=== PATIENT | female | born 1930 | race Caucasian/White ===

== ENCOUNTER → 2016-11-26 | Outpatient (CLI) | payer MEDICARE, BC ==
[~2016-11-26] MED LIST: DENOSUMAB 60 MG/ML 1 ML SYRINGE SQ ONE
[2016-11-26 09:19] VITALS: BP 131/63; PULSE 68; RESP 16; TEMP 98.6
== END ==
LOC: PROCWHC3 08:52
PROVIDERS: ATTEND Family Medicine
DX: M81.0 Age-related osteoporosis without current pathological fracture (principal)
CPT/HCPCS: 96372; J0897

== ENCOUNTER → 2017-01-05 | Outpatient (CLI) | payer MEDICARE, BC ==
[2017-01-05 13:20] LABS: Blood Urea Nitrogen 12 mg/dL (7-17); Non-African American GFR(MDRD) 58 (>60 ml/min/1.73 sqM)
--- NOTE | 2017-01-05 14:38 | CT ---
EXAMINATION TYPE: CT facial bones w con DATE OF EXAM: 01/05/2017 COMPARISON: NONE HISTORY: Left sided nasal bone obstruction CT DLP: 591 mGycm Automated exposure control for dose reduction was used. CONTRAST: CT scan of the facial bones is performed with IV Contrast, patient injected with 80 mL of Visipaque 3 20. TECHNIQUE: CT scan of the sinuses is performed without contrast, axial images are obtained, coronal r eformatted images are also reviewed. FINDINGS: The paranasal sinuses including the frontal, ethmoid, sphenoid, and maxillary sinuses bila terally are well-aerated without abnormal opacification. The ostiomeatal complex is patent bilateral ly on the coronal images. Nasal septum is slightly deviated to left of midline. There is slight thickening of nasal bridge part icularly on the left. Findings may reflect product of old trauma. No suspicious soft tissue mass or w orrisome focal lytic or sclerotic lesion is evident. No obstructing mass is clearly seen. 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 No suspicious opacification on the right is present. The globes are i ntact bilaterally. Lenses are thinned. Visualized portion of brain shows generalized atrophy and chr onic small vessel ischemic change. IMPRESSION: The sinuses are clear and the ostiomeatal complex is patent bilaterally. Other findings a s noted above.
== END | disposition home or self-care (01) ==
LOC: RADCTMAIN 12:40
PROVIDERS: ATTEND Otolaryngology
DX: H04.552 Acquired stenosis of left nasolacrimal duct (principal)
CPT/HCPCS: 82565; 84520; 70487; 36415; Q9967

== ENCOUNTER → 2017-02-19 | Outpatient (CLI) | payer MEDICARE, BC ==
--- NOTE | 2017-02-19 07:52 | CT ---
EXAMINATION TYPE: CT brain wo con DATE OF EXAM: 02/19/2017 COMPARISON: NONE HISTORY: Contusion CT DLP: [address] of the brain was performed. The ventricles, basal cisterns and sulci overlying the cerebral convexities demonstrate mild enlargem ent. There is no evidence for intracranial hemorrhage or sulcal effacement. There is decreased attenuation about the periventricular white matter and deep white matter of both c erebral hemispheres, compatible with chronic small vessel ischemia. Differential diagnosis does inclu de demyelination. No mass effects are seen.No midline shift. Osseous calvarium is intact. If symptoms persist consider MRI. IMPRESSION: 1. Age related atrophic and chronic small vessel ischemic change without acute intracranial process s een at this time.
== END | disposition home or self-care (01) ==
LOC: RADCTMAIN 07:19
PROVIDERS: ATTEND Family Medicine
DX: G31.9 Degenerative disease of nervous system, unspecified (principal); I67.82 Cerebral ischemia
CPT/HCPCS: 70450

== ENCOUNTER 2017-02-28 10:32 | Emergency (ER) | payer MEDICARE, BC ==
[2017-02-28] MEDS ORDERED: SODIUM CHLORIDE 0.9% 1,000 ML IV STA (11:01)
--- NOTE | 2017-02-28 11:04 | ED ---
General Adult HPI - General Chief complaint: Back Pain/Injury Stated complaint: back pain Time Seen by Provider: 02/28/17 10:49 Source: patient, family, RN notes reviewed Mode of arrival: ambulatory Limitations: no limitations - History of Present Illness Initial comments: Patient is a pleasant 86-year-old female presenting to the emergency department complaining of right-sided back pain. Onset was a week or 2 ago. Discomfort has been somewhat steady. Discomfort is not positional. Discomfort is right mid to lower back. Below the ribs. No dysuria or hematuria. No abdominal pain. No fevers. Discomfort is somewhat improved with Tylenol and Motrin. No history of discomfort in this region previously. - Related Data Home Medications Medication Instructions Recorded Confirmed Citalopram Hydrobromide 40 mg PO HS 05/22/14 02/28/17 [Citalopram HBr] Cyanocobalamin [Vitamin B-12] 500 mcg PO DAILY 05/22/14 02/28/17 Simvastatin [Zocor] 40 mg PO HS 05/22/14 02/28/17 Aspirin EC [Ecotrin Low Dose] 81 mg PO DAILY 02/28/17 02/28/17 Denosumab [Prolia] 60 mg SQ Q180D 02/28/17 02/28/17 Levothyroxine Sodium [Synthroid] 88 mcg PO DAILY 02/28/17 02/28/17 Magnesium Oxide [Mag-Ox] 400 mg PO DAILY 02/28/17 02/28/17 Mesalamine [Asacol Hd] 800 mg PO DAILY 02/28/17 02/28/17 Multivitamins, Thera [Multivitamin 1 tab PO DAILY 02/28/17 02/28/17 (formulary)] Omeprazole [PriLOSEC] 20 mg PO DAILY 02/28/17 02/28/17 Oxybutynin Xl [Ditropan Xl] 5 mg PO HS 02/28/17 02/28/17 amLODIPine [Norvasc] 5 mg PO DAILY 02/28/17 02/28/17 Allergies Allergy/AdvReac Type Severity Reaction Status Date / Time Penicillins Allergy Intermediate Rash/Hives Verified 02/28/17 10:42 linaclotide [From Linzess] AdvReac Diarrhea Verified 02/28/17 10:42 Narcotics AdvReac Hallucinati Uncoded 02/28/17 12:15 ons Review of Systems ROS Statement: Those systems with pertinent positive or pertinent negative responses have been documented in the HPI. ROS Other: All systems not noted in ROS Statement are negative. Constitutional: Denies: fever Eyes: Denies: eye pain ENT: Denies: ear pain Respiratory: Denies: cough Cardiovascular: Denies: chest pain Endocrine: Denies: fatigue Gastrointestinal: Denies: abdominal pain, nausea, vomiting Genitourinary: Denies: urgency, dysuria, frequency, hematuria Musculoskeletal: Reports: back pain Skin: Denies: rash Neurological: Denies: weakness Past Medical History Past Medical History: GERD/Reflux, Hyperlipidemia, Osteoarthritis (OA), Pneumonia, Thyroid Disorder Additional Past Medical History / Comment(s): STATES HAS DOUBLE VISION, STATES HAS REDDENED,SORE AREA TO TIP OF EAR, History of Any Multi-Drug Resistant Organisms: None Reported Past Surgical History: Appendectomy, Hysterectomy, Tonsillectomy Additional Past Surgical History / Comment(s): BILATERAL CATARACTS. Past Anesthesia/Blood Transfusion Reactions: No Reported Reaction Past Psychological History: Anxiety, Depression Smoking Status: Never smoker Past Alcohol Use History: None Reported Past Drug Use History: None Reported - Past Family History Father Family Medical History: Cancer, Myocardial Infarction (SD) Mother Family Medical History: Cancer, Myocardial Infarction (SD) General Exam Limitations: no limitations General appearance: alert, in no apparent distress Head exam: Present: atraumatic Eye exam: Present: normal appearance, PERRL ENT exam: Present: normal oropharynx Neck exam: Present: normal inspection Respiratory exam: Present: normal lung sounds bilaterally Cardiovascular Exam: Present: regular rate, normal rhythm Expanded Peripheral pulses: 2+: Dorsalis Pedis (R), Dorsalis Pedis (L) GI/Abdominal exam: Present: soft, normal bowel sounds. Absent: distended, tenderness, guarding, rebound, rigid, pulsatile mass Extremities exam: Present: normal inspection Back exam: Present: CVA tenderness (R). Absent: paraspinal tenderness, vertebral tenderness Neurological exam: Present: alert Psychiatric exam: Present: normal affect, normal mood Skin exam: Present: normal color Course Vital Signs 02/28/17 02/28/17 02/28/17 10:40 12:16 13:19 Temperature 97.0 F L Pulse Rate 75 58 L 78 Respiratory 20 18 18 Rate Blood Pressure 124/57 159/67 123/60 O2 Sat by Pulse 98 99 95 Oximetry Medical Decision Making - Medical Decision Making Patient reexamined and resting comfortably in bed. Patient updated on results and need for follow-up. Patient is informed that she should consider having endoscopy done. - Lab Data Result diagrams: 02/28/17 11:11 02/28/17 11:11 Lab Results 02/28/17 02/28/17 02/28/17 Range/Units 11:11 11:11 11:11 WBC 5.1 (3.8-10.6) k/uL RBC 3.34 L (3.80-5.40) m/uL Hgb 10.6 L (11.4-16.0) gm/dL Hct 31.3 L (34.0-46.0) % MCV 93.7 (80.0-100.0) fL MCH 31.7 (25.0-35.0) pg MCHC 33.8 (31.0-37.0) g/dL RDW 14.1 (11.5-15.5) % Plt Count 195 (150-450) k/uL Neutrophils % (Manual) 44.0 % Band Neutrophils % 1.0 % Lymphocytes % (Manual) 43.0 % Monocytes % (Manual) 7.0 % Eosinophils % (Manual) 5.0 % Nucleated RBCs 0 (0-0) /100 WBC Polychromasia Present PT 10.6 (9.0-12.0) sec INR 1.0 (<1.2) APTT 23.8 (22.0-30.0) sec Sodium 139 (137-145) mmol/L Potassium 4.1 (3.5-5.1) mmol/L Chloride 103 (98-107) mmol/L Carbon Dioxide 25 (22-30) mmol/L Anion Gap 11 mmol/L BUN 10 (7-17) mg/dL Creatinine 0.80 (0.52-1.04) mg/dL Est GFR (MDRD) Af Amer >60 (>60 ml/min/1.73 sqM) Est GFR (MDRD) Non-Af >60 (>60 ml/min/1.73 sqM) Glucose 129 H (74-99) mg/dL Calcium 9.4 (8.4-10.2) mg/dL Total Bilirubin 0.4 (0.2-1.3) mg/dL AST 28 (14-36) U/L ALT 31 (9-52) U/L Alkaline Phosphatase 41 (38-126) U/L Total Protein 6.5 (6.3-8.2) g/dL Albumin 3.7 (3.5-5.0) g/dL Amylase 57 (30-110) U/L Lipase 43 (23-300) U/L Urine Color Urine Appearance (Clear) Urine pH (5.0-8.0) Ur Specific [place] (1.001-1.035) Urine Protein (Negative) Urine Glucose (UA) (Negative) Urine Ketones (Negative) Urine Blood (Negative) Urine Nitrite (Negative) Urine Bilirubin (Negative) Urine Urobilinogen (<2.0) mg/dL Ur Leukocyte Esterase (Negative) 02/28/17 Range/Units 12:05 WBC (3.8-10.6) k/uL RBC (3.80-5.40) m/uL Hgb (11.4-16.0) gm/dL Hct (34.0-46.0) % MCV (80.0-100.0) fL MCH (25.0-35.0) pg MCHC (31.0-37.0) g/dL RDW (11.5-15.5) % Plt Count (150-450) k/uL Neutrophils % (Manual) % Band Neutrophils % % Lymphocytes % (Manual) % Monocytes % (Manual) % Eosinophils % (Manual) % Nucleated RBCs (0-0) /100 WBC Polychromasia PT (9.0-12.0) sec INR (<1.2) APTT (22.0-30.0) sec Sodium (137-145) mmol/L Potassium (3.5-5.1) mmol/L Chloride (98-107) mmol/L Carbon Dioxide (22-30) mmol/L Anion Gap mmol/L BUN (7-17) mg/dL Creatinine (0.52-1.04) mg/dL Est GFR (MDRD) Af Amer (>60 ml/min/1.73 sqM) Est GFR (MDRD) Non-Af (>60 ml/min/1.73 sqM) Glucose (74-99) mg/dL Calcium (8.4-10.2) mg/dL Total Bilirubin (0.2-1.3) mg/dL AST (14-36) U/L ALT (9-52) U/L Alkaline Phosphatase (38-126) U/L Total Protein (6.3-8.2) g/dL Albumin (3.5-5.0) g/dL Amylase (30-110) U/L Lipase (23-300) U/L Urine Color Light Yellow Urine Appearance Clear (Clear) Urine pH 6.5 (5.0-8.0) Ur Specific [place] 1.002 (1.001-1.035) Urine Protein Negative (Negative) Urine Glucose (UA) Negative (Negative) Urine Ketones Negative (Negative) Urine Blood Negative (Negative) Urine Nitrite Negative (Negative) Urine Bilirubin Negative (Negative) Urine Urobilinogen <2.0 (<2.0) mg/dL Ur Leukocyte Esterase Negative (Negative) - Radiology Data Radiology results: report reviewed (Computed tomography scan of the abdomen pelvis shows possible enteritis/colitis.), image reviewed (Abdominal x-ray shows some air-fluid levels) Disposition Clinical Impression: Flank pain Disposition: HOME SELF-CARE Condition: Stable Instructions: Abdominal Pain (ED), Acute Low Back Pain (ED) Additional Instructions: Please follow-up with your doctor in the next couple of days for recheck. Consider having endoscopy done. Return for fevers, increased pain, vomiting, worsening symptoms or other concerns. Referrals: Kayla Gamez MD [Primary Care Provider] - 1-2 days Time of Disposition: 13:30
[2017-02-28 11:34] LABS: Aty Lym Flag Slight; CH 30.7; HCT 31.3 % (34.0-46.0); HDW 2.21; HGB 10.6 gm/dL (11.4-16.0); MCH 31.7 pg (25.0-35.0); MCHC 33.8 g/dL (31.0-37.0); MCV 93.7 fL (80.0-100.0); Mean Platelet Volume 7.5; RBC 3.34 m/uL (3.80-5.40); RDW 14.1 % (11.5-15.5); WBC 5.1 k/uL (3.8-10.6); WBC (Perox) 4.98
[2017-02-28 11:35] LABS: ALT 31 U/L (9-52); AST 28 U/L (14-36); Alkaline Phosphatase 41 U/L (38-126); Amylase 57 U/L (30-110); Anion Gap 11 mmol/L; Blood Urea Nitrogen 10 mg/dL (7-17); Calcium 9.4 mg/dL (8.4-10.2); Carbon Dioxide 25 mmol/L (22-30); Chloride 103 mmol/L (98-107); Glucose 129 mg/dL (74-99); Non-African American GFR(MDRD) >60 (>60 ml/min/1.73 sqM); Potassium 4.1 mmol/L (3.5-5.1); Sodium 139 mmol/L (137-145); Total Bilirubin 0.4 mg/dL (0.2-1.3); Total Protein 6.5 g/dL (6.3-8.2)
[2017-02-28 11:38] LABS: Partial Thromboplastin Time 23.8 sec (22.0-30.0); Prothrombin Time 10.6 sec (9.0-12.0)
[2017-02-28 11:49] LABS: Add Differential Manual Differential
[2017-02-28 11:51] LABS: Nucleated Red Blood Cells 0 /100 WBC (0-0); Polychromasia Present; Total Cells Counted 100
--- NOTE | 2017-02-28 11:51 | XR ---
Abdomen HISTORY: Abdominal Pain Frontal view of the abdomen submitted, no comparisons Lung bases are clear. There are air-fluid levels present. No pneumoperitoneum. Degenerative disc hale ges in the visualized spine. There may be compression deformity superior endplate L2. IMPRESSION: Findings could represent enteritis or ileus, follow-up as indicated should bowel obstruct ion be suspected clinically. Additional findings above.
[2017-02-28 12:13] LABS: Appearance,Urine Clear (Clear); Bilirubin,Urine Negative (Negative); Glucose,Urine (UA) Negative (Negative); Ketones,Urine Negative (Negative); Leukocyte Esterase,Urine Negative (Negative); Nitrite,Urine Negative (Negative); PH, Urine 6.5 (5.0-8.0); Protein,Urine Negative (Negative); Specific Gravity,Urine 1.002 (1.001-1.035); UA Billing (MACRO vs. MICRO) CHEM; Urobilinogen,Urine <2.0 mg/dL (<2.0)
[2017-02-28 12:17] VITALS: RESP 18
[2017-02-28] MEDS ORDERED: RX INFO: IV CONTRAST WAS GIVEN 1 EACH MISC MISCELLANE PRN (12:34)
--- NOTE | 2017-02-28 13:26 | CT ---
EXAMINATION TYPE: CT abdomen pelvis w con DATE OF EXAM: 02/28/2017 COMPARISON: Chest radiograph 05/04/[address] pelvis 01/12/2011. HISTORY: 86-year-old female with back pain for 3 weeks and history of colitis. TECHNIQUE: Contiguous axial scanning of the abdomen and pelvis following administration of 100 ml Omn ipaque 300 IV contrast. Delayed images through the kidneys and coronal/sagittal reconstructions perf ormed. CT DLP: 401.7 mGycm Automated exposure control for dose reduction was used. FINDINGS: The heart is normal size without pericardial effusion. Dependent areas of atelectasis in the lower lashonda ngs. No pleural effusion. No focal liver lesion. There is dilatation of the bile duct at 8 mm but with normal distal tapering. Findings likely within normal limits given patient's age. Small hiatal hernia. Adrenal glands, spleen, and pancreas show no gross abnormality. There is mild bilateral pelvicaliectasis, likely transient given symmetric uptake and excretion of co ntrast from the kidneys. No mesenteric or retroperitoneal lymphadenopathy. No dilated small bowel, free fluid, or free air. However, prominent fluid-filled small bowel loops ar e present in the lower abdomen and pelvis with liquid stool in the colon. Mild circumferential wall t hickening of the mid to distal sigmoid may be due to incomplete distention. No abnormal fluid collection in the pelvis or pelvic lymphadenopathy. Bladder is urine distended. Bones: Old fracture deformities of the right superior and inferior pubic rami and bilateral sacral al ar. Degenerative changes of the hips and within the lower lumbar spine with prominent grade 1, nearly grade 2 anterolisthesis at L4-L5 and chronic vertebral compression deformity of L1. There is mild re tropulsion into the spinal canal at this level. IMPRESSION: 1. PROMINENT FLUID-FILLED SMALL BOWEL LOOPS IN THE LOWER ABDOMEN AND PELVIS AND LIQUID STOOL WITHIN T HE COLON. CORRELATE FOR ENTERITIS. 2. MILD WALL THICKENING OF THE MID TO DISTAL SIGMOID COULD BE DUE TO UNDERDISTENTION OR A CONCURRENT COLITIS. 3. NO EVIDENCE FOR BOWEL OBSTRUCTION.
[2017-02-28 13:54] VITALS: BP 145/66; PULSE 65; TEMP 97.8
== END 2017-02-28 13:54 | disposition home or self-care (01) ==
LOC: EC 10:32
DX: R10.9 Unspecified abdominal pain (principal); M54.6 Pain in thoracic spine; M54.5 Low back pain; K21.9 Gastro-esophageal reflux disease without esophagitis; E78.5 Hyperlipidemia, unspecified; M19.90 Unspecified osteoarthritis, unspecified site; E07.9 Disorder of thyroid, unspecified; F41.9 Anxiety disorder, unspecified; F32.9 Major depressive disorder, single episode, unspecified; Z79.82 Long term (current) use of aspirin; Z79.899 Other long term (current) drug therapy; Z88.0 Allergy status to penicillin; Z88.5 Allergy status to narcotic agent; Z88.8 Allergy status to other drugs, medicaments and biological substances
CPT/HCPCS: 36415; 80053; 82150; 83690; 85025; 85610; 85730; 81003; 74000; 74177; 99284; 96360; 96361 ×2; Q9967

== ENCOUNTER → 2017-12-01 | Outpatient (CLI) | payer MEDICARE, BC ==
[2017-12-01 09:58] VITALS: BP 131/59; PULSE 70; RESP 16; TEMP 97.7
== END | disposition home or self-care (01) ==
LOC: PROCWHC3 09:35
PROVIDERS: ATTEND Family Medicine
DX: M81.0 Age-related osteoporosis without current pathological fracture (principal)
CPT/HCPCS: 96372; J0897

== ENCOUNTER → 2018-06-06 | Outpatient (CLI) | payer MEDICARE, BC ==
[2018-06-06 10:20] VITALS: BP 131/59; PULSE 80; RESP 18; TEMP 97.7
== END | disposition home or self-care (01) ==
LOC: PROCWHC3 10:06
PROVIDERS: ATTEND Family Medicine
DX: M81.0 Age-related osteoporosis without current pathological fracture (principal)
CPT/HCPCS: 96372; J0897

== ENCOUNTER → 2018-12-05 | Outpatient (CLI) | payer MEDICARE, BC ==
[2018-12-05 10:14] VITALS: BP 147/69; PULSE 66; RESP 18; TEMP 97.6
== END ==
LOC: PROCWHC3 09:59
PROVIDERS: ATTEND Family Medicine
DX: M81.0 Age-related osteoporosis without current pathological fracture (principal)
CPT/HCPCS: 96372; J0897

== ENCOUNTER 2018-12-29 10:06 | Day surgery (SDC) | payer MEDICARE, BC ==
[2018-12-28 10:25] VITALS: BMI 22.8
[~2018-12-29 10:06] MED LIST changes: -DENOSUMAB 60 MG/ML 1 ML SYRINGE SQ ONE; +LACTATED RINGERS 1,000 ML IV SCH; +LIDOCAINE 1% 20 ML VIAL (10MG/ML) FOR IV START INTRADERMA PRN
[2018-12-29] MEDS ORDERED: LACTATED RINGERS 1,000 ML IV ONE (10:25)
[2018-12-29] MEDS ORDERED: LIDOCAINE 1% 20 ML VIAL (10MG/ML) FOR IV START INTRADERMA ONE (10:25)
[2018-12-29 10:29] VITALS: TEMP 97.7
[2018-12-29] MEDS ORDERED: PROPOFOL 10 MG/ML 20 ML VIAL IV ONE (10:59)
--- NOTE | 2018-12-29 11:33 | P.PCN ---
Date of Procedure: 12/29/18 Description of Procedure: BRIEF HISTORY: 88-year-old female with a medical history significant for thyroid disease, dyslipidemia, hypertension and reported history of colitis was seen in the office after hospitalization with complaints of change in bowel habits and worsened diarrhea. The patient was reporting 4-5 nonbloody bowel movements daily. She also had associated periumbilical abdominal pain. She reports being diagnosed with colitis in 2010 and being on treatment with Asacol 800 mg twice daily. Computed tomography scan in the hospital showed a fluid-filled distended colon. Multiple stool studies in the past have been negative for any infection. PROCEDURE PERFORMED: Colonoscopy with biopsy. PREOPERATIVE DIAGNOSIS: Change in bowel habits, reported history of colitis. ESTIMATED BLOOD LOSS: Minimal. IV sedation per Anesthesia. PROCEDURE: After informed consent was obtained, the patient, was brought into the endoscopy unit. IV sedation was administered by Anesthesia under continuous monitoring. Digital rectal examination was normal. Initially the Olympus CF-190 flexible video colonoscope was then inserted in the rectum, gradually advanced into the cecum without any difficulty. The terminal ileum was intubated and appeared normal, and was biopsied. Careful examination was performed as the scope was gradually being withdrawn. Ileocecal valve and the appendiceal orifice were visualized and appeared normal. Prep was excellent. Mucosa of the cecum, ascending colon, transverse colon, descending colon, sigmoid colon, and rectum appeared normal, with biopsies of the right colon, transverse colon, left colon and rectum taken. Retroflexion was performed in the rectum and no lesions were seen, large internal hemorrhoids were seen. The patient tolerated the procedure well. IMPRESSION: Normal-appearing colon from rectum to cecum, terminal ileum also appeared normal. Random biopsies of the terminal ileum, right colon, transverse colon, left colon and rectum to rule out microscopic colitis. Large internal hemorrhoids. RECOMMENDATIONS: Findings of this examination were discussed with the patient and daughter. Continue Asacol therapy for now. Follow up with gastroenterology as previously scheduled. Pathology from biopsies. Further recommendations pending findings of pathology.
[2018-12-29 11:37] VITALS: RESP 20
[2018-12-29 11:54] VITALS: BP 124/67; PULSE 55
== END 2018-12-29 12:10 | disposition home or self-care (01) ==
LOC: ORWHC2ENDO 10:06
PROVIDERS: ATTEND Internal Medicine
DX: K52.831 Collagenous colitis (principal); K64.8 Other hemorrhoids; E78.5 Hyperlipidemia, unspecified; I10 Essential (primary) hypertension; K21.9 Gastro-esophageal reflux disease without esophagitis; H53.2 Diplopia; E07.9 Disorder of thyroid, unspecified; Z98.42 Cataract extraction status, left eye; Z98.41 Cataract extraction status, right eye; Z79.899 Other long term (current) drug therapy; Z88.0 Allergy status to penicillin; Z88.8 Allergy status to other drugs, medicaments and biological substances; Z79.82 Long term (current) use of aspirin; Z79.890 Hormone replacement therapy
CPT/HCPCS: 88305; 88313; 45380; J2704

== ENCOUNTER → 2019-02-10 | Outpatient (CLI) | payer MEDICARE, BC ==
--- NOTE | 2019-02-10 14:19 | MR ---
EXAMINATION TYPE: MR brain/orbits wo/w con DATE OF EXAM: 02/10/2019 COMPARISON: MRI brain May 05, 2016 HISTORY: Diplopia / / Contusion TECHNIQUE: Multiplanar, multisequence images of the brain and brainstem as well as orbits are all performed with out and with IV contrast, utilizing 6 mL intravenous Gadavist . FINDINGS: Diffusion weighted images demonstrate no evidence of a recent infarct or other diffusion ab normality. There is no worrisome extra-axial fluid collection. There is diffuse ventricular and sulc al prominence. There are scattered focal and confluent areas of T2 hyperintensity seen throughout the white matter bilaterally most prominent in the periventricular levels redemonstrated. Midline structures redemonstrate normal morphology. The craniocervical junction appears within tammy l limits. Post contrast images demonstrate no new abnormal enhancement. Hypoplastic left A1 segment is once again suspected. The dural venous sinuses appear patent. The visualized sinuses are clear. P atchy left-sided opacification remains present. Some artifact at the level of inferior nasal septum n oted. The globes are intact bilaterally. Rectus muscles are symmetric and felt within normal limits. Supras ellar cistern is maintained. Optic chiasm is not effaced. No suspicious enhancement is evident. IMPRESSION: Redemonstration of mild to moderate diffuse cerebral atrophy and moderate to advanced chr onic small vessel ischemic change. No suspicious enhancement. No suspicious new findings seen to acco unt for patient's symptoms from prior MRI.
== END | disposition home or self-care (01) ==
LOC: RADMRIMAIN 13:03
PROVIDERS: ATTEND Family Medicine
DX: G31.9 Degenerative disease of nervous system, unspecified (principal); I67.82 Cerebral ischemia
CPT/HCPCS: 70543; 70553; A9585

== ENCOUNTER 2019-04-04 16:01 | Emergency (ER) | payer MEDICARE, BC ==
[2019-04-04 16:07] VITALS: RESP 18; TEMP 98
--- NOTE | 2019-04-04 16:25 | ED ---
Upper Extremity HPI - General Chief Complaint: Extremity Injury, Upper Stated Complaint: Fall, Poss broken finger Time Seen by Provider: 04/04/19 16:12 Source: patient Mode of arrival: wheelchair Limitations: no limitations - History of Present Illness Initial Comments: This 88-year-old female presents emergency Department chief complaint of left hand fifth digit injury. Patient states she was out gardening states that she tripped and fell striking her hand. Patient states she only has pain there is no pain pain or wrist pain. Denies any head injury no loss conscious. Patient states she has no associated paresthesias. Patient is right-hand dominant. Patient states is notable bruising and swelling. - Related Data Home Medications Medication Instructions Recorded Confirmed Citalopram Hydrobromide 40 mg PO HS 05/22/14 12/28/18 [Citalopram HBr] Cyanocobalamin [Vitamin B-12] 500 mcg PO 1200 05/22/14 12/28/18 Aspirin EC [Ecotrin Low Dose] 81 mg PO DAILY 02/28/17 12/28/18 Denosumab [Prolia] 60 mg SQ Q180D 02/28/17 12/28/18 Levothyroxine Sodium [Synthroid] 88 mcg PO DAILY 02/28/17 12/28/18 Magnesium Oxide [Mag-Ox] 400 mg PO 1200 02/28/17 12/28/18 Mesalamine [Asacol Hd] 800 mg PO 1700,2200 02/28/17 12/28/18 amLODIPine [Norvasc] 5 mg PO DAILY 02/28/17 12/28/18 Cholecalciferol (Vitamin D3) 2,000 unit PO 1200 12/05/18 12/28/18 [Vitamin D3] Lansoprazole 30 mg PO HS 12/05/18 12/28/18 Melatonin 10 mg PO HS 12/05/18 12/28/18 Pravastatin Sodium [Pravachol] 40 mg PO HS 12/05/18 12/28/18 Allergies Allergy/AdvReac Type Severity Reaction Status Date / Time Penicillins Allergy Intermediate Rash/Hives Verified 04/04/19 16:07 linaclotide [From Linzess] AdvReac Diarrhea Verified 04/04/19 16:07 Narcotics AdvReac Hallucinati Uncoded 04/04/19 16:07 ons Review of Systems ROS Statement: Those systems with pertinent positive or pertinent negative responses have been documented in the HPI. ROS Other: All systems not noted in ROS Statement are negative. Past Medical History Past Medical History: GERD/Reflux, Hyperlipidemia, Hypertension, Osteoarthritis (OA), Pneumonia, Thyroid Disorder Additional Past Medical History / Comment(s): STATES HAS DOUBLE VISION, colitis, recent bladder infection History of Any Multi-Drug Resistant Organisms: None Reported Past Surgical History: Appendectomy, Hysterectomy, Tonsillectomy Additional Past Surgical History / Comment(s): BILATERAL CATARACTS. sinus/blocked tear duct surgery, D&C x 2, surgery for fx nose, cyst removed from left ear, Past Anesthesia/Blood Transfusion Reactions: Postoperative Nausea & Vomiting (PONV) Additional Past Anesthesia/Blood Transfusion Reaction / Comment(s): "took two days to come out" (after hysterectomy) Past Psychological History: Anxiety Smoking Status: Never smoker Past Alcohol Use History: None Reported Past Drug Use History: None Reported - Past Family History Sister(s) Family Medical History: Cancer Additional Family Medical History / Comment(s): breast, colon Brother(s) Family Medical History: Cancer General Exam Limitations: no limitations General appearance: alert, in no apparent distress Head exam: Present: atraumatic, normocephalic, normal inspection Eye exam: Present: normal appearance, PERRL, EOMI. Absent: scleral icterus, conjunctival injection, periorbital swelling Neck exam: Present: normal inspection, full ROM. Absent: tenderness, meningismus, lymphadenopathy Respiratory exam: Present: normal lung sounds bilaterally. Absent: respiratory distress, wheezes, rales, rhonchi, stridor Cardiovascular Exam: Present: regular rate, normal rhythm, normal heart sounds. Absent: systolic murmur, diastolic murmur, rubs, gallop, clicks Extremities exam: Present: other (Left hand fifth digit there is notable swelling and deformity, cap refill less than 2 seconds.) Skin exam: Present: warm, dry, intact Course Vital Signs 04/04/19 16:05 Temperature 98.0 F Pulse Rate 76 Respiratory 18 Rate Blood Pressure 131/70 O2 Sat by Pulse 96 Oximetry Procedures - Orthopedic Fracture Reduction Fracture #1 Consent Obtained: verbal consent Side: left Fracture Reduction Location: finger (Fifth) Analgesia: digital block Technique: direct manipulation Post Reduction X-rays Demonstrate: acceptable reduction Post-Reduction Neuro Exam: intact Post-Reduction Vascular Exam: intact Splint Applied: Yes Patient Tolerated Procedure: well, no complications Medical Decision Making - Medical Decision Making 88-year-old female presented from it for left finger injury. Patient noted to have fracture with angulation. This was numbed, reduced and splinted. Patient will follow-up with orthopedics. Disposition Clinical Impression: Displaced fracture of phalanx of finger Disposition: HOME SELF-CARE Condition: Stable Instructions (If sedation given, give patient instructions): Finger Fracture (ED) Additional Instructions: Please return to the Emergency Department if symptoms worsen or any other concerns. Is patient prescribed a controlled substance at d/c from ED?: No Referrals: Kayla Gamez MD [Primary Care Provider] - 1-2 days Wilfrido Velazquez DO [Medical Doctor] - 1-2 days
[2019-04-04] MEDS ORDERED: LIDOCAINE 1% INJ 10MG/ML (20 ML MDV) SQ ONE (16:38)
--- NOTE | 2019-04-04 17:13 | XR ---
EXAMINATION TYPE: XR finger LT, 3 views coned down fifth finger. DATE OF EXAM: 04/04/2019 Comparison: None Clinical History: 88-year-old female with Pain after fall Findings: There is a transverse fracture with brent dorsal angulation just beyond the base of the fifth proxima l phalanx. Mild comminution with small fracture fragments in the vicinity. No subluxation or dislocat ion is seen. Impression: Transverse, frankly angulated fracture of the fifth proximal phalanx with small comminuted fracture f ragments just adjacent.
[2019-04-04 17:21] VITALS: BP 129/78; PULSE 70
--- NOTE | 2019-04-04 17:56 | XR ---
PROCEDURE: XR finger LT - 3V post reduction DATE AND TIME: 04/04/2019 4:58 PM CLINICAL INDICATION: PHH; Pain TECHNIQUE: Department protocol COMPARISON: 04/04/2019 at 4:34 PM FINDINGS: There is evidence of improvement in the alignment pattern of the proximal phalanx fracture of the fifth finger. IMPRESSION: Postreduction 3 views
== END 2019-04-04 17:21 | disposition home or self-care (01) ==
LOC: EC 16:01
DX: S62.617A Displaced fracture of proximal phalanx of left little finger, initial encounter for closed fracture (principal); K21.9 Gastro-esophageal reflux disease without esophagitis; E78.5 Hyperlipidemia, unspecified; I10 Essential (primary) hypertension; E07.9 Disorder of thyroid, unspecified; F41.9 Anxiety disorder, unspecified; Z79.890 Hormone replacement therapy; Z79.82 Long term (current) use of aspirin; Z79.899 Other long term (current) drug therapy; Z88.0 Allergy status to penicillin; Z88.5 Allergy status to narcotic agent; Z88.8 Allergy status to other drugs, medicaments and biological substances; W01.198A Fall on same level from slipping, tripping and stumbling with subsequent striking against other object, initial encounter; Y93.H2 Activity, gardening and landscaping; Y92.007 Garden or yard of unspecified non-institutional (private) residence as the place of occurrence of the external cause
CPT/HCPCS: 73140; 99283; 26725; J2001

== ENCOUNTER → 2019-04-10 | Outpatient (CLI) | payer MEDICARE, BC ==
[2019-04-10 15:49] LABS: Basophils # (A) 0.1 k/uL (0-0.2); Basophils % (A) 1 %; Eosinophils # (A) 0.1 k/uL (0-0.7); Eosinophils % (A) 2 %; HCT 37.1 % (34.0-46.0); HGB 11.8 gm/dL (11.4-16.0); Lymphocytes # (A) 2.2 k/uL (1.0-4.8); Lymphocytes % (A) 33 %; MCH 30.2 pg (25.0-35.0); MCHC 31.9 g/dL (31.0-37.0); MCV 94.4 fL (80.0-100.0); Mean Platelet Volume 6.9; Monocytes # (A) 0.4 k/uL (0-1.0); Monocytes % (A) 7 %; Neutrophils # (A) 3.6 k/uL (1.3-7.7); Neutrophils % (A) 54 %; Platelet Count 222 k/uL (150-450); RBC 3.92 m/uL (3.80-5.40); RDW 13.6 % (11.5-15.5); WBC 6.5 k/uL (3.8-10.6)
[2019-04-10 15:59] LABS: Calcium 9.7 mg/dL (8.4-10.2); Potassium 4.5 mmol/L (3.5-5.1); Total Bilirubin 0.2 mg/dL (0.2-1.3); Total Protein 7.3 g/dL (6.3-8.2)
--- NOTE | 2019-04-10 16:04 | XR ---
EXAMINATION TYPE: XR chest 2V DATE OF EXAM: 04/10/2019 COMPARISON: NONE HISTORY: Shortness of breath TECHNIQUE: Frontal and lateral views of the chest are obtained. FINDINGS: Scattered senescent parenchymal changes noted. Hyperinflation compatible with COPD. No evidence for infiltrate. No evidence for atelectasis. Heart size is stable. Mediastinal structures are stable and grossly unremarkable. No evidence for hilar prominence. Degenerative changes dorsal spine. IMPRESSION: 1. No evidence for acute pulmonary disease.
[2019-04-10 16:06] LABS: INR 0.9 (<1.2); Prothrombin Time 9.7 sec (9.0-12.0)
[2019-04-10 16:13] LABS: T4, Free (Free Thyroxine) 1.6 ng/dL (0.78-2.19)
[2019-04-10 16:51] LABS: Erythrocyte Sedimentation Rate 44 mm/hr (0-20)
[2019-04-11 00:08] LABS: Hemoglobin A1C 5.5 % (4.0-6.0)
== END | disposition home or self-care (01) ==
LOC: LABPAT 14:24
PROVIDERS: ATTEND Family Medicine
DX: Z01.818 Encounter for other preprocedural examination (principal); Z01.812 Encounter for preprocedural laboratory examination; M48.061 Spinal stenosis, lumbar region without neurogenic claudication; R73.03 Prediabetes; E03.9 Hypothyroidism, unspecified; G43.909 Migraine, unspecified, not intractable, without status migrainosus
CPT/HCPCS: 36415; 71046; 80053; 82550; 83036; 84439; 84443; 85025; 85610; 85652

== ENCOUNTER 2019-04-11 07:27 | Day surgery (SDC) | payer MEDICARE, BC ==
[2019-04-07 15:46] VITALS: BMI 24.4
[~2019-04-11 07:27] MED LIST changes: +ONDANSETRON 4 MG/2 ML VIAL IVP ONE
[2019-04-11 08:00] VITALS: RESP 16; TEMP 98.1
[2019-04-11] MEDS ORDERED: fentaNYL (PF) 50 MCG/ML 2 ML AMP ONE (08:49)
[2019-04-11] MEDS ORDERED: MIDAZOLAM 2 MG/2 ML VIAL ONE (08:49)
[2019-04-11] MEDS ORDERED: LIDOCAINE 1% INJ 10MG/ML (20 ML MDV) ONE (08:49)
[2019-04-11] MEDS ORDERED: PROPOFOL 10 MG/ML 20 ML VIAL IV ONE (08:49)
[2019-04-11] MEDS ORDERED: ROPIVACAINE 5MG/ML 20ML VIAL MISCELLANE ONE ×2 (09:07)
[2019-04-11] MEDS ORDERED: LIDOCAINE 1% INJ 10MG/ML (20 ML MDV) SQ ONE ×2 (09:07)
[2019-04-11 10:38] VITALS: BP 117/65; PULSE 76
--- NOTE | 2019-04-11 10:50 | XR ---
Left finger HISTORY: Fracture 5 intraoperative C-arm images document the procedure.
--- NOTE | 2019-04-11 10:50 | FL ---
Fluoroscopy HISTORY: Fracture 1 minute 16 seconds fluoroscopy time supplied to the referring clinician. 5 intraoperative C-arm lorraine ges document the procedure. See dictated report from orthopedic surgery.
--- NOTE | 2019-04-11 12:08 | P.OP ---
Date of Procedure: 04/11/19 Preoperative Diagnosis: Displaced fracture of the left small finger proximal phalanx Postoperative Diagnosis: Displaced fracture of the left small finger proximal phalanx Procedure(s) Performed: Closed reduction and percutaneous pinning of displaced left small finger proximal phalanx fracture Implants: 0.045 K wires (2) Anesthesia: MAC, local Surgeon: Wilfrido Velazquez Fiscal Analyst #1: Jazmin Henderson Estimated Blood Loss (ml): 1 Condition: stable Disposition: same day Indications for Procedure: The patient is a very pleasant 88-year-old female who sustained a displaced fracture of her left small finger proximal phalanx after a fall in her garden. Treatment options (and associated risks and benefits) were discussed in the office. Based on the fracture pattern and amount of displacement, surgical treatment was recommended with initial plan of closed reduction and K wire fixation versus formal open reduction and internal fixation. In preop, the patient denied any additional questions or concerns and wished to proceed with surgery. Consent forms were signed. The operative site was confirmed and marked. Description of Procedure: The patient was brought to the operating suite by the anesthesia team and positioned supine with the operative limb on an arm board. All bony prominences were well-padded. Monitored anesthesia was administered uneventfully. Prophylactic IV antibiotics were administered. A tourniquet was placed on the operative arm but was not inflated. Utilizing aseptic technique, I administered an ulnar nerve block at the wrist using 1% lidocaine and 0.5% ropivacaine, both without epinephrine. The hand was then prepped and draped in standard, sterile fashion. A timeout was performed, confirming patient identifiers, the operative side, the site and the procedure to be performed: all team members expressed agreement. The fracture was evaluated on multiple views using intraoperative fluoroscopy. The fracture was transverse across the proximal metaphysis with a very small proximal fragment. There was minimal deformity on the PA view but significant residual extension/angulation on the lateral. A manual reduction was performed. Repeat imaging demonstrated excellent initial alignment. The decision was made to proceed with percutaneous fixation. A 0.045 K wire was percutaneously inserted proximally. The starting point at the ulnar base of the proximal phalanx was localized on imaging. With the fracture held reduced, the K wire was advanced antegrade down the medullary canal. Position was confirmed on orthogonal views. Fracture was still grossly unstable. A second K wire was selected and inserted in the same fashion from the radial side of the digit. Both wires were advanced until abutting the endosteal surface distally but was not advanced through the cortex. Both wires achieved solid purchase. Final x-rays were obtained which revealed excellent reduction of the fracture. The finger was then stressed under live fluoroscopy - no motion was appreciated at the fracture site. Good hemostasis was maintained throughout the case without the need for the tourniquet. The pins were cut and covered with Jurgan balls. A soft, sterile dressing was applied, with the hand in the intrinsic plus position. All sponge, needle and instrument counts were correct at the end of the case. The patient tolerated the procedure well and was taken to the recovery room in stable condition.
== END 2019-04-11 10:54 | disposition home or self-care (01) ==
LOC: OR 07:27
PROVIDERS: ATTEND Orthopaedic Surgery
DX: S62.617A Displaced fracture of proximal phalanx of left little finger, initial encounter for closed fracture (principal); I12.9 Hypertensive chronic kidney disease with stage 1 through stage 4 chronic kidney disease, or unspecified chronic kidney disease; N18.3 Chronic kidney disease, stage 3 (moderate); E78.5 Hyperlipidemia, unspecified; F32.9 Major depressive disorder, single episode, unspecified; E03.9 Hypothyroidism, unspecified; K52.831 Collagenous colitis; J84.10 Pulmonary fibrosis, unspecified; M81.0 Age-related osteoporosis without current pathological fracture; M48.061 Spinal stenosis, lumbar region without neurogenic claudication; H53.2 Diplopia; Z88.0 Allergy status to penicillin; Z90.89 Acquired absence of other organs; Z90.49 Acquired absence of other specified parts of digestive tract; Z90.710 Acquired absence of both cervix and uterus; Z98.42 Cataract extraction status, left eye; Z98.41 Cataract extraction status, right eye; Z98.890 Other specified postprocedural states; Z97.3 Presence of spectacles and contact lenses; Z79.890 Hormone replacement therapy; Z79.899 Other long term (current) drug therapy; Z87.19 Personal history of other diseases of the digestive system; Z91.048 Other nonmedicinal substance allergy status; Z78.0 Asymptomatic menopausal state; Z83.3 Family history of diabetes mellitus; Z82.49 Family history of ischemic heart disease and other diseases of the circulatory system; W18.30XA Fall on same level, unspecified, initial encounter; Y93.H2 Activity, gardening and landscaping
CPT/HCPCS: 26727; 73140; C1713; J2250; J0690; J2405; J2001; J3010; J2704; J2795

== ENCOUNTER → 2019-04-20 | Outpatient (CLI) | payer MEDICARE, BC | END | disposition home or self-care (01) | LOC: LABWHC1 12:47 | PROVIDERS: ATTEND Orthopaedic Surgery | DX: E55.9 Vitamin D deficiency, unspecified (principal); M79.645 Pain in left finger(s); S62.617D Displaced fracture of proximal phalanx of left little finger, subsequent encounter for fracture with routine healing | CPT/HCPCS: 36415; 82306 ==

== ENCOUNTER → 2019-06-08 | Outpatient (CLI) | payer MEDICARE, BC ==
[~2019-06-08] MED LIST changes: +DENOSUMAB 60 MG/ML 1 ML SYRINGE SQ ONE; -LACTATED RINGERS 1,000 ML IV SCH; -LIDOCAINE 1% 20 ML VIAL (10MG/ML) FOR IV START INTRADERMA PRN; -ONDANSETRON 4 MG/2 ML VIAL IVP ONE
[2019-06-08 11:19] VITALS: BP 120/63; PULSE 63; RESP 18; TEMP 98
== END | disposition home or self-care (01) ==
LOC: PROCWHC3 10:54
PROVIDERS: ATTEND Family Medicine
DX: M81.0 Age-related osteoporosis without current pathological fracture (principal)
CPT/HCPCS: 96372; J0897

== ENCOUNTER → 2019-12-11 | Outpatient (CLI) | payer MEDICARE, BC ==
[2019-12-11 11:21] VITALS: BP 105/61; PULSE 65; RESP 18; TEMP 98.4
== END | disposition home or self-care (01) ==
LOC: PROCWHC3 10:56
PROVIDERS: ATTEND Family Medicine
DX: M81.0 Age-related osteoporosis without current pathological fracture (principal)
CPT/HCPCS: 96372; J0897

== ENCOUNTER → 2020-05-10 | Outpatient (CLI) | payer MEDICARE, BC ==
--- NOTE | 2020-05-10 17:41 | CT ---
EXAMINATION TYPE: CT neck chest w con DATE OF EXAM: 05/10/2020 2:00 PM COMPARISON: 02/28/2017 CT abdomen pelvis. HISTORY: Cough, sore throat. Nodules of vocal cords. CT DLP: 488.3 mGycm Automated exposure control for dose reduction was used. CONTRAST: CT scan of the neck is performed following with IV Contrast, patient injected with 80 mL of Isovue 30 0. Axial images are obtained, coronal and sagittal reformatted images are reviewed. FINDINGS: NECK: Airway: There is asymmetric soft tissue of the supraglottic hypopharynx with obliteration of the left inferior aspect of the piriform sinus (4:42), without discrete mass. Parotid/submandibular glands: Atrophic. Carotid/Vascular Structures: Patent. Osseous Structures: Degenerative changes of the spine. Grade 1 anterolisthesis of C4 on C5 and of C6 on C7. Other: No cervical lymphadenopathy. CHEST: There is interstitial fibrotic coarsening, predominantly of the lung bases, with scattered areas of g roundglass opacity. Mild bronchiectasis. No suspicious pulmonary nodule or mass. Tracheobronchial hung e is patent. Cardiac size normal. No pericardial effusion. Calcified coronary artery disease. No thoracic aortic a neurysm. No axillary, hilar, or mediastinal lymphadenopathy. Small hiatal hernia. Normal adrenal glands. Redemonstrated moderate superior endplate compression def ormity of L1, not significant changed from 02/28/2017 CT comparison. IMPRESSION: 1. Asymmetric supraglottic soft tissue with obliteration of the left piriform sinus, without discrete mass. Recommend correlation with direct visualization. 2. Interstitial coarsening of the bilateral lungs, with scattered groundglass opacities and mild bron chiectasis.
== END | disposition home or self-care (01) ==
LOC: RADCTMAIN 12:52
PROVIDERS: ATTEND Otolaryngology
DX: J47.9 Bronchiectasis, uncomplicated (principal); R91.8 Other nonspecific abnormal finding of lung field; R05 Cough; Z88.0 Allergy status to penicillin; J38.2 Nodules of vocal cords
CPT/HCPCS: 82565; 84520; 70491; 71260; 36415; Q9967

== ENCOUNTER → 2020-06-18 | Outpatient (CLI) | payer MEDICARE, BC ==
[~2020-06-18] MED LIST changes: +DENOSUMAB 60 MG/ML 1 ML SYRINGE SQ NR; -DENOSUMAB 60 MG/ML 1 ML SYRINGE SQ ONE
[2020-06-18 11:16] VITALS: BP 133/62; PULSE 66; RESP 16; TEMP 97.7
== END | disposition home or self-care (01) ==
LOC: PROCWHC3 10:56
PROVIDERS: ATTEND Family Medicine
DX: M81.0 Age-related osteoporosis without current pathological fracture (principal)
CPT/HCPCS: 96372; J0897

== ENCOUNTER → 2020-06-26 | Outpatient (CLI) | payer MEDICARE, BC ==
--- NOTE | 2020-06-26 14:41 | XR ---
EXAMINATION TYPE: XR chest 2V DATE OF EXAM: 06/26/2020 COMPARISON: Chest x-ray April 10, 2019. CT chest May 10, 2020. HISTORY: Elevated d-dimer. Shortness of breath. TECHNIQUE: Frontal and lateral views of the chest are obtained. FINDINGS: There is chronic parenchymal change bilaterally without suspicious focal air space opacity , pleural effusion, or pneumothorax seen. Some eventration of right hemidiaphragm redemonstrated. The cardiac silhouette size remains within normal limits with atherosclerotic change aortic knob. The osseous structures remain demineralized. IMPRESSION: Chronic changes without acute pulmonary process. No significant change from prior studie s.
--- NOTE | 2020-06-26 16:21 | NM ---
EXAMINATION TYPE: NM pul vent and perfuse DATE OF EXAM: 06/26/2020 COMPARISON: Chest radiograph 06/26/2020. CT chest 05/10/2020. HISTORY: Abnormal coagulation profile TECHNIQUE: Utilizing inhalation of 32.1 mCi Tc 99m DTPA aerosol and intravenous injection of 5.1 mCi of Tc 99m MAA, ventilation and perfusion images are acquired post injection in multiple projections. FINDINGS: Basilar predominance of the aerosol radiotracer seen on ventilatory images, consistent with emphysema tous changes of the bilateral lungs. Normal perfusion radiotracer distribution is noted in the lungs. There is no evidence of mismatched defects. IMPRESSION: 1. Normal VQ scan with no perfusion defects. 2. Emphysematous change.
== END | disposition home or self-care (01) ==
LOC: RADNMMAIN 14:11
PROVIDERS: ATTEND Family Medicine
DX: J43.9 Emphysema, unspecified (principal)
CPT/HCPCS: 71046; 78582; A9540; A9567

== ENCOUNTER → 2020-06-28 | Outpatient (CLI) | payer MEDICARE, BC ==
--- NOTE | 2020-06-28 20:13 | PE ---
EXAMINATION TYPE: PET CT fusion skull to thigh DATE OF EXAM: 06/28/2020 COMPARISON: CT neck and chest May 10, 2020 HISTORY: Abnormal CT, solitary pulmonary nodule. TECHNIQUE: Following the intravenous administration of 12.3 mCi of F-18 FDG, whole body images are p erformed from the skull base to the midthigh. Images are reviewed on the computer in the coronal, ax ial, and sagittal planes. Reconstructed rotating images are created on independent workstation and r eviewed on the computer. A noncontrast CT is performed in conjunction with the PET scan. Blood gluc ose level equals 97. SCAN: Initial Scan FINDINGS: SKULL BASE AND NECK: No areas of suspicious hypermetabolic uptake. Symmetric uptake at level of voca l cords. CHEST, MEDIASTINUM, AND HILAR REGION: Basilar mild to moderate fibrotic change is redemonstrated with small subpleural nodules along the right middle lobe for reference image 101 and 103 measuring up to 6 mm long axis. No abnormal hypermetabolic uptake. ABDOMEN AND PELVIS: No abnormal hypermetabolic uptake. OSSEOUS STRUCTURES: No abnormal hypermetabolic uptake. OTHER CT: [id number] calcified plaque in the ectatic abdominal aorta. Mild to moderate multilevel vacuum disc phenomena and disc space narrowing in the lumbar spine. Grade 1 anterolisthesis L4 and L5. Facet arthropathy lower lumbar levels. Mild height loss with prominent Schmorl node at the L1 level redemonstrated. IMPRESSION: No suspicious hypermetabolic uptake to suggest malignancy. Consider CT follow-up for surv eillance in 1 year time for small basilar nodules.
== END | disposition home or self-care (01) ==
LOC: RADPETMAIN 15:52
PROVIDERS: ATTEND Internal Medicine Pulmonary Disease
DX: R91.1 Solitary pulmonary nodule (principal)
CPT/HCPCS: 78815; A9552

== ENCOUNTER 2020-07-18 06:20 | Day surgery (SDC) | payer MEDICARE, BC ==
[2020-07-16 13:28] VITALS: BMI 23.4
[~2020-07-18 06:20] MED LIST changes: +CLINDAMYCIN 600 MG in DEXTROSE 5% IN WATER 50 ML IVPB PRN; -DENOSUMAB 60 MG/ML 1 ML SYRINGE SQ NR; +DEXAMETHASONE SOD PHOSPHATE 4 MG/ML 1 ML VIAL IV ONE; +FAMOTIDINE 20 MG/2 ML VIAL IV PRN; +LACTATED RINGERS 1,000 ML IV SCH; +LIDOCAINE 1% (10MG/ML) FOR IV START INTRADERMA PRN; +MORPHINE SULFATE 4 MG/ML SYRINGE IV PRN; +ONDANSETRON 4 MG/2 ML VIAL IVP ONE
[2020-07-18] MEDS ORDERED: SUCCINYLCHOLINE CHLORIDE 100 MG/5 ML SYR IV ONE (07:17)
[2020-07-18] MEDS ORDERED: PROPOFOL 10 MG/ML 20 ML VIAL IV ONE (07:17)
[2020-07-18] MEDS ORDERED: LIDOCAINE 1% INJ 10MG/ML (20 ML MDV) ONE (07:17)
[2020-07-18] MEDS ORDERED: fentaNYL (PF) 50 MCG/ML 2 ML AMP ONE (07:17)
--- NOTE | 2020-07-18 08:14 | P.OP ---
Date of Procedure: 07/18/20 Preoperative Diagnosis: Left piriform sinus fullness and epiglottic mass Postoperative Diagnosis: Same Procedure(s) Performed: Direct microscopic laryngoscopy with biopsy of the left piriform sinus and right epiglottis lingual surface Anesthesia: GETA Surgeon: Fransisco Olvera Estimated Blood Loss (ml): 5 Pathology: other (As above) Condition: stable Disposition: PACU Indications for Procedure: This patient had a CAT scan of the neck demonstrating fullness to the left pir iform sinus. Biopsy is recommended. All risks, benefits, and alternative therapies were discussed. Consent was obtained and all questions were answered. Operative Findings: Patient was found to have a cystic mass to the lingual surface of the right epiglottis and a little fullness noted to the left piriform sinus. No discrete piriform sinus mass was noted Description of Procedure: Patient was taken to the operative room and placed in the supine position. A general inhalation anesthetic was administered to the patient by mask and subsequently intubated with a cuffed endotracheal tube by the department of anesthesia with a functioning IV line in place. Patient was monitored throughout the entire case by the department of anesthesia. A gum guard was placed and a Jako laryngoscope was placed into the patient's mouth with care to avoid any trauma to the gums and mucosa. Her base of tongue vallecula epiglottis true and false vocal cords postcricoid space piriform sinus lateral pharynx etc. etc. was examined. We examine specifically the left piriform sinus were no discrete mass was noted but a biopsy was taken to the fullness in that region. There is also a cystic mass of the epiglottis which is noted on the right side on the lingual surface which was removed. We did place the laryngoscope on suspension and the vocal cords were magnified with a 250 and 400 mm Leica microscope. No tumors or masses were noted on the vocal cords. The patient tolerated this well. All instrumentation was removed and the patient was taken to postanesthesia recovery in excellent condition.
[2020-07-18 08:21] VITALS: TEMP 97.4
[2020-07-18] MEDS ORDERED: RACEPINEPHRINE 2.25% NEB 0.5 ML NEBU INHALATION ONE (08:23)
[2020-07-18] MEDS ORDERED: DEXAMETHASONE SOD PHOSPHATE 10 MG/ML 1 ML VIAL PO ONE (08:25)
[2020-07-18] MEDS ORDERED: methylPREDNISolone SOD SUCCI 125 MG/2 ML VIAL IVP ONE (08:28)
[2020-07-18 08:46] VITALS: RESP 16
[2020-07-18] MEDS ORDERED: FAMOTIDINE 20 MG/2 ML VIAL IV SCH (09:00)
[2020-07-18 10:14] VITALS: BP 103/54; PULSE 75
--- NOTE | 2020-07-22 16:23 | CDI ---
Date: 07.22.2020 CDS/Terrazzo Roller Name: Sanjana Jean Phone: If any questions, call aNty [place]osa Primary Teacher at [phone] Patient Name: Darline Arguelles Admit Date 07.18.20 Discharge Date: 07.18.20 ATTENTION: The [facility] Coding Staff appreciate your assistance in clarifying documentation. Please respond to the clarification below the line at the bottom and electronically sign. The [facility] Coding staff will review the response and follow-up if needed. Please note: Queries are made part of the Legal Health Record. If you have any questions, please contact the Primary Teacher. Dear Dr. Olvera In order to code to the greatest specificity and for the greatest reimbursement I need the following information: In your procedure note under procedures performed you have documented laryngoscopy with biopsy of the left piriform sinus and right epiglottis lingual surface, then in the description of the procedure you have documented There is also a cystic mass of the epiglottis which is noted on the right side on the lingual surface which was removed. Please clarify whether the cystic mass was biopsied or removed. it was removed for biopsy purpose. So yes, it was removed, then sent for pathology (biopsy). Excisional biopsy. Thank you for your kind consideration. it was removed for biopsy purpose. So yes, it was removed, then sent for pathology (biopsy). Excisional biopsy. [facility] BROTHERS MEDICAL CENTERDejah
== END 2020-07-18 10:37 | disposition home or self-care (01) ==
LOC: OR 06:20
PROVIDERS: ATTEND Otolaryngology
DX: J38.7 Other diseases of larynx (principal); J37.0 Chronic laryngitis; K21.9 Gastro-esophageal reflux disease without esophagitis; D64.9 Anemia, unspecified; M19.90 Unspecified osteoarthritis, unspecified site; H26.9 Unspecified cataract; F32.9 Major depressive disorder, single episode, unspecified; E78.00 Pure hypercholesterolemia, unspecified; M81.0 Age-related osteoporosis without current pathological fracture; E07.9 Disorder of thyroid, unspecified; H53.9 Unspecified visual disturbance; H91.13 Presbycusis, bilateral; I10 Essential (primary) hypertension; E78.5 Hyperlipidemia, unspecified; J45.909 Unspecified asthma, uncomplicated; Z91.040 Latex allergy status; Z88.0 Allergy status to penicillin; Z88.8 Allergy status to other drugs, medicaments and biological substances; Z88.5 Allergy status to narcotic agent; Z87.09 Personal history of other diseases of the respiratory system; Z98.890 Other specified postprocedural states; Z98.49 Cataract extraction status, unspecified eye; Z90.710 Acquired absence of both cervix and uterus; Z90.89 Acquired absence of other organs; Z79.899 Other long term (current) drug therapy; Z79.82 Long term (current) use of aspirin; Z79.52 Long term (current) use of systemic steroids; Z79.891 Long term (current) use of opiate analgesic; Z79.890 Hormone replacement therapy; Z97.2 Presence of dental prosthetic device (complete) (partial); Z82.61 Family history of arthritis; Z82.62 Family history of osteoporosis; Z81.8 Family history of other mental and behavioral disorders; Z83.49 Family history of other endocrine, nutritional and metabolic diseases; Z83.79 Family history of other diseases of the digestive system; Z83.3 Family history of diabetes mellitus; Z83.42 Family history of familial hypercholesterolemia; Z82.1 Family history of blindness and visual loss
CPT/HCPCS: 31536; 31541; 88305; J1100 ×2; J2930; J2405; J2001; J3010; J0330; J2704

== ENCOUNTER → 2020-09-23 | Outpatient (CLI) | payer MEDICARE, BC ==
--- NOTE | 2020-09-23 18:45 | CT ---
EXAMINATION TYPE: CT soft tissue neck w con DATE OF EXAM: 09/23/2020 COMPARISON: PET CT 06/28/[address] neck 05/10/2020. HISTORY: 89-year-old female, follow-up R09.81 Piriform sinus fullness. R22.1, neck mass. TECHNIQUE: Contiguous axial scanning of the soft tissues of the neck performed with IV Contrast, fitz ent injected with 80ml mL of Isovue 300. Coronal/sagittal reconstructions performed. CT DLP: 315.5 mGycm Automated exposure control for dose reduction was used. FINDINGS: Mild/moderate metastatic calcifications within the carotid siphons. Leftward nasal septal deviation. Visualized orbits and globes, paranasal sinuses are clear. Partial opacification inferior left mastoi d air cells. Nasopharynx and oropharynx appear clear. There is unchanged asymmetric soft tissue effacement of the left piriform sinus, axial image 58 but n o discrete enhancing mass identified. Epiglottis and prevertebral soft tissues are satisfactory. Glottic and subglottic structures as well as the tracheal column are clear. Visualized lungs show biapical pleural-parenchymal scarring. There are new groundglass changes throug hout the visualized right lung. The thyroid gland is small. The bilateral parotid and submandibular glands are also small. No suspicious cervical lymphadenopathy or mass is otherwise identified. Advanced hypertrophic facet arthropathy throughout, particularly on the right when grade 1, nearly gr alexis 2 anterolisthesis at C4-C5 and grade 2 anterolisthesis at C6-C7. IMPRESSION: 1. UNCHANGED ASYMMETRIC SOFT TISSUE EFFACEMENT OF THE LEFT PIRIFORM SINUS BUT WITHOUT ANY DISCRETE EN HANCING MASS. IN THE ABSENCE OF ANY LESION ON DIRECT INSPECTION, FINDINGS SUGGEST NORMAL SOFT TISSUE REDUNDANCY IN THIS PATIENT. 2. ATROPHIC SALIVARY GLANDS. 3. NEW GROUNDGLASS OPACITIES THROUGHOUT THE RIGHT LUNG. CORRELATE FOR POSSIBLE ETIOLOGIES INCLUDING H YPERSENSITIVITY PNEUMONITIS, INTERSTITIAL PNEUMONITIS, AND ATYPICAL PNEUMONIA INCLUDING COVID PNEUMON IA.
== END | disposition home or self-care (01) ==
LOC: RADCTMAIN 13:19
PROVIDERS: ATTEND Otolaryngology
DX: R93.89 Abnormal findings on diagnostic imaging of other specified body structures (principal); K11.0 Atrophy of salivary gland; R93.0 Abnormal findings on diagnostic imaging of skull and head, not elsewhere classified; R09.81 Nasal congestion; Z88.0 Allergy status to penicillin
CPT/HCPCS: 82565; 84520; 70491; 36415; Q9967

== ENCOUNTER → 2020-11-08 | Outpatient (CLI) | payer MEDICARE, BC ==
--- NOTE | 2020-11-09 13:36 | CT ---
EXAMINATION TYPE: CT chest wo con DATE OF EXAM: 11/08/2020 COMPARISON: 05/10/2020 HISTORY: Dyspnea CT DLP: 135.70 mGycm, Automated exposure control for dose reduction was used. CONTRAST: Performed injected with 0 mL of Isovue 300. TECHNIQUE: Axial images were obtained at 5 mm thick sections. Reconstructed images are reviewed on [employer] computer in the coronal plane. FINDINGS: Portion of the thyroid visualized is normal. There are groundglass opacities present scattered through the bilateral lung lerma. A 0.2 cm nodules within the right middle lobe. Series 4 image 24. Small peripheral densities at the same level measur es 0.2 cm. 0.4 cm densities in the periphery of the right lung. Series 4 image 29. There may be a nod ule in the posterior lateral right lung base measuring 0.5 cm. Series 4 image 37. 0.3 cm nodule may b e in the periphery of the left posterior lateral lung. Series 4 image 43. No enlarged mediastinal or hilar adenopathy is evident. The ascending aorta diameter at the level o f the main pulmonary artery is 3.1 cm. The main pulmonary artery diameter at the bifurcation is 2.4 cm. Coronary artery calcification is present. Limited CT sections are obtained through the upper abdomen. Abdomen is essentially unremarkable. IMPRESSIONS: 1. Scattered groundglass opacities worsening from comparison. Couple small nodules may be present. Fi ndings are nonspecific. Infectious etiologies and neoplastic processes can have this appearance.
== END | disposition home or self-care (01) ==
LOC: RADCTMAIN 10:54
PROVIDERS: ATTEND Internal Medicine Pulmonary Disease
DX: R91.8 Other nonspecific abnormal finding of lung field (principal)
CPT/HCPCS: 71250

== ENCOUNTER → 2020-12-04 | Outpatient (CLI) | payer MEDICARE, BC ==
--- NOTE | 2020-12-04 13:07 | CT ---
EXAMINATION TYPE: CT abdomen pelvis w con DATE OF EXAM: 12/04/2020 HISTORY: Oliguria, back pain, abdominal mass. CT DLP: 833mGycm Automated Exposure Control for Dose Reduction was Utilized. CONTRAST: CT scan of the abdomen and pelvis is performed with IV Contrast, patient injected with 80 mL of Isovu e M300. COMPARISON: CT abdomen and pelvis February 28, 2017. PET CT June 28, 2020 FINDINGS: LUNG BASES: Mild to moderate reticulation and fibrotic changes in the bases redemonstrated. No suspic ious new or enlarging greater than 6 mm nodules. LIVER/GB: No significant abnormality is appreciated. PANCREAS: No significant abnormality is seen. SPLEEN: No significant abnormality is seen. ADRENALS: No significant abnormality is seen. KIDNEYS: Symmetric cortical measuring uptake and excretion without hydronephrosis seen bilaterally. S uggestion of abnormal mass along the anterior-inferior bladder wall axial image 75 measuring 2.0 x 1. 6 cm. This appears to blend with the dominant lower uterine segment or cervix. Similar appearance to recent PET CT fusion axial image 213. Consider further investigation with cystoscopy based on clinica l correlation. I suspect this is likely external to the bladder. BOWEL: Mild to moderate wall thickening at level of left and sigmoid colon up to rectum. No suspiciou s small or large bowel dilatation. Oral contrast reaches the rectum. UTERUS/ADNEXA: Uterus is surgically absent. LYMPH NODES: No greater than 1cm abdominal or pelvic lymph nodes are appreciated. OSSEOUS STRUCTURES: Kdiq-wo-zgxgmihi height loss with sclerosis involving the L1 vertebra superior en dplate and anterior margin unchanged from prior PET/CT and CT. Grade 1 anterolisthesis L4 on L5. Grad e 1 retrolisthesis T12 on L1. Multilevel disc space narrowing and vacuum disc phenomenon. Multilevel facet arthropathy in the lower lumbar spine. Old fracture deformities of the right inferior superior pelvic rami redemonstrated. Old healed fractures through the sacrum again seen. OTHER: Moderate calcified plaque of the ectatic aorta extends into branch vessels. IMPRESSION: Suspect mild uncomplicated acute distal colitis. No bowel obstruction. Correlate clinical ly. No suspicious new mass or adenopathy clearly seen.
== END | disposition home or self-care (01) ==
LOC: RADCTMAIN 11:18
PROVIDERS: ATTEND Family Medicine
DX: M54.5 Low back pain (principal); R34 Anuria and oliguria
CPT/HCPCS: 82565; 84520; 74177; 36415; Q9967

== ENCOUNTER 2020-12-16 11:24 | Emergency (ER) | payer MEDICARE, BC ==
[2020-12-16 11:31] VITALS: RESP 18; TEMP 97
[2020-12-16 12:38] LABS: Basophils % (A) 0 %; Eosinophils # (A) 0.1 k/uL (0-0.7); Eosinophils % (A) 1 %; HCT 31.8 % (34.0-46.0); HGB 10.8 gm/dL (11.4-16.0); Lymphocytes # (A) 1.3 k/uL (1.0-4.8); Lymphocytes % (A) 12 %; MCH 30.8 pg (25.0-35.0); MCHC 33.9 g/dL (31.0-37.0); MCV 90.9 fL (80.0-100.0); Mean Platelet Volume 7.1; Monocytes # (A) 0.5 k/uL (0-1.0); Monocytes % (A) 5 %; Neutrophils # (A) 8.2 k/uL (1.3-7.7); Neutrophils % (A) 80 %; Platelet Count 204 k/uL (150-450); RBC 3.49 m/uL (3.80-5.40); RDW 15.8 % (11.5-15.5); WBC 10.3 k/uL (3.8-10.6)
--- NOTE | 2020-12-16 12:42 | XR ---
EXAMINATION TYPE: XR chest 2V DATE OF EXAM: 12/16/2020 COMPARISON: Chest CT November 08, 2020. Chest x-ray June 26, 2020. HISTORY: Weakness and leg pain. TECHNIQUE: Frontal and lateral views of the chest are obtained. FINDINGS: There is chronic parenchymal change with right basilar opacity. The cardiac silhouette si ze is stable and within normal limits. The osseous structures are intact. IMPRESSION: Chronic changes with possible right basilar acute infiltrate and/or atelectasis versus s carring, correlate clinically.
--- NOTE | 2020-12-16 12:46 | ED ---
General Adult HPI - General Chief complaint: Weakness Stated complaint: leg pain/weakness/sent by PCP Time Seen by Provider: 12/16/20 11:35 Source: patient Mode of arrival: wheelchair Limitations: no limitations - History of Present Illness Initial comments: 89-year-old female with a past medical history of GERD, hyperlipidemia, hypertension, cystitis presents to the emergency room for a several complaints. Patient reports that over the past several months she has felt increasingly weak. States that she has had pain in her bilateral legs and she is unsure why. Patient reports she has a spot on her bladder and she needs to see a urologist for this. States that she denies has trouble urinating and has recurrent urinary tract infections. Patient also feels somewhat short of breath with ambulation which has been ongoing for quite a while. She denies chest pain associated with this.Patient has no other complaints at this time including [address] pain, abdominal pain, nausea or vomiting, headache, or visual changes. - Related Data Home Medications Medication Instructions Recorded Confirmed Cyanocobalamin [Vitamin B-12] 500 mcg PO DAILY@1200 05/22/14 12/16/20 Denosumab [Prolia] 60 mg SQ Q180D 02/28/17 12/16/20 Levothyroxine Sodium [Synthroid] 88 mcg PO QAM 02/28/17 12/16/20 Magnesium Oxide [Mag-Ox] 400 mg PO DAILY@1200 02/28/17 12/16/20 amLODIPine [Norvasc] 5 mg PO QAM 02/28/17 12/16/20 Pravastatin Sodium [Pravachol] 40 mg PO HS 12/05/18 12/16/20 RX: Melatonin 10 mg PO HS 12/05/18 12/16/20 Montelukast Sodium [Singulair] 10 mg PO HS 06/18/20 12/16/20 RX: Aspirin 81 mg PO BID 07/16/20 12/16/20 Albuterol Nebulized [Ventolin 2.5 mg INHALATION RT-TID PRN 12/16/20 12/16/20 Nebulized] Cholecalciferol [Vitamin D3 (25 50 mcg PO DAILY 12/16/20 12/16/20 Mcg = 1000 Iu)] Lidocaine 5% Patch [Lidoderm] 1 patch TOPICAL DAILY 12/16/20 12/16/20 Mirabegron [Myrbetriq] 12.5 mg PO DAILY 12/16/20 12/16/20 metroNIDAZOLE [Flagyl] 500 mg PO TID 12/16/20 12/16/20 Previous Rx's Medication Instructions Recorded RX: Azithromycin [Zithromax Z-pack 250 mg PO DIRECTED #6 tab 12/16/20 (6 tabs)] Allergies Allergy/AdvReac Type Severity Reaction Status Date / Time Penicillins Allergy Intermediate Rash/Hives Verified 12/16/20 12:42 linaclotide [From Linzess] AdvReac Diarrhea Verified 12/16/20 12:42 Narcotics AdvReac Hallucinati Uncoded 12/16/20 12:42 ons Review of Systems ROS Statement: Those systems with pertinent positive or pertinent negative responses have been documented in the HPI. ROS Other: All systems not noted in ROS Statement are negative. Past Medical History Past Medical History: GERD/Reflux, Hyperlipidemia, Hypertension, Osteoarthritis (OA), Pneumonia, Thyroid Disorder Additional Past Medical History / Comment(s): SOB with activity, fx 5th digit left hand-splint on,prednisone March 2019 Hx DOUBLE VISION, colitis,bladder infections History of Any Multi-Drug Resistant Organisms: None Reported Past Surgical History: Appendectomy, Hysterectomy, Tonsillectomy Additional Past Surgical History / Comment(s): BILATERAL CATARACTS. sinus/blocked tear duct surgery, D&C x 2, surgery for fx nose, cyst removed from rt ear Past Anesthesia/Blood Transfusion Reactions: Postoperative Nausea & Vomiting (PONV) Additional Past Anesthesia/Blood Transfusion Reaction / Comment(s): "took two days to come out" (after hysterectomy),no hx blood transfusion Past Psychological History: Anxiety Smoking Status: Never smoker Past Alcohol Use History: None Reported Past Drug Use History: None Reported - Past Family History Father Family Medical History: Cancer, Myocardial Infarction ([place]) Mother Family Medical History: Cancer, Myocardial Infarction ([place]) Sister(s) Family Medical History: Cancer Additional Family Medical History / Comment(s): breast, colon Brother(s) Family Medical History: Cancer General Exam Limitations: no limitations General appearance: alert, in no apparent distress Head exam: Present: atraumatic, normocephalic, normal inspection Eye exam: Present: normal appearance, PERRL, EOMI. Absent: scleral icterus, conjunctival injection, periorbital swelling ENT exam: Present: normal exam, mucous membranes moist Neck exam: Present: normal inspection, full ROM. Absent: tenderness, meningismus, lymphadenopathy Respiratory exam: Present: normal lung sounds bilaterally. Absent: respiratory distress, wheezes, rales, rhonchi, stridor Cardiovascular Exam: Present: regular rate, normal rhythm, normal heart sounds. Absent: systolic murmur, diastolic murmur, rubs, gallop, clicks GI/Abdominal exam: Present: soft, normal bowel sounds. Absent: distended, tenderness, guarding, rebound, rigid Neurological exam: Present: alert, oriented X3 Course Vital Signs 12/16/20 12/16/20 12/16/20 11:27 11:48 12:41 Temperature 97 F L Pulse Rate 89 83 Respiratory 18 18 18 Rate Blood Pressure 109/68 116/72 O2 Sat by Pulse 96 96 Oximetry 12/16/20 13:11 Temperature Pulse Rate 84 Respiratory 18 Rate Blood Pressure 116/59 O2 Sat by Pulse 94 L Oximetry Medical Decision Making - Medical Decision Making Vitals are stable. Patient is well-appearing. CBC and CMP are unremarkable. Urinalysis is negative.: Negative. Chest x-ray did show a slight pneumonia potentially. Patient does have increased weakness with slight redness of breath she will be treated with antibiotics. I did discuss this is a patient who prefers outpatient treatment. States she is supposed to have more outpatient testing including a PET scan, urology follow-up, and echocardiogram. I did speak with the patient's granddaughter who feels comfortable with this. Patient will be referred to urology as this is supposed to be underway with primary care. She will return here for any worsening symptoms. - Lab Data Result diagrams: 12/16/20 12:10 12/16/20 12:10 Lab Results 12/16/20 12/16/20 12/16/20 Range/Units 12:10 12:10 12:10 WBC 10.3 (3.8-10.6) k/uL RBC 3.49 L (3.80-5.40) m/uL Hgb 10.8 L (11.4-16.0) gm/dL Hct 31.8 L (34.0-46.0) % MCV 90.9 (80.0-100.0) fL MCH 30.8 (25.0-35.0) pg MCHC 33.9 (31.0-37.0) g/dL RDW 15.8 H (11.5-15.5) % Plt Count 204 (150-450) k/uL MPV 7.1 Neutrophils % 80 % Lymphocytes % 12 % Monocytes % 5 % Eosinophils % 1 % Basophils % 0 % Neutrophils # 8.2 H (1.3-7.7) k/uL Lymphocytes # 1.3 (1.0-4.8) k/uL Monocytes # 0.5 (0-1.0) k/uL Eosinophils # 0.1 (0-0.7) k/uL Basophils # 0.0 (0-0.2) k/uL PT 10.2 (9.0-12.0) sec INR 0.9 (<1.2) APTT 24.0 (22.0-30.0) sec Sodium (137-145) mmol/L Potassium (3.5-5.1) mmol/L Chloride (98-107) mmol/L Carbon Dioxide (22-30) mmol/L Anion Gap mmol/L BUN (7-17) mg/dL Creatinine (0.52-1.04) mg/dL Est GFR (CKD-EPI)AfAm (>60 ml/min/1.73 sqM) Est GFR (CKD-EPI)NonAf (>60 ml/min/1.73 sqM) Glucose (74-99) mg/dL Plasma Lactic Acid Rodolfo (0.7-2.0) mmol/L Calcium (8.4-10.2) mg/dL Magnesium (1.6-2.3) mg/dL Total Bilirubin (0.2-1.3) mg/dL AST (14-36) U/L ALT (4-34) U/L Alkaline Phosphatase (38-126) U/L Troponin I (0.000-0.034) ng/mL NT-Pro-B Natriuret Pep pg/mL Total Protein (6.3-8.2) g/dL Albumin (3.5-5.0) g/dL Urine Color Light Yellow Urine Appearance Clear (Clear) Urine pH 6.5 (5.0-8.0) Ur Specific [place] 1.010 (1.001-1.035) Urine Protein Negative (Negative) Urine Glucose (UA) Negative (Negative) Urine Ketones Negative (Negative) Urine Blood Negative (Negative) Urine Nitrite Negative (Negative) Urine Bilirubin Negative (Negative) Urine Urobilinogen 0.2 (<2.0) mg/dL Ur Leukocyte Esterase Small (Negative) Urine RBC <1 (0-5) /hpf Urine WBC 1 (0-5) /hpf Coronavirus (PCR) (Not Detectd) 12/16/20 12/16/20 12/16/20 Range/Units 12:10 12:10 12:10 WBC (3.8-10.6) k/uL RBC (3.80-5.40) m/uL Hgb (11.4-16.0) gm/dL Hct (34.0-46.0) % MCV (80.0-100.0) fL MCH (25.0-35.0) pg MCHC (31.0-37.0) g/dL RDW (11.5-15.5) % Plt Count (150-450) k/uL MPV Neutrophils % % Lymphocytes % % Monocytes % % Eosinophils % % Basophils % % Neutrophils # (1.3-7.7) k/uL Lymphocytes # (1.0-4.8) k/uL Monocytes # (0-1.0) k/uL Eosinophils # (0-0.7) k/uL Basophils # (0-0.2) k/uL PT (9.0-12.0) sec INR (<1.2) APTT (22.0-30.0) sec Sodium 134 L (137-145) mmol/L Potassium 4.5 (3.5-5.1) mmol/L Chloride 102 (98-107) mmol/L Carbon Dioxide 28 (22-30) mmol/L Anion Gap 4 mmol/L BUN 14 (7-17) mg/dL Creatinine 1.02 (0.52-1.04) mg/dL Est GFR (CKD-EPI)AfAm 57 (>60 ml/min/1.73 sqM) Est GFR (CKD-EPI)NonAf 49 (>60 ml/min/1.73 sqM) Glucose 107 H (74-99) mg/dL Plasma Lactic Acid Rodolfo 0.6 L (0.7-2.0) mmol/L Calcium 9.2 (8.4-10.2) mg/dL Magnesium 1.7 (1.6-2.3) mg/dL Total Bilirubin 0.5 (0.2-1.3) mg/dL AST 22 (14-36) U/L ALT 12 (4-34) U/L Alkaline Phosphatase 38 (38-126) U/L Troponin I <0.012 (0.000-0.034) ng/mL NT-Pro-B Natriuret Pep pg/mL Total Protein 5.8 L (6.3-8.2) g/dL Albumin 3.2 L (3.5-5.0) g/dL Urine Color Urine Appearance (Clear) Urine pH (5.0-8.0) Ur Specific [place] (1.001-1.035) Urine Protein (Negative) Urine Glucose (UA) (Negative) Urine Ketones (Negative) Urine Blood (Negative) Urine Nitrite (Negative) Urine Bilirubin (Negative) Urine Urobilinogen (<2.0) mg/dL Ur Leukocyte Esterase (Negative) Urine RBC (0-5) /hpf Urine WBC (0-5) /hpf Coronavirus (PCR) (Not Detectd) 12/16/20 12/16/20 Range/Units 12:10 12:10 WBC (3.8-10.6) k/uL RBC (3.80-5.40) m/uL Hgb (11.4-16.0) gm/dL Hct (34.0-46.0) % MCV (80.0-100.0) fL MCH (25.0-35.0) pg MCHC (31.0-37.0) g/dL RDW (11.5-15.5) % Plt Count (150-450) k/uL MPV Neutrophils % % Lymphocytes % % Monocytes % % Eosinophils % % Basophils % % Neutrophils # (1.3-7.7) k/uL Lymphocytes # (1.0-4.8) k/uL Monocytes # (0-1.0) k/uL Eosinophils # (0-0.7) k/uL Basophils # (0-0.2) k/uL PT (9.0-12.0) sec INR (<1.2) APTT (22.0-30.0) sec Sodium (137-145) mmol/L Potassium (3.5-5.1) mmol/L Chloride (98-107) mmol/L Carbon Dioxide (22-30) mmol/L Anion Gap mmol/L BUN (7-17) mg/dL Creatinine (0.52-1.04) mg/dL Est GFR (CKD-EPI)AfAm (>60 ml/min/1.73 sqM) Est GFR (CKD-EPI)NonAf (>60 ml/min/1.73 sqM) Glucose (74-99) mg/dL Plasma Lactic Acid Rodolfo (0.7-2.0) mmol/L Calcium (8.4-10.2) mg/dL Magnesium (1.6-2.3) mg/dL Total Bilirubin (0.2-1.3) mg/dL AST (14-36) U/L ALT (4-34) U/L Alkaline Phosphatase (38-126) U/L Troponin I (0.000-0.034) ng/mL NT-Pro-B Natriuret Pep 506 pg/mL Total Protein (6.3-8.2) g/dL Albumin (3.5-5.0) g/dL Urine Color Urine Appearance (Clear) Urine pH (5.0-8.0) Ur Specific [place] (1.001-1.035) Urine Protein (Negative) Urine Glucose (UA) (Negative) Urine Ketones (Negative) Urine Blood (Negative) Urine Nitrite (Negative) Urine Bilirubin (Negative) Urine Urobilinogen (<2.0) mg/dL Ur Leukocyte Esterase (Negative) Urine RBC (0-5) /hpf Urine WBC (0-5) /hpf Coronavirus (PCR) Not Detected (Not Detectd) Disposition Clinical Impression: Pneumonia Disposition: HOME SELF-CARE Condition: Good Instructions (If sedation given, give patient instructions): Pneumonia (ED) Additional Instructions: Please take antibiotics as directed. Follow-up with your doctor. Make sure your doctor repeats a chest x-ray to make sure that pneumonia is improving in the next several weeks. Return to the emergency room for any worsening symptoms. Prescriptions: RX: Azithromycin [Zithromax Z-pack (6 tabs)] 250 mg PO DIRECTED #6 tab Is patient prescribed a controlled substance at d/c from ED?: No Referrals: Kayla Gamez MD [Primary Care Provider] - 1-2 days Joaquin Lake MD [STAFF PHYSICIAN] - 1-2 days Time of Disposition: 13:42
[2020-12-16 12:50] LABS: Albumin 3.2 g/dL (3.5-5.0); Calcium 9.2 mg/dL (8.4-10.2); Magnesium 1.7 mg/dL (1.6-2.3); Potassium 4.5 mmol/L (3.5-5.1); Total Bilirubin 0.5 mg/dL (0.2-1.3); Total Protein 5.8 g/dL (6.3-8.2)
[2020-12-16 13:20] LABS: RBC,Urine <1 /hpf (0-5); WBC,Urine 1 /hpf (0-5)
[2020-12-16 13:21] LABS: Appearance,Urine Clear (Clear); Color,Urine Light Yellow
[2020-12-16 13:22] LABS: Bilirubin,Urine Negative (Negative); Blood,Urine Negative (Negative); Glucose,Urine (UA) Negative (Negative); Ketones,Urine Negative (Negative); PH, Urine 6.5 (5.0-8.0); Protein,Urine Negative (Negative); Urobilinogen,Urine 0.2 mg/dL (<2.0)
[2020-12-16 13:23] LABS: Leukocyte Esterase,Urine Small (Negative); Nitrite,Urine Negative (Negative)
[2020-12-16 13:26] LABS: INR 0.9 (<1.2); Prothrombin Time 10.2 sec (9.0-12.0)
[2020-12-16] MEDS ORDERED: AZITHROMYCIN 500 MG TAB PO STA (13:40)
[2020-12-16 13:56] VITALS: BP 115/58; PULSE 92
== END 2020-12-16 13:56 | disposition home or self-care (01) ==
LOC: EC 11:24
DX: J18.9 Pneumonia, unspecified organism (principal); K21.9 Gastro-esophageal reflux disease without esophagitis; I10 Essential (primary) hypertension; E78.5 Hyperlipidemia, unspecified; M19.90 Unspecified osteoarthritis, unspecified site; Z90.89 Acquired absence of other organs; Z90.710 Acquired absence of both cervix and uterus; Z90.09 Acquired absence of other part of head and neck; Z79.82 Long term (current) use of aspirin
CPT/HCPCS: 36415; 71046; 80053; 81001; 83605; 83735; 83880; 84484; 85025; 85610; 85730; 87635; 93005; 99285

== ENCOUNTER → 2020-12-17 | Outpatient (CLI) | payer MEDICARE, BC ==
[~2020-12-17] MED LIST changes: -CLINDAMYCIN 600 MG in DEXTROSE 5% IN WATER 50 ML IVPB PRN; +DENOSUMAB 60 MG/ML 1 ML SYRINGE SQ ONE; -DEXAMETHASONE SOD PHOSPHATE 4 MG/ML 1 ML VIAL IV ONE; -FAMOTIDINE 20 MG/2 ML VIAL IV PRN; -LACTATED RINGERS 1,000 ML IV SCH; -LIDOCAINE 1% (10MG/ML) FOR IV START INTRADERMA PRN; -MORPHINE SULFATE 4 MG/ML SYRINGE IV PRN; -ONDANSETRON 4 MG/2 ML VIAL IVP ONE
[2020-12-17 13:24] VITALS: BP 118/69; PULSE 83; RESP 16; TEMP 98.9
== END ==
LOC: PROCWHC3 13:01
PROVIDERS: ATTEND Family Medicine
DX: M81.0 Age-related osteoporosis without current pathological fracture (principal); Z88.0 Allergy status to penicillin; Z88.5 Allergy status to narcotic agent; Z88.8 Allergy status to other drugs, medicaments and biological substances
CPT/HCPCS: 96372; J0897

== ENCOUNTER 2020-12-19 16:47 | Observation (INO) | payer MEDICARE, BC ==
--- NOTE | 2020-12-19 18:18 | XR ---
EXAMINATION TYPE: XR chest 2V DATE OF EXAM: 12/19/2020 COMPARISON: 12/16/2020 HISTORY: Shortness of breath TECHNIQUE: Frontal and lateral views of the chest are obtained. FINDINGS: Scattered senescent parenchymal changes noted. Hyperinflation compatible with COPD. Persistent patchy density right infrahilar region may reflect underlying pneumonia. Correlate clinica lly and progress studies are recommended. Heart size is stable. Mediastinal structures are stable and grossly unremarkable. No evidence for hilar prominence. Degenerative changes dorsal spine. IMPRESSION: 1. Persistent patchy density right infrahilar region may reflect underlying pneumonia. Correlate clin ically and progress studies are recommended.
[2020-12-19 18:35] LABS: Basophils % (A) 0 %; Eosinophils # (A) 0.1 k/uL (0-0.7); Eosinophils % (A) 1 %; HCT 33.4 % (34.0-46.0); HGB 11.1 gm/dL (11.4-16.0); Lymphocytes # (A) 2.4 k/uL (1.0-4.8); Lymphocytes % (A) 24 %; MCH 30.5 pg (25.0-35.0); MCHC 33.3 g/dL (31.0-37.0); MCV 91.7 fL (80.0-100.0); Mean Platelet Volume 7.2; Monocytes # (A) 0.7 k/uL (0-1.0); Monocytes % (A) 7 %; Neutrophils # (A) 6.5 k/uL (1.3-7.7); Neutrophils % (A) 65 %; Platelet Count 296 k/uL (150-450); RBC 3.64 m/uL (3.80-5.40); RDW 15.7 % (11.5-15.5)
[2020-12-19 18:48] LABS: Albumin 3.7 g/dL (3.5-5.0); Calcium 9.1 mg/dL (8.4-10.2); Potassium 4.2 mmol/L (3.5-5.1); Total Bilirubin 0.2 mg/dL (0.2-1.3); Total Protein 6.4 g/dL (6.3-8.2)
[2020-12-19 18:51] LABS: INR 0.9 (<1.2); Partial Thromboplastin Time 22.8 sec (22.0-30.0); Prothrombin Time 10.2 sec (9.0-12.0)
--- NOTE | 2020-12-19 18:53 | XR ---
EXAMINATION TYPE: XR humerus RT DATE OF EXAM: 12/19/2020 CLINICAL HISTORY: pain COMPARISON: NONE TECHNIQUE: Frontal and lateral images of the right humerus are obtained. FINDINGS: There is no acute fracture/dislocation evident. The joint spaces appear within normal limi ts. The overlying soft tissue appears unremarkable. IMPRESSION: There is no acute fracture or dislocation.ICD 10 NO FRACTURE, INITIAL EVALUATION
[2020-12-19 18:58] LABS: D-Dimer 1.21 mg/L FEU (<0.60)
--- NOTE | 2020-12-19 19:34 | ED ---
General Adult HPI - General Chief complaint: Recheck/Abnormal Lab/Rx Stated complaint: possible blood clots, sent by DR Time Seen by Provider: 12/19/20 17:24 Source: patient, RN notes reviewed Mode of arrival: wheelchair Limitations: no limitations - History of Present Illness Initial comments: This is an 89-year-old female who was sent in for evaluation by her physician due to persistent shortness of breath exertional dyspnea feeling tired falling frequently. She did have elevated d-dimer outpatient laboratory work. Patient herself denies any fevers chills nausea vomiting sweats or cough she does state her fingers chiara cold however. Concern is for a PE patient is having history of renal insufficiency. No other current complaints or modifying factors - Related Data Home Medications Medication Instructions Recorded Confirmed Cyanocobalamin [Vitamin B-12] 500 mcg PO DAILY@1200 05/22/12/17/20 Denosumab [Prolia] 60 mg SQ Q180D 02/28/17 12/17/20 Levothyroxine Sodium [Synthroid] 88 mcg PO QAM 02/28/17 12/17/20 Magnesium Oxide [Mag-Ox] 400 mg PO DAILY@1200 02/28/17 12/17/20 amLODIPine [Norvasc] 5 mg PO QAM 02/28/17 12/17/20 Melatonin 10 mg PO HS 12/05/18 12/17/20 Pravastatin Sodium [Pravachol] 40 mg PO HS 12/05/18 12/17/20 Montelukast Sodium [Singulair] 10 mg PO HS 06/18/20 12/17/20 Aspirin 81 mg PO BID 07/16/20 12/17/20 Albuterol Nebulized [Ventolin 2.5 mg INHALATION RT-TID PRN 12/16/20 12/17/20 Nebulized] Cholecalciferol [Vitamin D3 (25 50 mcg PO DAILY 12/16/20 12/17/20 Mcg = 1000 Iu)] Lidocaine 5% Patch [Lidoderm] 1 patch TOPICAL DAILY 12/16/20 12/17/20 Mirabegron [Myrbetriq] 12.5 mg PO DAILY 12/16/20 12/17/20 metroNIDAZOLE [Flagyl] 500 mg PO TID 12/16/20 12/17/20 Previous Rx's Medication Instructions Recorded Azithromycin [Zithromax Z-pack (6 250 mg PO DIRECTED #6 tab 12/16/20 tabs)] Allergies Allergy/AdvReac Type Severity Reaction Status Date / Time Penicillins Allergy Intermediate Rash/Hives Verified 12/17/20 13:27 linaclotide [From Linzess] AdvReac Diarrhea Verified 12/17/20 13:27 Narcotics AdvReac Hallucinati Uncoded 12/17/20 13:27 ons Review of Systems ROS Statement: Those systems with pertinent positive or pertinent negative responses have been documented in the HPI. ROS Other: All systems not noted in ROS Statement are negative. Past Medical History Past Medical History: GERD/Reflux, Hyperlipidemia, Hypertension, Osteoarthritis (OA), Pneumonia, Thyroid Disorder Additional Past Medical History / Comment(s): SOB with activity, fx 5th digit left hand-splint on,prednisone March 2019 Hx DOUBLE VISION, colitis,bladder infections History of Any Multi-Drug Resistant Organisms: None Reported Past Surgical History: Appendectomy, Hysterectomy, Tonsillectomy Additional Past Surgical History / Comment(s): BILATERAL CATARACTS. sinus/blocke d tear duct surgery, D&C x 2, surgery for fx nose, cyst removed from rt ear Past Anesthesia/Blood Transfusion Reactions: Postoperative Nausea & Vomiting (PONV) Additional Past Anesthesia/Blood Transfusion Reaction / Comment(s): "took two days to come out" (after hysterectomy),no hx blood transfusion Past Psychological History: Anxiety Smoking Status: Never smoker Past Alcohol Use History: None Reported Past Drug Use History: None Reported - Past Family History Father Family Medical History: Cancer, Myocardial Infarction ([place]) Mother Family Medical History: Cancer, Myocardial Infarction ([place]) Sister(s) Family Medical History: Cancer Additional Family Medical History / Comment(s): breast, colon Brother(s) Family Medical History: Cancer General Exam - General Exam Comments Initial Comments: This is a well-developed asthenic appearing female who is awake alert oriented 3 Limitations: no limitations General appearance: alert, in no apparent distress Head exam: Present: atraumatic, normocephalic, normal inspection Eye exam: Present: normal appearance, PERRL, EOMI. Absent: scleral icterus, conjunctival injection, periorbital swelling ENT exam: Present: normal exam, mucous membranes moist Neck exam: Present: normal inspection, full ROM, other. Absent: tenderness, meningismus, lymphadenopathy Respiratory exam: Present: rhonchi (Right lower lobe with decreased breath sounds). Absent: respiratory distress, wheezes, rales, stridor Cardiovascular Exam: Present: regular rate, normal rhythm, normal heart sounds. Absent: systolic murmur, diastolic murmur, rubs, gallop, clicks GI/Abdominal exam: Present: soft, normal bowel sounds. Absent: distended, tenderness, guarding, rebound, rigid Extremities exam: Present: normal inspection, full ROM, normal capillary refill. Absent: tenderness, pedal edema, joint swelling, calf tenderness Back exam: Present: normal inspection Neurological exam: Present: alert, oriented X3, CN II-XII intact Psychiatric exam: Present: normal affect, normal mood Skin exam: Present: warm, dry, intact, normal color. Absent: rash Course Vital Signs 12/19/20 12/19/20 17:02 18:39 Temperature 97.8 F Pulse Rate 91 Respiratory 18 18 Rate Blood Pressure 124/65 O2 Sat by Pulse 95 Oximetry - Reevaluation(s) Reevaluation #1: 12/19/20 19:35 The patient states she fell this morning and complains some pain to her right shoulder x-rays performed no evidence of any fracture or subluxation. EKG Findings - EKG Results: EKG: interpreted by KUNAL, sinus rhythm (Sinus rhythm a 78. Interval 164 QRS 82 QT since QTC 390/453 occasional PACs) Medical Decision Making - Medical Decision Making I did discuss findings with the patient and her daughter as well as with Dr. Gamez earlier. Patient will be admitted VQ scan a venous Doppler will be ordered. Patient be placed on Lovenox - Lab Data Result diagrams: 12/19/20 18:18 12/19/20 18:18 Lab Results 12/19/20 12/19/20 12/19/20 Range/Units 18:18 18:18 18:18 WBC 10.0 (3.8-10.6) k/uL RBC 3.64 L (3.80-5.40) m/uL Hgb 11.1 L (11.4-16.0) gm/dL Hct 33.4 L (34.0-46.0) % MCV 91.7 (80.0-100.0) fL MCH 30.5 (25.0-35.0) pg MCHC 33.3 (31.0-37.0) g/dL RDW 15.7 H (11.5-15.5) % Plt Count 296 (150-450) k/uL MPV 7.2 Neutrophils % 65 % Lymphocytes % 24 % Monocytes % 7 % Eosinophils % 1 % Basophils % 0 % Neutrophils # 6.5 (1.3-7.7) k/uL Lymphocytes # 2.4 (1.0-4.8) k/uL Monocytes # 0.7 (0-1.0) k/uL Eosinophils # 0.1 (0-0.7) k/uL Basophils # 0.0 (0-0.2) k/uL PT 10.2 (9.0-12.0) sec INR 0.9 (<1.2) APTT 22.8 (22.0-30.0) sec D-Dimer 1.21 H (<0.60) mg/L FEU Sodium 134 L (137-145) mmol/L Potassium 4.2 (3.5-5.1) mmol/L Chloride 100 (98-107) mmol/L Carbon Dioxide 26 (22-30) mmol/L Anion Gap 8 mmol/L BUN 12 (7-17) mg/dL Creatinine 1.09 H (0.52-1.04) mg/dL Est GFR (CKD-EPI)AfAm 52 (>60 ml/min/1.73 sqM) Est GFR (CKD-EPI)NonAf 45 (>60 ml/min/1.73 sqM) Glucose 100 H (74-99) mg/dL Plasma Lactic Acid Rodolfo (0.7-2.0) mmol/L Calcium 9.1 (8.4-10.2) mg/dL Magnesium 2.0 (1.6-2.3) mg/dL Total Bilirubin 0.2 (0.2-1.3) mg/dL AST 24 (14-36) U/L ALT 10 (4-34) U/L Alkaline Phosphatase 44 (38-126) U/L Creatine Kinase 44 (30-135) U/L Troponin I (0.000-0.034) ng/mL NT-Pro-B Natriuret Pep pg/mL Total Protein 6.4 (6.3-8.2) g/dL Albumin 3.7 (3.5-5.0) g/dL 05/20/21 05/20/21 05/20/21 Range/Units 18:18 18:18 18:18 WBC (3.8-10.6) k/uL RBC (3.80-5.40) m/uL Hgb (11.4-16.0) gm/dL Hct (34.0-46.0) % MCV (80.0-100.0) fL MCH (25.0-35.0) pg MCHC (31.0-37.0) g/dL RDW (11.5-15.5) % Plt Count (150-450) k/uL MPV Neutrophils % % Lymphocytes % % Monocytes % % Eosinophils % % Basophils % % Neutrophils # (1.3-7.7) k/uL Lymphocytes # (1.0-4.8) k/uL Monocytes # (0-1.0) k/uL Eosinophils # (0-0.7) k/uL Basophils # (0-0.2) k/uL PT (9.0-12.0) sec INR (<1.2) APTT (22.0-30.0) sec D-Dimer (<0.60) mg/L FEU Sodium (137-145) mmol/L Potassium (3.5-5.1) mmol/L Chloride (98-107) mmol/L Carbon Dioxide (22-30) mmol/L Anion Gap mmol/L BUN (7-17) mg/dL Creatinine (0.52-1.04) mg/dL Est GFR (CKD-EPI)AfAm (>60 ml/min/1.73 sqM) Est GFR (CKD-EPI)NonAf (>60 ml/min/1.73 sqM) Glucose (74-99) mg/dL Plasma Lactic Acid Rodolfo 1.0 (0.7-2.0) mmol/L Calcium (8.4-10.2) mg/dL Magnesium (1.6-2.3) mg/dL Total Bilirubin (0.2-1.3) mg/dL AST (14-36) U/L ALT (4-34) U/L Alkaline Phosphatase (38-126) U/L Creatine Kinase (30-135) U/L Troponin I <0.012 (0.000-0.034) ng/mL NT-Pro-B Natriuret Pep 505 pg/mL Total Protein (6.3-8.2) g/dL Albumin (3.5-5.0) g/dL - Radiology Data Radiology results: report reviewed (Image reviewed evidence of persistent right perihilar infiltrate), image reviewed Disposition Clinical Impression: Dyspnea, Elevated d-dimer Disposition: ADMITTED IP TO THIS [facility] Condition: Fair Referrals: Kayla Gamez MD [Primary Care Provider] - 1-2 days
[2020-12-19] MEDS ORDERED: NALOXONE 0.4 MG/ML 1 ML VIAL IV PRN (19:38)
[2020-12-19] MEDS ORDERED: ALBUTEROL NEBULIZED 2.5 MG/3 ML INHALATION PRN (19:39)
[2020-12-19] MEDS ORDERED: ENOXAPARIN 40 MG/0.4 ML SYRINGE SQ STA (19:41)
[2020-12-19] MEDS ORDERED: DENOSUMAB 60 MG/ML 1 ML SYRINGE SQ SCH (19:45)
[2020-12-19] MEDS: SODIUM CHLORIDE 0.9% 1,000 ML IV SCH (20:06)
[2020-12-19] MEDS: PRAVASTATIN SODIUM 40 MG TAB PO SCH (21:24)
[2020-12-19] MEDS: MELATONIN 5 MG TABLET PO SCH (21:24)
[2020-12-19] MEDS: ASPIRIN 81 MG PO SCH (21:24)
[2020-12-19] MEDS: MONTELUKAST 10 MG TAB PO SCH (21:24)
[2020-12-20] MEDS: ACETAMINOPHEN TAB 325 MG TAB PO PRN ×3 (00:09→21:30)
[2020-12-20] MEDS: LEVOTHYROXINE 88 MCG TAB PO SCH (06:05)
[2020-12-20] MEDS ORDERED: ENOXAPARIN 60 MG/0.6 ML SYRINGE SQ SCH (09:00)
--- NOTE | 2020-12-20 09:03 | NM ---
EXAMINATION TYPE: NM pul vent and perfuse DATE OF EXAM: 12/20/2020 COMPARISON: Chest x-ray 12/19/2020, prior nuclear medicine ventilation/perfusion scan 06/26/2020, ches t CT 11/08/2020, CT abdomen pelvis 12/04/2020 HISTORY: Elevated d-dimer, difficult breathing and cough TECHNIQUE: Utilizing inhalation of 35.6 mCi Tc 99m DTPA aerosol and intravenous injection of 5 mCi o f Tc 99m MAA, ventilation and perfusion images are acquired post injection in multiple projections. FINDINGS: Overall the perfusion images show better radio pharmaceutical uptake than the ventilation images. The re is no evidence of mismatched defects. There is some clumping of the radio pharmaceutical ventilati on images at the lung bases. CT scan shows interstitial lung disease change. IMPRESSION: Low probability for pulmonary embolism. Interstitial lung disease, correlate for pneumonia.
[2020-12-20] MEDS: CYANOCOBALAMIN 500 MCG TAB PO SCH (10:12)
[2020-12-20] MEDS: CHOLECALCIFEROL 25 MCG (1000 IU) TABLET PO SCH (10:12)
[2020-12-20] MEDS: MAGNESIUM OXIDE 400 MG TAB PO SCH (10:12)
[2020-12-20] MEDS: ASPIRIN 81 MG PO SCH ×2 (10:12→21:30)
[2020-12-20] MEDS: SODIUM CHLORIDE 0.9% 1,000 ML IV SCH (10:12)
[2020-12-20] MEDS: Mirabegron [Myrbetriq] 25 MG Tab.Er.24h PO SCH (10:13)
[2020-12-20] MEDS: PANTOPRAZOLE 40 MG TABLET PO SCH (10:13)
[2020-12-20] MEDS: amLODIPine 5 MG TAB PO SCH (10:13)
--- NOTE | 2020-12-20 11:31 | US ---
EXAMINATION TYPE: US venous doppler duplex LE DATE OF EXAM: 12/20/2020 11:04 AM COMPARISON: NONE CLINICAL HISTORY: In a.m.. pain SIDE PERFORMED: Bilateral TECHNIQUE: The lower extremity deep venous system is examined utilizing real time linear array sonog victoria with graded compression, doppler sonography and color-flow sonography. VESSELS IMAGED: Common Femoral Vein Deep Femoral Vein Greater Saphenous Vein * Femoral Vein Popliteal Vein Small Saphenous Vein * Proximal Calf Veins (* superficial vessels) Right Leg: Negative for DVT Left Leg: Negative for DVT There is normal flow, compressibility, vascular waveforms IMPRESSION: No evident deep venous thrombosis at or central to the knees bilaterally
--- NOTE | 2020-12-20 11:39 | ECHOF ---
Referral Reason:LVF MEASUREMENTS -------- HEIGHT: 152.4 cm WEIGHT: 59.0 kg BP: 114/57 RVIDd: 3.3 cm (< 3.3) IVSd: 1.1 cm (0.6 - 1.1) LVIDd: 4.4 cm (3.9 - 5.3) LVPWd: 1.2 cm (0.6 - 1.1) IVSs: 1.5 cm LVIDs: 2.6 cm LVPWs: 1.5 cm LA Diam: 3.3 cm (2.7 - 3.8) LAESV Index (A-L): 28.55 ml/m Ao Diam: 3.0 cm (2.0 - 3.7) AV Cusp: 1.3 cm (1.5 - 2.6) MV EXCURSION: 13.015 mm (> 18.000) MV EF SLOPE: 43 mm/s (70 - 150) EPSS: 0.6 cm MV E David: 0.84 m/s MV DecT: 271 ms MV A David: 1.19 m/s MV E/A Ratio: 0.71 AV maxP.93 mmHg AV meanP.53 mmHg RAP: 5.00 mmHg RVSP: 25.72 mmHg FINDINGS -------- Sinus rhythm. This was a technically good study. The left ventricular size is normal. There is borderline concentric left ventricular hypertrophy. Overall left ventricular systolic function is normal with, an EF between 60 - 65 %. The right ventricle is mildly enlarged. LA is midly dilated 29-33ml/m2. The right atrium is normal in size. Interatrial and interventricular septum intact. There is mild aortic valve sclerosis. There is mild aortic stenosis present. Peak/mean gradient a cross the Aortic Valve is 18.93mmHg / 12.53mmHg. Mild mitral annular calcification present. There is trace mitral regurgitation. Mild tricuspid regurgitation present. Right ventricular systolic pressure is normal at < 35 mmHg. Trace/mild (physiologic) pulmonic regurgitation. The aortic root size is normal. Normal inferior vena cava with normal inspiratory collapse consistent with estimated right atrial pre ssure of 5 mmHg. There is no pericardial effusion. CONCLUSIONS -------- 1. The left ventricular size is normal. 2. There is borderline concentric left ventricular hypertrophy. 3. Overall left ventricular systolic function is normal with, an EF between 60 - 65 %. 4. The right ventricle is mildly enlarged. 5. LA is midly dilated 29-33ml/m2. 6. There is mild aortic valve sclerosis. 7. There is mild aortic stenosis present. 8. Peak/mean gradient across the Aortic Valve is 18.93mmHg / 12.53mmHg. 9. Mild mitral annular calcification present. 10. There is trace mitral regurgitation. 11. Mild tricuspid regurgitation present. 12. Trace/mild (physiologic) pulmonic regurgitation. 13. There is no pericardial effusion. MARKETING PROJECT SPECIALIST: Lola Pennington RDCS
[2020-12-20] MEDS: methylPREDNISolone SOD SUCCI 125 MG/2 ML VIAL IV SCH ×2 (12:33→17:22)
[2020-12-20] MEDS: FLUCONAZOLE 100 MG TAB PO SCH (12:34)
[2020-12-20] MEDS: LIDOCAINE 5% PATCH TOPICAL SCH (12:35)
[2020-12-20] MEDS: AZITHROMYCIN 250 MG TAB PO SCH (12:35)
[2020-12-20 12:59] LABS: Glucose,Whole Blood 113 mg/dL (75-99)
--- NOTE | 2020-12-20 13:04 | P.HPIM ---
History of Present Illness H&P Date: 12/20/20 Chief Complaint: LIZZIE HISTORY OF PRESENT ILLNESS This is an 89-year-old female patient of Dr. Gamez with past medical history of COPD, hyperlipidemia, hypertension, osteoporosis, chronic kidney disease stage III, hypothyroidism, gastroesophageal reflux disease, vitamin D deficiency, generalized osteoarthritis, carotid artery disease, generalized anxiety disorder. Patient has had several office visits as well as ER visit for COPD. She follows with Dr. North. She was recently started on azithromycin. Also noted that patient had a CA 199 elevated and CEA 125 were elevated. Patient is status post POOL/BSO. CAT scan of the abdomen and pelvis with contrast done on December 04 revealed suspect mild uncomplicated acute distal colitis. No bowel obstruction. There was an abnormal mass along the anterior inferior bladder wall measuring 2 x 1.6 cm. Recommendations were for cystoscopy and office was scheduling an appointment with Dr. Lake. Patient complains of right shoulder pain and treated with Tylenol and ice. No fever or chills. No nausea vomiting. Patient presented to [facility] emergency center for evalua tion. She was found to be afebrile, heart rate 91, blood pressure 124/65, pulse ox 95% on room air. WBC 10, hemoglobin 11.1, platelet count 296. Sodium 134, potassium 3.4, chloride 100, CO2 26, BUN 12 and creatinine 1.09. Blood sugar 100. D-dimer 1.21. Liver function tests were normal. Lactic acid 1. Troponin negative. ProBNP 505. EKG was in sinus rhythm with occasional PACs. Chest x-ray reveals persistent patchy density right infrahilar region may reflect underlying pneumonia. This was compared to x-ray from December 16 ER visit. Last catheter was placed in the ER for bladder scan greater than 300. VQ scan was low probability for pulmonary embolism. Interstitial lung disease, correlate for pneumonia. Bilateral lower extremity ultrasound negative for DVT. Right humerus x-ray shows no acute fracture or dislocation. Echocardiogram reveals EF of 60-65% with borderline concentric left ventricular hypertrophy, mild aortic stenosis, trace mitral regurgitation, mild tricuspid regurgitation. REVIEW OF SYSTEMS Constitutional: No fever, no chills, no night sweats. No weight change. No weakness, fatigue or lethargy. No daytime sleepiness. EENT: No headache. No blurred vision or double vision, no loss of vision. No loss of Hearing, no ringing in the ears, no dizziness. No nasal drainage or congestion. No epistaxis. No sore throat. Lungs: Mild shortness of breath, cough, no sputum production. No wheezing. Cardiovascular: No chest pain, no lower extremity edema. No palpitations. No paroxysmal nocturnal dyspnea. No orthopnea. No lightheadedness or dizziness. No syncopal episodes. Abdominal: No abdominal pain. No nausea, vomiting. No diarrhea. No constipation. No bloody or tarry stools.. No loss of appetite. Genitourinary: No dysuria, increased frequency, urgency. Reported urinary retention. Musculoskeletal: No myalgias. No muscle weakness, no gait dysfunction, no frequent falls. No back pain. No neck pain. Integumentary: No wounds, no lesions. No rash or pruritus. No unusual bruising. No change in hair or nails. Neurologic: No aphasia. No facial droop. No change in mentation. No head injury. No headache. No paralysis. No paresthesia. Psychiatric: No depression. No anxiety. No mood swings. Endocrine: No abnormal blood sugars. No weight change. No excessive sweating or thirst. No cold intolerance. SOCIAL HISTORY Patient is a lifelong nonsmoker. Patient is exposed to secondhand smoke. No alcohol use. Patient drinks 2 cups of coffee per day. She is and lives with her daughter. FAMILY HISTORY Mother at age 73 from diabetes, occasions. Father at age 69 from bowel cancer. Patient has a total of 6 brothers and 5 sisters. 3 brothers have from coronary artery disease, cancer. 3 brothers are still living with history of coronary artery disease. Patient has a total of 5 sisters and one has from diabetes. 2 sisters are . One is residing at [facility] with dementia and a second sister is age 95. Patient had 3 children and one son at age 52 from Parkinson's disease. Other 2 children have no major medical problems. PHYSICAL EXAMINATION Gen: This is an 89-year-old female. She is resting in bed and appears to be comfortable and in no acute distress. HEENT: Head is atraumatic, normocephalic. Pupils equal, round. Sclerae is anicteric. NECK: Supple. No JVD. No lymphadenopathy. No thyromegaly. LUNGS: Clear to auscultation. No wheezes or rhonchi. No intercostal ret ractions. HEART: Regular rate and rhythm. No murmur. ABDOMEN: Soft. Bowel sounds are present. No masses. No tenderness. Last catheter in place with armani urine. EXTREMITIES: No pedal edema. No calf tenderness. Dorsalis pedis +2 bilaterally. NEUROLOGICAL: Patient is awake, alert and oriented x3. Cranial nerves 2 through 12 are grossly intact. ASSESSMENT AND PLAN 1. Dyspnea secondary to possible pneumonia, possible COPD. Pulmonary consult, continue azithromycin, albuterol nebulizer treatments 3 times daily as needed, Symbicort twice daily, Solu-Medrol 60 mg IV every 6 hours, Singulair 10 mg at bedtime. 2. Oral thrush. Patient started on Diflucan 100 mg daily for 7 day course. 3. Right shoulder pain secondary to osteoarthritis, stable. Continue ice and Tylenol. 4. Abnormal mass along anterior inferior bladder wall with elevated CA-125 and CEA. Consult with Dr. Lake. 5. Hyperlipidemia. Continue pravastatin 40 mg at bedtime. 6. Osteoporosis. Continue vitamin D supplement. 7. Hypertension. Continue amlodipine 5 mg daily. 8. Chronic kidney disease stage III 9. Hypothyroidism. Continue levothyroxine 88 g daily. 10. Gastroesophageal reflux disease and GI prophylaxis. Continue Protonix 40 mg daily 11. Vitamin D deficiency, continue supplement. 12. Generalized anxiety disorder. Continue BuSpar 7.5 mg at bedtime. 13. COVID-19 testing negative. Patient has been hospitalized during a pandemic. Patient will be admitted to the hospital for a minimum of 2 night stay. DISCHARGE PLAN Home. Impression and plan of care have been directed as dictated by the signing physician. Ceci Borrero nurse practitioner acting as scribe for signing physician. Past Medical History Past Medical History: Asthma, GERD/Reflux, Hyperlipidemia, Hypertension, Osteoarthritis (OA), Pneumonia, Thyroid Disorder Additional Past Medical History / Comment(s): SOB with activity, fx 5th digit left hand-splint on,prednisone March 2019 Hx DOUBLE VISION, colitis,bladder infections History of Any Multi-Drug Resistant Organisms: None Reported Past Surgical History: Appendectomy, Hysterectomy, Tonsillectomy Additional Past Surgical History / Comment(s): BILATERAL CATARACTS. s inus/blocked tear duct surgery, D&C x 2, surgery for fx nose, cyst removed from rt ear Past Anesthesia/Blood Transfusion Reactions: Postoperative Nausea & Vomiting (PONV) Additional Past Anesthesia/Blood Transfusion Reaction / Comment(s): "took two d ays to come out" (after hysterectomy),no hx blood transfusion Past Psychological History: Anxiety Smoking Status: Never smoker Past Alcohol Use History: None Reported Past Drug Use History: None Reported - Past Family History Father Family Medical History: Cancer, Myocardial Infarction ([place]) Mother Family Medical History: Cancer, Myocardial Infarction ([place]) Sister(s) Family Medical History: Cancer Additional Family Medical History / Comment(s): breast, colon Brother(s) Family Medical History: Cancer Medications and Allergies Home Medications Medication Instructions Recorded Confirmed Type Cyanocobalamin [Vitamin B-12] 500 mcg PO DAILY@1200 05/22/14 12/19/20 History Denosumab [Prolia] 60 mg SQ Q180D 02/28/17 12/19/20 History Levothyroxine Sodium [Synthroid] 88 mcg PO DAILY 02/28/17 12/19/20 History Magnesium Oxide [Mag-Ox] 400 mg PO HS 02/28/17 12/19/20 History amLODIPine [Norvasc] 5 mg PO DAILY 02/28/17 12/19/20 History Melatonin 10 mg PO HS 12/05/18 12/19/20 History Pravastatin Sodium [Pravachol] 40 mg PO HS 12/05/18 12/19/20 History Montelukast Sodium [Singulair] 10 mg PO HS 06/18/20 12/19/20 History Aspirin 81 mg PO DAILY 07/16/20 12/19/20 History Albuterol Nebulized [Ventolin 2.5 mg INHALATION RT-TID PRN 12/16/20 12/19/20 History Nebulized] Cholecalciferol [Vitamin D3 (25 50 mcg PO DAILY@1200 12/16/20 12/19/20 History Mcg = 1000 Iu)] Budesonide [Pulmicort] 0.5 mg INHALATION RT-BID 12/19/20 12/19/20 History Calcium Carbonate/Vitamin D3 1 cap PO HS 12/19/20 12/19/20 History [Calcium 600 mg-D3 10 Mcg (400 Iu)] Pantoprazole Sodium [Protonix] 40 mg PO DAILY@1200 12/19/20 12/19/20 History busPIRone HCL [Buspar] 7.5 mg PO HS 12/19/20 12/19/20 History Allergies Allergy/AdvReac Type Severity Reaction Status Date / Time Penicillins Allergy Intermediate Rash/Hives Verified 12/19/20 20:29 linaclotide [From Linzess] AdvReac Diarrhea Verified 12/19/20 20:29 Narcotics AdvReac Hallucinati Uncoded 12/17/20 13:27 ons Physical Exam Vitals: Vital Signs Temp Pulse Pulse Resp BP BP Pulse Ox 12/20/20 08:00 97.5 F L 77 18 114/57 96 12/20/20 04:00 83 18 112/64 95 12/20/20 01:52 18 12/20/20 00:00 64 18 121/60 93 L 12/19/20 20:41 98.7 F 81 18 122/57 94 L 12/19/20 20:07 82 16 101/38 95 12/19/20 18:39 18 12/19/20 17:02 97.8 F 91 18 124/65 95 Intake and Output 12/19/20 12/20/20 12/20/20 22:59 06:59 14:59 Output Total 1200 Balance -1200 Output: Urine 1200 Other: Voiding Method Indwelling Catheter Indwelling Catheter # Voids 1 1 Weight 58.967 kg 58.5 kg Results CBC & Chem 7: 12/19/20 18:18 12/19/20 18:18 Labs: Abnormal Lab Results - Last 24 Hours (Table) 12/19/20 12/19/20 12/19/20 Range/Units 18:18 18:18 18:18 RBC 3.64 L (3.80-5.40) m/uL Hgb 11.1 L (11.4-16.0) gm/dL Hct 33.4 L (34.0-46.0) % RDW 15.7 H (11.5-15.5) % D-Dimer 1.21 H (<0.60) mg/L FEU Sodium 134 L (137-145) mmol/L Creatinine 1.09 H (0.52-1.04) mg/dL Glucose 100 H (74-99) mg/dL Thrombosis Risk Factor Assmnt - Choose All That Apply Each Factor Represents 1 point: Serious lung disease incl. pneumonia (< 1month) Other Risk Factors: No Other congenital or acquired thrombophilia - If yes, enter type in comment: No Thrombosis Risk Factor Assessment Total Risk Factor Score: 1 Thrombosis Risk Factor Assessment Level: Low Risk
--- NOTE | 2020-12-20 13:08 | P.CNPUL ---
History of Present Illness Consult date: 12/20/20 Requesting physician: Kayla Gamez Reason for consult: dyspnea, asthma, hypoxemia, abnormal CXR/CT Chief complaint: Shortness of breath. History of present illness: Pulmonary consult dated 12/20/2020. 89-year-old female that we are asked to see, to rule out pulmonary embolism. The patient apparently has been having some shortness of breath, shortness of breath on exertion, and is been falling frequently. The patient does have a history of chronic bronchial asthma, and she feels that maybe her asthma was a bit more active. She denies any fever or chills. There is no chest pain or chest discomfort. She denies any nausea, vomiting, or diarrhea. The patient apparently sees the other physician office nurse in town, and not are group. When I asked her what his diagnosis of her was, she stated "he really doesn't tell me". Anyway, the patient a mildly elevated D-dimer test, the Dopplers of the lower extremities or negative, and her ventilation perfusion lung scan was low probability. I suspect her shortness of breath relates an asthma flareup more than anything else. In addition, by examination, the patient has aortic stenosis, and it certainly could be contributing to her shortness of breath as well. Currently, she is not in any distress. She's not receiving any supplemental oxygen. Her medical history includes acid reflux disease, hyperlipidemia, hypertension, DJD, pneumonia, and hypothyroidism. She also tells me that she has a nebulizer machine at home, as well as a rescue inhaler, and does take a asthma pill, presumably, Singulair. White count 10, hemoglobin 11.1, hematocrit 33.4, platelet count 296,000. D-dimer was 1.21. Sodium 134, potassium 4.2, chlorides 100, CO2 26, anion gap 8, BUN 12, creatinine 1.09. Chest x-rays being read as showing persistent patchy density right infrahilar region which may reflect underlying pneumonia. Interestingly, the patient denies any cough, phlegm production, fever, chills, or any other symptoms that might suggest pneumonia. Review of Systems REVIEW OF SYSTEMS: CONSTITUTIONAL: [Negative.] NEUROLOGIC: [ Negative.] HEENT: [ Negative.] CARDIAC: [Negative.] PULMONARY: Shortness of breath on exertion. GI: [Negative.] : [Negative.] RHEUMATOLOGIC: [ Negative.] IMMUNOLOGIC: [ Negative.] ENDOCRINE: [Negative. ] DERMATOLOGIC: [Negative.] Past Medical History Past Medical History: Asthma, GERD/Reflux, Hyperlipidemia, Hypertension, Osteoarthritis (OA), Pneumonia, Thyroid Disorder Additional Past Medical History / Comment(s): SOB with activity, fx 5th digit left hand-splint on,prednisone March 2019 Hx DOUBLE VISION, colitis,bladder infections History of Any Multi-Drug Resistant Organisms: None Reported Past Surgical History: Appendectomy, Hysterectomy, Tonsillectomy Additional Past Surgical History / Comment(s): BILATERAL CATARACTS. sinus/blocked tear duct surgery, D&C x 2, surgery for fx nose, cyst removed from rt ear Past Anesthesia/Blood Transfusion Reactions: Postoperative Nausea & Vomiting (PONV) Additional Past Anesthesia/Blood Transfusion Reaction / Comment(s): "took two days to come out" (after hysterectomy),no hx blood transfusion Past Psychological History: Anxiety Smoking Status: Never smoker Past Alcohol Use History: None Reported Past Drug Use History: None Reported - Past Family History Father Family Medical History: Cancer, Myocardial Infarction ([place]) Mother Family Medical History: Cancer, Myocardial Infarction ([place]) Sister(s) Family Medical History: Cancer Additional Family Medical History / Comment(s): breast, colon Brother(s) Family Medical History: Cancer Medications and Allergies Home Medications Medication Instructions Recorded Confirmed Type Cyanocobalamin [Vitamin B-12] 500 mcg PO DAILY@1200 05/22/14 12/19/20 History Denosumab [Prolia] 60 mg SQ Q180D 02/28/17 12/19/20 History Levothyroxine Sodium [Synthroid] 88 mcg PO DAILY 02/28/17 12/19/20 History Magnesium Oxide [Mag-Ox] 400 mg PO HS 02/28/17 12/19/20 History amLODIPine [Norvasc] 5 mg PO DAILY 02/28/17 12/19/20 History Melatonin 10 mg PO HS 12/05/18 12/19/20 History Pravastatin Sodium [Pravachol] 40 mg PO HS 12/05/18 12/19/20 History Montelukast Sodium [Singulair] 10 mg PO HS 06/18/20 12/19/20 History Aspirin 81 mg PO DAILY 07/16/20 12/19/20 History Albuterol Nebulized [Ventolin 2.5 mg INHALATION RT-TID PRN 12/16/20 12/19/20 History Nebulized] Cholecalciferol [Vitamin D3 (25 50 mcg PO DAILY@1200 12/16/20 12/19/20 History Mcg = 1000 Iu)] Budesonide [Pulmicort] 0.5 mg INHALATION RT-BID 12/19/20 12/19/20 History Calcium Carbonate/Vitamin D3 1 cap PO HS 12/19/20 12/19/20 History [Calcium 600 mg-D3 10 Mcg (400 Iu)] Pantoprazole Sodium [Protonix] 40 mg PO DAILY@1200 12/19/20 12/19/20 History busPIRone HCL [Buspar] 7.5 mg PO HS 12/19/20 12/19/20 History Allergies Allergy/AdvReac Type Severity Reaction Status Date / Time Penicillins Allergy Intermediate Rash/Hives Verified 12/19/20 20:29 linaclotide [From Linzess] AdvReac Diarrhea Verified 12/19/20 20:29 Narcotics AdvReac Hallucinati Uncoded 12/17/20 13:27 ons Physical Exam Osteopathic Statement: *. No significant issues noted on an osteopathic structural exam other than those noted in the History and Physical/Consult. Vitals: Vital Signs Temp Pulse Pulse Resp BP BP Pulse Ox 12/20/20 08:00 97.5 F L 77 18 114/57 96 12/20/20 04:00 83 18 112/64 95 12/20/20 01:52 18 12/20/20 00:00 64 18 121/60 93 L 12/19/20 20:41 98.7 F 81 18 122/57 94 L 12/19/20 20:07 82 16 101/38 95 12/19/20 18:39 18 12/19/20 17:02 97.8 F 91 18 124/65 95 Intake and Output 12/19/20 12/20/20 12/20/20 22:59 06:59 14:59 Intake Total 240 Output Total 1200 Balance -1200 240 Intake: Oral 240 Output: Urine 1200 Other: Voiding Method Indwelling Catheter Indwelling Catheter # Voids 1 1 Weight 58.967 kg 58.5 kg No acute distress, oriented 3. Not on any supplemental oxygen. Room air saturations 96%. No audible wheezing, use of accessory muscles, or conversational dyspnea. HEENT examination is grossly unremarkable. Neck supple. Full range of motion. No adenopathy thyromegaly or neck vein distention. Cardiovascular examination reveals regular rhythm rate. S1-S2 normal. No S3 or S4. Heart rate 77 bpm. There is a systolic murmur, grade 2/6, consistent with aortic stenosis. Lungs reveal bilateral expiratory wheezes and rhonchi. No crackles. There is prolongation on forced maneuver. Breath sounds equal bilaterally. Abdomen soft bowel sounds are heard. No masses or tenderness. Extremities are intact. No cyanosis clubbing or edema. Skin is without rash or lesion. Neurologic examination is brief but nonfocal. Results - Laboratory Findings CBC and BMP: 12/19/20 18:18 12/19/20 18:18 PT/INR, D-dimer PT 10.2 sec (9.0-12.0) 12/19/20 18:18 INR 0.9 (<1.2) 12/19/20 18:18 D-Dimer 1.21 mg/L FEU (<0.60) H 12/19/20 18:18 Abnormal lab findings: Abnormal Labs 12/19/20 12/19/20 12/19/20 18:18 18:18 18:18 RBC 3.64 L Hgb 11.1 L Hct 33.4 L RDW 15.7 H D-Dimer 1.21 H Sodium 134 L Creatinine 1.09 H Glucose 100 H - Diagnostic Findings Chest x-ray: image reviewed U/S of Legs: image reviewed Assessment and Plan Assessment: Shortness of breath, worse on exertion, likely related to underlying mild asthma exacerbation, aortic stenosis, and/or possible pneumonia. Doubt pulmonary embolism. History of hyperlipidemia. History of hypertension. History of gastroesophageal reflux disease. History of hypothyroidism. Plan: Plan dated 12/20/2020. I seriously doubt that the patient has pulmonary embolism. The ventilation perfusion lung scan was low probability. D-dimer was elevated not so much so, and the Dopplers of lower extremity is are negative. In addition, the patient's exam was consistent with asthma exacerbation. I also doubt significant pneumonia. I will order a pro-calcitonin level. Additional recommendations and suggestions are forthcoming. Time with Patient: Greater than 30
[2020-12-20] MEDS: INSULIN ASPART (NovoLOG) 100 UNIT/ML VIAL SQ SCH ×3 (14:35→21:31)
--- NOTE | 2020-12-20 17:00 | P.GSCN ---
History of Present Illness Consult date: 12/20/20 Reason for Consult: Possible bladder mass Requesting physician: Ceci Borrero History of present illness: The patient is an 89-year-old white female with a history of COPD, hyperlipidemia, hypertension, osteoporosis, chronic kidney disease stage III, hypothyroidism, gastroesophageal reflux disease, vitamin D deficiency, generalized osteoarthritis, carotid artery disease, generalized anxiety disorder. She has had several office visits as well as ER visit for COPD and was recently started on azithromycin. CT scan of the abdomen and pelvis with contrast done on December 04 revealed suspect mild uncomplicated acute distal colitis along with an abnormal mass along the anterior inferior bladder wall measuring 2 x 1.6 cm. She denies gross hematuria. She denies any prior history of urolithiasis. She has been treated for UTIs in the past. She states that she has recently experienced difficulty voiding. Review of Systems - Respiratory Reports dyspnea - Genitourinary Genitourinary: Denies hematuria Past Medical History Past Medical History: Asthma, GERD/Reflux, Hyperlipidemia, Hypertension, Osteoarthritis (OA), Pneumonia, Thyroid Disorder Additional Past Medical History / Comment(s): SOB with activity, fx 5th digit left hand-splint on,prednisone March 2019 Hx DOUBLE VISION, colitis,bladder infections History of Any Multi-Drug Resistant Organisms: None Reported Past Surgical History: Appendectomy, Hysterectomy, Tonsillectomy Additional Past Surgical History / Comment(s): BILATERAL CATARACTS. sinus/blocked tear duct surgery, D&C x 2, surgery for fx nose, cyst removed from rt ear Past Anesthesia/Blood Transfusion Reactions: Postoperative Nausea & Vomiting (PONV) Additional Past Anesthesia/Blood Transfusion Reaction / Comm: "took two days to come out" (after hysterectomy),no hx blood transfusion Past Psychological History: Anxiety Smoking Status: Never smoker Past Alcohol Use History: None Reported Past Drug Use History: None Reported - Past Family History Father Family Medical History: Cancer, Myocardial Infarction ([place]) Mother Family Medical History: Cancer, Myocardial Infarction ([place]) Sister(s) Family Medical History: Cancer Additional Family Medical History / Comment(s): breast, colon Brother(s) Family Medical History: Cancer Medications and Allergies Home Medications Medication Instructions Recorded Confirmed Type Cyanocobalamin [Vitamin B-12] 500 mcg PO DAILY@1200 05/22/14 12/19/20 History Denosumab [Prolia] 60 mg SQ Q180D 02/28/17 12/19/20 History Levothyroxine Sodium [Synthroid] 88 mcg PO DAILY 02/28/17 12/19/20 History Magnesium Oxide [Mag-Ox] 400 mg PO HS 02/28/17 12/19/20 History amLODIPine [Norvasc] 5 mg PO DAILY 02/28/17 12/19/20 History Melatonin 10 mg PO HS 12/05/18 12/19/20 History Pravastatin Sodium [Pravachol] 40 mg PO HS 12/05/18 12/19/20 History Montelukast Sodium [Singulair] 10 mg PO HS 06/18/20 12/19/20 History Aspirin 81 mg PO DAILY 07/16/20 12/19/20 History Albuterol Nebulized [Ventolin 2.5 mg INHALATION RT-TID PRN 12/16/20 12/19/20 History Nebulized] Cholecalciferol [Vitamin D3 (25 50 mcg PO DAILY@1200 12/16/20 12/19/20 History Mcg = 1000 Iu)] Budesonide [Pulmicort] 0.5 mg INHALATION RT-BID 12/19/20 12/19/20 History Calcium Carbonate/Vitamin D3 1 cap PO HS 12/19/20 12/19/20 History [Calcium 600 mg-D3 10 Mcg (400 Iu)] Pantoprazole Sodium [Protonix] 40 mg PO DAILY@1200 12/19/20 12/19/20 History busPIRone HCL [Buspar] 7.5 mg PO HS 12/19/20 12/19/20 History Allergies Allergy/AdvReac Type Severity Reaction Status Date / Time Penicillins Allergy Intermediate Rash/Hives Verified 12/19/20 20:29 linaclotide [From Linzess] AdvReac Diarrhea Verified 12/19/20 20:29 Narcotics AdvReac Hallucinati Uncoded 12/17/20 13:27 ons Surgical - Exam Vital Signs Temp Pulse Resp BP Pulse Ox 97.8 F 91 18 124/65 95 12/19/20 17:02 12/19/20 17:02 12/19/20 17:02 12/19/20 17:02 12/19/20 17:02 - General well developed, well nourished, no distress - Neck no masses, trachea midline - Respiratory normal respiratory effort - Abdomen Soft, non-distended, no mass. Mild right lower quadrant tenderness, no guarding or rebound. - Psychiatric oriented to time, oriented to person, oriented to place, speech is normal, memory intact Results - Labs 12/19/20 18:18 12/19/20 18:18 Abnormal Lab Results - Last 24 Hours (Table) 12/19/20 12/19/20 12/19/20 Range/Units 18:18 18:18 18:18 RBC 3.64 L (3.80-5.40) m/uL Hgb 11.1 L (11.4-16.0) gm/dL Hct 33.4 L (34.0-46.0) % RDW 15.7 H (11.5-15.5) % D-Dimer 1.21 H (<0.60) mg/L FEU Sodium 134 L (137-145) mmol/L Creatinine 1.09 H (0.52-1.04) mg/dL Glucose 100 H (74-99) mg/dL POC Glucose (mg/dL) (75-99) mg/dL 12/20/20 Range/Units 12:57 RBC (3.80-5.40) m/uL Hgb (11.4-16.0) gm/dL Hct (34.0-46.0) % RDW (11.5-15.5) % D-Dimer (<0.60) mg/L FEU Sodium (137-145) mmol/L Creatinine (0.52-1.04) mg/dL Glucose (74-99) mg/dL POC Glucose (mg/dL) 113 H (75-99) mg/dL Diabetes panel 12/19/20 Range/Units 18:18 Sodium 134 L (137-145) mmol/L Potassium 4.2 (3.5-5.1) mmol/L Chloride 100 (98-107) mmol/L Carbon Dioxide 26 (22-30) mmol/L BUN 12 (7-17) mg/dL Creatinine 1.09 H (0.52-1.04) mg/dL Glucose 100 H (74-99) mg/dL Calcium 9.1 (8.4-10.2) mg/dL AST 24 (14-36) U/L ALT 10 (4-34) U/L Alkaline Phosphatase 44 (38-126) U/L Total Protein 6.4 (6.3-8.2) g/dL Albumin 3.7 (3.5-5.0) g/dL Calcium panel 12/19/20 Range/Units 18:18 Calcium 9.1 (8.4-10.2) mg/dL Albumin 3.7 (3.5-5.0) g/dL Pituitary panel 12/19/20 Range/Units 18:18 Sodium 134 L (137-145) mmol/L Potassium 4.2 (3.5-5.1) mmol/L Chloride 100 (98-107) mmol/L Carbon Dioxide 26 (22-30) mmol/L BUN 12 (7-17) mg/dL Creatinine 1.09 H (0.52-1.04) mg/dL Glucose 100 H (74-99) mg/dL Calcium 9.1 (8.4-10.2) mg/dL Adrenal panel 12/19/20 Range/Units 18:18 Sodium 134 L (137-145) mmol/L Potassium 4.2 (3.5-5.1) mmol/L Chloride 100 (98-107) mmol/L Carbon Dioxide 26 (22-30) mmol/L BUN 12 (7-17) mg/dL Creatinine 1.09 H (0.52-1.04) mg/dL Glucose 100 H (74-99) mg/dL Calcium 9.1 (8.4-10.2) mg/dL Total Bilirubin 0.2 (0.2-1.3) mg/dL AST 24 (14-36) U/L ALT 10 (4-34) U/L Alkaline Phosphatase 44 (38-126) U/L Total Protein 6.4 (6.3-8.2) g/dL Albumin 3.7 (3.5-5.0) g/dL - Imaging CT scan - abdomen: report reviewed, image reviewed Assessment and Plan (1) Abnormal results on imaging study of genitourinary system Current Visit: Yes Status: Acute Code(s): R93.89 - ABNORMAL FINDINGS ON DX IMAGING OF OTH BODY STRUCTURES SNOMED Code(s): 095938223 Plan: The patient currently has an indwelling Last catheter, which is draining clear yellow urine. Discharge home tomorrow is anticipated, per the patient. The Last catheter may be removed prior to discharge. She will follow up with me as an outpatient to undergo office cystoscopy, to determine whether the lesion seen on CT scan represents a bladder tumor. Please notify me if I can be of further assistance. Time with Patient: Greater than 30
[2020-12-20 17:19] LABS: Glucose,Whole Blood 145 mg/dL (75-99)
[2020-12-20] MEDS: SYMBICORT 160-4.5 MCG INHALER INHALATION SCH (19:22)
[2020-12-20 20:00] LABS: Glucose,Whole Blood 290 mg/dL (75-99)
[2020-12-20] MEDS ORDERED: BUDESONIDE 0.5 MG/2 ML NEBU INHALATION SCH (20:00)
[2020-12-20] MEDS ORDERED: ENOXAPARIN 30 MG/0.3 ML SYRINGE SQ SCH (21:00)
[2020-12-20] MEDS: PRAVASTATIN SODIUM 40 MG TAB PO SCH (21:30)
[2020-12-20] MEDS: CALCIUM CARB-VIT D 500 MG-5 MCG TAB PO SCH (21:30)
[2020-12-20] MEDS: MELATONIN 5 MG TABLET PO SCH (21:30)
[2020-12-20] MEDS: MONTELUKAST 10 MG TAB PO SCH (21:30)
[2020-12-20] MEDS: busPIRone HCl 5 MG TAB PO SCH (21:30)
[2020-12-21] MEDS: methylPREDNISolone SOD SUCCI 125 MG/2 ML VIAL IV SCH ×2 (00:37→06:24)
[2020-12-21 06:07] LABS: Glucose,Whole Blood 146 mg/dL (75-99)
[2020-12-21] MEDS: INSULIN ASPART (NovoLOG) 100 UNIT/ML VIAL SQ SCH ×4 (06:24→20:56)
[2020-12-21] MEDS: LEVOTHYROXINE 88 MCG TAB PO SCH (06:25)
[2020-12-21] MEDS: SYMBICORT 160-4.5 MCG INHALER INHALATION SCH ×2 (07:30→20:44)
--- NOTE | 2020-12-21 10:31 | P.PN ---
Subjective Progress Note Date: 12/21/20 HISTORY OF PRESENT ILLNESS This is an 89-year-old female patient of Dr. Gamez with past medical history of COPD, hyperlipidemia, hypertension, osteoporosis, chronic kidney disease stage III, hypothyroidism, gastroesophageal reflux disease, vitamin D deficiency, generalized osteoarthritis, carotid artery disease, generalized anxiety disorder. Patient has had several office visits as well as ER visit for COPD. She follows with Dr. North. She was recently started on azithromycin. Also noted that patient had a CA 199 elevated and CEA 125 were elevated. Patient is status post POOL/BSO. CAT scan of the abdomen and pelvis with contrast done on December 04 revealed suspect mild uncomplicated acute distal colitis. No bowel obstruction. There was an abnormal mass along the anterior inferior bladder wall measuring 2 x 1.6 cm. Recommendations were for cystoscopy and o davidsonice was scheduling an appointment with Dr. Lake. Patient complains of right shoulder pain and treated with Tylenol and ice. No fever or chills. No nausea vomiting. Patient presented to [facility] emergency center for evaluation. She was found to be afebrile, heart rate 91, blood pressure 124/65, pulse ox 95% on room air. WBC 10, hemoglobin 11.1, platelet count 296. Sodium 134, potassium 3.4, chloride 100, CO2 26, BUN 12 and creatinine 1.09. Blood sugar 100. D-dimer 1.21. Liver function tests were normal. Lactic acid 1. Troponin negative. ProBNP 505. EKG was in sinus rhythm with occasional PACs. Chest x-ray reveals persistent patchy density right infrahilar region may reflect underlying pneumonia. This was compared to x-ray from December 16 ER visit. Last catheter was placed in the ER for bladder scan greater than 300. VQ scan was low probability for pulmonary embolism. Interstitial lung disease, correlate for pneumonia. Bilateral lower extremity ultrasound negative for DVT. Right humerus x-ray shows no acute fracture or dislocation. Echocardiogram reveals EF of 60-65% with borderline concentric left ventricular hypertrophy, mild aortic stenosis, trace mitral regurgitation, mild tricuspid regurgitation. 12/21: Patient has been seen by Dr. Lake with recommendations to discontinue Last catheter and follow up in the office for cystoscopy. Patient has also been seen by Dr. Briones and PE has been ruled out and gout pneumonia. Pro- calcitonin level 0.1. Solu-Medrol will be decreased to 40 mg IV every 8 hours. Patient is been afebrile, heart rate 87, blood pressure 156/69, pulse ox 97% on room air. Capillary blood glucose running between 146 and 290. Patient is requesting to get out of bed and for a walker. PT will be added. Last cat heter out today. Plan to monitor overnight and discharged home tomorrow.. REVIEW OF SYSTEMS Constitutional: No fever, no chills, no night sweats. No weight change. No we akness, fatigue or lethargy. No daytime sleepiness. EENT: No headache. No blurred vision or double vision, no loss of vision. No loss of Hearing, no ringing in the ears, no dizziness. No nasal drainage or congestion. No epistaxis. No sore throat. Lungs: Mild shortness of breath, cough, no sputum production. No wheezing. Cardiovascular: No chest pain, no lower extremity edema. No palpitations. No paroxysmal nocturnal dyspnea. No orthopnea. No lightheadedness or dizziness. No syncopal episodes. Abdominal: No abdominal pain. No nausea, vomiting. No diarrhea. No constipation. No bloody or tarry stools.. No loss of appetite. Genitourinary: No dysuria, increased frequency, urgency. Reported urinary retention. Musculoskeletal: No myalgias. No muscle weakness, no gait dysfunction, no frequent falls. No back pain. No neck pain. Integumentary: No wounds, no lesions. No rash or pruritus. No unusual bruising. No change in hair or nails. Neurologic: No aphasia. No facial droop. No change in mentation. No head injury. No headache. No paralysis. No paresthesia. Psychiatric: No depression. No anxiety. No mood swings. Endocrine: No abnormal blood sugars. No weight change. No excessive sweating or thirst. No cold intolerance. PHYSICAL EXAMINATION Gen: This is an 89-year-old female. She is resting in bed and appears to be comfortable and in no acute distress. HEENT: Head is atraumatic, normocephalic. Pupils equal, round. Sclerae is anicteric. NECK: Supple. No JVD. No lymphadenopathy. No thyromegaly. LUNGS: Clear to auscultation. No wheezes or rhonchi. No intercostal retractions. HEART: Regular rate and rhythm. No murmur. ABDOMEN: Soft. Bowel sounds are present. No masses. No tenderness. Last catheter in place with armani urine. EXTREMITIES: No pedal edema. No calf tenderness. Dorsalis pedis +2 bilaterally. NEUROLOGICAL: Patient is awake, alert and oriented x3. Cranial nerves 2 through 12 are grossly intact. ASSESSMENT AND PLAN 1. Dyspnea secondary to mild asthma exacerbation, mild intermittent asthma, possible pneumonia. Pulmonary consult appreciated, continue azithromycin, alb uterol nebulizer treatments 3 times daily as needed, Symbicort twice daily, Solu-Medrol 60 mg IV every 6 hours, Singulair 10 mg at bedtime. 2. Oral thrush. Patient started on Diflucan 100 mg daily for 7 day course. 3. Right shoulder pain secondary to osteoarthritis, stable. Continue ice and Tylenol. 4. Abnormal mass along anterior inferior bladder wall with elevated CA-125 and CEA. Consult with Dr. Lake appreciated. Patient to follow-up as an outpatient. 5. Hyperlipidemia. Continue pravastatin 40 mg at bedtime. 6. Osteoporosis. Continue vitamin D supplement. 7. Hypertension. Continue amlodipine 5 mg daily. 8. Chronic kidney disease stage III 9. Hypothyroidism. Continue levothyroxine 88 g daily. 10. Gastroesophageal reflux disease and GI prophylaxis. Continue Protonix 40 mg daily 11. Vitamin D deficiency, continue supplement. 12. Generalized anxiety disorder. Continue BuSpar 7.5 mg at bedtime. 13. COVID-19 testing negative. Patient has been hospitalized during a pandemic. DISCHARGE PLAN Home. Impression and plan of care have been directed as dictated by the signing physician. Ceci Borerro nurse practitioner acting as scribe for signing physician. Objective - Vital Signs Vital signs: Vital Signs Temp 98.0 F 12/20/20 20:00 Pulse 87 12/21/20 04:00 Resp 18 12/21/20 04:00 BP 156/69 12/21/20 04:00 Pulse Ox 97 12/21/20 04:00 Intake & Output 12/20/20 12/21/20 12/21/20 18:59 06:59 18:59 Intake Total 702 180 Output Total 1900 Balance 702 -1720 Weight 59.5 kg Intake: Oral 702 180 Output: Urine 1900 Other: Voiding Method Indwelling Catheter Indwelling Catheter # Voids 500 - Labs CBC & Chem 7: 12/19/20 18:18 12/19/20 18:18 Labs: Abnormal Lab Results - Last 24 Hours (Table) 12/20/20 12/20/20 12/20/20 Range/Units 12:57 13:41 17:17 POC Glucose (mg/dL) 113 H 145 H (75-99) mg/dL Procalcitonin 0.10 H (0.02-0.09) ng/mL 12/20/20 12/21/20 Range/Units 19:59 06:05 POC Glucose (mg/dL) 290 H 146 H (75-99) mg/dL Procalcitonin (0.02-0.09) ng/mL
[2020-12-21] MEDS: ASPIRIN 81 MG PO SCH ×2 (10:43→20:55)
[2020-12-21] MEDS: CYANOCOBALAMIN 500 MCG TAB PO SCH (10:43)
[2020-12-21] MEDS: amLODIPine 5 MG TAB PO SCH (10:43)
[2020-12-21] MEDS: LIDOCAINE 5% PATCH TOPICAL SCH (10:44)
[2020-12-21] MEDS: CHOLECALCIFEROL 25 MCG (1000 IU) TABLET PO SCH (10:44)
[2020-12-21] MEDS: FLUCONAZOLE 100 MG TAB PO SCH (10:44)
[2020-12-21] MEDS: ENOXAPARIN 40 MG/0.4 ML SYRINGE SQ SCH (10:44)
[2020-12-21] MEDS: Mirabegron [Myrbetriq] 25 MG Tab.Er.24h PO SCH (10:45)
[2020-12-21] MEDS: AZITHROMYCIN 250 MG TAB PO SCH (10:45)
[2020-12-21 11:32] LABS: Glucose,Whole Blood 152 mg/dL (75-99)
--- NOTE | 2020-12-21 11:40 | P.PN ---
Subjective Progress Note Date: 12/21/20 Principal diagnosis: Mild exacerbation of chronic bronchial asthma, aortic stenosis, possible pneumonia 89-year-old female that we are asked to see, to rule out pulmonary embolism. The patient apparently has been having some shortness of breath, shortness of breath on exertion, and is been falling frequently. The patient does have a history of chronic bronchial asthma, and she feels that maybe her asthma was a bit more active. She denies any fever or chills. There is no chest pain or chest discomfort. She denies any nausea, vomiting, or diarrhea. The patient apparently sees the other behavioral health clinician in [facility], and not are group. When I asked her what his diagnosis of her was, she stated "he really doesn't tell me". Anyway, the patient a mildly elevated D-dimer test, the Dopplers of the lower extremities or negative, and her ventilation perfusion lung scan was low probability. I suspect her shortness of breath relates an asthma flareup more than anything else. In addition, by examination, the patient has aortic stenosis, and it certainly could be contributing to her shortness of breath as well. Currently, she is not in any distress. She's not receiving any supplemental oxygen. Her medical history includes acid reflux disease, hyperlipidemia, hypertension, DJD, pneumonia, and hypothyroidism. She also tells me that she has a nebulizer machine at home, as well as a rescue inhaler, and does take a asthma pill, presumably, Singulair. White count 10, hemoglobin 11.1, hematocrit 33.4, platelet count 296,000. D-dimer was 1.21. Sodium 134, potassium 4.2, chlorides 100, CO2 26, anion gap 8, BUN 12, creatinine 1.09. Chest x-rays being read as showing persistent patchy density right infrahilar region which may reflect underlying pneumonia. Interestingly, the patient denies any cough, phlegm production, fever, chills, or any other symptoms that might suggest pneumonia. The patient is seen today 12/21/2020 in follow-up on the selective care unit. She is currently sitting up in a chair at the bedside. Awake and alert in no acute distress. Currently maintaining O2 saturations at 97% on room air. No chest pain. No palpitations. No dizziness or lightheadedness. She has been seen by urology. Plan is for outpatient cystoscopy. IDC discontinued. Glucose 146. She remains on Symbicort, albuterol, Singulair, IV Solu-Medrol. Antibioti cs in the form of azithromycin. Lovenox for DVT prophylaxis. Objective - Vital Signs Vital signs: Vital Signs Temp 97.7 F 12/21/20 08:00 Pulse 91 12/21/20 08:00 Resp 18 12/21/20 04:00 BP 130/60 12/21/20 08:00 Pulse Ox 97 12/21/20 04:00 Intake & Output 12/20/20 12/21/20 12/21/20 18:59 06:59 18:59 Intake Total 702 180 240 Output Total 1900 225 Balance 702 -1720 15 Weight 59.5 kg Intake: Oral 702 180 240 Output: Urine 1900 225 Other: Voiding Method Indwelling Catheter Indwelling Catheter Indwelling Catheter # Voids 500 - Exam GENERAL EXAM: Alert, active, very pleasant 89-year-old female, on room air, comfortable in no apparent distress. HEAD: Normocephalic. EYES: Normal reaction of pupils, equal size. NOSE: Clear with pink turbinates. THROAT: No erythema or exudates. NECK: No masses, no JVD. CHEST: No chest wall deformity. LUNGS: Equal air entry with no crackles, wheeze, rhonchi or dullness. CVS: S1 and S2 normal with no audible murmur, regular rhythm. ABDOMEN: No hepatosplenomegaly, normal bowel sounds, no guarding or rigidity. SPINE: No scoliosis or deformity SKIN: No rashes CENTRAL NERVOUS SYSTEM: No focal deficits, tone is normal in all 4 extremities. EXTREMITIES: There is no peripheral edema. No clubbing, no cyanosis. Peripheral pulses are intact. - Labs CBC & Chem 7: 12/19/20 18:18 12/19/20 18:18 Labs: Abnormal Lab Results - Last 24 Hours (Table) 12/20/20 12/20/20 12/20/20 Range/Units 12:57 13:41 17:17 POC Glucose (mg/dL) 113 H 145 H (75-99) mg/dL Procalcitonin 0.10 H (0.02-0.09) ng/mL 12/20/20 12/21/20 Range/Units 19:59 06:05 POC Glucose (mg/dL) 290 H 146 H (75-99) mg/dL Procalcitonin (0.02-0.09) ng/mL Assessment and Plan Assessment: 1 Acute hypoxic respiratory failure secondary to underlying mass mild intermittent chronic bronchial asthma exacerbation, ureters stenosis, possible pneumonia. 2 Hypertension 7 Hyperlipidemia 4 Gastroesophageal reflux disease 5 Hypothyroidism 6 Possible bladder tumor Plan: The patient was seen and evaluated by Dr. Briones She is stable from the pulmonary standpoint. On room air. Plan is for outpatient cystoscopy for possible bladder tumor We will see as needed I, the cosigning physician, performed a history & physical examination of the patient. Lungs sounds are clear. Maintaining good O2 saturations in the 90s on room air. I discussed the assessment and plan of care with my nurse practitioner, Alycia Lala. I attest to the above note as dictated by her.
[2020-12-21] MEDS: MAGNESIUM OXIDE 400 MG TAB PO SCH (13:12)
[2020-12-21] MEDS: PANTOPRAZOLE 40 MG TABLET PO SCH (13:12)
[2020-12-21 16:43] LABS: Glucose,Whole Blood 148 mg/dL (75-99)
[2020-12-21] MEDS: methylPREDNISolone SOD SUCCI 40 MG/ML 1 ML VIAL IV SCH ×2 (18:06→23:04)
[2020-12-21 20:38] LABS: Glucose,Whole Blood 153 mg/dL (75-99)
[2020-12-21] MEDS: MELATONIN 5 MG TABLET PO SCH (20:55)
[2020-12-21] MEDS: busPIRone HCl 5 MG TAB PO SCH (20:55)
[2020-12-21] MEDS: CALCIUM CARB-VIT D 500 MG-5 MCG TAB PO SCH (20:55)
[2020-12-21] MEDS: PRAVASTATIN SODIUM 40 MG TAB PO SCH (20:55)
[2020-12-21] MEDS: MONTELUKAST 10 MG TAB PO SCH (20:55)
[2020-12-21] MEDS: ACETAMINOPHEN TAB 325 MG TAB PO PRN (23:04)
[2020-12-22 00:55] VITALS: RESP 16
[2020-12-22 05:54] LABS: Glucose,Whole Blood 134 mg/dL (75-99)
[2020-12-22] MEDS: LEVOTHYROXINE 88 MCG TAB PO SCH (06:22)
[2020-12-22] MEDS: INSULIN ASPART (NovoLOG) 100 UNIT/ML VIAL SQ SCH ×2 (06:23→12:57)
[2020-12-22] MEDS: SYMBICORT 160-4.5 MCG INHALER INHALATION SCH (07:32)
[2020-12-22] MEDS: amLODIPine 5 MG TAB PO SCH (08:44)
[2020-12-22] MEDS: methylPREDNISolone SOD SUCCI 40 MG/ML 1 ML VIAL IV SCH (08:44)
[2020-12-22] MEDS: ENOXAPARIN 40 MG/0.4 ML SYRINGE SQ SCH (08:44)
[2020-12-22] MEDS: CHOLECALCIFEROL 25 MCG (1000 IU) TABLET PO SCH (08:44)
[2020-12-22] MEDS: FLUCONAZOLE 100 MG TAB PO SCH (08:44)
[2020-12-22] MEDS: ASPIRIN 81 MG PO SCH (08:44)
[2020-12-22] MEDS: Mirabegron [Myrbetriq] 25 MG Tab.Er.24h PO SCH (08:45)
[2020-12-22] MEDS: LIDOCAINE 5% PATCH TOPICAL SCH (09:15)
[2020-12-22 10:48] VITALS: BP 129/61; TEMP 97.5
--- NOTE | 2020-12-22 11:00 | P.DS ---
Providers Date of admission: 12/19/20 19:38 Expected date of discharge: 12/22/20 Attending physician: Kayla Gamez Consults: 12/19/20 23:11 Consult Physician Routine Consulting Provider: Antoine Carrasquillo Consult Reason/Comments: SOB Do you want consulting provider notified?: Yes, Notify in am 12/20/20 10:02 Consult Physician Routine Consulting Provider: Joaquin Lake Consult Reason/Comments: tumor at bladder Do you want consulting provider notified?: Yes Primary care physician: Kayla Gamez [facility] Course: HISTORY OF PRESENT ILLNESS This is an 89-year-old female patient of Dr. Gamez with past medical history of COPD, hyperlipidemia, hypertension, osteoporosis, chronic kidney disease stage III, hypothyroidism, gastroesophageal reflux disease, vitamin D deficiency, generalized osteoarthritis, carotid artery disease, generalized anxiety disorder. Patient has had several office visits as well as ER visit for COPD. She follows with Dr. North. She was recently started on azithromycin. Also noted that patient had a CA 199 elevated and CEA 125 were elevated. Patient is status post POOL/BSO. CAT scan of the abdomen and pelvis with contrast done on December 04 revealed suspect mild uncomplicated acute distal colitis. No bowel obstruction. There was an abnormal mass along the anterior inferior bladder wall measuring 2 x 1.6 cm. Recommendations were for cystoscopy and office was scheduling an appointment with Dr. Lake. Patient complains of right shoulder pain and treated with Tylenol and ice. No fever or chills. No n ausea vomiting. Patient presented to [facility] emergency center for evaluation. She was found to be afebrile, heart rate 91, blood pressure 124/65, pulse ox 95% on room air. WBC 10, hemoglobin 11.1, platelet count 296. Sodium 134, potassium 3.4, chloride 100, CO2 26, BUN 12 and creatinine 1.09. Blood sugar 100. D-dimer 1.21. Liver function tests were normal. Lactic acid 1. Troponin negative. ProBNP 505. EKG was in sinus rhythm with occasional PACs. Chest x-ray reveals persistent patchy density right infrahilar region may reflect underlying pneumonia. This was compared to x-ray from December 16 ER visit. Last catheter was placed in the ER for bladder scan greater than 300. VQ scan was low probability for pulmonary embolism. Interstitial lung disease, correlate for pneumonia. Bilateral lower extremity ultrasound negative for DVT. Right humerus x-ray shows no acute fracture or dislocation. Echocardiogram reveals EF of 60-65% with borderline concentric left ventricular hypertrophy, mild aortic stenosis, trace mitral regurgitation, mild tricuspid regurgitation. 12/21: Patient has been seen by Dr. Lake with recommendations to discontinue Last catheter and follow up in the office for cystoscopy. Patient has also been seen by Dr. Briones and PE has been ruled out and gout pneumonia. Pro- calcitonin level 0.1. Solu-Medrol will be decreased to 40 mg IV every 8 hours. Patient is been afebrile, heart rate 87, blood pressure 156/69, pulse ox 97% on room air. Capillary blood glucose running between 146 and 290. Patient is requesting to get out of bed and for a walker. PT will be added. Last catheter out today. Plan to monitor overnight and discharged home tomorrow.. 12/22: Patient had Last catheter removed yesterday but required straight cath 3 times and refused Last catheter last evening. She complains of continuing to have trouble dribbling and not emptying her bladder. Dr. Lake is requesting Last catheter be maintained after discharge. Patient is plan discussed follow- up with him in the office for cystoscopy. Patient denies having any lightheadedness or dizziness. Shortness of breath is improved. No significant cough. No chest pain. Patient has been afebrile, heart rate 87, blood pressure 129/61, pulse ox 98% on room air. Capillary blood glucose running between 134 and 152. Patient will be discharged home today in stable condition. ASSESSMENT AND PLAN 1. Dyspnea secondary to mild asthma exacerbation, mild intermittent asthma, possible pneumonia. 2. Oral thrush. 3. Right shoulder pain secondary to osteoarthritis, stable. 4. Abnormal mass along anterior inferior bladder wall with elevated CA-125 and CEA. Consult with Dr. Lake appreciated. Patient to follow-up as an outpatient. 5. Hyperlipidemia. 6. Osteoporosis. 7. Hypertension. 8. Chronic kidney disease stage III 9. Hypothyroidism. 10. Gastroesophageal reflux disease. 11. Vitamin D deficiency, continue supplement. 12. Generalized anxiety disorder. 13. Urinary retention requiring Last catheter placement. 14. COVID-19 testing negative. Patient has been hospitalized during a pandemic. DISCHARGE PLAN Home. Impression and plan of care have been directed as dictated by the signing physician. Ceci Borrero nurse practitioner acting as scribe for signing physician. Patient Condition at Discharge: Good Plan - Discharge Summary Discharge Rx Participant: No New Discharge Prescriptions: New Azithromycin [Zithromax] 250 mg PO DAILY@1200 #5 tab Fluconazole [Diflucan] 100 mg PO DAILY #5 tab Continue Cyanocobalamin [Vitamin B-12] 500 mcg PO DAILY@1200 Denosumab [Prolia] 60 mg SQ Q180D Magnesium Oxide [Mag-Ox] 400 mg PO HS amLODIPine [Norvasc] 5 mg PO DAILY Levothyroxine Sodium [Synthroid] 88 mcg PO DAILY Pravastatin Sodium [Pravachol] 40 mg PO HS Melatonin 10 mg PO HS Montelukast Sodium [Singulair] 10 mg PO HS Aspirin 81 mg PO DAILY Albuterol Nebulized [Ventolin Nebulized] 2.5 mg INHALATION RT-TID PRN PRN Reason: Shortness Of Breath Calcium Carbonate/Vitamin D3 [Calcium 600 mg-D3 10 Mcg (400 Iu)] 1 cap PO HS Cholecalciferol [Vitamin D3 (25 Mcg = 1000 Iu)] 50 mcg PO DAILY@1200 busPIRone HCL [Buspar] 7.5 mg PO HS Budesonide [Pulmicort] 0.5 mg INHALATION RT-BID Pantoprazole Sodium [Protonix] 40 mg PO DAILY@1200 Discharge Medication List Cyanocobalamin [Vitamin B-12] 500 mcg PO DAILY@1200 05/22/14 [History] Denosumab [Prolia] 60 mg SQ Q180D 02/28/17 [History] Levothyroxine Sodium [Synthroid] 88 mcg PO DAILY 02/28/17 [History] Magnesium Oxide [Mag-Ox] 400 mg PO HS 02/28/17 [History] amLODIPine [Norvasc] 5 mg PO DAILY 02/28/17 [History] Melatonin 10 mg PO HS 12/05/18 [History] Pravastatin Sodium [Pravachol] 40 mg PO HS 12/05/18 [History] Montelukast Sodium [Singulair] 10 mg PO HS 06/18/20 [History] Aspirin 81 mg PO DAILY 07/16/20 [History] Albuterol Nebulized [Ventolin Nebulized] 2.5 mg INHALATION RT-TID PRN 12/16/20 [History] Cholecalciferol [Vitamin D3 (25 Mcg = 1000 Iu)] 50 mcg PO DAILY@1200 12/16/20 [History] Budesonide [Pulmicort] 0.5 mg INHALATION RT-BID 12/19/20 [History] Calcium Carbonate/Vitamin D3 [Calcium 600 mg-D3 10 Mcg (400 Iu)] 1 cap PO HS 12/19/20 [History] Pantoprazole Sodium [Protonix] 40 mg PO DAILY@1200 12/19/20 [History] busPIRone HCL [Buspar] 7.5 mg PO HS 12/19/20 [History] Azithromycin [Zithromax] 250 mg PO DAILY@1200 #5 tab 12/22/20 [Rx] Fluconazole [Diflucan] 100 mg PO DAILY #5 tab 12/22/20 [Rx] Follow up Appointment(s)/Referral(s): Kayla Gamez MD [Primary Care Provider] - 1 Week Activity/Diet/Wound Care/Special Instructions: F/U with Dr. Lake in 2 weeks for office cystoscopy ([phone]). Discharge Disposition: HOME SELF-CARE
[2020-12-22 11:33] LABS: Glucose,Whole Blood 133 mg/dL (75-99)
[2020-12-22] MEDS: PANTOPRAZOLE 40 MG TABLET PO SCH (12:57)
[2020-12-22] MEDS: CYANOCOBALAMIN 500 MCG TAB PO SCH (12:57)
[2020-12-22] MEDS: AZITHROMYCIN 250 MG TAB PO SCH (12:57)
[2020-12-22] MEDS: MAGNESIUM OXIDE 400 MG TAB PO SCH (12:57)
--- NOTE | 2020-12-22 13:10 | P.PN ---
Subjective Progress Note Date: 12/22/20 Principal diagnosis: Mild exacerbation of chronic bronchial asthma, aortic stenosis, possible pneumonia 89-year-old female that we are asked to see, to rule out pulmonary embolism. The patient apparently has been having some shortness of breath, shortness of breath on exertion, and is been falling frequently. The patient does have a history of chronic bronchial asthma, and she feels that maybe her asthma was a bit more active. She denies any fever or chills. There is no chest pain or chest discomfort. She denies any nausea, vomiting, or diarrhea. The patient apparently sees the other colorman in [facility], and not are group. When I asked her what his diagnosis of her was, she stated "he really doesn't tell me". Anyway, the patient a mildly elevated D-dimer test, the Dopplers of the lower extremities or negative, and her ventilation perfusion lung scan was low probability. I suspect her shortness of breath relates an asthma flareup more than anything else. In addition, by examination, the patient has aortic stenosis, and it certainly could be contributing to her shortness of breath as well. Currently, she is not in any distress. She's not receiving any supplemental oxygen. Her medical history includes acid reflux disease, hyperlipidemia, hypertension, DJD, pneumonia, and hypothyroidism. She also tells me that she has a nebulizer machine at home, as well as a rescue inhaler, and does take a asthma pill, presumably, Singulair. White count 10, hemoglobin 11.1, hematocrit 33.4, platelet count 296,000. D-dimer was 1.21. Sodium 134, potassium 4.2, chlorides 100, CO2 26, anion gap 8, BUN 12, creatinine 1.09. Chest x-rays being read as showing persistent patchy density right infrahilar region which may reflect underlying pneumonia. Interestingly, the patient denies any cough, phlegm production, fever, chills, or any other symptoms that might suggest pneumonia. The patient is seen today 12/21/2020 in follow-up on the selective care unit. She is currently sitting up in a chair at the bedside. Awake and alert in no acute distress. Currently maintaining O2 saturations at 97% on room air. No chest pain. No palpitations. No dizziness or lightheadedness. She has been seen by urology. Plan is for outpatient cystoscopy. IDC discontinued. Glucose 146. She remains on Symbicort, albuterol, Singulair, IV Solu-Medrol. Antibioti cs in the form of azithromycin. Lovenox for DVT prophylaxis. The patient is seen today 12/21/2020 in follow-up on the selective care unit. She is awake and alert in no acute distress. Currently sitting up in a chair at the bedside. No shortness of breath, cough or congestion. Maintaining O2 sa turations in the 90s on room air. Her only concern is she is unable to void. Last catheter is to be reinserted. She is planning to go home today. Blood glucose 133. She remains on IV Solu-Medrol, Symbicort, Singulair and albuterol. Objective - Vital Signs Vital signs: Vital Signs Temp 97.5 F L 12/22/20 08:00 Pulse 87 12/22/20 08:00 Resp 16 12/22/20 03:22 BP 129/61 12/22/20 08:00 Pulse Ox 98 12/22/20 08:00 Intake & Output 12/21/20 12/22/20 12/22/20 18:59 06:59 18:59 Intake Total 720 480 Output Total 225 1855 250 Balance 495 -1855 230 Weight 59.8 kg Intake: Oral 720 480 Output: Urine 225 1850 250 Straight 1000 Post Void Residual 5 Other: Voiding Method Indwelling Catheter # Voids 1 1 # Bowel Movements 1 - Exam GENERAL EXAM: Alert, active, very pleasant 89-year-old female, on room air, co mfortable in no apparent distress. HEAD: Normocephalic. EYES: Normal reaction of pupils, equal size. NOSE: Clear with pink turbinates. THROAT: No erythema or exudates. NECK: No masses, no JVD. CHEST: No chest wall deformity. LUNGS: Equal air entry with no crackles, wheeze, rhonchi or dullness. CVS: S1 and S2 normal with no audible murmur, regular rhythm. ABDOMEN: No hepatosplenomegaly, normal bowel sounds, no guarding or rigidity. SPINE: No scoliosis or deformity SKIN: No rashes CENTRAL NERVOUS SYSTEM: No focal deficits, tone is normal in all 4 extremities. EXTREMITIES: There is no peripheral edema. No clubbing, no cyanosis. Peripheral pulses are intact. - Labs CBC & Chem 7: 12/19/20 18:18 12/19/20 18:18 Labs: Abnormal Lab Results - Last 24 Hours (Table) 12/21/20 12/21/20 12/22/20 Range/Units 16:42 20:36 05:52 POC Glucose (mg/dL) 148 H 153 H 134 H (75-99) mg/dL 12/22/20 Range/Units 11:32 POC Glucose (mg/dL) 133 H (75-99) mg/dL Assessment and Plan Assessment: 1 Acute hypoxic respiratory failure secondary to underlying mass mild intermitt ent chronic bronchial asthma exacerbation, ureters stenosis, possible pneumonia. Recovered and room air 2 Hypertension 7 Hyperlipidemia 4 Gastroesophageal reflux disease 5 Hypothyroidism 6 Possible bladder tumor with urinary retention, Last in place Plan: The patient was seen and evaluated by Dr. Briones She is stable from the pulmonary standpoint. On room air. We will see as needed I, the cosigning physician, performed a history & physical examination of the patient. Lungs sounds are clear. Maintaining good O2 saturations in the 90s on room air. I discussed the assessment and plan of care with my nurse practitioner, Alycia Lala. I attest to the above note as dictated by her.
[2020-12-22 15:21] VITALS: PULSE 84
== END 2020-12-22 13:57 | disposition home or self-care (01) ==
LOC: EC 16:47 → 3SCARD 19:38
PROVIDERS: ADMIT Family Medicine; ATTEND Family Medicine
DX: J45.21 Mild intermittent asthma with (acute) exacerbation (principal); B37.0 Candidal stomatitis; M19.011 Primary osteoarthritis, right shoulder; J96.01 Acute respiratory failure with hypoxia; N32.89 Other specified disorders of bladder; E78.5 Hyperlipidemia, unspecified; M81.0 Age-related osteoporosis without current pathological fracture; I12.9 Hypertensive chronic kidney disease with stage 1 through stage 4 chronic kidney disease, or unspecified chronic kidney disease; N18.30 Chronic kidney disease, stage 3 unspecified; E03.9 Hypothyroidism, unspecified; K21.9 Gastro-esophageal reflux disease without esophagitis; E55.9 Vitamin D deficiency, unspecified; F41.1 Generalized anxiety disorder; R33.9 Retention of urine, unspecified; J44.9 Chronic obstructive pulmonary disease, unspecified; M19.90 Unspecified osteoarthritis, unspecified site; R97.1 Elevated cancer antigen 125 [CA 125]; J84.9 Interstitial pulmonary disease, unspecified; R79.89 Other specified abnormal findings of blood chemistry; I35.0 Nonrheumatic aortic (valve) stenosis; Z20.822 Contact with and (suspected) exposure to COVID-19; Z90.710 Acquired absence of both cervix and uterus; Z90.722 Acquired absence of ovaries, bilateral; Z77.22 Contact with and (suspected) exposure to environmental tobacco smoke (acute) (chronic); Z79.899 Other long term (current) drug therapy; Z87.01 Personal history of pneumonia (recurrent); Z87.440 Personal history of urinary (tract) infections; Z98.890 Other specified postprocedural states; Z79.890 Hormone replacement therapy; Z79.82 Long term (current) use of aspirin; Z88.0 Allergy status to penicillin; Z88.5 Allergy status to narcotic agent; Z88.8 Allergy status to other drugs, medicaments and biological substances; R29.6 Repeated falls; Z83.3 Family history of diabetes mellitus; Z82.49 Family history of ischemic heart disease and other diseases of the circulatory system; Z81.8 Family history of other mental and behavioral disorders; Z80.0 Family history of malignant neoplasm of digestive organs; Z82.0 Family history of epilepsy and other diseases of the nervous system; Z80.3 Family history of malignant neoplasm of breast
CPT/HCPCS: 51702; 96376 ×3; 96361 ×3; 96372 ×3; 96374; 99284; 36415; 94640 ×4; 93005; 93306; 85379; 83880; 80053; 82550; 83605; 83735; 84484; 85025; 85610; 85730; 84145; 87635; 73060; 71046; 93970; 78582; G0378 ×4; A9540; A9567; J2920 ×2; J2930 ×2; J1650 ×3

== ENCOUNTER 2020-12-26 21:47 | Emergency (ER) | payer MEDICARE, BC ==
[2020-12-26 21:52] VITALS: BP 150/77; PULSE 87; RESP 18; TEMP 97.5
--- NOTE | 2020-12-26 22:07 | ED ---
General Adult HPI - General Chief complaint: Urogenital Stated complaint: catheter problems Time Seen by Provider: 12/26/20 21:53 Source: patient, family Mode of arrival: wheelchair Limitations: no limitations - History of Present Illness Initial comments: This patient is an 89-year-old woman who presents here to have evaluation of the function of her Last catheter. The patient had gone to a physician appointment in the afternoon and then after returning home felt that the drainage had slowed considerably. The urine remains clear and yellow. She is not having any back or abdominal pain. Patient has no other complaints. -: hour(s) Severity scale (1-10): 0 Improves with: none Worsens with: none Associated Symptoms: denies other symptoms Treatments Prior to Arrival: none - Related Data Home Medications Medication Instructions Recorded Confirmed Cyanocobalamin [Vitamin B-12] 500 mcg PO DAILY@1200 05/22/14 12/19/20 Denosumab [Prolia] 60 mg SQ Q180D 02/28/17 12/19/20 Levothyroxine Sodium [Synthroid] 88 mcg PO DAILY 02/28/17 12/19/20 Magnesium Oxide [Mag-Ox] 400 mg PO HS 02/28/17 12/19/20 amLODIPine [Norvasc] 5 mg PO DAILY 02/28/17 12/19/20 Melatonin 10 mg PO HS 12/05/18 12/19/20 Pravastatin Sodium [Pravachol] 40 mg PO HS 12/05/18 12/19/20 Montelukast Sodium [Singulair] 10 mg PO HS 06/18/20 12/19/20 Aspirin 81 mg PO DAILY 07/16/20 12/19/20 Albuterol Nebulized [Ventolin 2.5 mg INHALATION RT-TID PRN 12/16/20 12/19/20 Nebulized] Cholecalciferol [Vitamin D3 (25 50 mcg PO DAILY@1200 12/16/20 12/19/20 Mcg = 1000 Iu)] Budesonide [Pulmicort] 0.5 mg INHALATION RT-BID 12/19/20 12/19/20 Calcium Carbonate/Vitamin D3 1 cap PO HS 12/19/20 12/19/20 [Calcium 600 mg-D3 10 Mcg (400 Iu)] Pantoprazole Sodium [Protonix] 40 mg PO DAILY@1200 12/19/20 12/19/20 busPIRone HCL [Buspar] 7.5 mg PO HS 12/19/20 12/19/20 Previous Rx's Medication Instructions Recorded Azithromycin [Zithromax] 250 mg PO DAILY@1200 #5 tab 12/22/20 Fluconazole [Diflucan] 100 mg PO DAILY #5 tab 12/22/20 Allergies Allergy/AdvReac Type Severity Reaction Status Date / Time Penicillins Allergy Intermediate Rash/Hives Verified 12/19/20 20:29 linaclotide [From Linzess] AdvReac Diarrhea Verified 12/19/20 20:29 Narcotics AdvReac Hallucinati Uncoded 12/17/20 13:27 ons Review of Systems ROS Statement: Those systems with pertinent positive or pertinent negative responses have been documented in the HPI. ROS Other: All systems not noted in ROS Statement are negative. Constitutional: Denies: fever, chills Respiratory: Denies: cough, dyspnea Cardiovascular: Denies: chest pain Gastrointestinal: Denies: abdominal pain, nausea, vomiting Genitourinary: Reports: as per HPI, other (Last catheter) Musculoskeletal: Denies: back pain Skin: Denies: rash Past Medical History Past Medical History: Asthma, GERD/Reflux, Hyperlipidemia, Hypertension, Osteoarthritis (OA), Pneumonia, Thyroid Disorder Additional Past Medical History / Comment(s): SOB with activity, fx 5th digit left hand-splint on,prednisone March 2019 Hx DOUBLE VISION, colitis,bladder infections History of Any Multi-Drug Resistant Organisms: None Reported Past Surgical History: Appendectomy, Hysterectomy, Tonsillectomy Additional Past Surgical History / Comment(s): BILATERAL CATARACTS. sinus/blocked tear duct surgery, D&C x 2, surgery for fx nose, cyst removed from rt ear Past Anesthesia/Blood Transfusion Reactions: Postoperative Nausea & Vomiting (PONV) Additional Past Anesthesia/Blood Transfusion Reaction / Comment(s): "took two days to come out" (after hysterectomy),no hx blood transfusion Past Psychological History: Anxiety Smoking Status: Never smoker Past Alcohol Use History: None Reported Past Drug Use History: None Reported - Past Family History Father Family Medical History: Cancer, Myocardial Infarction ([place]) Mother Family Medical History: Cancer, Myocardial Infarction ([place]) Sister(s) Family Medical History: Cancer Additional Family Medical History / Comment(s): breast, colon Brother(s) Family Medical History: Cancer General Exam Limitations: no limitations General appearance: alert, in no apparent distress Head exam: Present: atraumatic, normocephalic Eye exam: Present: normal appearance. Absent: scleral icterus, conjunctival injection Respiratory exam: Present: normal lung sounds bilaterally. Absent: respiratory distress, wheezes, rales, rhonchi, stridor Cardiovascular Exam: Present: regular rate, normal rhythm, systolic murmur (Grade 3/6 systolic ejection murmur.). Absent: diastolic murmur, rubs, gallop GI/Abdominal exam: Present: soft. Absent: distended, tenderness, guarding, rebound, rigid, mass, pulsatile mass, hernia Extremities exam: Present: normal inspection, normal capillary refill. Absent: pedal edema, calf tenderness Back exam: Present: normal inspection. Absent: CVA tenderness (R), CVA tenderness (L) Neurological exam: Present: alert Skin exam: Present: warm, dry, intact, normal color. Absent: rash Course Vital Signs 12/26/20 21:48 Temperature 97.5 F L Pulse Rate 87 Respiratory 18 Rate Blood Pressure 150/77 O2 Sat by Pulse 98 Oximetry Disposition Clinical Impression: Last catheter problem Disposition: HOME SELF-CARE Condition: Good Instructions (If sedation given, give patient instructions): *Surgery [facility] - Last Catheter Instructions Is patient prescribed a controlled substance at d/c from ED?: No Referrals: Kayla Gamez MD [Primary Care Provider] - 1-2 days
== END 2020-12-26 22:56 | disposition home or self-care (01) ==
LOC: EC 21:47
DX: T83.091A Other mechanical complication of indwelling urethral catheter, initial encounter (principal); I10 Essential (primary) hypertension; J45.909 Unspecified asthma, uncomplicated; K21.9 Gastro-esophageal reflux disease without esophagitis; M19.90 Unspecified osteoarthritis, unspecified site; E78.5 Hyperlipidemia, unspecified; Z79.51 Long term (current) use of inhaled steroids; Z79.82 Long term (current) use of aspirin; Z88.0 Allergy status to penicillin; Z88.5 Allergy status to narcotic agent; Z88.8 Allergy status to other drugs, medicaments and biological substances; Z79.899 Other long term (current) drug therapy
CPT/HCPCS: 51798; 99283

== ENCOUNTER 2021-04-24 08:43 | Emergency (ER) | payer MEDICARE, BC ==
[2021-04-24 08:51] VITALS: BP 127/77; PULSE 77; RESP 18; TEMP 98.7
--- NOTE | 2021-04-24 09:03 | ED ---
General Adult HPI - General Chief complaint: Headache Stated complaint: headache/NVD/blurry vision Time Seen by Provider: 04/24/21 08:52 Source: patient, RN notes reviewed, old records reviewed Mode of arrival: ambulatory Limitations: no limitations - History of Present Illness Initial comments: 89-year-old female presenting with headache status post fall. Fall occurred several days ago she had head trauma without loss consciousness. No anticoagulation. She states she's had a persistent headache which she believes may have come from the fall but she has also started isosorbide mononitrate and did note that this was listed as a potential side effect from the medication. She had some vomiting and diarrhea which occurred last night. No fevers. No focal numbness or weakness. - Related Data Home Medications Medication Instructions Recorded Confirmed Cyanocobalamin [Vitamin B-12] 500 mcg PO DAILY@1200 05/22/14 12/19/20 Denosumab [Prolia] 60 mg SQ Q180D 02/28/17 12/19/20 Levothyroxine Sodium [Synthroid] 88 mcg PO DAILY 02/28/17 12/19/20 Magnesium Oxide [Mag-Ox] 400 mg PO HS 02/28/17 12/19/20 amLODIPine [Norvasc] 5 mg PO DAILY 02/28/17 12/19/20 Melatonin 10 mg PO HS 12/05/18 12/19/20 Pravastatin Sodium [Pravachol] 40 mg PO HS 12/05/18 12/19/20 Montelukast Sodium [Singulair] 10 mg PO HS 06/18/20 12/19/20 Aspirin 81 mg PO DAILY 07/16/20 12/19/20 Albuterol Nebulized [Ventolin 2.5 mg INHALATION RT-TID PRN 12/16/20 12/19/20 Nebulized] Cholecalciferol [Vitamin D3 (25 50 mcg PO DAILY@1200 12/16/20 12/19/20 Mcg = 1000 Iu)] Budesonide [Pulmicort] 0.5 mg INHALATION RT-BID 12/19/20 12/19/20 Calcium Carbonate/Vitamin D3 1 cap PO HS 12/19/20 12/19/20 [Calcium 600 mg-D3 10 Mcg (400 Iu)] Pantoprazole Sodium [Protonix] 40 mg PO DAILY@1200 12/19/20 12/19/20 busPIRone HCL [Buspar] 7.5 mg PO HS 12/19/20 12/19/20 Previous Rx's Medication Instructions Recorded Azithromycin [Zithromax] 250 mg PO DAILY@1200 #5 tab 12/22/20 Fluconazole [Diflucan] 100 mg PO DAILY #5 tab 12/22/20 Allergies Allergy/AdvReac Type Severity Reaction Status Date / Time Penicillins Allergy Intermediate Rash/Hives Verified 12/19/20 20:29 linaclotide [From Linzess] AdvReac Diarrhea Verified 12/19/20 20:29 Narcotics AdvReac Hallucinati Uncoded 12/17/20 13:27 ons Review of Systems ROS Statement: Those systems with pertinent positive or pertinent negative responses have been documented in the HPI. ROS Other: All systems not noted in ROS Statement are negative. Past Medical History Past Medical History: Asthma, GERD/Reflux, Hyperlipidemia, Hypertension, Osteoarthritis (OA), Pneumonia, Thyroid Disorder Additional Past Medical History / Comment(s): SOB with activity, fx 5th digit left hand-splint on,prednisone March 2019 Hx DOUBLE VISION, colitis,bladder infections History of Any Multi-Drug Resistant Organisms: None Reported Past Surgical History: Appendectomy, Hysterectomy, Tonsillectomy Additional Past Surgical History / Comment(s): BILATERAL CATARACTS. sinus/blocked tear duct surgery, D&C x 2, surgery for fx nose, cyst removed from rt ear Past Anesthesia/Blood Transfusion Reactions: Postoperative Nausea & Vomiting (PONV) Additional Past Anesthesia/Blood Transfusion Reaction / Comment(s): "took two days to come out" (after hysterectomy),no hx blood transfusion Past Psychological History: Anxiety Smoking Status: Never smoker Past Alcohol Use History: None Reported Past Drug Use History: None Reported - Past Family History Father Family Medical History: Cancer, Myocardial Infarction ([place]) Mother Family Medical History: Cancer, Myocardial Infarction ([place]) Sister(s) Family Medical History: Cancer Additional Family Medical History / Comment(s): breast, colon Brother(s) Family Medical History: Cancer General Exam Limitations: no limitations General appearance: alert, in no apparent distress Head exam: Present: atraumatic, normocephalic Eye exam: Present: normal appearance, PERRL ENT exam: Present: normal exam Neck exam: Present: normal inspection. Absent: tenderness, meningismus Respiratory exam: Present: normal lung sounds bilaterally. Absent: respiratory distress, wheezes Cardiovascular Exam: Present: regular rate, normal rhythm GI/Abdominal exam: Present: soft. Absent: distended, tenderness Extremities exam: Present: normal inspection, normal capillary refill. Absent: pedal edema Back exam: Present: normal inspection Neurological exam: Present: alert, oriented X3, CN II-XII intact. Absent: motor sensory deficit Psychiatric exam: Present: normal affect, normal mood Skin exam: Present: warm, dry, intact. Absent: cyanosis, diaphoretic Course Vital Signs 04/24/21 08:45 Temperature 98.7 F Pulse Rate 77 Respiratory 18 Rate Blood Pressure 127/77 O2 Sat by Pulse 97 Oximetry Medical Decision Making - Medical Decision Making 89-year-old female with headache status post fall. Patient has no external signs of trauma. Given the age CT brain is performed which is negative for intracranial hemorrhage or mass effect, there is chronic changes without acute process. CT cervical spine negative for fracture subluxation. Patient will discuss with her primary care physician regarding the continued use of isosorbide as this may be the cause of her headaches. She will take Tylenol for pain. Return parameters discussed. Disposition Clinical Impression: Headache Disposition: HOME SELF-CARE Condition: Good Instructions (If sedation given, give patient instructions): Acute Headache (ED) Is patient prescribed a controlled substance at d/c from ED?: No Referrals: Kayla Gamez MD [Primary Care Provider] - 1-2 days Time of Disposition: 09:28
--- NOTE | 2021-04-24 09:20 | CT ---
EXAMINATION TYPE: CT brain rosalee storm DATE OF EXAM: 04/24/2021 COMPARISON: 02/19/2017 HISTORY: Fall 4-5 days ago with headache. CT DLP: 1246.[address] of the brain was performed. The ventricles, basal cisterns and sulci overlying the cerebral convexities demonstrate mild enlargem ent. There is no evidence for intracranial hemorrhage or sulcal effacement. There is decreased attenuatio n about the periventricular white matter and deep white matter of both cerebral hemispheres, compatib le with chronic small vessel ischemia. No mass effects are seen. If symptoms persist consider MRI. Osseous calvarium is intact. IMPRESSION: 1. Age related atrophic and chronic small vessel ischemic change without acute intracranial process seen at this time. CT Cervical Spine: Unenhanced CT of the cervical spine was performed with bone and soft tissue window settings submitted . Coronal and sagittal reconstruction is obtained. There is normal alignment and prevertebral soft tissues. No evidence for acute cervical fracture . Scattered degenerative disc disease and spondylosis. Biapical scarring. IMPRESSION: 1. No evidence for acute fracture or subluxation of the cervical spine.
== END 2021-04-24 09:56 | disposition home or self-care (01) ==
LOC: EC 08:43
DX: R51.9 Headache, unspecified (principal); J45.909 Unspecified asthma, uncomplicated; K21.9 Gastro-esophageal reflux disease without esophagitis; E78.5 Hyperlipidemia, unspecified; I10 Essential (primary) hypertension; M19.90 Unspecified osteoarthritis, unspecified site; E07.9 Disorder of thyroid, unspecified; F41.9 Anxiety disorder, unspecified; Z88.0 Allergy status to penicillin; Z88.5 Allergy status to narcotic agent; Z90.49 Acquired absence of other specified parts of digestive tract; Z90.710 Acquired absence of both cervix and uterus; Z90.89 Acquired absence of other organs; Z79.82 Long term (current) use of aspirin
CPT/HCPCS: 70450; 72125; 99284

== ENCOUNTER 2021-04-28 13:52 | Inpatient (IN) | payer MEDICARE, BC ==
[2021-04-28] MEDS ORDERED: MORPHINE SULFATE 2 MG/ML SYRINGE IVP STA ×2 (14:52→17:30)
[2021-04-28 15:28] LABS: Basophils % (A) 0 %; Eosinophils % (A) 0 %; HGB 12.9 gm/dL (11.4-16.0); Lymphocytes # (A) 1.5 k/uL (1.0-4.8); Lymphocytes % (A) 16 %; MCH 29.5 pg (25.0-35.0); MCHC 34.8 g/dL (31.0-37.0); MCV 84.9 fL (80.0-100.0); Mean Platelet Volume 6.9; Monocytes # (A) 0.5 k/uL (0-1.0); Monocytes % (A) 6 %; Neutrophils # (A) 7.1 k/uL (1.3-7.7); Neutrophils % (A) 77 %; Platelet Count 266 k/uL (150-450); RBC 4.36 m/uL (3.80-5.40); RDW 14.8 % (11.5-15.5); WBC 9.2 k/uL (3.8-10.6)
--- NOTE | 2021-04-28 15:33 | XR ---
EXAMINATION TYPE: XR chest 2V DATE OF EXAM: 04/28/2021 COMPARISON: Chest x-ray 12/19/2020, CT chest 11/08/2020 HISTORY: Chest pain TECHNIQUE: Frontal and lateral views of the chest are obtained. FINDINGS: There is no focal air space opacity, pleural effusion, or pneumothorax seen. The cardiac silhouette size is within normal limits. Prominent lung volume may be indicative of underlying COPD. There is an anterior wedge compression deformity near the thoracolumbar junction which is stable, re sulting kyphosis is noted. The osseous structures are intact, arthropathy noted in the shoulders. Int erstitial changes within the lungs are again noted. The aorta is dense. IMPRESSION: No acute cardiopulmonary process.
[2021-04-28 15:36] LABS: INR 0.9 (<1.2); Partial Thromboplastin Time 22.1 sec (22.0-30.0); Prothrombin Time 10.2 sec (9.0-12.0)
[2021-04-28 15:37] LABS: Albumin 4.3 g/dL (3.5-5.0); Calcium 9.4 mg/dL (8.4-10.2); Magnesium 1.5 mg/dL (1.6-2.3); Potassium 4.8 mmol/L (3.5-5.1); Total Bilirubin 0.7 mg/dL (0.2-1.3); Total Protein 7.5 g/dL (6.3-8.2)
--- NOTE | 2021-04-28 15:44 | ED ---
General Adult HPI - General Chief complaint: Chest Pain Stated complaint: LIZZIE Time Seen by Provider: 04/28/21 14:43 Source: patient, RN notes reviewed, old records reviewed Mode of arrival: wheelchair Limitations: no limitations - History of Present Illness Initial comments: 89-year-old female presenting for evaluation of chest discomfort, dyspnea. Carolyn taveras had been seen by her primary care physician as well as had an ER visit within the past one week. ER visit was for her headache after starting Imdur. This dose was reduced by the primary care physician. She had been on this medication secondary to exertional chest pain. She did develop some chest pain and discomfort after leaving the office visit as well as some dyspnea. She does have history of asthma as well. No fever. No significant cough. She reports generalized weakness without focal numbness or weakness. No dysuria. - Related Data Home Medications Medication Instructions Recorded Confirmed Cyanocobalamin [Vitamin B-12] 500 mcg PO DAILY@1200 05/22/14 12/19/20 Denosumab [Prolia] 60 mg SQ Q180D 02/28/17 12/19/20 Levothyroxine Sodium [Synthroid] 88 mcg PO DAILY 02/28/17 12/19/20 Magnesium Oxide [Mag-Ox] 400 mg PO HS 02/28/17 12/19/20 amLODIPine [Norvasc] 5 mg PO DAILY 02/28/17 12/19/20 Melatonin 10 mg PO HS 12/05/18 12/19/20 Pravastatin Sodium [Pravachol] 40 mg PO HS 12/05/18 12/19/20 Montelukast Sodium [Singulair] 10 mg PO HS 06/18/20 12/19/20 Aspirin 81 mg PO DAILY 07/16/20 12/19/20 Albuterol Nebulized [Ventolin 2.5 mg INHALATION RT-TID PRN 12/16/20 12/19/20 Nebulized] Cholecalciferol [Vitamin D3 (25 50 mcg PO DAILY@1200 12/16/20 12/19/20 Mcg = 1000 Iu)] Budesonide [Pulmicort] 0.5 mg INHALATION RT-BID 12/19/20 12/19/20 Calcium Carbonate/Vitamin D3 1 cap PO HS 12/19/20 12/19/20 [Calcium 600 mg-D3 10 Mcg (400 Iu)] Pantoprazole Sodium [Protonix] 40 mg PO DAILY@1200 12/19/20 12/19/20 busPIRone HCL [Buspar] 7.5 mg PO HS 12/19/20 12/19/20 Previous Rx's Medication Instructions Recorded Azithromycin [Zithromax] 250 mg PO DAILY@1200 #5 tab 12/22/20 Fluconazole [Diflucan] 100 mg PO DAILY #5 tab 12/22/20 Allergies Allergy/AdvReac Type Severity Reaction Status Date / Time Penicillins Allergy Intermediate Rash/Hives Verified 04/28/21 14:35 linaclotide [From Linzess] AdvReac Diarrhea Verified 04/28/21 14:35 Narcotics AdvReac Hallucinati Uncoded 04/28/21 14:35 ons Review of Systems ROS Statement: Those systems with pertinent positive or pertinent negative responses have been documented in the HPI. ROS Other: All systems not noted in ROS Statement are negative. Past Medical History Past Medical History: Asthma, GERD/Reflux, Hyperlipidemia, Hypertension, Osteoarthritis (OA), Pneumonia, Thyroid Disorder Additional Past Medical History / Comment(s): SOB with activity, fx 5th digit left hand-splint on,prednisone March 2019 Hx DOUBLE VISION, colitis,bladder infections History of Any Multi-Drug Resistant Organisms: None Reported Past Surgical History: Appendectomy, Hysterectomy, Tonsillectomy Additional Past Surgical History / Comment(s): BILATERAL CATARACTS. sinus/blocked tear duct surgery, D&C x 2, surgery for fx nose, cyst removed from rt ear Past Anesthesia/Blood Transfusion Reactions: Postoperative Nausea & Vomiting (PONV) Additional Past Anesthesia/Blood Transfusion Reaction / Comment(s): "took two days to come out" (after hysterectomy),no hx blood transfusion Past Psychological History: Anxiety Smoking Status: Never smoker Past Alcohol Use History: None Reported Past Drug Use History: None Reported - Past Family History Father Family Medical History: Cancer, Myocardial Infarction ([place]) Mother Family Medical History: Cancer, Myocardial Infarction ([place]) Sister(s) Family Medical History: Cancer Additional Family Medical History / Comment(s): breast, colon Brother(s) Family Medical History: Cancer General Exam Limitations: no limitations General appearance: alert, in no apparent distress Head exam: Present: atraumatic, normocephalic Eye exam: Present: normal appearance, PERRL ENT exam: Present: normal exam Neck exam: Present: normal inspection. Absent: tenderness, meningismus Respiratory exam: Present: normal lung sounds bilaterally. Absent: respiratory distress, wheezes Cardiovascular Exam: Present: regular rate, normal rhythm GI/Abdominal exam: Present: soft. Absent: distended, tenderness, guarding Neurological exam: Present: alert, oriented X3, CN II-XII intact. Absent: motor sensory deficit Psychiatric exam: Present: normal affect, normal mood Skin exam: Present: warm, dry, intact. Absent: cyanosis, diaphoretic Course Vital Signs 04/28/21 04/28/21 14:31 15:49 Temperature 97.6 F Pulse Rate 69 71 Respiratory 16 18 Rate Blood Pressure 163/73 183/79 O2 Sat by Pulse 99 99 Oximetry EKG Findings - EKG Comments: EKG Findings:: EKG: Normal sinus rhythm, rate of 69, ID interval 166, QRS duration 84, QTC 426, no ST segment elevation Medical Decision Making - Medical Decision Making 89-year-old female who presented with weakness, chest discomfort, dyspnea. She had presented from the primary care office. Did discuss case initially with Dr. Gamez who is familiar with this patient. Ultimately workup initiated showing a hyponatremia sodium of 116. Given the weakness as well as hypomagnesemia she will be admitted for electrolyte replacement, sodium monitoring. Her chest x- ray is clear without large pneumonia. Her troponin and BNP are negative. She's placed on normal saline repeat laboratory studies ordered for the a.m. - Lab Data Result diagrams: 04/28/21 15:16 04/28/21 15:16 Lab Results 04/28/21 04/28/21 04/28/21 Range/Units 15:16 15:16 15:16 WBC 9.2 (3.8-10.6) k/uL RBC 4.36 (3.80-5.40) m/uL Hgb 12.9 (11.4-16.0) gm/dL Hct 37.0 (34.0-46.0) % MCV 84.9 (80.0-100.0) fL MCH 29.5 (25.0-35.0) pg MCHC 34.8 (31.0-37.0) g/dL RDW 14.8 (11.5-15.5) % Plt Count 266 (150-450) k/uL MPV 6.9 Neutrophils % 77 % Lymphocytes % 16 % Monocytes % 6 % Eosinophils % 0 % Basophils % 0 % Neutrophils # 7.1 (1.3-7.7) k/uL Lymphocytes # 1.5 (1.0-4.8) k/uL Monocytes # 0.5 (0-1.0) k/uL Eosinophils # 0.0 (0-0.7) k/uL Basophils # 0.0 (0-0.2) k/uL PT 10.2 (9.0-12.0) sec INR 0.9 (<1.2) APTT 22.1 (22.0-30.0) sec Sodium 116 L* (137-145) mmol/L Potassium 4.8 (3.5-5.1) mmol/L Chloride 84 L (98-107) mmol/L Carbon Dioxide 21 L (22-30) mmol/L Anion Gap 11 mmol/L BUN 21 H (7-17) mg/dL Creatinine 0.84 (0.52-1.04) mg/dL Est GFR (CKD-EPI)AfAm 71 (>60 ml/min/1.73 sqM) Est GFR (CKD-EPI)NonAf 62 (>60 ml/min/1.73 sqM) Glucose 106 H (74-99) mg/dL Calcium 9.4 (8.4-10.2) mg/dL Magnesium 1.5 L (1.6-2.3) mg/dL Total Bilirubin 0.7 (0.2-1.3) mg/dL AST 26 (14-36) U/L ALT 15 (4-34) U/L Alkaline Phosphatase 49 (38-126) U/L Troponin I (0.000-0.034) ng/mL NT-Pro-B Natriuret Pep pg/mL Total Protein 7.5 (6.3-8.2) g/dL Albumin 4.3 (3.5-5.0) g/dL 04/28/21 04/28/21 Range/Units 15:16 15:16 WBC (3.8-10.6) k/uL RBC (3.80-5.40) m/uL Hgb (11.4-16.0) gm/dL Hct (34.0-46.0) % MCV (80.0-100.0) fL MCH (25.0-35.0) pg MCHC (31.0-37.0) g/dL RDW (11.5-15.5) % Plt Count (150-450) k/uL MPV Neutrophils % % Lymphocytes % % Monocytes % % Eosinophils % % Basophils % % Neutrophils # (1.3-7.7) k/uL Lymphocytes # (1.0-4.8) k/uL Monocytes # (0-1.0) k/uL Eosinophils # (0-0.7) k/uL Basophils # (0-0.2) k/uL PT (9.0-12.0) sec INR (<1.2) APTT (22.0-30.0) sec Sodium (137-145) mmol/L Potassium (3.5-5.1) mmol/L Chloride (98-107) mmol/L Carbon Dioxide (22-30) mmol/L Anion Gap mmol/L BUN (7-17) mg/dL Creatinine (0.52-1.04) mg/dL Est GFR (CKD-EPI)AfAm (>60 ml/min/1.73 sqM) Est GFR (CKD-EPI)NonAf (>60 ml/min/1.73 sqM) Glucose (74-99) mg/dL Calcium (8.4-10.2) mg/dL Magnesium (1.6-2.3) mg/dL Total Bilirubin (0.2-1.3) mg/dL AST (14-36) U/L ALT (4-34) U/L Alkaline Phosphatase (38-126) U/L Troponin I <0.012 (0.000-0.034) ng/mL NT-Pro-B Natriuret Pep 322 pg/mL Total Protein (6.3-8.2) g/dL Albumin (3.5-5.0) g/dL Disposition Clinical Impression: Generalized weakness, Hyponatremia, Hypomagnesemia Disposition: ADMITTED IP TO THIS [facility] Condition: Serious Is patient prescribed a controlled substance at d/c from ED?: No Referrals: Kayla Gamez MD [Primary Care Provider] - 1-2 days Decision to Admit Reason: Admit from EC Decision Date: 04/28/21 Decision Time: 16:08
[2021-04-28] MEDS ORDERED: SODIUM CHLORIDE 0.9% 500 ML 500 ML IV ONE (15:47)
[2021-04-28] MEDS ORDERED: MAGNESIUM SULFATE-D5W PMX 1 GM in DEXTROSE/WATER 1 100ML.BAG IVPB ONE (15:48)
[2021-04-28] MEDS: SODIUM CHLORIDE 0.9% 1,000 ML IV SCH (15:58)
[2021-04-28] MEDS ORDERED: NALOXONE 0.4 MG/ML 1 ML VIAL IV PRN (16:05)
[2021-04-28 16:22] LABS: Appearance,Urine Clear (Clear); Bilirubin,Urine Negative (Negative); Blood,Urine Negative (Negative); Color,Urine Light Yellow; Glucose,Urine (UA) Negative (Negative); Ketones,Urine Negative (Negative); Leukocyte Esterase,Urine Negative (Negative); Nitrite,Urine Negative (Negative); Protein,Urine Negative (Negative); Specific Gravity,Urine 1.004 (1.001-1.035); Urobilinogen,Urine <2.0 mg/dL (<2.0)
[2021-04-28] MEDS ORDERED: ACETAMINOPHEN TAB 500 MG TAB PO STA (16:54)
[2021-04-28] MEDS: ALPRAZolam 0.25 MG TAB PO PRN (21:17)
[2021-04-29 04:27] LABS: Calcium 8.7 mg/dL (8.4-10.2); Magnesium 2.1 mg/dL (1.6-2.3); Potassium 5.1 mmol/L (3.5-5.1)
[2021-04-29] MEDS: LEVOTHYROXINE 88 MCG TAB PO SCH (06:25)
[2021-04-29] MEDS: SODIUM CHLORIDE 0.9% 1,000 ML IV SCH (06:25)
[2021-04-29] MEDS ORDERED: DEXTROSE 5% IN WATER 1,000 ML IV ONE (06:54)
[2021-04-29] MEDS: ALBUTEROL NEBULIZED 2.5 MG/3 ML INHALATION PRN ×3 (07:51→20:04)
[2021-04-29] MEDS: ACETAMINOPHEN TAB 325 MG TAB PO PRN ×2 (08:42→18:57)
[2021-04-29] MEDS: ASPIRIN 81 MG PO SCH (08:42)
[2021-04-29] MEDS: amLODIPine 5 MG TAB PO SCH (08:43)
[2021-04-29] MEDS ORDERED: LOPERAMIDE 2 MG CAP PO PRN (09:42)
[2021-04-29] MEDS ORDERED: ACETAMINOPHEN TAB 500 MG TAB PO PRN (09:42)
[2021-04-29] MEDS ORDERED: HYDROmorphone 0.5 MG/0.5 ML SYRINGE IM STA (09:46)
[2021-04-29] MEDS ORDERED: HYDROmorphone 0.5 MG/0.5 ML SYRINGE IVP PRN (09:46)
--- NOTE | 2021-04-29 09:54 | P.NPCON ---
History of Present Illness - Reason for Consult hyponatremia - History of Present Illness Reason for consultation: Hyponatremia History of present illness: Patient is a 89-year-old female seen in renal consultation for hyponatremia. Patient presented to the hospital due to headache. She denies any vision changes. No chest pain or shortness of breath. Her sodium level was noted to be low at 116 and she received 1 L normal saline bolus and was then started on normal saline at 75 mL an hour. Repeat sodium level from 4 AM was 127. Patient was seen and examined in the emergency room. I have changed the fluids causes this morning to D5W which still hasn't been done. This was discussed with the nurse. Blood pressure is well controlled. No fever or chills. She has history of ulcerative colitis and admits to chronic diarrhea. No vomiting. Patient's oral intake has been quite poor the last few days due to not feeling well. No history of malignancy. Not on any thiazide diuretics. Does admit to drinking 6-8 bottles of water and a cup of coffee daily. No history of kidney disease. GFR at baseline. Vital signs are stable. General: The patient appeared well nourished and normally developed. HEENT: Head exam is unremarkable. LUNGS: Breath sounds decreased. HEART: Rate and Rhythm are regular. ABDOMEN: Breath sounds decreased. EXTREMITITES: No edema. Past Medical History Past Medical History: Asthma, GERD/Reflux, Hyperlipidemia, Hypertension, Osteoarthritis (OA), Pneumonia, Thyroid Disorder Additional Past Medical History / Comment(s): SOB with activity, fx 5th digit left hand-splint on,prednisone March 2019 Hx DOUBLE VISION, colitis,bladder infections History of Any Multi-Drug Resistant Organisms: None Reported Past Surgical History: Appendectomy, Hysterectomy, Tonsillectomy Additional Past Surgical History / Comment(s): BILATERAL CATARACTS. sinus/blocked tear duct surgery, D&C x 2, surgery for fx nose, cyst removed from rt ear Past Anesthesia/Blood Transfusion Reactions: Postoperative Nausea & Vomiting (PONV) Additional Past Anesthesia/Blood Transfusion Reaction / Comment(s): "took two days to come out" (after hysterectomy),no hx blood transfusion Past Psychological History: Anxiety Smoking Status: Never smoker Past Alcohol Use History: None Reported Past Drug Use History: None Reported - Past Family History Father Family Medical History: Cancer, Myocardial Infarction ([place]) Mother Family Medical History: Cancer, Myocardial Infarction ([place]) Sister(s) Family Medical History: Cancer Additional Family Medical History / Comment(s): breast, colon Brother(s) Family Medical History: Cancer Medications and Allergies Home Medications Medication Instructions Recorded Confirmed Type Cyanocobalamin [Vitamin B-12] 500 mcg PO DAILY@1200 05/22/14 04/28/21 History Denosumab [Prolia] 60 mg SQ Q180D 02/28/17 04/28/21 History Levothyroxine Sodium [Synthroid] 88 mcg PO DAILY 02/28/17 04/28/21 History Magnesium Oxide [Mag-Ox] 400 mg PO HS 02/28/17 04/28/21 History amLODIPine [Norvasc] 5 mg PO DAILY 02/28/17 04/28/21 History Melatonin 10 mg PO HS 12/05/18 04/28/21 History Pravastatin Sodium [Pravachol] 40 mg PO HS 12/05/18 04/28/21 History Montelukast Sodium [Singulair] 10 mg PO DAILY 06/18/20 04/28/21 History Aspirin 81 mg PO DAILY 07/16/20 04/28/21 History Albuterol Nebulized [Ventolin 2.5 mg INHALATION RT-TID PRN 12/16/20 04/28/21 History Nebulized] Cholecalciferol [Vitamin D3 (25 50 mcg PO DAILY@1200 12/16/20 04/28/21 History Mcg = 1000 Iu)] Budesonide [Pulmicort] 0.5 mg INHALATION RT-BID 12/19/20 04/28/21 History Pantoprazole Sodium [Protonix] 40 mg PO DAILY@1200 12/19/20 04/28/21 History ALPRAZolam [Xanax] 0.25 mg PO TID PRN 04/28/21 04/28/21 History Acetaminophen Tab [Tylenol Tab] 500 mg PO Q6H PRN 04/28/21 04/28/21 History Bethanechol [Urecholine] 25 mg PO TID 04/28/21 04/28/21 History Doxycycline Hyclate 100 mg PO BID 04/28/21 04/28/21 History Escitalopram [Lexapro] 10 mg PO HS 04/28/21 04/28/21 History Isosorbide Mononitrate ER [Imdur] 30 mg PO DAILY 04/28/21 04/28/21 History Loperamide [Imodium] 2 mg PO TID PRN 04/28/21 04/28/21 History Allergies Allergy/AdvReac Type Severity Reaction Status Date / Time Penicillins Allergy Intermediate Rash/Hives Verified 04/28/21 16:19 linaclotide [From Linzess] AdvReac Diarrhea Verified 04/28/21 16:19 Narcotics AdvReac Hallucinati Uncoded 04/28/21 14:35 ons Physical Exam Vitals: Vital Signs Temp Pulse Resp BP Pulse Ox 04/29/21 08:44 75 18 122/59 97 04/29/21 08:02 62 04/29/21 07:54 62 04/29/21 06:28 62 18 04/29/21 04:30 98.0 F 57 L 18 127/64 98 04/29/21 00:26 59 L 18 130/65 97 04/28/21 21:23 68 20 135/76 96 04/28/21 19:30 20 04/28/21 18:00 80 20 156/84 97 04/28/21 15:49 71 18 183/79 99 04/28/21 14:31 97.6 F 69 16 163/73 99 Results - Lab Results Most recent lab results Calcium 8.7 mg/dL (8.4-10.2) 04/29/21 03:52 Magnesium 2.1 mg/dL (1.6-2.3) 04/29/21 03:52 04/28/21 15:16 04/29/21 03:52 Assessment and Plan Plan: Assessment: 1. Hypovolemic hyponatremia improved with IV hydration. However the sodium level corrected rapidly. I spoke with the nurse to change the IV fluids to D5W which had ordered over an hour ago. Sodium level was 116 on admission and was 127 as of 4 AM this morning. 2. Benign hypertension. Controlled. 3. Hypomagnesemia from poor intake and GI losses. 4. History of ulcerative colitis. Plan: D5W to be started at 100 mL an hour. Normal saline to be stopped. Check TSH and urine studies. Repeat sodium level at noon. Goal rate of correction 6-8 mEq every [address] of the head due to headaches. Magnesium being replaced. Thank you for the consultation. I will continue to follow the patient during her hospital stay.
[2021-04-29] MEDS: ALPRAZolam 0.25 MG TAB PO PRN ×2 (10:17→16:43)
[2021-04-29] MEDS: DOXYCYCLINE 100 MG CAP PO SCH ×2 (10:17→22:26)
--- NOTE | 2021-04-29 10:33 | CT ---
There is EXAMINATION TYPE: CT brain wo con DATE OF EXAM: 04/29/2021 COMPARISON: 04/24/2021 HISTORY: Headache CT DLP: 1056.[address] of the brain was performed. The ventricles, basal cisterns and sulci overlying the cerebral convexities demonstrate mild enlargem ent. There is no evidence for intracranial hemorrhage or sulcal effacement. There is decreased attenuation about the periventricular white matter and deep white matter of both c erebral hemispheres, compatible with chronic small vessel ischemia. Differential diagnosis does inclu de demyelination. No mass effects are seen.No midline shift. Osseous calvarium is intact. If symptoms persist consider MRI. IMPRESSION: 1. Age related atrophic and chronic small vessel ischemic change without acute intracranial process s een at this time.
--- NOTE | 2021-04-29 10:59 | P.HPIM ---
History of Present Illness H&P Date: 04/29/21 Chief Complaint: Chest pain, weakness, lack of appetite, shortness of breath This is an 89-year-old pleasant lady, well-known to my practice, known history of chronic persistent asthma, under the care of Dr. Pate/[facility]. 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 Patient had issues with shortness of breath for months now, intermittent, these is without any hypoxemia, on clinic testing. She has weight loss, with anorexia intermittently, for which we had been successful using mirtazapine for this, and as she gained as much weight, we have discontinued. The Remeron. She also has dysphagia, odynophagia, we have elected to give her trial of isosorbide, 15 mg daily, to treat the exertional chest pain and dysphagia, for which she did not tolerate well secondary to the headache. She has discontinued isosorbide 4 days ago, during her last ER visit 04/28 She presents the emergency room, secondary to headache, chest pain, she has discontinued the isosorbide altogether, however new findings included hyponatremia, with sodium of 116, from a previous of 134 in November. Upon in sup 0.012, [employer] proBNP is normal at 222, no d-dimer eval for review, creatinine is 0 .8, hemoglobin of 9.2. Urinalysis is normal, she is recently finishing the doxycycline for urinary tract infection. No proteinuria noted. No ketonuria. Specific gravity is 1.[address], age-related atrophy, chest x-ray is unremarkable, except for compression deformities with kyphosis, underlying COPD interstitial changes, which is chronic patient was admitted secondary to hyponatremia, chest pain, with consultation to Dr. Rico, nephrology, and Dr. Hayes cardiology. D-dimer to be obtained, esophagram ordered, echocardiogram ordered. IV fluids started at 0.9% saline at 75 mL an hour, with subsequent serum sodium of 127, saline is discontinued now, with the calibration of her IV fluids to D5W, 200 mL an hour, to avoid pontine demyelination. Nephrology is following closely Review of Systems Constitutional: Reports as per HPI, Reports malaise, Reports poor appetite, Denies anorexia, Denies chills, Denies chronic headaches, Denies chronic pain, Denies daytime sleepiness, Denies fatigue, Denies fever, Denies lethargy, Denies night sweats, Denies sweats, Denies weakness, Denies weight gain, Denies weight loss Ears, nose, mouth and throat: Reports as per HPI Cardiovascular: Reports as per HPI, Reports chest pain, Reports decreased exercise tolerance, Reports dyspnea on exertion Respiratory: Reports as per HPI Gastrointestinal: Reports as per HPI, Reports early satiety, Reports loss of appetite Genitourinary: Reports as per HPI, Denies abnormal vaginal bleeding, Denies decreased libido, Denies difficulty conceiving, Denies difficulty voiding, Denies dysmenorrhea, Denies dyspareunia, Denies dysuria, Denies flank pain, Denies genital sores, Denies hematuria, Denies hot flashes, Denies incomplete emptying, Denies kidney stones, Denies menorrhagia, Denies mixed incontinence, Denies nocturia, Denies pelvic pain, Denies post void dribbling, Denies , Denies prolapse symptoms, Denies stress incontinence, Denies urge incontinence, Denies urgency, Denies urinary frequency, Denies vaginal discharge, Denies vaginal dryness, Denies vaginal itching, Denies vaginal odor Musculoskeletal: Reports as per HPI Neurological: Reports as per HPI, Reports gait dysfunction Psychiatric: Reports as per HPI, Reports change in sleep habits, Reports memory loss Endocrine: Reports as per HPI Hematologic/Lymphatic: Reports as per HPI Allergic/Immunologic: Reports as per HPI Past Medical History Past Medical History: Asthma, GERD/Reflux, Hyperlipidemia, Hypertension, Osteoarthritis (OA), Pneumonia, Thyroid Disorder Additional Past Medical History / Comment(s): SOB with activity, fx 5th digit left hand-splint on,prednisone March 2019 Hx DOUBLE VISION, colitis,bladder infections History of Any Multi-Drug Resistant Organisms: None Reported Past Surgical History: Appendectomy, Hysterectomy, Tonsillectomy Additional Past Surgical History / Comment(s): BILATERAL CATARACTS. sinus/blocked tear duct surgery, D&C x 2, surgery for fx nose, cyst removed from rt ear Past Anesthesia/Blood Transfusion Reactions: Postoperative Nausea & Vomiting (PONV) Additional Past Anesthesia/Blood Transfusion Reaction / Comment(s): "took two days to come out" (after hysterectomy),no hx blood transfusion Past Psychological History: Anxiety Smoking Status: Never smoker Past Alcohol Use History: None Reported Past Drug Use History: None Reported - Past Family History Father Family Medical History: Cancer, Myocardial Infarction ([place]) Mother Family Medical History: Cancer, Myocardial Infarction ([place]) Sister(s) Family Medical History: Cancer Additional Family Medical History / Comment(s): breast, colon Brother(s) Family Medical History: Cancer Medications and Allergies Home Medications Medication Instructions Recorded Confirmed Type Cyanocobalamin [Vitamin B-12] 500 mcg PO DAILY@1200 05/22/14 04/28/21 History Denosumab [Prolia] 60 mg SQ Q180D 02/28/17 04/28/21 History Levothyroxine Sodium [Synthroid] 88 mcg PO DAILY 02/28/17 04/28/21 History Magnesium Oxide [Mag-Ox] 400 mg PO HS 02/28/17 04/28/21 History amLODIPine [Norvasc] 5 mg PO DAILY 02/28/17 04/28/21 History Melatonin 10 mg PO HS 12/05/18 04/28/21 History Pravastatin Sodium [Pravachol] 40 mg PO HS 12/05/18 04/28/21 History Montelukast Sodium [Singulair] 10 mg PO DAILY 06/18/20 04/28/21 History Aspirin 81 mg PO DAILY 07/16/20 04/28/21 History Albuterol Nebulized [Ventolin 2.5 mg INHALATION RT-TID PRN 12/16/20 04/28/21 History Nebulized] Cholecalciferol [Vitamin D3 (25 50 mcg PO DAILY@1200 12/16/20 04/28/21 History Mcg = 1000 Iu)] Budesonide [Pulmicort] 0.5 mg INHALATION RT-BID 12/19/20 04/28/21 History Pantoprazole Sodium [Protonix] 40 mg PO DAILY@1200 12/19/20 04/28/21 History ALPRAZolam [Xanax] 0.25 mg PO TID PRN 04/28/21 04/28/21 History Acetaminophen Tab [Tylenol Tab] 500 mg PO Q6H PRN 04/28/21 04/28/21 History Bethanechol [Urecholine] 25 mg PO TID 04/28/21 04/28/21 History Doxycycline Hyclate 100 mg PO BID 04/28/21 04/28/21 History Escitalopram [Lexapro] 10 mg PO HS 04/28/21 04/28/21 History Isosorbide Mononitrate ER [Imdur] 30 mg PO DAILY 04/28/21 04/28/21 History Loperamide [Imodium] 2 mg PO TID PRN 04/28/21 04/28/21 History Allergies Allergy/AdvReac Type Severity Reaction Status Date / Time Penicillins Allergy Intermediate Rash/Hives Verified 04/28/21 16:19 linaclotide [From Linzess] AdvReac Diarrhea Verified 04/28/21 16:19 Narcotics AdvReac Hallucinati Uncoded 04/28/21 14:35 ons Physical Exam Vitals: Vital Signs Temp Pulse Resp BP Pulse Ox 04/29/21 08:44 75 18 122/59 97 04/29/21 08:02 62 04/29/21 07:54 62 04/29/21 06:28 62 18 04/29/21 04:30 98.0 F 57 L 18 127/64 98 04/29/21 00:26 59 L 18 130/65 97 04/28/21 21:23 68 20 135/76 96 04/28/21 19:30 20 04/28/21 18:00 80 20 156/84 97 04/28/21 15:49 71 18 183/79 99 04/28/21 14:31 97.6 F 69 16 163/73 99 - Constitutional General appearance: cooperative, no acute distress - EENT Eyes: EOMI, PERRLA ENT: NA/AT, normal oropharynx - Respiratory Respiratory: bilateral: CTA, negative: diminished, dullness, rales - Cardiovascular Rhythm: regular Heart sounds: normal: S1, S2 Abnormal Heart Sounds: diastolic murmur - Gastrointestinal General gastrointestinal: normal bowel sounds, soft - Integumentary Integumentary: decreased turgor, normal - Neurologic Neurologic: CNII-XII intact - Musculoskeletal Musculoskeletal: generalized weakness, strength equal bilaterally - Psychiatric Psychiatric: A&O x's 3, appropriate affect, intact judgment & insight Results CBC & Chem 7: 04/28/21 15:16 04/29/21 03:52 Labs: Abnormal Lab Results - Last 24 Hours (Table) 04/28/21 04/29/21 Range/Units 15:16 03:52 Sodium 116 L* 127 L (137-145) mmol/L Chloride 84 L 97 L (98-107) mmol/L Carbon Dioxide 21 L (22-30) mmol/L BUN 21 H 19 H (7-17) mg/dL Glucose 106 H (74-99) mg/dL Magnesium 1.5 L (1.6-2.3) mg/dL Laboratory Results WBC 9.2 k/uL (3.8-10.6) 04/28/21 15:16 RBC 4.36 m/uL (3.80-5.40) 04/28/21 15:16 Hgb 12.9 gm/dL (11.4-16.0) 04/28/21 15:16 Hct 37.0 % (34.0-46.0) 04/28/21 15:16 MCV 84.9 fL (80.0-100.0) 04/28/21 15:16 MCH 29.5 pg (25.0-35.0) 04/28/21 15:16 MCHC 34.8 g/dL (31.0-37.0) 04/28/21 15:16 RDW 14.8 % (11.5-15.5) 04/28/21 15:16 Plt Count 266 k/uL (150-450) 04/28/21 15:16 MPV 6.9 04/28/21 15:16 Neutrophils % 77 % 04/28/21 15:16 Lymphocytes % 16 % 04/28/21 15:16 Monocytes % 6 % 04/28/21 15:16 Eosinophils % 0 % 04/28/21 15:16 Basophils % 0 % 04/28/21 15:16 Neutrophils # 7.1 k/uL (1.3-7.7) 04/28/21 15:16 Lymphocytes # 1.5 k/uL (1.0-4.8) 04/28/21 15:16 Monocytes # 0.5 k/uL (0-1.0) 04/28/21 15:16 Eosinophils # 0.0 k/uL (0-0.7) 04/28/21 15:16 Basophils # 0.0 k/uL (0-0.2) 04/28/21 15:16 PT 10.2 sec (9.0-12.0) 04/28/21 15:16 INR 0.9 (<1.2) 04/28/21 15:16 APTT 22.1 sec (22.0-30.0) 04/28/21 15:16 Sodium 127 mmol/L (137-145) L 04/29/21 03:52 Potassium 5.1 mmol/L (3.5-5.1) 04/29/21 03:52 Chloride 97 mmol/L (98-107) L 04/29/21 03:52 Carbon Dioxide 23 mmol/L (22-30) 04/29/21 03:52 Anion Gap 7 mmol/L 04/29/21 03:52 BUN 19 mg/dL (7-17) H 04/29/21 03:52 Creatinine 0.81 mg/dL (0.52-1.04) 04/29/21 03:52 Est GFR (CKD-EPI)AfAm 75 (>60 ml/min/1.73 sqM) 04/29/21 03:52 Est GFR (CKD-EPI)NonAf 65 (>60 ml/min/1.73 sqM) 04/29/21 03:52 Glucose 97 mg/dL (74-99) 04/29/21 03:52 Calcium 8.7 mg/dL (8.4-10.2) 04/29/21 03:52 Magnesium 2.1 mg/dL (1.6-2.3) 04/29/21 03:52 Total Bilirubin 0.7 mg/dL (0.2-1.3) 04/28/21 15:16 AST 26 U/L (14-36) 04/28/21 15:16 ALT 15 U/L (4-34) 04/28/21 15:16 Alkaline Phosphatase 49 U/L (38-126) 04/28/21 15:16 Troponin I <0.012 ng/mL (0.000-0.034) 04/28/21 15:16 NT-Pro-B Natriuret Pep 322 pg/mL 04/28/21 15:16 Total Protein 7.5 g/dL (6.3-8.2) 04/28/21 15:16 Albumin 4.3 g/dL (3.5-5.0) 04/28/21 15:16 Urine Color Light Yellow 04/28/21 16:08 Urine Appearance Clear (Clear) 04/28/21 16:08 Urine pH 6.0 (5.0-8.0) 04/28/21 16:08 Ur Specific [place] 1.004 (1.001-1.035) 04/28/21 16:08 Urine Protein Negative (Negative) 04/28/21 16:08 Urine Glucose (UA) Negative (Negative) 04/28/21 16:08 Urine Ketones Negative (Negative) 04/28/21 16:08 Urine Blood Negative (Negative) 04/28/21 16:08 Urine Nitrite Negative (Negative) 04/28/21 16:08 Urine Bilirubin Negative (Negative) 04/28/21 16:08 Urine Urobilinogen <2.0 mg/dL (<2.0) 04/28/21 16:08 Ur Leukocyte Esterase Negative (Negative) 04/28/21 16:08 Coronavirus (PCR) Not Detected (Not Detectd) 04/28/21 16:08 Thrombosis Risk Factor Assmnt - DVT/VTE Prophylaxis DVT/VTE Prophylaxis: Pharmacologic Prophylaxis ordered - Choose All That Apply Each Risk Factor Represents 3 Points: Age 75 years or older Thrombosis Risk Factor Assessment Total Risk Factor Score: 3 Thrombosis Risk Factor Assessment Level: Moderate Risk Assessment and Plan Plan: 1. Acute hyponatremia, most likely dilutional, we'll with W fluid intake, has anorexia, and weight loss. We'll need to rule out SIADH, recently placed on doxycycline, for urinary tract infection. Urine sodium urine osmolality, serum osmolality and serum sodium all obtained, nephrology to see, CAT scan of the brain failed to reveal any abnormality however is without contrast study serial sodium levels, fluid restrictions 2. Dilute urine, with very low specific gravity of 0.004, need to rule out diabetes insipidus, we would monitor this closely next 3. Chest pain, with dyspnea and exertion, moderate persistent asthma, without hypoxemia. Echocardiogram, might need CT chest high resolution, we will need to look into [facility], for any imaging that was done there. Troponins initially are negative 1, cardiology to see 4. Moderate persistent asthma, with history of toxoplasma infection in the past, recently receiving Solu-Medrol injections in the office, one time dose given 7 days ago. Which has improved symptoms, on budesonide 0.5 mg twice a da y, start on Solu-Medrol 40 mg every 6 hours. NT proBNP is normal for age 89 continue Singulair 4. Recent UTI, to complete doxycycline for approximately 3-5 more days 5. Headache, originally it was thought that this might be related to isosorbide, however this was recommended to be discontinued as she did not tolerate the medication well, this was performed, however the headache is still persistent, initial CAT scan is unremarkable, for any bleed loaded 0.5 mg every 3 when necessary for the headache, 6. Recent fall, with head concussion, repeat CT is unremarkable, PT OT is requested 7. History of recurrent urinary retention, on bethanechol 25 mg 3 times a day, was taken off folic catheter less than 2 months ago in January 8. Hypertension, on amlodipine 5 mg daily, next 9. Depression, on Lexapro 10 mg, we will discontinue this, and start on mirtazapine, 7.5 mg Yumiko, to help out with the abnormal erection or an anxiety 10. Hypothyroidism, on levothyroxine, no adjustments made GI prophylaxis on Protonix DVT prophylaxis, on Lovenox
--- NOTE | 2021-04-29 12:44 | FL ---
EXAMINATION TYPE: FL esophagus cervic/pharynx DATE OF EXAM: 04/29/2021 HISTORY: 89-year-old female dysphagia, trouble swallowing. COMPARISON: NONE TECHNIQUE: A double contrast esophagram is performed utilizing air and barium. A total of 1 minute 51 seconds of fluoroscopic time was utilized during procedure and 54 images obtained. FINDINGS: The patient had difficulty standing. The table was tilted 30 degrees to 45 degrees in order to remove wake from the patient's legs. Swallowing mechanism appears normal. There is a tiny Zenker's diverticulum noted which spontaneously empties. Hypopharyngeal anatomy is otherwise grossly maintained. Esophagus shows normal course and caliber. Moderate to extensive tertiary peristaltic waves are noted and there is residual contrast within the esophagus when the patient is prone/supine. No fixed narrowing. No mucosal lesion, filling defect, or erosive changes identified. There is a small hiatal hernia and mild spontaneous gastroesophageal reflux. We were unable to elicit gastroesophageal reflux with Valsalva and positional maneuvers, likely, larg mary due to patient's limited ability to exert appropriate effort. IMPRESSION: 1. Presbyesophagus. 2. Small hiatal hernia and mild spontaneous gastroesophageal reflux. 3. Tiny Zenker's diverticulum. 4. No stricture, filling defect, or erosions identified.
[2021-04-29] MEDS: CYANOCOBALAMIN 500 MCG TAB PO SCH (12:55)
[2021-04-29] MEDS: CHOLECALCIFEROL 25 MCG (1000 IU) TABLET PO SCH (12:55)
[2021-04-29] MEDS: PANTOPRAZOLE 40 MG TABLET PO SCH (12:55)
[2021-04-29] MEDS ORDERED: DESMOPRESSIN ACETATE 4 MCG/ML VIAL (MDV) IV ONE ×2 (13:08→14:00)
--- NOTE | 2021-04-29 14:44 | P.CRDCN ---
History of Present Illness History of present illness: HISTORY OF PRESENTING ILLNESS This is a pleasant 89-year-old female past medical history significant for hypertension and dyslipidemia. She used to follow in the office with Dr. Sa brito but has not been in since 2012. We have been asked to see in consultation for chest pain. Pt away at testing at the time of our evaluation. Discussed with the daughter who is at the bedside. She states her mother has been having a headache for the last week. DIAGNOSTICS EKG reveals sinus mechanism with no acute ST or T-wave abnormalities. Chest xray negative for an acute process. CT of the brain is negative for acute intracranial process. Swallow evaluation revealed a small hiatal hernia with mild spontaneous GERD, tiny Zenker's diverticulum and presbyesophagus no stricture, filling defect or erosions noted. Laboratory reviewed, unremarkable, d-dimer 0.47, sodium on admission 116 repeat this afternoon 129, potassium 5.1, creatinine 0.81, magnesium 2.1, troponin negative 1 and an T proBNP 322. Current cardiac medications include aspirin 81 mg daily, amlodipine 5 mg daily, pravastatin 40 mg daily and Imdur 30 mg daily. Most recent echocardiogram obtained November 2020 revealed preserved LV systolic function with ejection fraction 60-65%, mild aortic stenosis with a mean gradient of 12 mmHg mild tricuspid regurgitation. REVIEW OF SYSTEMS At the time of my exam: CONSTITUTIONAL: Denies fever or chills. CARDIOVASCULAR: Denies chest pain, shortness of breath, orthopnea, PND or palp itations. RESPIRATORY: Denies cough. GASTROINTESTINAL: Denies abdominal pain, diarrhea, constipation, nausea or vomiting. MUSCULOSKELETAL: Denies myalgias. NEUROLOGIC: Denies numbness, tingling, headache or weakness. ENDOCRINE: Denies fatigue, weight change, polydipsia or polyurina. GENITOURINARY: Denies burning, hematuria or urgency with micturation. HEMATOLOGIC: Denies history of anemia or bleeding. PHYSICAL EXAMINATION Blood pressure 122/59 heart rate 75 afebrile and maintaining oxygen saturation on room air. ASSESSMENT Chest pain, atypical Hyponatremia Headache Aortic stenosis Hypertension Dyslipidemia PLAN No EKG evidence of ischemia and negative troponin. Ongoing treatment and management per the primary care team. Thank you kindly for this consultation. Nurse Practitioner note has been reviewed, I agree with a documented findings and plan of care. Patient was seen and examined. Past Medical History Past Medical History: Asthma, GERD/Reflux, Hyperlipidemia, Hypertension, Osteoarthritis (OA), Pneumonia, Thyroid Disorder Additional Past Medical History / Comment(s): SOB with activity, fx 5th digit left hand-splint on,prednisone March 2019 Hx DOUBLE VISION, colitis,bladder infections History of Any Multi-Drug Resistant Organisms: None Reported Past Surgical History: Appendectomy, Hysterectomy, Tonsillectomy Additional Past Surgical History / Comment(s): BILATERAL CATARACTS. sinus/blocked tear duct surgery, D&C x 2, surgery for fx nose, cyst removed from rt ear Past Anesthesia/Blood Transfusion Reactions: Postoperative Nausea & Vomiting (PONV) Additional Past Anesthesia/Blood Transfusion Reaction / Comment(s): "took two days to come out" (after hysterectomy),no hx blood transfusion Past Psychological History: Anxiety Smoking Status: Never smoker Past Alcohol Use History: None Reported Past Drug Use History: None Reported - Past Family History Father Family Medical History: Cancer, Myocardial Infarction ([place]) Mother Family Medical History: Cancer, Myocardial Infarction ([place]) Sister(s) Family Medical History: Cancer Additional Family Medical History / Comment(s): breast, colon Brother(s) Family Medical History: Cancer Medications and Allergies Home Medications Medication Instructions Recorded Confirmed Type Cyanocobalamin [Vitamin B-12] 500 mcg PO DAILY@1200 05/22/14 04/28/21 History Denosumab [Prolia] 60 mg SQ Q180D 02/28/17 04/28/21 History Levothyroxine Sodium [Synthroid] 88 mcg PO DAILY 02/28/17 04/28/21 History Magnesium Oxide [Mag-Ox] 400 mg PO HS 02/28/17 04/28/21 History amLODIPine [Norvasc] 5 mg PO DAILY 02/28/17 04/28/21 History Melatonin 10 mg PO HS 12/05/18 04/28/21 History Pravastatin Sodium [Pravachol] 40 mg PO HS 12/05/18 04/28/21 History Montelukast Sodium [Singulair] 10 mg PO DAILY 06/18/20 04/28/21 History Aspirin 81 mg PO DAILY 07/16/20 04/28/21 History Albuterol Nebulized [Ventolin 2.5 mg INHALATION RT-TID PRN 12/16/20 04/28/21 History Nebulized] Cholecalciferol [Vitamin D3 (25 50 mcg PO DAILY@1200 12/16/20 04/28/21 History Mcg = 1000 Iu)] Budesonide [Pulmicort] 0.5 mg INHALATION RT-BID 12/19/20 04/28/21 History Pantoprazole Sodium [Protonix] 40 mg PO DAILY@1200 12/19/20 04/28/21 History ALPRAZolam [Xanax] 0.25 mg PO TID PRN 04/28/21 04/28/21 History Acetaminophen Tab [Tylenol Tab] 500 mg PO Q6H PRN 04/28/21 04/28/21 History Bethanechol [Urecholine] 25 mg PO TID 04/28/21 04/28/21 History Doxycycline Hyclate 100 mg PO BID 04/28/21 04/28/21 History Escitalopram [Lexapro] 10 mg PO HS 04/28/21 04/28/21 History Isosorbide Mononitrate ER [Imdur] 30 mg PO DAILY 04/28/21 04/28/21 History Loperamide [Imodium] 2 mg PO TID PRN 04/28/21 04/28/21 History Allergies Allergy/AdvReac Type Severity Reaction Status Date / Time Penicillins Allergy Intermediate Rash/Hives Verified 04/28/21 16:19 linaclotide [From Linzess] AdvReac Diarrhea Verified 04/28/21 16:19 Narcotics AdvReac Hallucinati Uncoded 04/28/21 14:35 ons Physical Exam Vitals: Vital Signs Temp Pulse Resp BP Pulse Ox 04/29/21 08:44 75 18 122/59 97 04/29/21 08:02 62 04/29/21 07:54 62 04/29/21 06:28 62 18 04/29/21 04:30 98.0 F 57 L 18 127/64 98 04/29/21 00:26 59 L 18 130/65 97 04/28/21 21:23 68 20 135/76 96 04/28/21 19:30 20 04/28/21 18:00 80 20 156/84 97 04/28/21 15:49 71 18 183/79 99 04/28/21 14:31 97.6 F 69 16 163/73 99 Results 04/28/21 15:16 04/29/21 12:03 Cardiac Enzymes 04/28/21 04/28/21 Range/Units 15:16 15:16 AST 26 (14-36) U/L Troponin I <0.012 (0.000-0.034) ng/mL Coagulation 04/28/21 Range/Units 15:16 PT 10.2 (9.0-12.0) sec APTT 22.1 (22.0-30.0) sec CBC 04/28/21 Range/Units 15:16 WBC 9.2 (3.8-10.6) k/uL RBC 4.36 (3.80-5.40) m/uL Hgb 12.9 (11.4-16.0) gm/dL Hct 37.0 (34.0-46.0) % Plt Count 266 (150-450) k/uL Comprehensive Metabolic Panel 04/28/21 04/29/21 Range/Units 15:16 03:52 Sodium 116 L* 127 L (137-145) mmol/L Potassium 4.8 5.1 (3.5-5.1) mmol/L Chloride 84 L 97 L (98-107) mmol/L Carbon Dioxide 21 L 23 (22-30) mmol/L BUN 21 H 19 H (7-17) mg/dL Creatinine 0.84 0.81 (0.52-1.04) mg/dL Glucose 106 H 97 (74-99) mg/dL Calcium 9.4 8.7 (8.4-10.2) mg/dL AST 26 (14-36) U/L ALT 15 (4-34) U/L Alkaline Phosphatase 49 (38-126) U/L Total Protein 7.5 (6.3-8.2) g/dL Albumin 4.3 (3.5-5.0) g/dL Current Medications Generic Name Dose Route Start Last Admin Trade Name Freq PRN Reason Stop Dose Admin Acetaminophen 650 mg 04/28/21 16:05 04/29/21 08:42 Acetaminophen Tab 325 Mg Tab PO 650 mg Q6HR PRN Administration Mild Pain or Fever > 100.5 Acetaminophen 500 mg 04/29/21 09:42 Acetaminophen Tab 500 Mg Tab PO Q6H PRN Pain Albuterol Sulfate 2.5 mg 04/28/21 19:20 04/29/21 07:51 Albuterol Nebulized 2.5 Mg/3 Ml INHALATION 2.5 mg RT-TID PRN Administration Shortness Of Breath Alprazolam 0.25 mg 04/28/21 19:20 04/29/21 10:17 Alprazolam 0.25 Mg Tab PO 0.25 mg TID PRN Administration Anxiety Amlodipine Besylate 5 mg 04/29/21 09:00 04/29/21 08:43 Amlodipine 5 Mg Tab PO 5 mg DAILY JOAN Administration Aspirin 81 mg 04/29/21 09:00 04/29/21 08:42 Aspirin 81 Mg PO 81 mg DAILY JOAN Administration Bethanechol Chloride 25 mg 04/29/21 16:00 Bethanechol 25 Mg Tab PO TID JOAN Budesonide 0.5 mg 04/29/21 20:00 Budesonide 0.5 Mg/2 Ml Nebu INHALATION RT-BID [facility] Cholecalciferol 50 mcg 04/29/21 12:00 Cholecalciferol 25 Mcg (1000 Iu) Tablet PO DAILY@1200 [facility] Cyanocobalamin 500 mcg 04/29/21 12:00 Cyanocobalamin 500 Mcg Tab PO DAILY@1200 [facility] Doxycycline Monohydrate 100 mg 04/29/21 10:00 04/29/21 10:17 Doxycycline 100 Mg Cap PO 100 mg BID JOAN Administration Escitalopram Oxalate 10 mg 04/29/21 21:00 Escitalopram 10 Mg Tab PO [facility] Hydromorphone HCl 0.5 mg 04/29/21 09:46 04/29/21 10:18 Hydromorphone 0.5 Mg/0.5 Ml Syringe IVP 0.5 mg Q3HR PRN Administration Moderate Pain Dextrose/Water 1,000 mls @ 100 mls/hr 04/29/21 06:54 04/29/21 08:43 Dextrose 5%-Water Iv Soln IV 04/29/21 16:53 100 mls/hr .Q10H ONE Administration Levothyroxine Sodium 88 mcg 04/29/21 06:30 04/29/21 06:25 Levothyroxine 88 Mcg Tab PO 88 mcg DAILY@0630 [facility] Administration Loperamide HCl 2 mg 04/29/21 09:42 Loperamide 2 Mg Cap PO TID PRN Diarrhea Magnesium Oxide 400 mg 04/29/21 21:00 Magnesium Oxide 400 Mg Tab PO [facility] Melatonin 10 mg 04/29/21 21:00 Melatonin 5 Mg Tablet PO [facility] Montelukast Sodium 10 mg 04/30/21 09:00 Montelukast 10 Mg Tab PO DAILY [facility] Naloxone HCl 0.2 mg 04/28/21 16:05 Naloxone 0.4 Mg/Ml 1 Ml Vial IV Q2M PRN Opioid Reversal Pantoprazole Sodium 40 mg 04/29/21 12:00 Pantoprazole 40 Mg Tablet PO DAILY@1200 [facility] Pravastatin Sodium 40 mg 04/29/21 21:00 Pravastatin Sodium 40 Mg Tab PO HS [facility] 04/28/21 15:16 04/29/21 03:52
[2021-04-29] MEDS: BETHANECHOL 25 MG TAB PO SCH ×2 (16:32→22:26)
[2021-04-29] MEDS ORDERED: DEXTROSE 5% IN WATER 1,000 ML IV SCH (16:45)
[2021-04-29] MEDS: BUDESONIDE 0.5 MG/2 ML NEBU INHALATION SCH (20:03)
[2021-04-29] MEDS: PRAVASTATIN SODIUM 40 MG TAB PO SCH (22:25)
[2021-04-29] MEDS: ESCITALOPRAM 10 MG TAB PO SCH (22:26)
[2021-04-29] MEDS: MELATONIN 5 MG TABLET PO SCH (22:26)
[2021-04-29] MEDS: MAGNESIUM OXIDE 400 MG TAB PO SCH (22:28)
[2021-04-30] MEDS: LEVOTHYROXINE 88 MCG TAB PO SCH (06:19)
[2021-04-30] MEDS: BUDESONIDE 0.5 MG/2 ML NEBU INHALATION SCH ×2 (07:22→19:34)
[2021-04-30] MEDS: ALBUTEROL NEBULIZED 2.5 MG/3 ML INHALATION PRN ×3 (07:22→19:34)
[2021-04-30] MEDS: ASPIRIN 81 MG PO SCH (08:13)
[2021-04-30] MEDS: MONTELUKAST 10 MG TAB PO SCH (08:13)
[2021-04-30] MEDS: amLODIPine 5 MG TAB PO SCH (08:13)
[2021-04-30] MEDS: ALPRAZolam 0.25 MG TAB PO PRN ×2 (08:13→18:02)
[2021-04-30] MEDS: BETHANECHOL 25 MG TAB PO SCH ×3 (08:14→22:00)
[2021-04-30] MEDS: DOXYCYCLINE 100 MG CAP PO SCH ×2 (08:14→21:58)
[2021-04-30 08:19] LABS: Sodium 122 mmol/L (137-145)
[2021-04-30 08:44] LABS: Calcium 8.9 mg/dL (8.4-10.2); Potassium 4.6 mmol/L (3.5-5.1)
[2021-04-30] MEDS: ONDANSETRON 4 MG/2 ML VIAL IVP PRN ×2 (09:40→18:02)
--- NOTE | 2021-04-30 09:58 | P.PN ---
Subjective Progress Note Date: 04/30/21 HISTORY OF PRESENT ILLNESS: This is a pleasant 89-year-old female past medical history significant for hypertension and dyslipidemia. She used to follow in the office with Dr. Kuhn but has not been in since 2012. We have been asked to see in consultation for chest pain. Pt away at testing at the time of our evaluation. Discussed with the daughter who is at the bedside. She states her mother has been having a headache for the last week. DIAGNOSTICS EKG reveals sinus mechanism with no acute ST or T-wave abnormalities. Chest xray negative for an acute process. CT of the brain is negative for acute intracranial process. Swallow evaluation revealed a small hiatal hernia with mild spontaneous GERD, tiny Zenker's diverticulum and presbyesophagus no stricture, filling defect or erosions noted. Laboratory reviewed, unremarkable, d-dimer 0.47, sodium on admission 116 repeat this afternoon 129, potassium 5.1, creatinine 0.81, magnesium 2.1, troponin negative 1 and an T proBNP 322. Current cardiac medications include aspirin 81 mg daily, amlodipine 5 mg daily, pravastatin 40 mg daily and Imdur 30 mg daily. Most recent echocardiogram obtained November 2020 revealed preserved LV systolic function with ejection fraction 60-65%, mild aortic stenosis with a mean grad ient of 12 mmHg mild tricuspid regurgitation. 04/30/2021 Patient examined this morning at the bedside. Patient denies shortness of breath. She currently denies chest pain. She is complaining of some abdominal discomfort this morning. Vital signs are stable. PHYSICAL EXAM: VITAL SIGNS: Reviewed. GENERAL: Well-developed in no acute distress. NECK: Supple. No JVD or thyromegaly LUNGS: Respirations even and unlabored. Lungs essentially clear to auscultation bilaterally. HEART: Regular rate and rhythm. S1 and S2 heard. Systolic murmur noted. EXTREMITIES: Normal range of motion. No clubbing or cyanosis. Peripheral pulses intact. No lower extremity edema ASSESSMENT: Chest pain, atypical Hyponatremia Headache Aortic stenosis Hypertension Dyslipidemia PLAN: 2D echo ordered. Await results Repeat EKG Continue current cardiac medications Further recommendations pending patient course Nurse practitioner note has been reviewed by physician. Signing provider agrees with the documented findings, assessment, and plan of care. Objective - Vital Signs Vital signs: Vital Signs Temp 97.6 F 04/30/21 08:08 Pulse 79 04/30/21 08:08 Resp 16 04/30/21 08:08 BP 118/60 04/30/21 08:08 Pulse Ox 97 04/30/21 08:08 Intake & Output 04/29/21 04/30/21 04/30/21 18:59 06:59 18:59 Intake Total 1238 Output Total 360 Balance 878 Weight 51.5 kg Intake: IV 20 Invasive Line 1 10 Invasive Line 2 10 Oral 1218 Output: Urine 360 Other: # Voids 1 - Labs CBC & Chem 7: 04/28/21 15:16 04/30/21 06:56 Labs: Abnormal Lab Results - Last 24 Hours (Table) 04/29/21 04/29/21 04/29/21 Range/Units 12:03 12:03 15:40 Sodium 129 L 128 L (137-145) mmol/L Chloride (98-107) mmol/L BUN (7-17) mg/dL Glucose (74-99) mg/dL Osmolality 274 L (280-301) mosm/kg 04/29/21 04/30/21 04/30/21 Range/Units 20:02 06:56 06:56 Sodium 124 L 122 L 122 L (137-145) mmol/L Chloride 93 L (98-107) mmol/L BUN 20 H (7-17) mg/dL Glucose 100 H (74-99) mg/dL Osmolality (280-301) mosm/kg
--- NOTE | 2021-04-30 11:07 | P.PN ---
Subjective Patient is seen in follow-up for hyponatremia. Currently resting in bed. Patient did receive a dose of IV DDAVP as well as D5W to reverse the rapid correction of hyponatremia. Sodium level this morning was 122. Oral intake is poor. No vomiting or diarrhea. Vital signs are stable. General: The patient appeared well nourished and normally developed. HEENT: Head exam is unremarkable. LUNGS: Breath sounds decreased. HEART: Rate and Rhythm are regular. ABDOMEN: Soft, no distention. EXTREMITITES: No edema. Objective - Vital Signs Vital signs: Vital Signs Temp 97.6 F 04/30/21 08:08 Pulse 79 04/30/21 08:10 Resp 16 04/30/21 08:10 BP 118/60 04/30/21 08:08 Pulse Ox 97 04/30/21 08:08 Intake & Output 04/29/21 04/30/21 04/30/21 18:59 06:59 18:59 Intake Total 1238 Output Total 360 Balance 878 Weight 51.5 kg Intake: IV 20 Invasive Line 1 10 Invasive Line 2 10 Oral 1218 Output: Urine 360 Other: # Voids 1 - Labs CBC & Chem 7: 04/28/21 15:16 04/30/21 06:56 Labs: Abnormal Lab Results - Last 24 Hours (Table) 04/29/21 04/29/21 04/29/21 Range/Units 12:03 12:03 15:40 Sodium 129 L 128 L (137-145) mmol/L Chloride (98-107) mmol/L BUN (7-17) mg/dL Glucose (74-99) mg/dL Osmolality 274 L (280-301) mosm/kg 04/29/21 04/30/21 04/30/21 Range/Units 20:02 06:56 06:56 Sodium 124 L 122 L 122 L (137-145) mmol/L Chloride 93 L (98-107) mmol/L BUN 20 H (7-17) mg/dL Glucose 100 H (74-99) mg/dL Osmolality (280-301) mosm/kg Assessment and Plan Plan: Assessment: 1. Hypovolemic hyponatremia improved with IV hydration. Patient did receive DDAVP and D5W to reverse the fast correction. Sodium level 122 this morning. TSH normal. 2. Benign hypertension. Controlled. 3. Hypomagnesemia from poor intake and GI losses. Replaced. Better. 4. History of ulcerative colitis. Plan: Currently off IV fluids. 1200 mL fluid restriction. Encouraged oral intake. Add sodium chloride tab 1 gm bid. Follow-up echocardiogram. Follow-up urine studies. Repeat sodium level this evening.
--- NOTE | 2021-04-30 11:17 | ECHOF ---
Referral Reason: MEASUREMENTS -------- HEIGHT: 152.4 cm WEIGHT: 51.3 kg BP: IVSd: 0.9 cm (0.6 - 1.1) LVIDd: 3.2 cm (3.9 - 5.3) LVPWd: 0.8 cm (0.6 - 1.1) IVSs: 1.2 cm LVIDs: 1.8 cm LVPWs: 1.2 cm Ao Diam: 2.2 cm (2.0 - 3.7) AV Cusp: 0.9 cm (1.5 - 2.6) LA Diam: 2.9 cm (2.7 - 3.8) MV EXCURSION: 12.148 mm (> 18.000) MV EF SLOPE: 72 mm/s (70 - 150) EPSS: 2.0 cm MV E David: 0.64 m/s MV DecT: 314 ms MV A David: 1.22 m/s MV E/A Ratio: 0.52 AV maxP.15 mmHg AV meanP.75 mmHg RAP: 5.00 mmHg RVSP: 27.00 mmHg FINDINGS -------- This was a technically good study. The left ventricular size is normal. Left ventricular wall thickness is normal. Overall left vent ricular systolic function is normal with, an EF between 55 - 60 %. Normal LAP. Grade 1 Diastolic Dy sfunction. The right ventricle is normal in size. The left atrial size is normal. Normal LA size by volume 22+/-6 ml/m2. The right atrial size is normal. Aortic valve is trileaflet and is severely thickened. There is mild aortic stenosis present. Peak /mean gradient across the Aortic Valve is 19.15mmHg / 9.75mmHg. The mitral valve is normal. The mitral valve leaflets are mildly thickened. Mild mitral annular c alcification present. Mild mitral regurgitation is present. The tricuspid valve appears structurally normal. Mild tricuspid regurgitation present. Right vent ricular systolic pressure is normal at < 35 mmHg. The pulmonic valve was not well visualized. The aortic root size is normal. Normal inferior vena cava with normal inspiratory collapse consistent with estimated right atrial pre ssure of 5 mmHg. There is no pericardial effusion. CONCLUSIONS -------- 1. The left ventricular size is normal. 2. Left ventricular wall thickness is normal. 3. Overall left ventricular systolic function is normal with, an EF between 55 - 60 %. 4. Normal LAP. Grade 1 Diastolic Dysfunction. 5. Aortic valve is trileaflet and is severely thickened. 6. There is mild aortic stenosis present. 7. Peak/mean gradient across the Aortic Valve is 19.15mmHg / 9.75mmHg. 8. The mitral valve leaflets are mildly thickened. 9. Mild mitral annular calcification present. 10. Mild mitral regurgitation is present. 11. Mild tricuspid regurgitation present. 12. There is no pericardial effusion. [place] ATTORNEY: Lisa Segal RDCS
[2021-04-30] MEDS: CYANOCOBALAMIN 500 MCG TAB PO SCH (12:04)
[2021-04-30] MEDS: methylPREDNISolone SOD SUCCI 40 MG/ML 1 ML VIAL IV SCH ×3 (12:04→23:52)
[2021-04-30] MEDS: PANTOPRAZOLE 40 MG TABLET PO SCH (12:04)
[2021-04-30] MEDS: CHOLECALCIFEROL 25 MCG (1000 IU) TABLET PO SCH (12:04)
[2021-04-30] MEDS: SODIUM CHLORIDE TAB 1 GM TAB PO SCH ×2 (12:05→21:59)
--- NOTE | 2021-04-30 15:01 | P.PN ---
Subjective Progress Note Date: 04/30/21 HISTORY OF PRESENT ILLNESS This is an 89-year-old pleasant lady, well-known to my practice, known history of chronic persistent asthma, under the care of Dr. Jatin North. 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 Patient had issues with shortness of breath for months now, intermittent, these is without any hypoxemia, on clinic testing. She has weight loss, with anorexia intermittently, for which we had been successful using mirtazapine for this, and as she gained as much weight, we have discontinued. The Remeron. She also has dysphagia, odynophagia, we have elected to give her trial of isosorbide, 15 mg daily, to treat the exertional chest pain and dysphagia, for which she did not tolerate well secondary to the headache. She has discontinued isosorbide 4 days ago, during her last ER visit 04/28 She presents the emergency room, secondary to headache, chest pain, she has discontinued the isosorbide altogether, however new findings included hyponatremia, with sodium of 116, from a previous of 134 in November. Upon in sup 0.012, [employer] proBNP is normal at 222, no d-dimer eval for review, creatinine is 0.8, hemoglobin of 9.2. Urinalysis is normal, she is recently finishing the doxycycline for urinary tract infection. No proteinuria noted. No ketonuria. Specific gravity is 1.[address], age-related atrophy, chest x-ray is unremarkable, except for compression deformities with kyphosis, underlying COPD interstitial changes, which is chronic patient was admitted secondary to hyponatremia, chest pain, with consultation to Dr. Rico, nephrology, and Dr. Hayes cardiology. D-dimer to be obtained, esophagram ordered, echocardiogram ordered. IV fluids started at 0.9% saline at 75 mL an hour, with subsequent serum sodium of 127, saline is discontinued now, with the calibration of her IV fluids to D5W, 200 mL an hour, to avoid pontine demyelination. Nephrology is following closely 04/30: Patient complains of her stomach hurting and she just does not want to eat. She states she is too weak to get up to the bathroom. She states that she slept okay last night. She does complain of suprapubic pain, no diarrhea. She states her headache is still there but better. She states she's feeling very anxious although she did take Xanax this morning. Patient started on Solu- Medrol for asthma exacerbation. Patient has been seen by cardiology for atypical chest pain. Echocardiogram reveals EF of 55-60% with mild aortic stenosis, mild mitral regurgitation, mild tricuspid regurgitation. Esophagram revealed presbyesophagus, small hiatal hernia and mild spontaneous ga stroesophageal reflux, tiny Zenker's diverticulum, no stricture, filling defect or erosions identified. Patient is followed by nephrology for hyponatremia, off IV fluids, 1200 mL fluid restriction, encourage oral intake and add sodium chloride 1 g twice daily. Sodium this morning was 122. Serum osmolality 506. Review of Systems Constitutional: Reports as per HPI, Reports malaise, Reports poor appetite, Denies anorexia, Denies chills, Denies chronic headaches, Denies chronic pain, Denies daytime sleepiness, Denies fatigue, Denies fever, Denies lethargy, Denies night sweats, Denies sweats, Denies weakness, Denies weight gain, Denies weight loss Ears, nose, mouth and throat: Reports as per HPI Cardiovascular: Reports as per HPI, Reports chest pain, Reports decreased exercise tolerance, Reports dyspnea on exertion Respiratory: Reports as per HPI Gastrointestinal: Reports as per HPI, Reports early satiety, Reports loss of appetite Genitourinary: Reports as per HPI, Denies abnormal vaginal bleeding, Denies decreased libido, Denies difficulty conceiving, Denies difficulty voiding, Denie s dysmenorrhea, Denies dyspareunia, Denies dysuria, Denies flank pain, Denies genital sores, Denies hematuria, Denies hot flashes, Denies incomplete emptying, Denies kidney stones, Denies menorrhagia, Denies mixed incontinence, Denies nocturia, Denies pelvic pain, Denies post void dribbling, Denies , Denies prolapse symptoms, Denies stress incontinence, Denies urge incontinence, Denies urgency, Denies urinary frequency, Denies vaginal discharge, Denies vaginal dryness, Denies vaginal itching, Denies vaginal odor Musculoskeletal: Reports as per HPI Neurological: Reports as per HPI, Reports gait dysfunction Psychiatric: Reports anxiety, Reports change in sleep habits, Reports memory lo ss Endocrine: Reports as per HPI PHYSICAL EXAMINATION Gen: This is an 89-year-old female. Patient is resting in bed and appears to be comfortable but anxious HEENT: Head is atraumatic, normocephalic. Pupils equal, round. Sclerae is anicteric. NECK: Supple. No JVD. No lymphadenopathy. No thyromegaly. LUNGS: Clear to auscultation. No wheezes or rhonchi. No intercostal retractions. HEART: Regular rate and rhythm. 2/6 systolic murmur right sternal border. ABDOMEN: Soft. Bowel sounds are present. No masses. No tenderness. EXTREMITIES: No pedal edema. No calf tenderness. NEUROLOGICAL: Patient is awake, alert and oriented x3. Cranial nerves 2 through 12 are grossly intact. ASSESSMENT AND PLAN 1. Acute hyponatremia, most likely dilutional, we'll with W fluid intake, has anorexia, and weight loss. We'll need to rule out SIADH, recently placed on doxycycline, for urinary tract infection. Nephrology consult appreciated. Patient is off IV fluids, fluid restriction of 1200 mL 2. Dilute urine, with very low specific gravity of 0.004, need to rule out diabetes insipidus, we would monitor this closely next 3. Chest pain, with dyspnea and exertion, moderate persistent asthma, without hypoxemia. Cardiology consult appreciated, acute coronary syndrome ruled out. Echocardiogram as above, might need CT chest high resolution, we will need to look into [facility], for any imaging that was done there. 4. Moderate persistent asthma, with history of toxoplasma infection in the past, recently receiving Solu-Medrol injections in the office, one time dose gi yosvany 7 days ago. Which has improved symptoms, on budesonide 0.5 mg twice a day, start on Solu-Medrol 40 mg every 6 hours. NT proBNP is normal for age 322 continue Singulair 4. Recent UTI, to complete doxycycline for approximately 3-5 more days 5. Headache, originally it was thought that this might be related to isosorbide, however this was recommended to be discontinued as she did not tolerate the medication well, this was performed, however the headache is still persistent, initial CAT scan is unremarkable, for any bleed loaded 0.5 mg every 3 when necessary for the headache, 6. Recent fall, with head concussion, repeat CT is unremarkable, PT OT is requested 7. History of recurrent urinary retention, on bethanechol 25 mg 3 times a day, was taken off folic catheter less than 2 months ago in February 06. Hypertension, on amlodipine 5 mg daily, next 9. Depression, on Lexapro 10 mg, we will discontinue this, and start on mirtazapine, 7.5 mg Yumiko, to help out with the abnormal erection or an anxiety 10. Hypothyroidism, on levothyroxine, no adjustments made GI prophylaxis on Protonix DVT prophylaxis, on Lovenox DISCHARGE PLAN To be determined. PT and OT consults. Impression and plan of care have been directed as dictated by the signing physician. Ceci Borrero nurse practitioner acting as scribe for signing physician. Objective - Vital Signs Vital signs: Vital Signs Temp 97.6 F 04/30/21 08:08 Pulse 79 04/30/21 08:10 Resp 16 04/30/21 08:10 BP 118/60 04/30/21 08:08 Pulse Ox 97 04/30/21 08:08 Intake & Output 04/29/21 04/30/21 04/30/21 18:59 06:59 18:59 Intake Total 1238 Output Total 360 Balance 878 Weight 51.5 kg Intake: IV 20 Invasive Line 1 10 Invasive Line 2 10 Oral 1218 Output: Urine 360 Other: # Voids 1 - Labs CBC & Chem 7: 04/28/21 15:16 04/30/21 06:56 Labs: Abnormal Lab Results - Last 24 Hours (Table) 04/29/21 04/29/21 04/29/21 Range/Units 12:03 12:03 15:40 Sodium 129 L 128 L (137-145) mmol/L Chloride (98-107) mmol/L BUN (7-17) mg/dL Glucose (74-99) mg/dL Osmolality 274 L (280-301) mosm/kg 04/29/21 04/30/21 04/30/21 Range/Units 20:02 06:56 06:56 Sodium 124 L 122 L 122 L (137-145) mmol/L Chloride 93 L (98-107) mmol/L BUN 20 H (7-17) mg/dL Glucose 100 H (74-99) mg/dL Osmolality (280-301) mosm/kg
[2021-04-30] MEDS: ACETAMINOPHEN TAB 325 MG TAB PO PRN ×2 (15:35→22:00)
[2021-04-30] MEDS: SODIUM CHLORIDE 0.9% 1,000 ML IV SCH (17:31)
[2021-04-30] MEDS: MELATONIN 5 MG TABLET PO SCH (21:59)
[2021-04-30] MEDS: PRAVASTATIN SODIUM 40 MG TAB PO SCH (21:59)
[2021-04-30] MEDS: MAGNESIUM OXIDE 400 MG TAB PO SCH (21:59)
[2021-04-30] MEDS: ESCITALOPRAM 10 MG TAB PO SCH (21:59)
[2021-04-30] MEDS ORDERED: SODIUM CHLORIDE 3%(HYPERTONIC) 500 ML IV SCH (22:30)
[2021-04-30 23:25] LABS: Glucose,Whole Blood 176 mg/dL (75-99)
[2021-05-01 04:29] LABS: African American GFR (CKD) >90 (>60 ml/min/1.73 sqM); Anion Gap 7 mmol/L; Blood Urea Nitrogen 23 mg/dL (7-17); Calcium 9.3 mg/dL (8.4-10.2); Carbon Dioxide 24 mmol/L (22-30); Chloride 93 mmol/L (98-107); Glucose 140 mg/dL (74-99); Magnesium 1.6 mg/dL (1.6-2.3); Non-African American GFR(CKD) 79 (>60 ml/min/1.73 sqM); Potassium 5.2 mmol/L (3.5-5.1); Sodium 124 mmol/L (137-145)
[2021-05-01] MEDS: SODIUM CHLORIDE 0.9% 1,000 ML IV SCH (06:31)
[2021-05-01] MEDS: LEVOTHYROXINE 88 MCG TAB PO SCH (06:42)
[2021-05-01] MEDS: methylPREDNISolone SOD SUCCI 40 MG/ML 1 ML VIAL IV SCH ×3 (06:42→17:06)
[2021-05-01] MEDS: ALBUTEROL NEBULIZED 2.5 MG/3 ML INHALATION PRN ×2 (07:21→20:44)
[2021-05-01] MEDS: BUDESONIDE 0.5 MG/2 ML NEBU INHALATION SCH ×2 (07:21→20:44)
[2021-05-01] MEDS: SODIUM CHLORIDE TAB 1 GM TAB PO SCH (09:08)
[2021-05-01] MEDS: ASPIRIN 81 MG PO SCH (09:08)
[2021-05-01] MEDS: DOXYCYCLINE 100 MG CAP PO SCH ×2 (09:08→21:19)
[2021-05-01] MEDS: MONTELUKAST 10 MG TAB PO SCH (09:08)
[2021-05-01] MEDS: BETHANECHOL 25 MG TAB PO SCH ×3 (09:08→21:19)
--- NOTE | 2021-05-01 09:33 | P.CNPUL ---
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 Is on into the emergency room on 04/28/2021 with complaints of headache and chest discomfort. She was found to be hyponatremic with a sodium of 116. Sodium in November was 134. Chest pain was worked up per cardiology. Nephrology is seen in regards to the hyponatremia. She was felt to have 2 rapid of a correction of the hyponatremia and did receive IV DDAVP as well as D5W to reverse this. She was moved to the intensive care unit last evening due to a sodium level dropping to 119. She was placed on 3% hypertonic saline at 25 ML's per hour which has been turned off since proximal November 4:00 this morning. Most recent sodium 124. Potassium 5.2. Chloride 93. Creatinine 0.64. Glucose 140. She is seen today in consultation in the ICU. She is currently sitting up in bed. Awake and alert in no acute distress. She is still having some mild headache. No shortness of breath, cough or congestion. No chest pain or palpitations. She is maintained dictating good O2 saturations in the 90s on room air. She's been afebrile. Hemodynamically stable. Echocardiogram revealed normal left ventricular systolic function with ejection fraction 55- 60%. Computed tomography scan of the brain revealed age-related atrophic and chronic small vessel ischemic changes without acute intracranial process chest x-ray revealed no acute cardiopulmonary process. Review of Systems REVIEW OF SYSTEMS: CONSTITUTIONAL: Denies any recent significant weight loss or weight gain. EYES: History of double vision has diplopia EARS, NOSE, MOUTH, THROAT: Positive for headaches, denies sore throat. CARDIOVASCULAR: Denies chest pain, palpitations or syncopal episodes. RESPIRATORY: Denies shortness of breath, cough, congestion or hemoptysis. GASTROINTESTINAL: Denies change in appetite, denies abdominal pain GENITOURINARY: Denies hematuria, denies infections. MUSKULOSKELETAL: Denies pain, denies swelling. INTEGUMENTARY: Denies rash, denies eczema. NEUROLOGICAL: Denies recent memory loss, no recent seizure activity. PSYCHIATRIC: Denies anxiety, denies depression. HEMATOLOGIC/LYMPHATIC: Denies anemia, denies enlarged lymph nodes. Past Medical History Past Medical History: Asthma, GERD/Reflux, Hyperlipidemia, Hypertension, Osteoarthritis (OA), Pneumonia, Thyroid Disorder Additional Past Medical History / Comment(s): SOB with activity, fx 5th digit left hand-splint on,prednisone March 2019 Hx DOUBLE VISION, colitis,bladder infections History of Any Multi-Drug Resistant Organisms: None Reported Past Surgical History: Appendectomy, Hysterectomy, Tonsillectomy Additional Past Surgical History / Comment(s): BILATERAL CATARACTS. sinus/bl ocked tear duct surgery, D&C x 2, surgery for fx nose, cyst removed from rt ear Past Anesthesia/Blood Transfusion Reactions: Postoperative Nausea & Vomiting (PONV) Additional Past Anesthesia/Blood Transfusion Reaction / Comment(s): "took two days to come out" (after hysterectomy),no hx blood transfusion Past Psychological History: Anxiety Smoking Status: Never smoker Past Alcohol Use History: None Reported Past Drug Use History: None Reported - Past Family History Father Family Medical History: Cancer, Myocardial Infarction ([place]) Mother Family Medical History: Cancer, Myocardial Infarction ([place]) Sister(s) Family Medical History: Cancer Additional Family Medical History / Comment(s): breast, colon Brother(s) Family Medical History: Cancer Medications and Allergies Home Medications Medication Instructions Recorded Confirmed Type Cyanocobalamin [Vitamin B-12] 500 mcg PO DAILY@1200 05/22/14 04/28/21 History Denosumab [Prolia] 60 mg SQ Q180D 02/28/17 04/28/21 History Levothyroxine Sodium [Synthroid] 88 mcg PO DAILY 02/28/17 04/28/21 History Magnesium Oxide [Mag-Ox] 400 mg PO HS 02/28/17 04/28/21 History amLODIPine [Norvasc] 5 mg PO DAILY 02/28/17 04/28/21 History Melatonin 10 mg PO HS 12/05/18 04/28/21 History Pravastatin Sodium [Pravachol] 40 mg PO HS 12/05/18 04/28/21 History Montelukast Sodium [Singulair] 10 mg PO DAILY 06/18/20 04/28/21 History Aspirin 81 mg PO DAILY 07/16/20 04/28/21 History Albuterol Nebulized [Ventolin 2.5 mg INHALATION RT-TID PRN 12/16/20 04/28/21 History Nebulized] Cholecalciferol [Vitamin D3 (25 50 mcg PO DAILY@1200 12/16/20 04/28/21 History Mcg = 1000 Iu)] Budesonide [Pulmicort] 0.5 mg INHALATION RT-BID 12/19/20 04/28/21 History Pantoprazole Sodium [Protonix] 40 mg PO DAILY@1200 12/19/20 04/28/21 History ALPRAZolam [Xanax] 0.25 mg PO TID PRN 04/28/21 04/28/21 History Acetaminophen Tab [Tylenol Tab] 500 mg PO Q6H PRN 04/28/21 04/28/21 History Bethanechol [Urecholine] 25 mg PO TID 04/28/21 04/28/21 History Doxycycline Hyclate 100 mg PO BID 04/28/21 04/28/21 History Escitalopram [Lexapro] 10 mg PO HS 04/28/21 04/28/21 History Isosorbide Mononitrate ER [Imdur] 30 mg PO DAILY 04/28/21 04/28/21 History Loperamide [Imodium] 2 mg PO TID PRN 04/28/21 04/28/21 History Allergies Allergy/AdvReac Type Severity Reaction Status Date / Time Penicillins Allergy Intermediate Rash/Hives Verified 04/28/21 16:19 linaclotide [From Linzess] AdvReac Diarrhea Verified 04/28/21 16:19 Narcotics AdvReac Hallucinati Uncoded 04/28/21 14:35 ons Physical Exam Vitals: Vital Signs Temp Pulse Pulse Resp BP BP Pulse Ox 05/01/21 07:31 72 05/01/21 07:23 70 05/01/21 07:00 70 14 132/66 98 05/01/21 06:00 65 14 132/60 97 05/01/21 05:00 62 12 132/62 96 05/01/21 04:00 97.7 F 63 12 132/67 95 05/01/21 03:00 65 12 127/69 96 05/01/21 02:00 64 10 L 134/73 94 L 05/01/21 01:00 71 22 130/69 96 05/01/21 00:00 97.7 F 65 11 L 136/63 95 04/30/21 20:00 98.1 F 96 14 133/63 04/30/21 19:57 98.1 F 78 14 133/63 96 04/30/21 19:44 76 04/30/21 19:34 71 98 04/30/21 17:20 98.1 F 96 16 139/71 04/30/21 15:34 98 F 72 16 135/68 97 04/30/21 14:27 74 16 04/30/21 12:56 76 04/30/21 12:48 79 04/30/21 11:30 74 16 121/63 98 Intake and Output 04/30/21 05/01/21 05/01/21 22:59 06:59 14:59 Intake Total 330 125 Output Total 250 850 300 Balance 80 -725 -300 Intake: IV 125 Sodium Chloride 3%( 125 Hypertonic) 500 ml @ 25 mls/hr IV .Q20H [facility] Rx#: [id number] Oral 330 Output: Urine 250 850 300 Other: Voiding Method Bedside Commode Diaper # Voids 1 1 1 # Bowel Movements 1 Weight 53.3 kg GENERAL EXAM: Alert, very pleasant 89-year-old female patient, on room air, comfortable in no apparent distress. HEAD: Normocephalic. EYES: Normal reaction of pupils, equal size. NOSE: Clear with pink turbinates. THROAT: No erythema or exudates. NECK: No masses, no JVD. CHEST: No chest wall deformity. LUNGS: Equal air entry with no crackles, wheeze, rhonchi or dullness. CVS: S1 and S2 normal with no audible murmur, regular rhythm. ABDOMEN: No hepatosplenomegaly, normal bowel sounds, no guarding or rigidity. SPINE: No scoliosis or deformity SKIN: No rashes CENTRAL NERVOUS SYSTEM: No focal deficits, tone is normal in all 4 extremities. EXTREMITIES: There is no peripheral edema. No clubbing, no cyanosis. Peripheral pulses are intact. Results - Laboratory Findings CBC and BMP: 04/28/21 15:16 05/01/21 03:46 PT/INR, D-dimer PT 10.2 sec (9.0-12.0) 04/28/21 15:16 INR 0.9 (<1.2) 04/28/21 15:16 D-Dimer 0.47 mg/L FEU (<0.60) 04/29/21 12:03 Abnormal lab findings: Abnormal Labs 04/28/21 04/29/21 04/29/21 15:16 03:52 12:03 Sodium 116 L* 127 L Potassium Chloride 84 L 97 L Carbon Dioxide 21 L BUN 21 H 19 H Glucose 106 H POC Glucose (mg/dL) Osmolality 274 L Magnesium 1.5 L 04/29/21 04/29/21 04/29/21 12:03 15:40 20:02 Sodium 129 L 128 L 124 L Potassium Chloride Carbon Dioxide BUN Glucose POC Glucose (mg/dL) Osmolality Magnesium 04/30/21 04/30/21 04/30/21 06:56 06:56 16:01 Sodium 122 L 122 L 121 L Potassium Chloride 93 L Carbon Dioxide BUN 20 H Glucose 100 H POC Glucose (mg/dL) Osmolality Magnesium 04/30/21 04/30/21 05/01/21 21:02 23:24 01:15 Sodium 119 L* 122 L Potassium Chloride Carbon Dioxide BUN Glucose POC Glucose (mg/dL) 176 H Osmolality Magnesium 05/01/21 03:46 Sodium 124 L Potassium 5.2 H Chloride 93 L Carbon Dioxide BUN 23 H Glucose 140 H POC Glucose (mg/dL) Osmolality Magnesium Assessment and Plan Assessment: 1 Headaches secondary to hypovolemic hyponatremia 2 Hypovolemic hyponatremia, initially with rapid correction requiring IV DDAVP and D5W, subsequent drop to 119 again and received 3% normal saline and transferred to ICU last evening. 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 Carrasquillo Currently stable from the critical care standpoint and off 3% saline Continued correction per nephrology Sodium chloride tablets 1 g twice a day Transfer out of the ICU later today if sodium remains stable We will continue to follow and make further recommendations based on her clinical status I, the cosigning physician, performed a [facility] & [facility] Lungs sounds are clear. Maintaining good O2 saturations in the 90s on room air. I discussed the assessment and plan of care with my nurse practitioner, Alycia Lala. I attest to the above consultation as dictated by her. Time with Patient: Greater than 30
[2021-05-01] MEDS: amLODIPine 5 MG TAB PO SCH (10:08)
[2021-05-01] MEDS: ALPRAZolam 0.25 MG TAB PO SCH ×3 (10:08→21:19)
[2021-05-01] MEDS ORDERED: MAGNESIUM SULFATE-D5W PMX 1 GM in DEXTROSE/WATER 1 100ML.BAG IVPB ONE (10:33)
--- NOTE | 2021-05-01 10:34 | P.PN ---
Subjective Patient is seen in follow-up for hyponatremia. Currently resting in bed. Patient did receive a dose of IV DDAVP as well as D5W to reverse the rapid correction of hyponatremia. Yesterday the sodium level came down to 119 despite getting normal saline. She received short duration of 3% saline overnight and sodium level from 4 AM was 124. Oral intake is fair. No vomiting or diarrhea. Vital signs are stable. General: The patient appeared well nourished and normally developed. HEENT: Head exam is unremarkable. LUNGS: Breath sounds decreased. HEART: Rate and Rhythm are regular. ABDOMEN: Soft, no distention. EXTREMITITES: No edema. Objective - Vital Signs Vital signs: Vital Signs Temp 97.7 F 05/01/21 04:00 Pulse 72 05/01/21 07:31 Resp 14 05/01/21 07:00 BP 132/66 05/01/21 07:00 Pulse Ox 98 05/01/21 07:00 Intake & Output 04/30/21 05/01/21 05/01/21 18:59 06:59 18:59 Intake Total 780 275 100 Output Total 1100 500 Balance 780 -825 -400 Weight 53.3 kg Intake: IV 125 Sodium Chloride 3%( 125 Hypertonic) 500 ml @ 25 mls/hr IV .Q20H [facility] Rx#: [id number] Oral 780 150 100 Output: Urine 1100 500 Other: Voiding Method Bedside Commode Diaper # Voids 1 1 0 # Bowel Movements 1 - Labs CBC & Chem 7: 04/28/21 15:16 05/01/21 03:46 Labs: Abnormal Lab Results - Last 24 Hours (Table) 04/30/21 04/30/21 04/30/21 Range/Units 16:01 21:02 23:24 Sodium 121 L 119 L* (137-145) mmol/L Potassium (3.5-5.1) mmol/L Chloride (98-107) mmol/L BUN (7-17) mg/dL Glucose (74-99) mg/dL POC Glucose (mg/dL) 176 H (75-99) mg/dL 05/01/21 05/01/21 Range/Units 01:15 03:46 Sodium 122 L 124 L (137-145) mmol/L Potassium 5.2 H (3.5-5.1) mmol/L Chloride 93 L (98-107) mmol/L BUN 23 H (7-17) mg/dL Glucose 140 H (74-99) mg/dL POC Glucose (mg/dL) (75-99) mg/dL Assessment and Plan Plan: Assessment: 1. Hypovolemic hyponatremia improved with IV hydration. Patient did receive DDAVP and D5W to reverse the fast correction. Received short duration of 3% last night. Sodium level 124 this morning. TSH normal. Urine osmolality 506. 2. Benign hypertension. Controlled. 3. Hypomagnesemia from poor intake and GI losses. On oral magnesium oxide. 4. History of ulcerative colitis. Plan: Currently off IV fluids. 1200 mL fluid restriction. Encouraged oral intake. Maintain sodium chloride tabs. Repeat sodium level at noon. 1 g IV magnesium sulfate today.
--- NOTE | 2021-05-01 11:30 | PN ---
PROGRESS NOTE This is an elderly 89-year-old lady who came into the hospital with abdominal discomfort and also had hyponatremia. She was transferred to the ICU because of significant hyponatremia requiring 3% saline. With this, her sodium has come up better. She is doing well, has no chest pain or shortness of breath. She is in a sinus rhythm with unremarkable EKG and no evidence of any troponin elevation. She is hemodynamically stable resting. I am not sure how well oriented she is, but she is in no distress whatsoever. Her sodium has come up to 124. Potassium is at 5.2 today. She is resting comfortably without symptoms. On examination, blood pressure is 118/60. Pulse rate is 74 per minute. No JVD or carotid bruit. S1-S2 heard normally with an ejection systolic murmur at the base of the heart with a preserved second heart sound. Lungs are clear. Abdomen is soft, nontender. There is no organomegaly. Bowel sounds are normal. Lower extremities reveal palpable pulses. No edema. Central nervous system is normal. IMPRESSION: 1. Atypical chest pain with normal troponins and unremarkable EKG. 2. Hyponatremia of unclear etiology, being managed by Nephrology. 3. Mild aortic stenosis. RECOMMENDATION: From a cardiac standpoint I have no new recommendations. We will see the patient as needed. Hyponatremia is being addressed by Dr. Rico. Thank you very much for the consult. MMODL / IJN: [id number] /
[2021-05-01] MEDS: CYANOCOBALAMIN 500 MCG TAB PO SCH (13:19)
[2021-05-01] MEDS: PANTOPRAZOLE 40 MG TABLET PO SCH (13:19)
[2021-05-01] MEDS: CHOLECALCIFEROL 25 MCG (1000 IU) TABLET PO SCH (13:19)
--- NOTE | 2021-05-01 13:32 | P.PN ---
Subjective Progress Note Date: 05/01/21 HISTORY OF PRESENT ILLNESS This is an 89-year-old pleasant lady, well-known to my practice, known history of chronic persistent asthma, under the care of Dr. Jatin North. 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 Patient had issues with shortness of breath for months now, intermittent, these is without any hypoxemia, on clinic testing. She has weight loss, with anorexia intermittently, for which we had been successful using mirtazapine for this, and as she gained as much weight, we have discontinued. The Remeron. She also has dysphagia, odynophagia, we have elected to give her trial of isosorbide, 15 mg daily, to treat the exertional chest pain and dysphagia, for which she did not tolerate well secondary to the headache. She has discontinued isosorbide 4 days ago, during her last ER visit 04/28 She presents the emergency room, secondary to headache, chest pain, she has discontinued the isosorbide altogether, however new findings included hyponatremia, with sodium of 116, from a previous of 134 in November. Upon in sup 0.012, [employer] SAL[employer] EXEC[employer]IVE proBNP is normal at 222, no d-dimer eval for review, creatinine is 0.8, hemoglobin of 9.2. Urinalysis is normal, she is recently finishing the doxycycline for urinary tract infection. No proteinuria noted. No ketonuria. Specific gravity is 1.[address], age-related atrophy, chest x-ray is unremarkable, except for compression deformities with kyphosis, underlying COPD interstitial changes, which is chronic patient was admitted secondary to hyponatremia, chest pain, with consultation to Dr. Rico, nephrology, and Dr. Hayes cardiology. D-dimer to be obtained, esophagram ordered, echocardiogram ordered. IV fluids started at 0.9% saline at 75 mL an hour, with subsequent serum sodium of 127, saline is discontinued now, with the calibration of her IV fluids to D5W, 200 mL an hour, to avoid pontine demyelination. Nephrology is following closely 04/30: Patient complains of her stomach hurting and she just does not want to eat. She states she is too weak to get up to the bathroom. She states that she slept okay last night. She does complain of suprapubic pain, no diarrhea. She states her headache is still there but better. She states she's feeling very anxious although she did take Xanax this morning. Patient started on Solu- Medrol for asthma exacerbation. Patient has been seen by cardiology for atypical chest pain. Echocardiogram reveals EF of 55-60% with mild aortic stenosis, mild mitral regurgitation, mild tricuspid regurgitation. Esophagram revealed presbyesophagus, small hiatal hernia and mild spontaneous ga stroesophageal reflux, tiny Zenker's diverticulum, no stricture, filling defect or erosions identified. Patient is followed by nephrology for hyponatremia, off IV fluids, 1200 mL fluid restriction, encourage oral intake and add sodium chloride 1 g twice daily. Sodium this morning was 122. Serum osmolality 506. 05/01: Patient was moved into the intensive care unit yesterday because her sodium dropped down to 119. She was on 3% saline overnight for short period and repeat sodium 124. Patient states that she is still feeling tired she was able to eat breakfast but not very much appetite. She states her breathing is better, no chest pain. She continues to complain of anxiety. Xanax changed to scheduled at 0.25 mg 3 times daily, Lexapro discontinued and patient started on Remeron 7.5 mg at supper. Vitamin B12 level ordered. Review of Systems Constitutional: Reports as per HPI, Reports malaise, Reports poor appetite, Denies anorexia, Denies chills, Denies chronic headaches, Denies chronic pain, Denies daytime sleepiness, Denies fatigue, Denies fever, Denies lethargy, Denies night sweats, Denies sweats, Denies weakness, Denies weight gain, Denies weight loss Ears, nose, mouth and throat: Reports as per HPI Cardiovascular: Reports as per HPI, denies chest pain, Reports decreased exercise tolerance, Reports dyspnea on exertion-improving Respiratory: Reports as per HPI Gastrointestinal: Reports as per HPI, Reports early satiety, Reports loss of appetite Genitourinary: Reports as per HPI, Denies abnormal vaginal bleeding, Denies decreased libido, Denies difficulty conceiving, Denies difficulty voiding, Denies dysmenorrhea, Denies dyspareunia, Denies dysuria, Denies flank pain, Denies genital sores, Denies hematuria, Denies hot flashes, Denies incomplete emptying, Denies kidney stones, Denies menorrhagia, Denies mixed incontinence, Denies nocturia, Denies pelvic pain, Denies post void dribbling, Denies , Denies prolapse symptoms, Denies stress incontinence, Denies urge incontinence, Denies urgency, Denies urinary frequency, Denies vaginal discharge, Denies vaginal dryness, Denies vaginal itching, Denies vaginal odor Musculoskeletal: Reports as per HPI Neurological: Reports as per HPI, Reports gait dysfunction Psychiatric: Reports anxiety, Reports change in sleep habits, Reports memory loss Endocrine: Reports as per HPI PHYSICAL EXAMINATION Gen: This is an 89-year-old female. Patient is resting in chair and appears to be comfortable but anxious HEENT: Head is atraumatic, normocephalic. Pupils equal, round. Sclerae is anicteric. NECK: Supple. No JVD. No lymphadenopathy. No thyromegaly. LUNGS: Clear to auscultation. No wheezes or rhonchi. No intercostal retractions. HEART: Regular rate and rhythm. 2/6 systolic murmur right sternal border. ABDOMEN: Soft. Bowel sounds are present. No masses. No tenderness. EXTREMITIES: No pedal edema. No calf tenderness. NEUROLOGICAL: Patient is awake, alert and oriented x3. Cranial nerves 2 through 12 are grossly intact. ASSESSMENT AND PLAN 1. Acute hypovolemic hyponatremia. Patient is off IV fluids, 1200 mL fluid restriction, encourage oral fluids, sodium chloride tablets, nephrology consult appreciated. Patient is been moved into intensive care unit and consult with resource technician. 2. Dilute urine, with very low specific gravity of 0.004, need to rule out diabetes insipidus, we would monitor this closely next 3. Chest pain, with dyspnea and exertion, moderate persistent asthma, without hypoxemia. Cardiology consult appreciated, acute coronary syndrome ruled out. Echocardiogram as above. 4. Moderate persistent asthma, with history of toxoplasma infection in the past , recently receiving Solu-Medrol injections in the office, one time dose given 7 days ago. Which has improved symptoms, on budesonide 0.5 mg twice a day, start on Solu-Medrol 40 mg every 6 hours. Continue Singulair 4. Recent UTI, to complete doxycycline for approximately 3-5 more days 5. Headache, originally it was thought that this might be related to isosorbide, however this was recommended to be discontinued as she did not tolerate the medication well, this was performed, however the headache is still persistent, initial CAT scan is unremarkable, for any bleed loaded 0.5 mg every 3 when necessary for the headache, 6. Recent fall, with head concussion, repeat CT is unremarkable, PT OT is requested 7. History of recurrent urinary retention, on bethanechol 25 mg 3 times a day, was taken off folic catheter less than 2 months ago in January 8. Hypertension, on amlodipine 5 mg daily, next 9. Depression, on Lexapro 10 mg, we will discontinue this, and start on mirtazapine, 7.5 mg Yumiko, to help out with the abnormal erection or an anxiety 10. Hypothyroidism, on levothyroxine, no adjustments made GI prophylaxis on Protonix DVT prophylaxis, on Lovenox DISCHARGE PLAN To be determined. PT and OT consults. Impression and plan of care have been directed as dictated by the signing physician. Ceci Borrero nurse practitioner acting as scribe for signing physician. Objective - Vital Signs Vital signs: Vital Signs Temp 97.7 F 05/01/21 04:00 Pulse 72 05/01/21 07:31 Resp 14 05/01/21 07:00 BP 132/66 05/01/21 07:00 Pulse Ox 98 05/01/21 07:00 Intake & Output 04/30/21 05/01/21 05/01/21 18:59 06:59 18:59 Intake Total 780 275 Output Total 1100 300 Balance 780 -825 -300 Weight 53.3 kg Intake: IV 125 Sodium Chloride 3%( 125 Hypertonic) 500 ml @ 25 mls/hr IV .Q20H [facility] Rx#: [id number] Oral 780 150 Output: Urine 1100 300 Other: Voiding Method Bedside Commode Diaper # Voids 1 1 1 # Bowel Movements 1 - Labs CBC & Chem 7: 04/28/21 15:16 05/01/21 12:21 Labs: Abnormal Lab Results - Last 24 Hours (Table) 04/30/21 04/30/21 04/30/21 Range/Units 16:01 21:02 23:24 Sodium 121 L 119 L* (137-145) mmol/L Potassium (3.5-5.1) mmol/L Chloride (98-107) mmol/L BUN (7-17) mg/dL Glucose (74-99) mg/dL POC Glucose (mg/dL) 176 H (75-99) mg/dL 05/01/21 05/01/21 Range/Units 01:15 03:46 Sodium 122 L 124 L (137-145) mmol/L Potassium 5.2 H (3.5-5.1) mmol/L Chloride 93 L (98-107) mmol/L BUN 23 H (7-17) mg/dL Glucose 140 H (74-99) mg/dL POC Glucose (mg/dL) (75-99) mg/dL
[2021-05-01] MEDS: MIRTAZAPINE 15 MG TAB PO SCH (19:35)
[2021-05-01] MEDS: MELATONIN 5 MG TABLET PO SCH (21:18)
[2021-05-01] MEDS: PRAVASTATIN SODIUM 40 MG TAB PO SCH (21:19)
[2021-05-01] MEDS: MAGNESIUM OXIDE 400 MG TAB PO SCH (21:19)
[2021-05-01] MEDS: ACETAMINOPHEN TAB 325 MG TAB PO PRN (21:24)
[2021-05-02] MEDS: methylPREDNISolone SOD SUCCI 40 MG/ML 1 ML VIAL IV SCH ×2 (00:18→05:56)
[2021-05-02] MEDS: BUDESONIDE 0.5 MG/2 ML NEBU INHALATION SCH ×2 (07:16→21:03)
[2021-05-02 09:04] LABS: African American GFR (CKD) 57 (>60 ml/min/1.73 sqM); Anion Gap 12 mmol/L; Blood Urea Nitrogen 38 mg/dL (7-17); Calcium 10.2 mg/dL (8.4-10.2); Carbon Dioxide 24 mmol/L (22-30); Chloride 96 mmol/L (98-107); Glucose 167 mg/dL (74-99); Magnesium 2.1 mg/dL (1.6-2.3); Non-African American GFR(CKD) 49 (>60 ml/min/1.73 sqM); Potassium 4.5 mmol/L (3.5-5.1); Sodium 132 mmol/L (137-145)
[2021-05-02] MEDS: amLODIPine 5 MG TAB PO SCH (09:58)
[2021-05-02] MEDS: ALPRAZolam 0.25 MG TAB PO SCH ×3 (09:58→21:09)
[2021-05-02] MEDS: MONTELUKAST 10 MG TAB PO SCH (09:58)
[2021-05-02] MEDS: ASPIRIN 81 MG PO SCH (09:58)
[2021-05-02] MEDS: DOXYCYCLINE 100 MG CAP PO SCH (09:59)
[2021-05-02] MEDS: BETHANECHOL 25 MG TAB PO SCH (09:59)
[2021-05-02] MEDS: NYSTATIN 100,000 UNIT/ML SUSP 500,000 UNIT/5 ML CUP PO SCH ×4 (10:02→21:09)
[2021-05-02] MEDS: LEVOTHYROXINE 88 MCG TAB PO SCH (10:43)
--- NOTE | 2021-05-02 12:13 | P.PN ---
Subjective Patient is seen in follow-up for hyponatremia. Sodium level stable. Oral intake is also better. No vomiting or diarrhea. Vital signs are stable. General: The patient appeared well nourished and normally developed. HEENT: Head exam is unremarkable. LUNGS: Breath sounds decreased. HEART: Rate and Rhythm are regular. ABDOMEN: Soft, no distention. EXTREMITITES: No edema. Objective - Vital Signs Vital signs: Vital Signs Temp 97.7 F 05/02/21 08:00 Pulse 69 05/02/21 08:00 Resp 16 05/02/21 08:00 BP 132/82 05/02/21 08:00 Pulse Ox 98 05/02/21 08:00 Intake & Output 05/01/21 05/02/21 05/02/21 18:59 06:59 18:59 Intake Total 300 236 Output Total 700 Balance -400 236 Intake: IV 100 Magnesium Sulfate-D5w Pmx 100 1 gm In Dextrose/Water 1 100ml.bag @ 100 mls/hr IVPB ONCE ONE Rx#: [id number] Oral 200 236 Output: Urine 700 Other: Voiding Method Toilet Toilet Toilet # Voids 0 2 - Labs CBC & Chem 7: 04/28/21 15:16 05/02/21 08:27 Labs: Abnormal Lab Results - Last 24 Hours (Table) 05/01/21 05/01/21 05/02/21 Range/Units 12:21 12:21 08:27 Sodium 131 L 132 L (137-145) mmol/L Chloride 96 L (98-107) mmol/L BUN 38 H (7-17) mg/dL Glucose 167 H (74-99) mg/dL Vitamin B12 1417.0 H (200.0-944.0) pg/mL Assessment and Plan Plan: Assessment: 1. Hypovolemic hyponatremia improved with IV hydration. Sodium level 132 this morning. TSH normal. Urine osmolality 506. 2. Benign hypertension. Controlled. 3. Hypomagnesemia from poor intake and GI losses. On oral magnesium oxide. Better. 4. History of ulcerative colitis. Plan: Remains off IV fluids. 5570-2529 mL fluid restriction. Encouraged oral intake. Resume sodium chloride tab 1 g daily. Repeat BMP and magnesium level 2-3 days postdischarge. Follow up outpatient in 1 week.
[2021-05-02] MEDS: PANTOPRAZOLE 40 MG TABLET PO SCH (12:56)
[2021-05-02] MEDS: CYANOCOBALAMIN 500 MCG TAB PO SCH (12:56)
[2021-05-02] MEDS: SODIUM CHLORIDE TAB 1 GM TAB PO SCH (12:56)
[2021-05-02] MEDS: CHOLECALCIFEROL 25 MCG (1000 IU) TABLET PO SCH (12:56)
[2021-05-02] MEDS: ACETAMINOPHEN TAB 325 MG TAB PO PRN (13:10)
--- NOTE | 2021-05-02 13:22 | P.PN ---
Subjective Progress Note Date: 05/02/21 HISTORY OF PRESENT ILLNESS This is an 89-year-old pleasant lady, well-known to my practice, known history of chronic persistent asthma, under the care of Dr. Jatin North. 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 Patient had issues with shortness of breath for months now, intermittent, these is without any hypoxemia, on clinic testing. She has weight loss, with anorexia intermittently, for which we had been successful using mirtazapine for this, and as she gained as much weight, we have discontinued. The Remeron. She also has dysphagia, odynophagia, we have elected to give her trial of isosorbide, 15 mg daily, to treat the exertional chest pain and dysphagia, for which she did not tolerate well secondary to the headache. She has discontinued isosorbide 4 days ago, during her last ER visit 04/28 She presents the emergency room, secondary to headache, chest pain, she has discontinued the isosorbide altogether, however new findings included hyponatremia, with sodium of 116, from a previous of 134 in November. Upon in sup 0.012, TITLE SPECIALIST proBNP is normal at 222, no d-dimer eval for review, creatinine is 0.8, hemoglobin of 9.2. Urinalysis is normal, she is recently finishing the doxycycline for urinary tract infection. No proteinuria noted. No ketonuria. Specific gravity is 1.[address], age-related atrophy, chest x-ray is unremarkable, except for compression deformities with kyphosis, underlying COPD interstitial changes, which is chronic patient was admitted secondary to hyponatremia, chest pain, with consultation to Dr. Rico, nephrology, and Dr. Hayes cardiology. D-dimer to be obtained, esophagram ordered, echocardiogram ordered. IV fluids started at 0.9% saline at 75 mL an hour, with subsequent serum sodium of 127, saline is discontinued now, with the calibration of her IV fluids to D5W, 200 mL an hour, to avoid pontine demyelination. Nephrology is following closely 04/30: Patient complains of her stomach hurting and she just does not want to eat. She states she is too weak to get up to the bathroom. She states that she slept okay last night. She does complain of suprapubic pain, no diarrhea. She states her headache is still there but better. She states she's feeling very anxious although she did take Xanax this morning. Patient started on Solu- Medrol for asthma exacerbation. Patient has been seen by cardiology for atypical chest pain. Echocardiogram reveals EF of 55-60% with mild aortic stenosis, mild mitral regurgitation, mild tricuspid regurgitation. Esophagram revealed presbyesophagus, small hiatal hernia and mild spontaneous ga stroesophageal reflux, tiny Zenker's diverticulum, no stricture, filling defect or erosions identified. Patient is followed by nephrology for hyponatremia, off IV fluids, 1200 mL fluid restriction, encourage oral intake and add sodium chloride 1 g twice daily. Sodium this morning was 122. Serum osmolality 506. 05/01: Patient was moved into the intensive care unit yesterday because her sodium dropped down to 119. She was on 3% saline overnight for short period and repeat sodium 124. Patient states that she is still feeling tired she was able to eat breakfast but not very much appetite. She states her breathing is better, no chest pain. She continues to complain of anxiety. Xanax changed to scheduled at 0.25 mg 3 times daily, Lexapro discontinued and patient started on Remeron 7.5 mg at supper. Vitamin B12 level ordered. 05/02: She is seen today on the [facility] floor. She continues to complain of having trouble with walking, decreased appetite and generalized weakness. She has chronic problems with her eyes with double vision. Nystatin is been started for thrush, sign Medrol decreased to 40 mg every 8 hours. He has been afebrile, heart rate 69, blood pressure 132/82, pulse ox 90% on room air. Sodium 132, potassium 4.5, chloride 96, CO2 24, BUN 38 creatinine 1.02. Blood sugar 167. Hemoglobin A1c has been ordered. Vitamin B12 1417. Patient is followed by multiple consultants, cardiology has signed off.. Nephrology is plan for outpatient follow-up in 1 week and repeat BMP and magnesium in 2-3 days after discharge. Patient has been seen by therapies with recommendations for home with home care. machine pan greaser made arrangements for home care. We'll plan to transition patient to prednisone tomorrow and plan for discharge home tomorrow. Review of Systems Constitutional: Reports as per HPI, Reports malaise, Reports poor appetite, Denies anorexia, Denies chills, Denies chronic headaches, Denies chronic pain, Denies daytime sleepiness, Denies fatigue, Denies fever, Denies lethargy, Denies night sweats, Denies sweats, Denies weakness, Denies weight gain, Denies weight loss Ears, nose, mouth and throat: Reports as per HPI Cardiovascular: Reports as per HPI, denies chest pain, Reports decreased exercise tolerance, Reports dyspnea on exertion-improving Respiratory: Reports as per HPI Gastrointestinal: Reports as per HPI, Reports early satiety, Reports loss of appetite Genitourinary: Reports as per HPI, Denies abnormal vaginal bleeding, Denies decreased libido, Denies difficulty conceiving, Denies difficulty voiding, Denies dysmenorrhea, Denies dyspareunia, Denies dysuria, Denies flank pain, Denies genital sores, Denies hematuria, Denies hot flashes, Denies incomplete emptying, Denies kidney stones, Denies menorrhagia, Denies mixed incontinence, Denies nocturia, Denies pelvic pain, Denies post void dribbling, Denies , Denies prolapse symptoms, Denies stress incontinence, Denies urge incontinence, Denies urgency, Denies urinary frequency, Denies vaginal discharge, Denies vaginal dryness, Denies vaginal itching, Denies vaginal odor Musculoskeletal: Reports as per HPI Neurological: Reports as per HPI, Reports gait dysfunction and did well with physical therapy Psychiatric: Reports anxiety, Reports change in sleep habits, Reports memory loss Endocrine: Reports as per HPI PHYSICAL EXAMINATION Gen: This is an 89-year-old female. Patient is resting in a recliner and appears to be comfortable. HEENT: Head is atraumatic, normocephalic. Pupils equal, round. Sclerae is anicteric. NECK: Supple. No JVD. No lymphadenopathy. No thyromegaly. LUNGS: Clear to auscultation. No wheezes or rhonchi. No intercostal retractions . HEART: Regular rate and rhythm. 2/6 systolic murmur right sternal border. ABDOMEN: Soft. Bowel sounds are present. No masses. No tenderness. EXTREMITIES: No pedal edema. No calf tenderness. NEUROLOGICAL: Patient is awake, alert and oriented x3. Cranial nerves 2 through 12 are grossly intact. ASSESSMENT AND PLAN 1. Acute hypovolemic hyponatremia. Patient is off IV fluids, 3799-3338 mL flu id restriction, sodium chloride 1 g daily, encourage oral fluids, nephrology consult appreciated. 2. Dilute urine, with very low specific gravity of 0.004, need to rule out diabetes insipidus, we would monitor this closely next 3. Chest pain, with dyspnea and exertion, moderate persistent asthma, without hypoxemia. Cardiology consult appreciated, acute coronary syndrome ruled out. Echocardiogram as above. 4. Moderate persistent asthma, with history of toxoplasma infection in the past, recently receiving Solu-Medrol injections in the office, one time dose given 7 days ago. Which has improved symptoms, on budesonide 0.5 mg twice a day, start on Solu-Medrol 40 mg decreased frequency to every 8 hours. Continue Singulair. 4. Recent UTI, to complete doxycycline for approximately 3-5 more days. Doxycycline discontinued. 5. Headache, originally it was thought that this might be related to isosorbide, however this was recommended to be discontinued as she did not tolerate the medication well, this was performed, however the headache is still persistent, initial CAT scan is unremarkable, for any bleed loaded 0.5 mg every 3 when necessary for the headache, 6. Recent fall, with head concussion, repeat CT is unremarkable, PT OT is requested 7. History of recurrent urinary retention, on bethanechol 25 mg 3 times a day, was taken off folic catheter less than 2 months ago in January 8. Hypertension, on amlodipine 5 mg daily, next 9. Depression, on Lexapro 10 mg, we will discontinue this, and start on mirtazapine, 7.5 mg Yumiko, to help out with the abnormal erection or an anxiety 10. Hypothyroidism, on levothyroxine, no adjustments made 11. Mild aortic stenosis. GI prophylaxis on Protonix DVT prophylaxis, on Lovenox DISCHARGE PLAN Home with [facility] [place] [facility] [place]. Impression and plan of care have been directed as dictated by the signing physician. Ceci Borrero nurse practitioner acting as scribe for signing physician. Objective - Vital Signs Vital signs: Vital Signs Temp 97.7 F 05/02/21 08:00 Pulse 69 05/02/21 08:00 Resp 16 05/02/21 08:00 BP 132/82 05/02/21 08:00 Pulse Ox 98 05/02/21 08:00 Intake & Output 05/01/21 05/02/21 05/02/21 18:59 06:59 18:59 Intake Total 300 Output Total 700 Balance -400 Intake: IV 100 Magnesium Sulfate-D5w Pmx 100 1 gm In Dextrose/Water 1 100ml.bag @ 100 mls/hr IVPB ONCE ONE Rx#: [id number] Oral 200 Output: Urine 700 Other: Voiding Method Toilet Toilet # Voids 0 2 - Labs CBC & Chem 7: 04/28/21 15:16 05/02/21 08:27 Labs: Abnormal Lab Results - Last 24 Hours (Table) 05/01/21 05/01/21 05/02/21 Range/Units 12:21 12:21 08:27 Sodium 131 L 132 L (137-145) mmol/L Chloride 96 L (98-107) mmol/L BUN 38 H (7-17) mg/dL Glucose 167 H (74-99) mg/dL Vitamin B12 1417.0 H (200.0-944.0) pg/mL
[2021-05-02] MEDS ORDERED: methylPREDNISolone SOD SUCCI 40 MG/ML 1 ML VIAL IV SCH (16:00)
[2021-05-02] MEDS ORDERED: BETHANECHOL 25 MG TAB PO SCH (18:00)
[2021-05-02] MEDS: MIRTAZAPINE 15 MG TAB PO SCH (19:55)
[2021-05-02] MEDS: BETHANECHOL 10 MG TAB PO SCH ×2 (19:56→21:06)
[2021-05-02] MEDS: PRAVASTATIN SODIUM 40 MG TAB PO SCH (21:09)
[2021-05-02] MEDS: MAGNESIUM OXIDE 400 MG TAB PO SCH (21:09)
[2021-05-02] MEDS: MELATONIN 5 MG TABLET PO SCH (21:09)
[2021-05-03] MEDS: LEVOTHYROXINE 88 MCG TAB PO SCH (06:08)
[2021-05-03 06:47] LABS: African American GFR (CKD) 67 (>60 ml/min/1.73 sqM); Anion Gap 7 mmol/L; Blood Urea Nitrogen 44 mg/dL (7-17); Calcium 9.8 mg/dL (8.4-10.2); Carbon Dioxide 26 mmol/L (22-30); Chloride 98 mmol/L (98-107); Glucose 114 mg/dL (74-99); Magnesium 2.1 mg/dL (1.6-2.3); Non-African American GFR(CKD) 58 (>60 ml/min/1.73 sqM); Potassium 4.7 mmol/L (3.5-5.1); Sodium 131 mmol/L (137-145)
[2021-05-03] MEDS: BUDESONIDE 0.5 MG/2 ML NEBU INHALATION SCH ×2 (07:56→19:49)
[2021-05-03] MEDS: ALBUTEROL NEBULIZED 2.5 MG/3 ML INHALATION PRN (07:56)
[2021-05-03] MEDS: ASPIRIN 81 MG PO SCH (08:53)
[2021-05-03] MEDS: amLODIPine 5 MG TAB PO SCH (08:53)
[2021-05-03] MEDS: predniSONE 20 MG TAB PO SCH (08:53)
[2021-05-03] MEDS: NYSTATIN 100,000 UNIT/ML SUSP 500,000 UNIT/5 ML CUP PO SCH ×4 (08:53→21:07)
[2021-05-03] MEDS: ALPRAZolam 0.25 MG TAB PO SCH ×3 (08:53→21:06)
[2021-05-03] MEDS: MONTELUKAST 10 MG TAB PO SCH (08:53)
[2021-05-03] MEDS: BETHANECHOL 10 MG TAB PO SCH ×3 (08:54→21:04)
[2021-05-03] MEDS: SODIUM CHLORIDE TAB 1 GM TAB PO SCH (08:54)
--- NOTE | 2021-05-03 09:37 | P.PN ---
Subjective Patient is seen in follow-up for hyponatremia. Sodium level stable. Oral intake is also better. No vomiting or diarrhea. Blood pressure stable. No changes overnight. Vital signs are stable. General: The patient appeared well nourished and normally developed. HEENT: Head exam is unremarkable. LUNGS: Breath sounds decreased. HEART: Rate and Rhythm are regular. ABDOMEN: Soft, no distention. EXTREMITITES: No edema. Objective - Vital Signs Vital signs: Vital Signs Temp 98.0 F 05/03/21 08:00 Pulse 71 05/03/21 08:21 Resp 18 05/03/21 08:21 BP 146/75 05/03/21 08:00 Pulse Ox 97 05/03/21 08:00 Intake & Output 05/02/21 05/03/21 05/03/21 18:59 06:59 18:59 Intake Total 236 Balance 236 Weight 52.5 kg Intake: Oral 236 Other: Voiding Method Toilet # Voids 2 1 - Labs CBC & Chem 7: 04/28/21 15:16 05/03/21 06:18 Labs: Abnormal Lab Results - Last 24 Hours (Table) 05/03/21 Range/Units 06:18 Sodium 131 L (137-145) mmol/L BUN 44 H (7-17) mg/dL Glucose 114 H (74-99) mg/dL Assessment and Plan Plan: Assessment: 1. Hypovolemic hyponatremia improved with IV hydration. Sodium level 131 this morning. TSH normal. Urine osmolality 506. 2. Benign hypertension. Controlled. 3. Hypomagnesemia from poor intake and GI losses. On oral magnesium oxide. Better. 4. History of ulcerative colitis. Plan: Remains off IV fluids. 2642-7850 mL fluid restriction. Encouraged oral intake. Maintain sodium chloride tab 1 g daily. Repeat BMP and magnesium level 2-3 days postdischarge. Follow up outpatient in 1 week.
--- NOTE | 2021-05-03 10:53 | P.PN ---
Subjective Progress Note Date: 05/03/21 HISTORY OF PRESENT ILLNESS This is an 89-year-old pleasant lady, well-known to my practice, known history of chronic persistent asthma, under the care of Dr. Jatin North. 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 Patient had issues with shortness of breath for months now, intermittent, these is without any hypoxemia, on clinic testing. She has weight loss, with anorexia intermittently, for which we had been successful using mirtazapine for this, and as she gained as much weight, we have discontinued. The Remeron. She also has dysphagia, odynophagia, we have elected to give her trial of isosorbide, 15 mg daily, to treat the exertional chest pain and dysphagia, for which she did not tolerate well secondary to the headache. She has discontinued isosorbide 4 days ago, during her last ER visit 04/28 She presents the emergency room, secondary to headache, chest pain, she has discontinued the isosorbide altogether, however new findings included hyponatremia, with sodium of 116, from a previous of 134 in November. Upon in sup 0.012, BOTTLE WASHER proBNP is normal at 222, no d-dimer eval for review, creatinine is 0.8, hemoglobin of 9.2. Urinalysis is normal, she is recently finishing the doxycycline for urinary tract infection. No proteinuria noted. No ketonuria. Specific gravity is 1.[address], age-related atrophy, chest x-ray is unremarkable, except for compression deformities with kyphosis, underlying COPD interstitial changes, which is chronic patient was admitted secondary to hyponatremia, chest pain, with consultation to Dr. Rico, nephrology, and Dr. Hayes cardiology. D-dimer to be obtained, esophagram ordered, echocardiogram ordered. IV fluids started at 0.9% saline at 75 mL an hour, with subsequent serum sodium of 127, saline is discontinued now, with the calibration of her IV fluids to D5W, 200 mL an hour, to avoid pontine demyelination. Nephrology is following closely 04/30: Patient complains of her stomach hurting and she just does not want to eat. She states she is too weak to get up to the bathroom. She states that she slept okay last night. She does complain of suprapubic pain, no diarrhea. She states her headache is still there but better. She states she's feeling very anxious although she did take Xanax this morning. Patient started on Solu- Medrol for asthma exacerbation. Patient has been seen by cardiology for atypical chest pain. Echocardiogram reveals EF of 55-60% with mild aortic stenosis, mild mitral regurgitation, mild tricuspid regurgitation. Esophagram revealed presbyesophagus, small hiatal hernia and mild spontaneous ga stroesophageal reflux, tiny Zenker's diverticulum, no stricture, filling defect or erosions identified. Patient is followed by nephrology for hyponatremia, off IV fluids, 1200 mL fluid restriction, encourage oral intake and add sodium chloride 1 g twice daily. Sodium this morning was 122. Serum osmolality 506. 05/01: Patient was moved into the intensive care unit yesterday because her sodium dropped down to 119. She was on 3% saline overnight for short period and repeat sodium 124. Patient states that she is still feeling tired she was able to eat breakfast but not very much appetite. She states her breathing is better, no chest pain. She continues to complain of anxiety. Xanax changed to scheduled at 0.25 mg 3 times daily, Lexapro discontinued and patient started on Remeron 7.5 mg at supper. Vitamin B12 level ordered. 05/02: She is seen today on the [facility] floor. She continues to complain of having trouble with walking, decreased appetite and generalized weakness. She has chronic problems with her eyes with double vision. Nystatin is been started for thrush, sign Medrol decreased to 40 mg every 8 hours. He has been afebrile, heart rate 69, blood pressure 132/82, pulse ox 90% on room air. Sodium 132, potassium 4.5, chloride 96, CO2 24, BUN 38 creatinine 1.02. Blood sugar 167. Hemoglobin A1c has been ordered. Vitamin B12 1417. Patient is followed by multiple consultants, cardiology has signed off.. Nephrology is plan for outpatient follow-up in 1 week and repeat BMP and magnesium in 2-3 days after discharge. Patient has been seen by therapies with recommendations for home with home care. health equipment servicer made arrangements for home care. We'll plan to transition patient to prednisone tomorrow and plan for discharge home tomorrow. 05/03: Patient is found sleeping and wakes to oral stimulus. She feels tired and is quite sleepy today she is on Remeron only at 7.5 mg to be given at 7 PM. Repeat sodium is at 131 otherwise electrolytes are normal, BUN 44 and creatinine 0.89. Blood sugar 114. Dr. Rico recommends fluid restriction of 2497-4380 ML's, encourage oral intake, sodium chloride tablet 1 daily and repeat BMP and magnesium in 2-3 days after discharge with follow-up in one week. We were planning to discharge the patient today but because of her fatigue, we will monitor overnight and probable discharge tomorrow. Her discharge plan is to return home with homecare Review of Systems Constitutional: Reports as per HPI, Reports malaise, Reports poor appetite, Denies anorexia, Denies chills, Denies chronic headaches, Denies chronic pain, Denies daytime sleepiness, Denies fatigue, Denies fever, Denies lethargy, Denies night sweats, Denies sweats, Denies weakness, Denies weight gain, Denies weight loss Ears, nose, mouth and throat: Reports as per HPI Cardiovascular: denies chest pain, Reports decreased exercise tolerance, Reports dyspnea on exertion-improving Respiratory: No cough, no sputum production Gastrointestinal: Reports early satiety, Reports loss of appetite Genitourinary: Reports as per HPI, Denies abnormal vaginal bleeding, Denies decreased libido, Denies difficulty conceiving, Denies difficulty voiding, Denies dysmenorrhea, Denies dyspareunia, Denies dysuria, Denies flank pain, Denies genital sores, Denies hematuria, Denies hot flashes, Denies incomplete emptying, Denies kidney stones, Denies menorrhagia, Denies mixed incontinence, Denies nocturia, Denies pelvic pain, Denies post void dribbling, Denies pre gnant, Denies prolapse symptoms, Denies stress incontinence, Denies urge incontinence, Denies urgency, Denies urinary frequency, Denies vaginal discharge, Denies vaginal dryness, Denies vaginal itching, Denies vaginal odor Musculoskeletal: Reports as per HPI Neurological: Reports as per HPI, Reports gait dysfunction and did well with physical therapy Psychiatric: Reports anxiety, Reports change in sleep habits, Reports memory loss Endocrine: Reports as per HPI PHYSICAL EXAMINATION Gen: This is an 89-year-old female. Patient is resting in bed and appears to be comfortable. Awakens easily to verbal stimuli. HEENT: Head is atraumatic, normocephalic. Pupils equal, round. Sclerae is anicteric. NECK: Supple. No JVD. No lymphadenopathy. No thyromegaly. LUNGS: Clear to auscultation. No wheezes or rhonchi. No intercostal retractions. HEART: Regular rate and rhythm. 2/6 systolic murmur right sternal border. ABDOMEN: Soft. Bowel sounds are present. No masses. No tenderness. EXTREMITIES: No pedal edema. No calf tenderness. NEUROLOGICAL: Patient is awake, alert and oriented x3. Cranial nerves 2 through 12 are grossly intact. ASSESSMENT AND PLAN 1. Acute hypovolemic hyponatremia. Patient is off IV fluids, 5561-1990 mL fluid restriction, sodium chloride 1 g daily, encourage oral fluids, nephrology consult appreciated. Continue protein supplement. 2. Dilute urine, with very low specific gravity of 0.004, need to rule out diabetes insipidus, we would monitor this closely next 3. Chest pain, with dyspnea and exertion, moderate persistent asthma, without hypoxemia. Cardiology consult appreciated, acute coronary syndrome ruled out. Echocardiogram as above. 4. Moderate persistent asthma, with history of toxoplasma infection in the past, recently receiving Solu-Medrol injections in the office, one time dose given 7 days ago. Which has improved symptoms, on budesonide 0.5 mg twice a day, start on Solu-Medrol 40 mg decreased frequency to every 8 hours. Continue Singulair. 4. Recent UTI, to complete doxycycline for approximately 3-5 more days. Doxycy wick discontinued. 5. Headache, originally it was thought that this might be related to isosorbid e, however this was recommended to be discontinued as she did not tolerate the medication well, this was performed, however the headache is still persistent, initial CAT scan is unremarkable, for any bleed loaded 0.5 mg every 3 when necessary for the headache, 6. Recent fall, with head concussion, repeat CT is unremarkable, PT OT is requested 7. History of recurrent urinary retention, on bethanechol 25 mg 3 times a day, was taken off folic catheter less than 2 months ago in January 8. Hypertension, on amlodipine 5 mg daily, next 9. Depression, on Lexapro 10 mg, we will discontinue this, and start on mirtazapine, 7.5 mg 10. Hypothyroidism, on levothyroxine, no adjustments made 11. Mild aortic stenosis. GI prophylaxis on Protonix DVT prophylaxis, on Lovenox DISCHARGE PLAN Home with [facility] [place] Wednesday. Impression and plan of care have been directed as dictated by the signing physician. Ceci Borrero nurse practitioner acting as scribe for signing physician. Objective - Vital Signs Vital signs: Vital Signs Temp 98.0 F 05/03/21 08:00 Pulse 71 05/03/21 08:21 Resp 18 05/03/21 08:21 BP 146/75 05/03/21 08:00 Pulse Ox 97 05/03/21 08:00 Intake & Output 05/02/21 05/03/21 05/03/21 18:59 06:59 18:59 Intake Total 236 Balance 236 Weight 52.5 kg Intake: Oral 236 Other: Voiding Method Toilet Toilet # Voids 2 1 - Labs CBC & Chem 7: 04/28/21 15:16 05/03/21 06:18 Labs: Abnormal Lab Results - Last 24 Hours (Table) 05/03/21 Range/Units 06:18 Sodium 131 L (137-145) mmol/L BUN 44 H (7-17) mg/dL Glucose 114 H (74-99) mg/dL
[2021-05-03] MEDS: CYANOCOBALAMIN 500 MCG TAB PO SCH (12:20)
[2021-05-03] MEDS: PANTOPRAZOLE 40 MG TABLET PO SCH (12:20)
[2021-05-03] MEDS: CHOLECALCIFEROL 25 MCG (1000 IU) TABLET PO SCH (12:20)
[2021-05-03] MEDS: MIRTAZAPINE 15 MG TAB PO SCH (19:48)
[2021-05-03 19:53] VITALS: RESP 16
[2021-05-03] MEDS: ACETAMINOPHEN TAB 325 MG TAB PO PRN (21:03)
[2021-05-03] MEDS: PRAVASTATIN SODIUM 40 MG TAB PO SCH (21:04)
[2021-05-03] MEDS: MELATONIN 5 MG TABLET PO SCH (21:04)
[2021-05-03] MEDS: MAGNESIUM OXIDE 400 MG TAB PO SCH (21:04)
[2021-05-04] MEDS: LEVOTHYROXINE 88 MCG TAB PO SCH (05:55)
[2021-05-04] MEDS: ALPRAZolam 0.25 MG TAB PO SCH ×3 (06:40→17:21)
[2021-05-04 06:58] LABS: African American GFR (CKD) 67 (>60 ml/min/1.73 sqM); Anion Gap 6 mmol/L; Blood Urea Nitrogen 48 mg/dL (7-17); Calcium 9.7 mg/dL (8.4-10.2); Carbon Dioxide 28 mmol/L (22-30); Chloride 98 mmol/L (98-107); Glucose 114 mg/dL (74-99); Non-African American GFR(CKD) 58 (>60 ml/min/1.73 sqM); Sodium 132 mmol/L (137-145)
[2021-05-04] MEDS: BUDESONIDE 0.5 MG/2 ML NEBU INHALATION SCH ×2 (08:05→18:49)
[2021-05-04] MEDS: BETHANECHOL 10 MG TAB PO SCH ×3 (08:25→21:28)
[2021-05-04] MEDS: amLODIPine 5 MG TAB PO SCH (08:25)
[2021-05-04] MEDS: NYSTATIN 100,000 UNIT/ML SUSP 500,000 UNIT/5 ML CUP PO SCH ×4 (08:25→21:28)
[2021-05-04] MEDS: predniSONE 20 MG TAB PO SCH (08:25)
[2021-05-04] MEDS: ASPIRIN 81 MG PO SCH (08:25)
[2021-05-04] MEDS: MONTELUKAST 10 MG TAB PO SCH (08:25)
[2021-05-04] MEDS: SODIUM CHLORIDE TAB 1 GM TAB PO SCH (08:26)
--- NOTE | 2021-05-04 10:10 | P.PN ---
Subjective Patient is seen in follow-up for hyponatremia. Sodium level stable. Oral intake gradually improving. No vomiting or diarrhea. Blood pressure stable. No changes overnight. Vital signs are stable. General: The patient appeared well nourished and normally developed. HEENT: Head exam is unremarkable. LUNGS: Breath sounds decreased. HEART: Rate and Rhythm are regular. ABDOMEN: Soft, no distention. EXTREMITITES: No edema. Objective - Vital Signs Vital signs: Vital Signs Temp 97.9 F 05/04/21 08:00 Pulse 71 05/04/21 08:00 Resp 16 05/04/21 08:00 BP 150/88 05/04/21 08:00 Pulse Ox 97 05/04/21 08:00 Intake & Output 05/03/21 05/04/21 05/04/21 18:59 06:59 18:59 Intake Total 1192 240 Balance 1192 240 Weight 52.3 kg Intake: Oral 1192 240 Other: Voiding Method Toilet # Voids 2 1 - Labs CBC & Chem 7: 04/28/21 15:16 05/04/21 05:25 Labs: Abnormal Lab Results - Last 24 Hours (Table) 05/04/21 Range/Units 05:25 Sodium 132 L (137-145) mmol/L BUN 48 H (7-17) mg/dL Glucose 114 H (74-99) mg/dL Assessment and Plan Plan: Assessment: 1. Hypovolemic hyponatremia improved with IV hydration. Sodium level 132 this morning. TSH normal. Urine osmolality 506. 2. Benign hypertension. Controlled. 3. Hypomagnesemia from poor intake and GI losses. On oral magnesium oxide. Better. 4. History of ulcerative colitis. Plan: Remains off IV fluids. 7073-1639 mL fluid restriction. Encouraged oral intake. Maintain sodium chloride tab 1 g daily. Repeat BMP and magnesium level 2-3 days postdischarge. Follow up outpatient in 1 week.
--- NOTE | 2021-05-04 10:20 | P.PN ---
Subjective Progress Note Date: 05/04/21 HISTORY OF PRESENT ILLNESS This is an 89-year-old pleasant lady, well-known to my practice, known history of chronic persistent asthma, under the care of Dr. Jatin North. 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 Patient had issues with shortness of breath for months now, intermittent, these is without any hypoxemia, on clinic testing. She has weight loss, with anorexia intermittently, for which we had been successful using mirtazapine for this, and as she gained as much weight, we have discontinued. The Remeron. She also has dysphagia, odynophagia, we have elected to give her trial of isosorbide, 15 mg daily, to treat the exertional chest pain and dysphagia, for which she did not tolerate well secondary to the headache. She has discontinued isosorbide 4 days ago, during her last ER visit 04/28 She presents the emergency room, secondary to headache, chest pain, she has discontinued the isosorbide altogether, however new findings included hyponatremia, with sodium of 116, from a previous of 134 in November. Upon in sup 0.012, RN MEDICARE proBNP is normal at 222, no d-dimer eval for review, creatinine is 0.8, hemoglobin of 9.2. Urinalysis is normal, she is recently finishing the doxycycline for urinary tract infection. No proteinuria noted. No ketonuria. Specific gravity is 1.[address], age-related atrophy, chest x-ray is unremarkable, except for compression deformities with kyphosis, underlying COPD interstitial changes, which is chronic patient was admitted secondary to hyponatremia, chest pain, with consultation to Dr. Rico, nephrology, and Dr. Hayes cardiology. D-dimer to be obtained, esophagram ordered, echocardiogram ordered. IV fluids started at 0.9% saline at 75 mL an hour, with subsequent serum sodium of 127, saline is discontinued now, with the calibration of her IV fluids to D5W, 200 mL an hour, to avoid pontine demyelination. Nephrology is following closely 04/30: Patient complains of her stomach hurting and she just does not want to eat. She states she is too weak to get up to the bathroom. She states that she slept okay last night. She does complain of suprapubic pain, no diarrhea. She states her headache is still there but better. She states she's feeling very anxious although she did take Xanax this morning. Patient started on Solu- Medrol for asthma exacerbation. Patient has been seen by cardiology for atypical chest pain. Echocardiogram reveals EF of 55-60% with mild aortic stenosis, mild mitral regurgitation, mild tricuspid regurgitation. Esophagram revealed presbyesophagus, small hiatal hernia and mild spontaneous ga stroesophageal reflux, tiny Zenker's diverticulum, no stricture, filling defect or erosions identified. Patient is followed by nephrology for hyponatremia, off IV fluids, 1200 mL fluid restriction, encourage oral intake and add sodium chloride 1 g twice daily. Sodium this morning was 122. Serum osmolality 506. 05/01: Patient was moved into the intensive care unit yesterday because her sodium dropped down to 119. She was on 3% saline overnight for short period and repeat sodium 124. Patient states that she is still feeling tired she was able to eat breakfast but not very much appetite. She states her breathing is better, no chest pain. She continues to complain of anxiety. Xanax changed to scheduled at 0.25 mg 3 times daily, Lexapro discontinued and patient started on Remeron 7.5 mg at supper. Vitamin B12 level ordered. 05/02: She is seen today on the [facility] floor. She continues to complain of having trouble with walking, decreased appetite and generalized weakness. She has chronic problems with her eyes with double vision. Nystatin is been started for thrush, sign Medrol decreased to 40 mg every 8 hours. He has been afebrile, heart rate 69, blood pressure 132/82, pulse ox 90% on room air. Sodium 132, potassium 4.5, chloride 96, CO2 24, BUN 38 creatinine 1.02. Blood sugar 167. Hemoglobin A1c has been ordered. Vitamin B12 1417. Patient is followed by multiple consultants, cardiology has signed off.. Nephrology is plan for outpatient follow-up in 1 week and repeat BMP and magnesium in 2-3 days after discharge. Patient has been seen by therapies with recommendations for home with home care. personnel security specialist made arrangements for home care. We'll plan to transition patient to prednisone tomorrow and plan for discharge home tomorrow. 05/03: Patient is found sleeping and wakes to oral stimulus. She feels tired and is quite sleepy today she is on Remeron only at 7.5 mg to be given at 7 PM. Repeat sodium is at 131 otherwise electrolytes are normal, BUN 44 and creatinine 0.89. Blood sugar 114. Dr. Rico recommends fluid restriction of 0841-1559 ML's, encourage oral intake, sodium chloride tablet 1 daily and repeat BMP and magnesium in 2-3 days after discharge with follow-up in one week. We were planning to discharge the patient today but because of her fatigue, we will monitor overnight and probable discharge tomorrow. Her discharge plan is to return home with homecare 05/04: Repeat sodium today is 132 otherwise electrolytes are normal. BUN 48 creatinine 0.89. Blood sugar 114. Patient has been afebrile, heart rate 71, blood pressure 150/88, pulse ox 97% on room air. Patient continues to complain of weakness and feeling tired and not sleeping and feeling like she needs asleep during the day. According to patient's nurse, patient has been up and sitting in a chair and she has ambulated without any significant concerns. Due to p carlita's complaints, we will have physical therapy reassess her for safety at home prior to discharge. Review of Systems Constitutional: Reports as per HPI, Reports malaise, Reports poor appetite, Denies anorexia, Denies chills, Denies chronic headaches, Denies chronic pain, Denies daytime sleepiness, Denies fatigue, Denies fever, Denies lethargy, Denies night sweats, Denies sweats, Denies weakness, Denies weight gain, Denies weight loss Ears, nose, mouth and throat: Reports as per HPI Cardiovascular: denies chest pain, Reports decreased exercise tolerance, Reports dyspnea on exertion-improving Respiratory: No cough, no sputum production Gastrointestinal: Reports early satiety, Reports loss of appetite Genitourinary: Reports as per HPI, Denies abnormal vaginal bleeding, Denies decreased libido, Denies difficulty conceiving, Denies difficulty voiding, Denies dysmenorrhea, Denies dyspareunia, Denies dysuria, Denies flank pain, Denies genital sores, Denies hematuria, Denies hot flashes, Denies incomplete emptying, Denies kidney stones, Denies menorrhagia, Denies mixed incontinence, Denies nocturia, Denies pelvic pain, Denies post void dribbling, Denies , Denies prolapse symptoms, Denies stress incontinence, Denies urge incontinence, Denies urgency, Denies urinary frequency, Denies vaginal discharge, Denies vaginal dryness, Denies vaginal itching, Denies vaginal odor Musculoskeletal: Reports as per HPI Neurological: Reports as per HPI, Reports gait dysfunction and did well with physical therapy Psychiatric: Reports anxiety, Reports change in sleep habits, Reports memory loss Endocrine: Reports as per HPI PHYSICAL EXAMINATION Gen: This is an 89-year-old female. Patient is resting in bed and appears to be comfortable. Awakens easily to verbal stimuli. HEENT: Head is atraumatic, normocephalic. Pupils equal, round. Sclerae is anicteric. NECK: Supple. No JVD. No lymphadenopathy. No thyromegaly. LUNGS: Clear to auscultation. No wheezes or rhonchi. No intercostal retractions. HEART: Regular rate and rhythm. 2/6 systolic murmur right sternal border. ABDOMEN: Soft. Bowel sounds are present. No masses. No tenderness. EXTREMITIES: No pedal edema. No calf tenderness. NEUROLOGICAL: Patient is awake, alert and oriented x3. Cranial nerves 2 through 12 are grossly intact. ASSESSMENT AND PLAN 1. Acute hypovolemic hyponatremia. Continue 1481-1959 mL fluid restriction, sodium chloride 1 g daily, encourage oral fluids, nephrology consult bria reciated. Continue protein supplement. 2. Dilute urine, with very low specific gravity of 0.004. 3. Chest pain, with dyspnea and exertion, moderate persistent asthma, without hypoxemia. Cardiology consult appreciated, acute coronary syndrome ruled out. 4. Moderate persistent asthma, with history of toxoplasma infection in the past. 4. Recent UTI, completed antibiotics. 5. Headache, originally it was thought that this might be related to isosorbide. 6. Recent fall, with head concussion. 7. History of recurrent urinary retention. 8. Hypertension. 9. Recurrent depression. 10. Hypothyroidism. 11. Mild aortic stenosis. DISCHARGE PLAN [place] [facility] [place] [facility] [place] after patient is assessed by physical therapy. Impression and plan of care have been directed as dictated by the signing physician. Ceci Borrero nurse practitioner acting as scribe for signing physician. Objective - Vital Signs Vital signs: Vital Signs Temp 97.9 F 05/04/21 08:00 Pulse 71 05/04/21 08:00 Resp 16 05/04/21 08:00 BP 150/88 05/04/21 08:00 Pulse Ox 97 05/04/21 08:00 Intake & Output 05/03/21 05/04/21 05/04/21 18:59 06:59 18:59 Intake Total 1192 240 Balance 1192 240 Weight 52.3 kg Intake: Oral 1192 240 Other: Voiding Method Toilet # Voids 2 1 - Labs CBC & Chem 7: 04/28/21 15:16 05/04/21 05:25 Labs: Abnormal Lab Results - Last 24 Hours (Table) 05/04/21 Range/Units 05:25 Sodium 132 L (137-145) mmol/L BUN 48 H (7-17) mg/dL Glucose 114 H (74-99) mg/dL
[2021-05-04] MEDS: CYANOCOBALAMIN 500 MCG TAB PO SCH (11:56)
[2021-05-04] MEDS: PANTOPRAZOLE 40 MG TABLET PO SCH (11:56)
[2021-05-04] MEDS: CHOLECALCIFEROL 25 MCG (1000 IU) TABLET PO SCH (11:56)
[2021-05-04] MEDS: ACETAMINOPHEN TAB 325 MG TAB PO PRN (16:14)
[2021-05-04] MEDS: MIRTAZAPINE 15 MG TAB PO SCH (17:20)
[2021-05-04] MEDS: MAGNESIUM OXIDE 400 MG TAB PO SCH (21:28)
[2021-05-04] MEDS: MELATONIN 5 MG TABLET PO SCH (21:29)
[2021-05-04] MEDS: PRAVASTATIN SODIUM 40 MG TAB PO SCH (21:29)
[2021-05-05] MEDS: LEVOTHYROXINE 88 MCG TAB PO SCH (05:59)
[2021-05-05] MEDS: ALBUTEROL NEBULIZED 2.5 MG/3 ML INHALATION PRN (07:11)
[2021-05-05] MEDS: BUDESONIDE 0.5 MG/2 ML NEBU INHALATION SCH (07:11)
[2021-05-05 07:48] VITALS: BP 165/83; PULSE 62; TEMP 97.9
[2021-05-05] MEDS: ALPRAZolam 0.25 MG TAB PO SCH (07:50)
[2021-05-05] MEDS: CHOLECALCIFEROL 25 MCG (1000 IU) TABLET PO SCH (07:56)
[2021-05-05] MEDS: CYANOCOBALAMIN 500 MCG TAB PO SCH (07:57)
[2021-05-05] MEDS: ASPIRIN 81 MG PO SCH (07:57)
[2021-05-05] MEDS: MONTELUKAST 10 MG TAB PO SCH (07:57)
[2021-05-05] MEDS: amLODIPine 5 MG TAB PO SCH (07:57)
[2021-05-05] MEDS: BETHANECHOL 10 MG TAB PO SCH (07:57)
[2021-05-05] MEDS: PANTOPRAZOLE 40 MG TABLET PO SCH (07:57)
[2021-05-05] MEDS: NYSTATIN 100,000 UNIT/ML SUSP 500,000 UNIT/5 ML CUP PO SCH (07:58)
[2021-05-05] MEDS: SODIUM CHLORIDE TAB 1 GM TAB PO SCH (07:58)
[2021-05-05 09:25] LABS: African American GFR (CKD) 63.7 (60.0-200.0); Anion Gap 13.5 mmol/L (4.00-12.00); BUN/Creat Ratio 46.8 Ratio (12.00-20.00); Blood Urea Nitrogen 43.2 mg/dL (9.0-27.0); Carbon Dioxide 27.4 mmol/L (21.6-31.8); Potassium 4.6 mmol/L (3.5-5.5)
--- NOTE | 2021-05-05 13:35 | P.DS ---
Providers Date of admission: 04/28/21 16:05 Expected date of discharge: 05/05/21 Attending physician: Kayla Gamez Consults: 04/28/21 16:05 Consult Physician Routine Consulting Provider: Sofia Wang Consult Reason/Comments: Hyponatremia Do you want consulting provider notified?: Yes 04/29/21 09:39 Consult Physician Routine Consulting Provider: Gregg Hayes Consult Reason/Comments: chest pain, weakness Do you want consulting provider notified?: Yes 04/30/21 22:32 Consult Physician Routine Consulting Provider: Antoine Carrasquillo Consult Reason/Comments: critical NA Do you want consulting provider notified?: Yes Primary care physician: [facility] Course: HISTORY OF PRESENT ILLNESS This is an 89-year-old pleasant lady, well-known to my practice, known history of chronic persistent asthma, under the care of Dr. Jatin North. 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 Patient had issues with shortness of breath for months now, intermittent, these is without any hypoxemia, on clinic testing. She has weight loss, with anorexia intermittently, for which we had been successful using mirtazapine for this, and as she gained as much weight, we have discontinued. The Remeron. She also has dysphagia, odynophagia, we have elected to give her trial of isosorbide, 15 mg daily, to treat the exertional chest pain and dysphagia, for which she did not tolerate well secondary to the headache. She has discontinued isosorbide 4 days ago, during her last ER visit 04/28 She presents the emergency room, secondary to headache, chest pain, she has d iscontinued the isosorbide altogether, however new findings included hyponatremia, with sodium of 116, from a previous of 134 in November. Upon in sup 0.012, STATION AGENT proBNP is normal at 222, no d-dimer eval for review, creatinine is 0.8, hemoglobin of 9.2. Urinalysis is normal, she is recently finishing the doxycycline for urinary tract infection. No proteinuria noted. No ketonuria. Specific gravity is 1.[address], age-related atrophy, chest x-ray is unremarkable, except for compression deformities with kyphosis, underlying COPD interstitial changes, which is chronic patient was admitted secondary to hyponatremia, chest pain, with consultation to Dr. Rico, nephrology, and Dr. Hayes cardiology. D-dimer to be obtained, esophagram ordered, echocardiogram ordered. IV fluids started at 0.9% saline at 75 mL an hour, with subsequent serum sodium of 127, saline is discontinued now, with the calibration of her IV fluids to D5W, 200 mL an hour, to avoid pontine demyelination. Nephrology is shahid blunt closely 04/30: Patient complains of her stomach hurting and she just does not want to eat. She states she is too weak to get up to the bathroom. She states that she slept okay last night. She does complain of suprapubic pain, no diarrhea. She states her headache is still there but better. She states she's feeling very anxious although she did take Xanax this morning. Patient started on Solu- Medrol for asthma exacerbation. Patient has been seen by cardiology for atypical chest pain. Echocardiogram reveals EF of 55-60% with mild aortic stenosis, mild mitral regurgitation, mild tricuspid regurgitation. Esophagram revealed presbyesophagus, small hiatal hernia and mild spontaneous gastroesophageal reflux, tiny Zenker's diverticulum, no stricture, filling defect or erosions identified. Patient is followed by nephrology for hyponatremia, off IV fluids, 1200 mL fluid restriction, encourage oral intake and add sodium chloride 1 g twice daily. Sodium this morning was 122. Serum osmolality 506. 05/01: Patient was moved into the intensive care unit yesterday because her sodium dropped down to 119. She was on 3% saline overnight for short period and repeat sodium 124. Patient states that she is still feeling tired she was able to eat breakfast but not very much appetite. She states her breathing is better, no chest pain. She continues to complain of anxiety. Xanax changed to scheduled at 0.25 mg 3 times daily, Lexapro discontinued and patient started on Remeron 7.5 mg at supper. Vitamin B12 level ordered. 05/02: She is seen today on the [facility] floor. She continues to complain of having trouble with walking, decreased appetite and generalized weakness. She has chronic problems with her eyes with double vision. Nystatin is been started for thrush, sign Medrol decreased to 40 mg every 8 hours. He has been afebrile, heart rate 69, blood pressure 132/82, pulse ox 90% on room air. Sodium 132, potassium 4.5, chloride 96, CO2 24, BUN 38 creatinine 1.02. Blood sugar 167. Hemoglobin A1c has been ordered. Vitamin B12 1417. Patient is followed by multiple consultants, cardiology has signed off.. Nephrology is plan for outpatient follow-up in 1 week and repeat BMP and magnesium in 2-3 days after discharge. Patient has been seen by therapies with recommendations for home with home care. tie buyer made arrangements for home care. We'll plan to transition patient to prednisone tomorrow and plan for discharge home tomorrow. 05/03: Patient is found sleeping and wakes to oral stimulus. She feels tired and is quite sleepy today she is on Remeron only at 7.5 mg to be given at 7 PM. Repeat sodium is at 131 otherwise electrolytes are normal, BUN 44 and creatinine 0.89. Blood sugar 114. Dr. Rico recommends fluid restriction of 5001-7076 ML's, encourage oral intake, sodium chloride tablet 1 daily and repeat BMP and magnesium in 2-3 days after discharge with follow-up in one week. We were planning to discharge the patient today but because of her fatigue, we will monitor overnight and probable discharge tomorrow. Her discharge plan is to return home with homecare 05/04: Repeat sodium today is 132 otherwise electrolytes are normal. BUN 48 creatinine 0.89. Blood sugar 114. Patient has been afebrile, heart rate 71, blood pressure 150/88, pulse ox 97% on room air. Patient continues to complain of weakness and feeling tired and not sleeping and feeling like she needs asleep during the day. According to patient's nurse, patient has been up and sitting in a chair and she has ambulated without any significant concerns. Due to patient's complaints, we will have physical therapy reassess her for safety at home prior to discharge. 05/05: Patient was seen this morning by physical therapy and did well. Patient states that her plan is to return home with physical therapy. No new complaints today. Repeat sodium is 138. She has been afebrile, heart rate in the 60s, blood pressure 165/83 prior to medications, pulse ox 96% on room air. Patient will be discharged home today in stable condition. ASSESSMENT AND PLAN 1. Acute hypovolemic hyponatremia. 2. Dilute urine, with very low specific gravity of 0.004. 3. Chest pain, with dyspnea and exertion, moderate persistent asthma, without hypoxemia. Cardiology consult appreciated, acute coronary syndrome ruled out. 4. Moderate persistent asthma, with history of toxoplasma infection in the past. 4. Recent UTI, completed antibiotics. 5. Headache, originally it was thought that this might be related to isosorbide. 6. Recent fall, with head concussion. 7. History of recurrent urinary retention. 8. Hypertension. 9. Recurrent depression. 10. Hypothyroidism. 11. Mild aortic stenosis. DISCHARGE PLAN Home with [facility] Impression and plan of care have been directed as dictated by the signing physician. Ceci Borrero nurse practitioner acting as scribe for signing physician. Patient Condition at Discharge: Good Plan - Discharge Summary Discharge Rx Participant: No New Discharge Prescriptions: New Mirtazapine [Remeron] 7.5 mg PO 1900 #30 tab Nystatin 100,000 Unit/ml Susp [Mycostatin Oral Susp] 500,000 unit PO QID #100 ml Sodium Chloride Tab 1 gm PO DAILY tab Continue Cyanocobalamin [Vitamin B-12] 500 mcg PO DAILY@1200 Denosumab [Prolia] 60 mg SQ Q180D Magnesium Oxide [Mag-Ox] 400 mg PO HS amLODIPine [Norvasc] 5 mg PO DAILY Levothyroxine Sodium [Synthroid] 88 mcg PO DAILY Pravastatin Sodium [Pravachol] 40 mg PO HS Melatonin 10 mg PO HS Montelukast Sodium [Singulair] 10 mg PO DAILY Aspirin 81 mg PO DAILY Albuterol Nebulized [Ventolin Nebulized] 2.5 mg INHALATION RT-TID PRN PRN Reason: Shortness Of Breath Acetaminophen Tab [Tylenol] 500 mg PO Q6H PRN PRN Reason: Pain Loperamide [Imodium] 2 mg PO TID PRN PRN Reason: Diarrhea Bethanechol [Urecholine] 25 mg PO TID ALPRAZolam [Xanax] 0.25 mg PO TID PRN PRN Reason: Anxiety Cholecalciferol [Vitamin D3 (25 Mcg = 1000 Iu)] 50 mcg PO DAILY@1200 Budesonide [Pulmicort] 0.5 mg INHALATION RT-BID Pantoprazole Sodium [Protonix] 40 mg PO DAILY@1200 Discontinued Escitalopram [Lexapro] 10 mg PO HS Doxycycline Hyclate 100 mg PO BID Isosorbide Mononitrate ER [Imdur] 30 mg PO DAILY Discharge Medication List Cyanocobalamin [Vitamin B-12] 500 mcg PO DAILY@1200 05/22/14 [History] Denosumab [Prolia] 60 mg SQ Q180D 02/28/17 [History] Levothyroxine Sodium [Synthroid] 88 mcg PO DAILY 02/28/17 [History] Magnesium Oxide [Mag-Ox] 400 mg PO HS 02/28/17 [History] amLODIPine [Norvasc] 5 mg PO DAILY 02/28/17 [History] Melatonin 10 mg PO HS 12/05/18 [History] Pravastatin Sodium [Pravachol] 40 mg PO HS 12/05/18 [History] Montelukast Sodium [Singulair] 10 mg PO DAILY 06/18/20 [History] Aspirin 81 mg PO DAILY 07/16/20 [History] Albuterol Nebulized [Ventolin Nebulized] 2.5 mg INHALATION RT-TID PRN 12/16/20 [History] Cholecalciferol [Vitamin D3 (25 Mcg = 1000 Iu)] 50 mcg PO DAILY@1200 12/16/20 [History] Budesonide [Pulmicort] 0.5 mg INHALATION RT-BID 12/19/20 [History] Pantoprazole Sodium [Protonix] 40 mg PO DAILY@1200 12/19/20 [History] ALPRAZolam [Xanax] 0.25 mg PO TID PRN 04/28/21 [History] Acetaminophen Tab [Tylenol] 500 mg PO Q6H PRN 04/28/21 [History] Bethanechol [Urecholine] 25 mg PO TID 04/28/21 [History] Loperamide [Imodium] 2 mg PO TID PRN 04/28/21 [History] Mirtazapine [Remeron] 7.5 mg PO 1900 #30 tab 05/04/21 [Rx] Nystatin 100,000 Unit/ml Susp [Mycostatin Oral Susp] 500,000 unit PO QID #100 ml 05/04/21 [Rx] Sodium Chloride Tab 1 gm PO DAILY tab 05/04/21 [Rx] Follow up Appointment(s)/Referral(s): [facility], [NON-STAFF] - 1-2 Days Kayla Gamez MD [Primary Care Provider] - 05/06/21 2:30 pm Ambulatory/Diagnostic Orders: Basic Metabolic Panel [LAB.AMB] Location: None Selected Magnesium [LAB.AMB] Location: None Selected Patient Instructions/Handouts: Hyponatremia (DC) Activity/Diet/Wound Care/Special Instructions: [id number] fluid restriction Discharge Disposition: HOME WITH HOME HEALTH SERVICES
--- NOTE | 2021-05-06 11:33 | PN ---
PROGRESS NOTE The patient is seen for followup for hyponatremia. Her sodium has improved. It is at 138 now. Currently patient is maintained on sodium chloride tabs. PHYSICAL EXAMINATION: On examination today, blood pressure 165/83, heart rate 62 per minute. She is afebrile. Examination of the heart S1, S2. Examination of the lungs, bilateral breath sounds are heard. Abdomen is soft, nontender. Examination of lower extremities shows no significant edema. TIMEKEEPING SUPERVISOR exam grossly intact. LAB: Show sodium 138, potassium 4.6. Serum creatinine 0.9 mg/dL. ASSESSMENT: 1. Hyponatremia, mostly hypovolemic and associated with decreased oral intake, improved with saline administration. 2. Hypomagnesemia. 3. History of ulcerative colitis, currently stable. PLAN: Maintain free water restriction and increase oral protein intake. Repeat labs as outpatient. Periodically to monitor the hyponatremia. MMODL / IJN: [id number] /
== END 2021-05-05 13:35 | disposition home health service (06) | DRG 641 ==
LOC: EC 13:52 → 3SCARD 16:05 → 3NCARDOBS 04-29 20:33 → 3SCARD 04-29 20:35 → 2SICU 04-30 23:13 → 4SSUR 05-01 16:25
PROVIDERS: ADMIT Family Medicine; ATTEND Family Medicine
DX: E87.1 Hypo-osmolality and hyponatremia (principal); J45.41 Moderate persistent asthma with (acute) exacerbation; F33.9 Major depressive disorder, recurrent, unspecified; K51.90 Ulcerative colitis, unspecified, without complications; N39.0 Urinary tract infection, site not specified; R07.9 Chest pain, unspecified; B37.9 Candidiasis, unspecified; E03.9 Hypothyroidism, unspecified; E78.5 Hyperlipidemia, unspecified; E83.42 Hypomagnesemia; E86.1 Hypovolemia; F41.9 Anxiety disorder, unspecified; H53.2 Diplopia; I10 Essential (primary) hypertension; I35.0 Nonrheumatic aortic (valve) stenosis; J44.9 Chronic obstructive pulmonary disease, unspecified; Z20.822 Contact with and (suspected) exposure to COVID-19; K21.9 Gastro-esophageal reflux disease without esophagitis; K22.8 Other specified diseases of esophagus; K44.9 Diaphragmatic hernia without obstruction or gangrene; R13.10 Dysphagia, unspecified; G83.9 Paralytic syndrome, unspecified; M40.209 Unspecified kyphosis, site unspecified; Z79.82 Long term (current) use of aspirin; Z79.890 Hormone replacement therapy; Z79.899 Other long term (current) drug therapy; Z82.49 Family history of ischemic heart disease and other diseases of the circulatory system; Z87.440 Personal history of urinary (tract) infections; Z90.710 Acquired absence of both cervix and uterus; H26.9 Unspecified cataract; Z88.0 Allergy status to penicillin; R33.9 Retention of urine, unspecified
CPT/HCPCS: 36415; 70450; 71046; 74210; 80048; 80053; 81003; 82607; 83735; 83880; 83930; 83935; 84295; 84300; 84443; 84484; 85025; 85379; 85610; 85730; 87635; 93005; 93306; 94640; 94760; 96374; 96375; 99285

== ENCOUNTER → 2021-05-24 | Outpatient (CLI) | payer MEDICARE, BC ==
--- NOTE | 2021-05-24 10:54 | CT ---
EXAMINATION TYPE: CT brain wo con DATE OF EXAM: 05/24/2021 COMPARISON: 04/29/2021 HISTORY: Recent fall, Severe SIBLEY, back of head and frontal CT DLP: 892.[address] of the brain was performed. The ventricles, basal cisterns and sulci overlying the cerebral convexities demonstrate mild enlargem ent. There is no evidence for intracranial hemorrhage or sulcal effacement. There is decreased attenuation about the periventricular white matter and deep white matter of both c erebral hemispheres, compatible with chronic small vessel ischemia. Differential diagnosis does inclu de demyelination. No mass effects are seen.No midline shift. Osseous calvarium is intact. If symptoms persist consider MRI. IMPRESSION: 1. Age related atrophic and chronic small vessel ischemic change without acute intracranial process s een at this time.
== END | disposition home or self-care (01) ==
LOC: RADCTMAIN 10:01
PROVIDERS: ATTEND Family Medicine
DX: I67.82 Cerebral ischemia (principal); G31.9 Degenerative disease of nervous system, unspecified
CPT/HCPCS: 70450

== ENCOUNTER 2021-06-16 09:07 | Inpatient (IN) | payer MEDICARE, BC ==
[2021-06-16] MEDS ORDERED: SODIUM CHLORIDE 0.9% 500 ML 500 ML IV STA (09:37)
--- NOTE | 2021-06-16 10:04 | XR ---
EXAMINATION TYPE: XR chest 1V portable DATE OF EXAM: 06/16/2021 COMPARISON: 04/28/2021 HISTORY: Cough TECHNIQUE: Single frontal view of the chest is obtained. FINDINGS: Diffuse right-sided infiltrate. Left lung clear. No sizable pneumothorax. Arthropathy of t he shoulder. Atherosclerotic change aorta. IMPRESSION: 1. Diffuse right-sided infiltrate.
--- NOTE | 2021-06-16 11:03 | ED ---
General Adult HPI - General Chief complaint: Syncope Stated complaint: fall Time Seen by Provider: 06/16/21 09:21 Source: patient, EMS Mode of arrival: EMS Limitations: no limitations - History of Present Illness Initial comments: 89-year-old female with past medical history of asthma, hypertension, hyperlipidemia who presents emergency Department with reported syncope. The patient does provide some history and the daughter supplements the history. The patient does live with her daughter. She awoke this morning and attempted to get out of bed. She states that she slipped off the side of the bed and fell hitting her head. She denies losing consciousness. She arrives in a c-collar. Denies any neck pain. No chest pain but does admit to feeling short of breath. Patient does not wear any home oxygen. EMS provided her with 2 breathing sanjay tments and 50 g of fentanyl. Daughter states that the patient was just fine yesterday, visiting with her sister. Today the patient seemed extremely short of breath. Unknown if the patient had a fever. No sick contacts. Patient denies any nausea, vomiting or abdominal pain. No history of heart failure. Patient denies any headaches or visual changes. No numbness, tingling or weakness in her extremities. No other alleviating, Perceptin or modifying factors - Related Data Home Medications Medication Instructions Recorded Confirmed Cyanocobalamin [Vitamin B-12] 500 mcg PO DAILY@1200 05/22/14 06/16/21 Denosumab [Prolia] 60 mg SQ Q180D 02/28/17 06/16/21 Levothyroxine Sodium [Synthroid] 88 mcg PO DAILY 02/28/17 06/16/21 Magnesium Oxide [Mag-Ox] 400 mg PO HS 02/28/17 06/16/21 amLODIPine [Norvasc] 5 mg PO DAILY 02/28/17 06/16/21 Melatonin 10 mg PO HS 12/05/18 06/16/21 Pravastatin Sodium [Pravachol] 40 mg PO HS 12/05/18 06/16/21 Montelukast Sodium [Singulair] 10 mg PO DAILY 06/18/20 06/16/21 Aspirin 81 mg PO DAILY 07/16/20 06/16/21 Albuterol Nebulized [Ventolin 2.5 mg INHALATION RT-TID PRN 12/16/20 06/16/21 Nebulized] Cholecalciferol [Vitamin D3 (25 50 mcg PO DAILY@1200 12/16/20 06/16/21 Mcg = 1000 Iu)] Budesonide [Pulmicort] 0.5 mg INHALATION RT-BID 12/19/20 06/16/21 Pantoprazole Sodium [Protonix] 40 mg PO DAILY@1200 12/19/20 06/16/21 ALPRAZolam [Xanax] 0.25 mg PO TID PRN 04/28/21 06/16/21 Acetaminophen Tab [Tylenol] 500 mg PO Q6H PRN 04/28/21 06/16/21 Bethanechol [Urecholine] 25 mg PO TID 04/28/21 06/16/21 Loperamide [Imodium] 2 mg PO TID PRN 04/28/21 06/16/21 Mirtazapine [Remeron] 7.5 mg PO DAILY@1900 06/16/21 06/16/21 hydrALAZINE HCL [Apresoline] 25 mg PO BID 06/16/21 06/16/21 Previous Rx's Medication Instructions Recorded Sodium Chloride Tab 1 gm PO DAILY tab 05/04/21 Allergies Allergy/AdvReac Type Severity Reaction Status Date / Time Penicillins Allergy Intermediate Rash/Hives Verified 04/28/21 16:19 linaclotide [From Linzess] AdvReac Diarrhea Verified 04/28/21 16:19 Narcotics AdvReac Hallucinati Uncoded 04/28/21 14:35 ons Review of Systems ROS Statement: Those systems with pertinent positive or pertinent negative responses have been documented in the HPI. ROS Other: All systems not noted in ROS Statement are negative. Past Medical History Past Medical History: Asthma, GERD/Reflux, Hyperlipidemia, Hypertension, Osteoarthritis (OA), Pneumonia, Thyroid Disorder Additional Past Medical History / Comment(s): SOB with activity, fx 5th digit left hand-splint on,prednisone March 2019 Hx DOUBLE VISION, colitis,bladder infections History of Any Multi-Drug Resistant Organisms: None Reported Past Surgical History: Appendectomy, Hysterectomy, Tonsillectomy Additional Past Surgical History / Comment(s): BILATERAL CATARACTS. sinus/blocked tear duct surgery, D&C x 2, surgery for fx nose, cyst removed from rt ear Past Anesthesia/Blood Transfusion Reactions: Postoperative Nausea & Vomiting (PONV) Additional Past Anesthesia/Blood Transfusion Reaction / Comment(s): "took two days to come out" (after hysterectomy),no hx blood transfusion Past Psychological History: Anxiety Smoking Status: Never smoker Past Alcohol Use History: None Reported Past Drug Use History: None Reported - Past Family History Father Family Medical History: Cancer, Myocardial Infarction ([place]) Mother Family Medical History: Cancer, Myocardial Infarction ([place]) Sister(s) Family Medical History: Cancer Additional Family Medical History / Comment(s): breast, colon Brother(s) Family Medical History: Cancer General Exam Limitations: no limitations General appearance: alert, in distress Head exam: Present: atraumatic, normocephalic, normal inspection ENT exam: Present: mucous membranes dry Neck exam: Present: normal inspection. Absent: tenderness, meningismus, lymphadenopathy Respiratory exam: Present: rales, accessory muscle use, other (tachypnia. Coarse breath sounds right lung) Cardiovascular Exam: Present: normal rhythm, tachycardia GI/Abdominal exam: Present: soft, normal bowel sounds. Absent: distended, tenderness, guarding, rebound, rigid Extremities exam: Present: normal inspection, full ROM, normal capillary refill. Absent: tenderness, pedal edema, joint swelling, calf tenderness Neurological exam: Present: alert, CN II-XII intact Psychiatric exam: Present: normal affect, normal mood Skin exam: Present: warm, dry, intact, normal color. Absent: rash Course Vital Signs 06/16/21 06/16/21 06/16/21 09:21 09:22 09:30 Temperature 98.0 F Pulse Rate 118 H 114 H 112 H Pulse Rate [ Pulse Oximetery ] Respiratory 23 18 25 H Rate Blood Pressure 92/42 88/42 Blood Pressure [Right Arm] O2 Sat by Pulse 93 L 94 L 91 L Oximetry 06/16/21 06/16/21 06/16/21 10:30 11:00 11:30 Temperature Pulse Rate 107 H 110 H 109 H Pulse Rate [ Pulse Oximetery ] Respiratory 21 24 19 Rate Blood Pressure 113/51 91/42 96/49 Blood Pressure [Right Arm] O2 Sat by Pulse 90 L 88 L Oximetry 06/16/21 06/16/21 06/16/21 12:30 13:00 13:01 Temperature Pulse Rate 113 H 104 H 107 H Pulse Rate [ Pulse Oximetery ] Respiratory 25 H 17 22 Rate Blood Pressure 95/48 104/51 93/48 Blood Pressure [Right Arm] O2 Sat by Pulse 89 L Oximetry 06/16/21 06/16/21 06/16/21 14:00 14:01 15:00 Temperature Pulse Rate 112 H 112 H Pulse Rate [ Pulse Oximetery ] Respiratory 19 18 Rate Blood Pressure 93/61 111/59 111/59 Blood Pressure [Right Arm] O2 Sat by Pulse Oximetry 06/16/21 06/16/21 06/16/21 15:22 16:00 17:00 Temperature 99.2 F Pulse Rate 109 H 101 H 99 Pulse Rate [ Pulse Oximetery ] Respiratory 17 18 20 Rate Blood Pressure 106/54 100/49 89/52 Blood Pressure [Right Arm] O2 Sat by Pulse 98 98 96 Oximetry 06/16/21 06/16/21 06/16/21 18:00 19:12 19:27 Temperature Pulse Rate 97 90 95 Pulse Rate [ Pulse Oximetery ] Respiratory 18 Rate Blood Pressure 81/44 Blood Pressure [Right Arm] O2 Sat by Pulse Oximetry 06/16/21 06/16/21 06/17/21 19:33 20:00 00:55 Temperature 97.7 F Pulse Rate 95 Pulse Rate [ 88 80 Pulse Oximetery ] Respiratory 16 20 20 Rate Blood Pressure 77/46 Blood Pressure 86/49 108/52 [Right Arm] O2 Sat by Pulse 93 L 94 L 94 L Oximetry 06/17/21 06/17/21 06/17/21 02:00 04:00 07:56 Temperature Pulse Rate 80 Pulse Rate [ 78 Pulse Oximetery ] Respiratory 20 20 Rate Blood Pressure Blood Pressure 111/64 [Right Arm] O2 Sat by Pulse 95 Oximetry 06/17/21 06/17/21 06/17/21 08:14 10:33 11:00 Temperature Pulse Rate 84 80 89 Pulse Rate [ Pulse Oximetery ] Respiratory 18 18 Rate Blood Pressure 126/66 125/66 Blood Pressure [Right Arm] O2 Sat by Pulse 98 97 Oximetry 06/17/21 06/17/21 06/17/21 12:46 12:52 13:00 Temperature 97.7 F Pulse Rate 81 79 89 Pulse Rate [ Pulse Oximetery ] Respiratory 18 Rate Blood Pressure 129/82 Blood Pressure [Right Arm] O2 Sat by Pulse 98 Oximetry EKG Findings - EKG Comments: EKG Findings:: EKG demonstrates a sinus tachycardia with a ventricular rate of 112. TX interval 132. QRS 68. QTC of 434. No acute ST segment elevations or depressions concerning for ischemic changes Medical Decision Making - Medical Decision Making Upon arrival patient is placed into room 8. She is notably tachycardic, hypoxic and hypotensive. IV is established and the patient is given a 500 bolus of normal saline. She is on started on 130 mL/h. Patient does have quick improvement in her blood pressure. Laboratory studies are conducted and a chest x-rays performed. Laboratory studies remarkable for a white count of 12.1. D- dimer 6.96. Troponin is 1.3 with a BNP of 4740. Patient denies any chest pain. Covid not detected. Patient sent for a CT of her head and cervical spine due to her notable head trauma. CT demonstrates atrophy with chronic appearing periventricular white matter ischemic changes. CT demonstrates arthritic changes without acute fracture. C-collar is removed. Chest x-ray demonstrates diffuse right-sided infiltrate. Because of elevated d-dimer the patient is sent over for a CT of her chest which does not demonstrate a PE. There is a right middle and lower lobe infiltrates. Blood cultures obtained and the patient is initiated on azithromycin and Rocephin. Patient placed on heparin gtt due to elevated trop. Recommended admission for which the patient did agree to. Spoke with Dr. Adan who agreed to admit the patient. We will consult cardiology and pulmonology. Patient informs me that she is a DNR/DNI patient and her daughter at bedside states that this is true in the patient does have drawn out paperwork. Patient remained in stable condition awaiting a bed on the floor - Lab Data Result diagrams: 06/18/21 07:15 06/18/21 07:15 Lab Results 06/16/21 06/16/21 06/16/21 Range/Units 11:10 12:00 12:00 WBC (3.8-10.6) k/uL RBC (3.80-5.40) m/uL Hgb (11.4-16.0) gm/dL Hct (34.0-46.0) % MCV (80.0-100.0) fL MCH (25.0-35.0) pg MCHC (31.0-37.0) g/dL RDW (11.5-15.5) % Plt Count (150-450) k/uL MPV Neutrophils % (Manual) % Band Neuts % (Manual) % Lymphocytes % (Manual) % Monocytes % (Manual) % Neutrophils # (Manual) (1.3-7.7) k/uL Lymphocytes # (Manual) (1.0-4.8) k/uL Monocytes # (Manual) (0-1.0) k/uL Nucleated RBCs (0-0) /100 WBC Manual Slide Review Anisocytosis PT (9.0-12.0) sec INR (<1.2) APTT (22.0-30.0) sec D-Dimer (<0.60) mg/L FEU Sodium 140 (137-145) mmol/L Potassium 3.8 (3.5-5.1) mmol/L Chloride 108 H (98-107) mmol/L Carbon Dioxide 26 (22-30) mmol/L Anion Gap 6 mmol/L BUN 27 H (7-17) mg/dL Creatinine 1.14 H (0.52-1.04) mg/dL Est GFR (CKD-EPI)AfAm 50 (>60 ml/min/1.73 sqM) Est GFR (CKD-EPI)NonAf 43 (>60 ml/min/1.73 sqM) Glucose 83 (74-99) mg/dL Calcium 8.4 (8.4-10.2) mg/dL Magnesium 1.5 L (1.6-2.3) mg/dL Total Bilirubin 0.6 (0.2-1.3) mg/dL AST 30 (14-36) U/L ALT 23 (4-34) U/L Alkaline Phosphatase 35 L (38-126) U/L Troponin I 1.310 H* (0.000-0.034) ng/mL NT-Pro-B Natriuret Pep pg/mL Total Protein 5.2 L (6.3-8.2) g/dL Albumin 2.7 L (3.5-5.0) g/dL TSH 0.300 L (0.465-4.680) mIU/L Free T4 (0.78-2.19) ng/dL Coronavirus (PCR) Not Detected (Not Detectd) 06/16/21 06/16/21 06/16/21 Range/Units 12:00 12:00 12:00 WBC 12.1 H (3.8-10.6) k/uL RBC 3.66 L (3.80-5.40) m/uL Hgb 11.1 L (11.4-16.0) gm/dL Hct 33.2 L (34.0-46.0) % MCV 90.7 D (80.0-100.0) fL MCH 30.4 (25.0-35.0) pg MCHC 33.5 (31.0-37.0) g/dL RDW 17.7 H (11.5-15.5) % Plt Count 186 (150-450) k/uL MPV 7.4 Neutrophils % (Manual) 71 % Band Neuts % (Manual) 12 % Lymphocytes % (Manual) 14 % Monocytes % (Manual) 3 % Neutrophils # (Manual) 10.00 H (1.3-7.7) k/uL Lymphocytes # (Manual) 1.69 (1.0-4.8) k/uL Monocytes # (Manual) 0.36 (0-1.0) k/uL Nucleated RBCs 0 (0-0) /100 WBC Manual Slide Review Performed Anisocytosis Slight PT 10.5 (9.0-12.0) sec INR 1.0 (<1.2) APTT 20.0 L (22.0-30.0) sec D-Dimer 6.96 H (<0.60) mg/L FEU Sodium (137-145) mmol/L Potassium (3.5-5.1) mmol/L Chloride (98-107) mmol/L Carbon Dioxide (22-30) mmol/L Anion Gap mmol/L BUN (7-17) mg/dL Creatinine (0.52-1.04) mg/dL Est GFR (CKD-EPI)AfAm (>60 ml/min/1.73 sqM) Est GFR (CKD-EPI)NonAf (>60 ml/min/1.73 sqM) Glucose (74-99) mg/dL Calcium (8.4-10.2) mg/dL Magnesium (1.6-2.3) mg/dL Total Bilirubin (0.2-1.3) mg/dL AST (14-36) U/L ALT (4-34) U/L Alkaline Phosphatase (38-126) U/L Troponin I (0.000-0.034) ng/mL NT-Pro-B Natriuret Pep 4740 pg/mL Total Protein (6.3-8.2) g/dL Albumin (3.5-5.0) g/dL TSH (0.465-4.680) mIU/L Free T4 (0.78-2.19) ng/dL Coronavirus (PCR) (Not Detectd) 06/16/21 Range/Units 12:00 WBC (3.8-10.6) k/uL RBC (3.80-5.40) m/uL Hgb (11.4-16.0) gm/dL Hct (34.0-46.0) % MCV (80.0-100.0) fL MCH (25.0-35.0) pg MCHC (31.0-37.0) g/dL RDW (11.5-15.5) % Plt Count (150-450) k/uL MPV Neutrophils % (Manual) % Band Neuts % (Manual) % Lymphocytes % (Manual) % Monocytes % (Manual) % Neutrophils # (Manual) (1.3-7.7) k/uL Lymphocytes # (Manual) (1.0-4.8) k/uL Monocytes # (Manual) (0-1.0) k/uL Nucleated RBCs (0-0) /100 WBC Manual Slide Review Anisocytosis PT (9.0-12.0) sec INR (<1.2) APTT (22.0-30.0) sec D-Dimer (<0.60) mg/L FEU Sodium (137-145) mmol/L Potassium (3.5-5.1) mmol/L Chloride (98-107) mmol/L Carbon Dioxide (22-30) mmol/L Anion Gap mmol/L BUN (7-17) mg/dL Creatinine (0.52-1.04) mg/dL Est GFR (CKD-EPI)AfAm (>60 ml/min/1.73 sqM) Est GFR (CKD-EPI)NonAf (>60 ml/min/1.73 sqM) Glucose (74-99) mg/dL Calcium (8.4-10.2) mg/dL Magnesium (1.6-2.3) mg/dL Total Bilirubin (0.2-1.3) mg/dL AST (14-36) U/L ALT (4-34) U/L Alkaline Phosphatase (38-126) U/L Troponin I (0.000-0.034) ng/mL NT-Pro-B Natriuret Pep pg/mL Total Protein (6.3-8.2) g/dL Albumin (3.5-5.0) g/dL TSH (0.465-4.680) mIU/L Free T4 1.61 (0.78-2.19) ng/dL Coronavirus (PCR) (Not Detectd) Critical Care Time Critical Care Time: Yes Critical Care Time: 32 minutes Disposition Clinical Impression: Elevated d-dimer, CAP (community acquired pneumonia), Syncope and collapse, Head injury Disposition: ADMITTED IP TO THIS [facility] Condition: Serious Is patient prescribed a controlled substance at d/c from ED?: No Decision to Admit Reason: Admit from EC Decision Date: 06/16/21 Decision Time: 15:15
--- NOTE | 2021-06-16 11:39 | CT ---
EXAMINATION TYPE: CT brain rosalee wo con DATE OF EXAM: 06/16/2021 COMPARISON: 05/24/2021 HISTORY: Fall with weakness. CT DLP: 1398.9 mGycm, Automated exposure control for dose reduction was used. CONTRAST: Patient injected with 0 mL of Isovue 300. CT of the brain is performed utilizing 3 mm thick sections through the posterior fossa and 3 mm thick sections through the remaining calvarium. Study is performed within 24 hours of arrival to the hospital. No abnormal hyperdensity is present to suggest an acute intracranial hemorrhage. No mass lesion is evident. Some physiologic basal ganglion calcification is likely present No acute infarcts are evident. There is a little old lacunar infarct or Virchow-Finesse space within t he right basal ganglion. Periventricular white matter hypodensity is present, likely on the basis of chronic white matter ischemic changes. Ventricles and sulci are somewhat prominent for the patient age. No temporal horn dilatation is evid ent. Extra-axial spaces are prominent. Paranasal sinuses and mastoid air cells within the [id number] are clear. Exam appears stable over the interval. IMPRESSIONS: 1. Atrophy with chronic appearing periventricular white matter ischemic changes. CT cervical spine. COMPARISON: None CT of the cervical spine is performed in the axial plane at 2 mm thick sections. Reconstructed image s in the coronal, and sagittal plane are reviewed on the computer. No acute fractures are evident. Anterolisthesis of C4 anterior on C5 and C6 anteriorly on C7 is evident. Mild diffuse disc space narrowing is present. Vertebral body heights are preserved. No spinal canal stenosis is evident. Facet hypertrophy is present C4-5. Some uncovertebral joint hypertrophy is noted at C5-6 on the left with mild foraminal narrowing. Some endplate spurring is present centrally. IMPRESSIONS: 1. Grade 1 spondylolisthesis of C4 anteriorly on C5 and C6 anteriorly on C7. 2. Uncovertebral joint hypertrophy left C5-6 with mild foraminal narrowing. 3. Some spondylosis and endplate spurring most notably centrally at C5 without stenosis.
[2021-06-16 12:35] LABS: Anisocytosis Slight; HCT 33.2 % (34.0-46.0); HGB 11.1 gm/dL (11.4-16.0); MCH 30.4 pg (25.0-35.0); MCHC 33.5 g/dL (31.0-37.0); Mean Platelet Volume 7.4; Platelet Count 186 k/uL (150-450); RBC 3.66 m/uL (3.80-5.40); RDW 17.7 % (11.5-15.5); WBC 12.1 k/uL (3.8-10.6)
[2021-06-16 12:37] LABS: MCV 90.7 fL (80.0-100.0)
[2021-06-16 12:39] LABS: ALT 23 U/L (4-34); AST 30 U/L (14-36); African American GFR (CKD) 50 (>60 ml/min/1.73 sqM); Albumin 2.7 g/dL (3.5-5.0); Alkaline Phosphatase 35 U/L (38-126); Anion Gap 6 mmol/L; Blood Urea Nitrogen 27 mg/dL (7-17); Calcium 8.4 mg/dL (8.4-10.2); Carbon Dioxide 26 mmol/L (22-30); Chloride 108 mmol/L (98-107); Glucose 83 mg/dL (74-99); Magnesium 1.5 mg/dL (1.6-2.3); Non-African American GFR(CKD) 43 (>60 ml/min/1.73 sqM); Potassium 3.8 mmol/L (3.5-5.1); Sodium 140 mmol/L (137-145); Total Bilirubin 0.6 mg/dL (0.2-1.3); Total Protein 5.2 g/dL (6.3-8.2)
[2021-06-16 12:49] LABS: Prothrombin Time 10.5 sec (9.0-12.0)
[2021-06-16 13:09] LABS: Band Neutrophils % 12 %; Lymphocytes # (M) 1.69 k/uL (1.0-4.8); Monocytes # (M) 0.36 k/uL (0-1.0); Neutrophils % (M) 71 %; Nucleated Red Blood Cells 0 /100 WBC (0-0); Total Cells Counted 100
[2021-06-16] MEDS ORDERED: cefTRIAXone IN SWFI 1,000 MG/10 ML SYRINGE IVP STA (13:09)
[2021-06-16] MEDS ORDERED: AZITHROMYCIN 500 MG in SODIUM CHLORIDE 0.9% 250 ML IVPB STA (13:09)
[2021-06-16] MEDS ORDERED: MAGNESIUM SULFATE-D5W PMX 1 GM in DEXTROSE/WATER 1 100ML.BAG IVPB ONE (13:53)
[2021-06-16] MEDS: SODIUM CHLORIDE 0.9% 1,000 ML IV SCH ×2 (14:01→22:24)
--- NOTE | 2021-06-16 14:33 | CT ---
CT CHEST FOR PULMONARY EMBOLISM. EXAMINATION TYPE: CT chest angio for PE DATE OF EXAM: 06/16/2021 INDICATION: Shortness of breath CT DLP: 258.8 mGycm, Automated exposure control for dose reduction was used. CONTRAST: Patient injected with 50 mL of Isovue 300. COMPARISON: None TECHNIQUE: CT of the chest is performed on a spiral scan at 2 mm thick sections. Study is performed with intravenous contrast timed for evaluation for pulmonary embolism. This will limit additional po rtions of the evaluation. 3-D MIP images reconstructed by the technologist are reviewed on the compu ter in the coronal and sagittal planes. FINDINGS: No persistent filling defects are evident to suggest an acute pulmonary embolism. No mediastinal or hilar adenopathy enlarged by CT criteria is evident. The ascending aorta diameter at the level of the main pulmonary artery is 2.9 cm. The main pulmonary artery diameter at the bifur cation is 2.32 cm. Right middle and lower lobe consolidation is present correlate for pneumonia Limited CT section through the upper abdomen are unremarkable. IMPRESSIONS: 1. No acute pulmonary embolus. 2. Right middle lower lobe infiltrates. Correlate for pneumonia
[2021-06-16] MEDS ORDERED: NALOXONE 0.4 MG/ML 1 ML VIAL IV PRN (15:15)
[2021-06-16] MEDS: IBUPROFEN 400 MG TAB PO PRN (15:29)
[2021-06-16] MEDS ORDERED: ALPRAZolam 0.25 MG TAB PO PRN (16:27)
[2021-06-16] MEDS ORDERED: HEPARIN SODIUM 1,000 UN/ML (10ML VL) IV PRN (17:04)
[2021-06-16] MEDS: ALBUTEROL NEBULIZED 2.5 MG/3 ML INHALATION PRN (19:09)
[2021-06-16] MEDS: BUDESONIDE 0.5 MG/2 ML NEBU INHALATION SCH (19:10)
[2021-06-16] MEDS: HEPARIN SOD,PORK IN 0.45% NACL 25,000 UNIT in 0.45% NACL 1 250ML.BAG IV SCH (19:32)
[2021-06-16] MEDS: MONTELUKAST 10 MG TAB PO SCH (19:32)
[2021-06-16] MEDS: ACETAMINOPHEN TAB 325 MG TAB PO PRN (20:21)
[2021-06-16] MEDS: MAGNESIUM OXIDE 400 MG TAB PO SCH (20:21)
[2021-06-16] MEDS: MIRTAZAPINE 15 MG TAB PO SCH (22:16)
[2021-06-16] MEDS: PRAVASTATIN SODIUM 40 MG TAB PO SCH (22:16)
[2021-06-17] MEDS: IBUPROFEN 400 MG TAB PO PRN (02:37)
[2021-06-17] MEDS: SODIUM CHLORIDE 0.9% 1,000 ML IV SCH ×3 (05:35→21:55)
[2021-06-17] MEDS: LEVOTHYROXINE 88 MCG TAB PO SCH (05:35)
[2021-06-17 05:37] LABS: Anisocytosis Slight; HCT 30.9 % (34.0-46.0); HGB 10.2 gm/dL (11.4-16.0); MCH 30.1 pg (25.0-35.0); MCHC 32.9 g/dL (31.0-37.0); MCV 91.3 fL (80.0-100.0); Mean Platelet Volume 7.7; Platelet Count 167 k/uL (150-450); RBC 3.39 m/uL (3.80-5.40); RDW 17.9 % (11.5-15.5); WBC 17.1 k/uL (3.8-10.6)
[2021-06-17 06:17] LABS: Calcium 7.7 mg/dL (8.4-10.2); Potassium 4.1 mmol/L (3.5-5.1)
[2021-06-17] MEDS: BUDESONIDE 0.5 MG/2 ML NEBU INHALATION SCH ×2 (07:49→20:43)
[2021-06-17] MEDS: ALBUTEROL NEBULIZED 2.5 MG/3 ML INHALATION PRN ×2 (07:49→12:45)
--- NOTE | 2021-06-17 08:02 | P.HPIM ---
History of Present Illness H&P Date: 06/16/21 Chief Complaint: Severe dyspnea and shortness of breath with CHF HISTORY OF PRESENT ILLNESS 89-year-old female one of Dr. Gamez's patient with past medical history of hypertension, hyperlipidemia, COPD, stage III chronic kidney disease along with severe GERD who was the hospital last 04/28/2021 for severe hyponatremia. Patient was treated and had severe hyponatremia had improved also had slight dyspnea and shortness of breath. Patient has done quite well was on physical therapy and occupational therapy apparently which she stopped just recently. Patient family brought her to the emergency department on 06/16: She woke up this morning attempt to get out of bed she slept off the side of the bed and hit her head she denies any loss of consciousness she was very weak and unsteady on her feet developed to have significant shortness of breath and tightness with wheezing. Daughter called EMS when get to the seen with c-collar on patient d tari any neck pain at the time no chest pain but have been having significant shortness of breath with fluid overload had supplement of oxygen which helped help some. Also patient had something for pain at the time he was giving nebulizer treatment made her feel slightly but better. Ended up having a CT of the brain which showed small vessel disease only CT of the cervical spine showed mild spinal stenosis of the C5-C6 and spondylolithiasis of the C4-C5 and C6-C7. She had quite bit arthritis and spinal stenosis. CAT scan of the chest shows no pulmonary embolism as a result of elevated d-dimer but showed right middle lobe infiltrate and pneumonia. Patient white blood cell was 12,000 with mild left shifted. Patient was mildly dehydrated and had slight electrode imbalance. Was started on current treatment management start and COPD management as well antibiotic was giving patient be admitted to the hospital she is having some sinus symptoms mild CHF as well. Her troponin was quite bit elevated with troponin 3. REVIEW OF SYSTEMS Constitutional: No fever, no chills, no night sweats. No weight change. No weakness, fatigue or lethargy. No daytime sleepiness. EENT: No headache. No blurred vision or double vision, no loss of vision. No loss of Hearing, no ringing in the ears, no dizziness. No nasal drainage or congestion. No epistaxis. No sore throat. Lungs: Mild shortness of breath, cough, no sputum production. No wheezing. Cardiovascular: No chest pain, no lower extremity edema. No palpitations. No paroxysmal nocturnal dyspnea. No orthopnea. No lightheadedness or dizziness. No syncopal episodes. Abdominal: No abdominal pain. No nausea, vomiting. No diarrhea. No constipation. No bloody or tarry stools.. No loss of appetite. Genitourinary: No dysuria, increased frequency, urgency. Reported urinary retention. Musculoskeletal: No myalgias. No muscle weakness, no gait dysfunction, no frequent falls. No back pain. No neck pain. Integumentary: No wounds, no lesions. No rash or pruritus. No unusual bruising. No change in hair or nails. Neurologic: No aphasia. No facial droop. No change in mentation. No head injury. No headache. No paralysis. No paresthesia. Psychiatric: No depression. No anxiety. No mood swings. Endocrine: No abnormal blood sugars. No weight change. No excessive sweating or thirst. No cold intolerance. SOCIAL HISTORY Patient is a lifelong nonsmoker. Patient is exposed to secondhand smoke. No alcohol use. Patient drinks 2 cups of coffee per day. She is and lives with her daughter. FAMILY HISTORY Mother at age 73 from diabetes, occasions. Father at age 69 from bowel cancer. Patient has a total of 6 brothers and 5 sisters. 3 brothers have from coronary artery disease, cancer. 3 brothers are still living with history of coronary artery disease. Patient has a total of 5 sisters and one has from diabetes. 2 sisters are . One is residing at [facility] with dementia and a second sister is age 95. Patient had 3 children and one son at age 52 from Parkinson's disease. Other 2 children have no major medical problems. PHYSICAL EXAMINATION Gen: This is an 89-year-old female. She is resting in bed and appears to be comfortable and in no acute distress. HEENT: Head is atraumatic, normocephalic. Pupils equal, round. Sclerae is anicteric. NECK: Supple. No JVD. No lymphadenopathy. No thyromegaly. LUNGS: Clear to auscultation. No wheezes or rhonchi. No intercostal retractions. HEART: Regular rate and rhythm. No murmur. ABDOMEN: Soft. Bowel sounds are present. No masses. No tenderness. Last catheter in place with armani urine. EXTREMITIES: No pedal edema. No calf tenderness. Dorsalis pedis +2 bilaterally. NEUROLOGICAL: Patient is awake, alert and oriented x3. Cranial nerves 2 through 12 are grossly intact. ASSESSMENT AND PLAN 1. Dyspnea and shortness of breath: Secondary to right middle lobe pneumonia along with COPD excessive patient mild CHF, patient will be started on IV antibiotic, continue steroid along with nebulizer management continue Singulair. 2. Elevated troponin with possible non-ST ND: Patient be admitted to the hospital cardiology consultation echocardiogram will be repeated patient might require to go for intervention. 3. Post fall with neck pain with significant spinal stenosis and spondylolithiasis. Continue to watch for any weakness PTOT will be started at this point. 4. Abnormal mass along anterior inferior bladder wall with elevated CA-125 and CEA. Still seen urology. 5. Chronic kidney disease stage III: We'll continue hydration repeat BUN/creatinine 24 hours. 6. CHF: Mostly diastolic dysfunction: Patient will benefit from mild diuretics and keep watching for any worsening kidney function. 7. Hypertension. Continue amlodipine 5 mg daily. 8. Hyperlipidemia. Continue pravastatin 40 mg at bedtime. 9. Hypothyroidism. Continue levothyroxine 88 g daily. 10. Gastroesophageal reflux disease and GI prophylaxis. Continue Protonix 40 mg daily 11. Generalized anxiety disorder. Continue BuSpar 7.5 mg at bedtime. 12. COVID-19 testing negative. Patient has been hospitalized during a pandemic. Patient will be admitted to the hospital for a minimum of 2 night stay. Past Medical History Past Medical History: Asthma, GERD/Reflux, Hyperlipidemia, Hypertension, Osteoarthritis (OA), Pneumonia, Thyroid Disorder Additional Past Medical History / Comment(s): SOB with activity, fx 5th digit left hand-splint on,prednisone March 2019 Hx DOUBLE VISION, colitis,bladder infections History of Any Multi-Drug Resistant Organisms: None Reported Past Surgical History: Appendectomy, Hysterectomy, Tonsillectomy Additional Past Surgical History / Comment(s): BILATERAL CATARACTS. sinus/blocked tear duct surgery, D&C x 2, surgery for fx nose, cyst removed from rt ear Past Anesthesia/Blood Transfusion Reactions: Postoperative Nausea & Vomiting (PONV) Additional Past Anesthesia/Blood Transfusion Reaction / Comment(s): "took two days to come out" (after hysterectomy),no hx blood transfusion Past Psychological History: Anxiety Smoking Status: Never smoker Past Alcohol Use History: None Reported Past Drug Use History: None Reported - Past Family History Father Family Medical History: Cancer, Myocardial Infarction (ND) Mother Family Medical History: Cancer, Myocardial Infarction (ND) Sister(s) Family Medical History: Cancer Additional Family Medical History / Comment(s): breast, colon Brother(s) Family Medical History: Cancer Medications and Allergies Home Medications Medication Instructions Recorded Confirmed Type Cyanocobalamin [Vitamin B-12] 500 mcg PO DAILY@1200 05/22/14 06/16/21 History Denosumab [Prolia] 60 mg SQ Q180D 02/28/17 06/16/21 History Levothyroxine Sodium [Synthroid] 88 mcg PO DAILY 02/28/17 06/16/21 History Magnesium Oxide [Mag-Ox] 400 mg PO HS 02/28/17 06/16/21 History amLODIPine [Norvasc] 5 mg PO DAILY 02/28/17 06/16/21 History Melatonin 10 mg PO HS 12/05/18 06/16/21 History Pravastatin Sodium [Pravachol] 40 mg PO HS 12/05/18 06/16/21 History Montelukast Sodium [Singulair] 10 mg PO DAILY 06/18/20 06/16/21 History Aspirin 81 mg PO DAILY 07/16/20 06/16/21 History Albuterol Nebulized [Ventolin 2.5 mg INHALATION RT-TID PRN 12/16/20 06/16/21 History Nebulized] Cholecalciferol [Vitamin D3 (25 50 mcg PO DAILY@1200 12/16/20 06/16/21 History Mcg = 1000 Iu)] Budesonide [Pulmicort] 0.5 mg INHALATION RT-BID 12/19/20 06/16/21 History Pantoprazole Sodium [Protonix] 40 mg PO DAILY@1200 12/19/20 06/16/21 History ALPRAZolam [Xanax] 0.25 mg PO TID PRN 04/28/21 06/16/21 History Acetaminophen Tab [Tylenol] 500 mg PO Q6H PRN 04/28/21 06/16/21 History Bethanechol [Urecholine] 25 mg PO TID 04/28/21 06/16/21 History Loperamide [Imodium] 2 mg PO TID PRN 04/28/21 06/16/21 History Sodium Chloride Tab 1 gm PO DAILY tab 05/04/21 06/16/21 Rx Mirtazapine [Remeron] 7.5 mg PO DAILY@1900 06/16/21 06/16/21 History hydrALAZINE HCL [Apresoline] 25 mg PO BID 06/16/21 06/16/21 History Allergies Allergy/AdvReac Type Severity Reaction Status Date / Time Penicillins Allergy Intermediate Rash/Hives Verified 04/28/21 16:19 linaclotide [From Linzess] AdvReac Diarrhea Verified 04/28/21 16:19 Narcotics AdvReac Hallucinati Uncoded 04/28/21 14:35 ons Physical Exam Vitals: Vital Signs Temp Pulse Resp BP Pulse Ox 06/16/21 16:00 99.2 F 94 18 06/16/21 15:22 109 H 17 106/54 98 06/16/21 14:01 112 H 18 111/59 06/16/21 13:01 107 H 22 93/48 89 L 06/16/21 12:30 113 H 25 H 95/48 06/16/21 11:30 109 H 19 96/49 06/16/21 11:00 110 H 24 91/42 88 L 06/16/21 10:30 107 H 21 113/51 90 L 06/16/21 09:30 112 H 25 H 88/42 91 L 06/16/21 09:22 98.0 F 114 H 18 92/42 94 L 06/16/21 09:21 118 H 23 93 L Intake and Output 06/16/21 06/16/21 06/16/21 06:59 14:59 22:59 Other: Weight 51.256 kg Results CBC & Chem 7: 06/19/21 15:03 06/19/21 07:36 Labs: Abnormal Lab Results - Last 24 Hours (Table) 06/16/21 06/16/21 06/16/21 Range/Units 12:00 12:00 12:00 WBC 12.1 H (3.8-10.6) k/uL RBC 3.66 L (3.80-5.40) m/uL Hgb 11.1 L (11.4-16.0) gm/dL Hct 33.2 L (34.0-46.0) % RDW 17.7 H (11.5-15.5) % Neutrophils # (Manual) 10.00 H (1.3-7.7) k/uL APTT (22.0-30.0) sec D-Dimer (<0.60) mg/L FEU Chloride 108 H (98-107) mmol/L BUN 27 H (7-17) mg/dL Creatinine 1.14 H (0.52-1.04) mg/dL Magnesium 1.5 L (1.6-2.3) mg/dL Alkaline Phosphatase 35 L (38-126) U/L Troponin I 1.310 H* (0.000-0.034) ng/mL Total Protein 5.2 L (6.3-8.2) g/dL Albumin 2.7 L (3.5-5.0) g/dL TSH 0.300 L (0.465-4.680) mIU/L 06/16/21 Range/Units 12:00 WBC (3.8-10.6) k/uL RBC (3.80-5.40) m/uL Hgb (11.4-16.0) gm/dL Hct (34.0-46.0) % RDW (11.5-15.5) % Neutrophils # (Manual) (1.3-7.7) k/uL APTT 20.0 L (22.0-30.0) sec D-Dimer 6.96 H (<0.60) mg/L FEU Chloride (98-107) mmol/L BUN (7-17) mg/dL Creatinine (0.52-1.04) mg/dL Magnesium (1.6-2.3) mg/dL Alkaline Phosphatase (38-126) U/L Troponin I (0.000-0.034) ng/mL Total Protein (6.3-8.2) g/dL Albumin (3.5-5.0) g/dL TSH (0.465-4.680) mIU/L
[2021-06-17] MEDS ORDERED: VANCOMYCIN IV PER PHARMACY 1 EACH MISC MISCELLANE PRN (08:33)
[2021-06-17] MEDS ORDERED: VANCOMYCIN 1,000 MG in SODIUM CHLORIDE 0.9% 250 ML IVPB ONE (09:00)
[2021-06-17 09:33] LABS: Band Neutrophils % 13 %; Eosinophils # (M) 0.17 k/uL (0-0.7); Lymphocytes # (M) 1.03 k/uL (1.0-4.8); Metamyelocytes # (M) 0.17 k/uL (0); Metamyelocytes % 1 %; Monocytes # (M) 0.86 k/uL (0-1.0); Neutrophils % (M) 76 %; Nucleated Red Blood Cells 0 /100 WBC (0-0); Total Cells Counted 200
--- NOTE | 2021-06-17 10:00 | P.CNPUL ---
History of Present Illness Consult date: 06/17/21 Requesting physician: Avinash Pina Reason for consult: hypoxemia, abnormal CXR/CT Chief complaint: Fall History of present illness: This is an 89-year-old female patient with a known history of hyperlipidemia, hypertension, asthma, anxiety, hypothyroidism, ulcerative colitis, diplopia intermittent secondary to transient cranial paralysis, chronic urinary retention with frequent urinary tract infections. Recent admission for hyponatremia requiring ICU admission discharged home on 05/05/2021. She was brought back to the emergency room yesterday after sustaining a fall out of bed. She did hit her head but denies loss of consciousness. She had trouble getting up and her family could not get her up. EMS was called she was placed in a c-collar and brought into the emergency room. She was also complaining of shortness of breath. Computed tomography scan of the head and neck revealed no acute fractures. CT angiogram ruled out pulmonary emboli. There was significant right lung infiltrates. We are consulted for the same. She is seen today in the emergency room. She is sitting up on a stretcher. Awake and alert in no acute distress.'s requiring 5 L high flow nasal cannula to maintain O2 saturations in the 90s. She has been afebrile. Blood culture revealing gram- positive cocci in clusters. White count 17.1. Hemoglobin 10.2. D-dimer 6.96. Sodium 138. Potassium 4.1. Creatinine 1.21. Calcium 7.7. Troponins 1.31, 2.99, 3.09. She's been initiated on a heparin drip. Echocardiogram is pending. ProBNP 4740. Pro-calcitonin 67.4. TSH 0.30. Bajwa virus not detected. She was initiated on ceftriaxone and azithromycin. 0.9 normal saline at 130 ML's per hour. Review of Systems REVIEW OF SYSTEMS: CONSTITUTIONAL: Generalized weakness. Fall out of bed. Denies any recent significant weight loss or weight gain. EYES: Denies change in vision. EARS, NOSE, MOUTH, THROAT: Denies headaches, denies sore throat. CARDIOVASCULAR: Denies chest pain, palpitations or syncopal episodes. RESPIRATORY: Positive for shortness of breath, cough, congestion no hemoptysis. GASTROINTESTINAL: Positive for diarrhea. GENITOURINARY: Denies hematuria, denies infections. MUSKULOSKELETAL: Denies pain, denies swelling. INTEGUMENTARY: Denies rash, denies eczema. NEUROLOGICAL: Denies recent memory loss, no recent seizure activity. PSYCHIATRIC: Denies anxiety, denies depression. HEMATOLOGIC/LYMPHATIC: Denies anemia, denies enlarged lymph nodes. Past Medical History Past Medical History: Asthma, GERD/Reflux, Hyperlipidemia, Hypertension, Osteoarthritis (OA), Pneumonia, Thyroid Disorder Additional Past Medical History / Comment(s): SOB with activity, fx 5th digit left hand,prednisone March 2019 Hx DOUBLE VISION, colitis,bladder infections History of Any Multi-Drug Resistant Organisms: None Reported Past Surgical History: Appendectomy, Hysterectomy, Tonsillectomy Additional Past Surgical History / Comment(s): BILATERAL CATARACTS. sinus/blocked tear duct surgery, D&C x 2, surgery for fx nose, cyst removed from rt ear Past Anesthesia/Blood Transfusion Reactions: Postoperative Nausea & Vomiting (PONV) Additional Past Anesthesia/Blood Transfusion Reaction / Comment(s): "took two days to come out" (after hysterectomy),no hx blood transfusion Past Psychological History: Anxiety Smoking Status: Never smoker Past Alcohol Use History: None Reported Past Drug Use History: None Reported - Past Family History Father Family Medical History: Cancer, Myocardial Infarction (ME) Mother Family Medical History: Cancer, Myocardial Infarction (ME) Sister(s) Family Medical History: Cancer Additional Family Medical History / Comment(s): breast, colon Brother(s) Family Medical History: Cancer Medications and Allergies Home Medications Medication Instructions Recorded Confirmed Type Cyanocobalamin [Vitamin B-12] 500 mcg PO DAILY@1200 05/22/14 06/16/21 History Denosumab [Prolia] 60 mg SQ Q180D 02/28/17 06/16/21 History Levothyroxine Sodium [Synthroid] 88 mcg PO DAILY 02/28/17 06/16/21 History Magnesium Oxide [Mag-Ox] 400 mg PO HS 02/28/17 06/16/21 History amLODIPine [Norvasc] 5 mg PO DAILY 02/28/17 06/16/21 History Melatonin 10 mg PO HS 12/05/18 06/16/21 History Pravastatin Sodium [Pravachol] 40 mg PO HS 12/05/18 06/16/21 History Montelukast Sodium [Singulair] 10 mg PO DAILY 06/18/20 06/16/21 History Aspirin 81 mg PO DAILY 07/16/20 06/16/21 History Albuterol Nebulized [Ventolin 2.5 mg INHALATION RT-TID PRN 12/16/20 06/16/21 History Nebulized] Cholecalciferol [Vitamin D3 (25 50 mcg PO DAILY@1200 12/16/20 06/16/21 History Mcg = 1000 Iu)] Budesonide [Pulmicort] 0.5 mg INHALATION RT-BID 12/19/20 06/16/21 History Pantoprazole Sodium [Protonix] 40 mg PO DAILY@1200 12/19/20 06/16/21 History ALPRAZolam [Xanax] 0.25 mg PO TID PRN 04/28/21 06/16/21 History Acetaminophen Tab [Tylenol] 500 mg PO Q6H PRN 04/28/21 06/16/21 History Bethanechol [Urecholine] 25 mg PO TID 04/28/21 06/16/21 History Loperamide [Imodium] 2 mg PO TID PRN 04/28/21 06/16/21 History Sodium Chloride Tab 1 gm PO DAILY tab 05/04/21 06/16/21 Rx Mirtazapine [Remeron] 7.5 mg PO DAILY@1900 06/16/21 06/16/21 History hydrALAZINE HCL [Apresoline] 25 mg PO BID 06/16/21 06/16/21 History Allergies Allergy/AdvReac Type Severity Reaction Status Date / Time Penicillins Allergy Intermediate Rash/Hives Verified 04/28/21 16:19 linaclotide [From Linzess] AdvReac Diarrhea Verified 04/28/21 16:19 Narcotics AdvReac Hallucinati Uncoded 04/28/21 14:35 ons Physical Exam Vitals: Vital Signs Temp Pulse Pulse Resp BP BP Pulse Ox 06/17/21 08:14 84 06/17/21 07:56 80 06/17/21 04:00 78 20 111/64 95 06/17/21 02:00 20 06/17/21 00:55 97.7 F 80 20 108/52 94 L 06/16/21 20:00 88 20 86/49 94 L 06/16/21 19:33 95 16 77/46 93 L 06/16/21 19:27 95 06/16/21 19:12 90 06/16/21 18:00 97 18 81/44 06/16/21 17:00 99 20 89/52 96 06/16/21 16:00 99.2 F 101 H 18 100/49 98 06/16/21 15:22 109 H 17 106/54 98 06/16/21 15:00 111/59 06/16/21 14:01 112 H 18 111/59 06/16/21 14:00 112 H 19 93/61 06/16/21 13:01 107 H 22 93/48 89 L 06/16/21 13:00 104 H 17 104/51 06/16/21 12:30 113 H 25 H 95/48 06/16/21 11:30 109 H 19 96/49 06/16/21 11:00 110 H 24 91/42 88 L 06/16/21 10:30 107 H 21 113/51 90 L Intake and Output 06/16/21 06/17/21 06/17/21 22:59 06:59 14:59 Intake Total 1081.724 Balance 1081.724 Intake: Intake, IV Titration 1081.724 Amount Heparin Sod,Pork in 0.45% 41.724 NaCl 25,000 unit In 0.45 % NaCl 1 250ml.bag @ 12 UNITS/KG/HR 6.151 mls/hr IV .Q24H JOAN Rx#: [id number] Sodium Chloride 0.9% 1, 1040 000 ml @ 130 mls/hr IV . Q7H42M JOAN Rx#:[id number] Other: # Voids 1 # Bowel Movements 1 Weight 51.256 kg 59.4 kg GENERAL EXAM: Alert, pleasant 89-year-old female, on 5 L nasal cannula, comfortable in no apparent distress. HEAD: Normocephalic. EYES: Normal reaction of pupils, equal size. NOSE: Clear with pink turbinates. THROAT: No erythema or exudates. NECK: No masses, no JVD. CHEST: No chest wall deformity. LUNGS: Equal air entry with crackles, rhonchi in the right lung. CVS: S1 and S2 normal with no audible murmur, regular rhythm. ABDOMEN: No hepatosplenomegaly, normal bowel sounds, no guarding or rigidity. SPINE: No scoliosis or deformity SKIN: No rashes CENTRAL NERVOUS SYSTEM: No focal deficits, tone is normal in all 4 extremities. EXTREMITIES: There is no peripheral edema. No clubbing, no cyanosis. Peripheral pulses are intact. Results - Laboratory Findings CBC and BMP: 06/17/21 04:13 06/17/21 04:13 PT/INR, D-dimer PT 10.5 sec (9.0-12.0) 06/16/21 12:00 INR 1.0 (<1.2) 06/16/21 12:00 D-Dimer 6.96 mg/L FEU (<0.60) H 06/16/21 12:00 Abnormal lab findings: Abnormal Labs 06/16/21 06/16/21 06/16/21 12:00 12:00 12:00 WBC 12.1 H RBC 3.66 L Hgb 11.1 L Hct 33.2 L RDW 17.7 H Neutrophils # (Manual) 10.00 H Metamyelocytes # (Man) APTT D-Dimer Chloride 108 H BUN 27 H Creatinine 1.14 H Glucose Calcium Magnesium 1.5 L Alkaline Phosphatase 35 L Troponin I 1.310 H* Total Protein 5.2 L Albumin 2.7 L Procalcitonin TSH 0.300 L 06/16/21 06/16/21 06/16/21 12:00 17:53 17:53 WBC RBC Hgb Hct RDW Neutrophils # (Manual) Metamyelocytes # (Man) APTT 20.0 L D-Dimer 6.96 H Chloride BUN Creatinine Glucose Calcium Magnesium Alkaline Phosphatase Troponin I 2.990 H* Total Protein Albumin Procalcitonin 67.40 H TSH 06/16/21 06/17/21 06/17/21 20:32 00:49 04:13 WBC 17.1 H RBC 3.39 L Hgb 10.2 L Hct 30.9 L RDW 17.9 H Neutrophils # (Manual) 15.20 H Metamyelocytes # (Man) 0.17 H APTT 37.0 H D-Dimer Chloride BUN Creatinine Glucose Calcium Magnesium Alkaline Phosphatase Troponin I 3.090 H* Total Protein Albumin Procalcitonin TSH 06/17/21 06/17/21 04:13 08:26 WBC RBC Hgb Hct RDW Neutrophils # (Manual) Metamyelocytes # (Man) APTT 47.4 H D-Dimer Chloride 109 H BUN 28 H Creatinine 1.21 H Glucose 51 L Calcium 7.7 L Magnesium Alkaline Phosphatase Troponin I Total Protein Albumin Procalcitonin TSH - Diagnostic Findings Chest x-ray: image reviewed CT scan - chest: image reviewed Assessment and Plan Plan: 1 Acute hypoxemic respiratory failure secondary to right lung pneumonia, quest ion aspiration, less likely unilateral pulmonary edema and mild fluid volume overload, echocardiogram pending 2 Bacteremia with gram-positive cocci in clusters 3 Possible non-ST segment elevation myocardial infarction 4 Fall from bed with no evidence of fractures 5 History of mild intermittent chronic bronchial asthma, stable and inactive 6 Hypertension 7 Hyperlipidemia 8 Hypothyroidism 9 History of anxiety 10 History of abnormal mass along the anterior inferior bladder wall with elevat ed CEA 125 and CVA, followed by urology 11 Spinal stenosis and spondylolisthesis 12 Chronic kidney disease stage III 13 History of intermittent diplopia 14 Recent admission for hyponatremia Plan: The patient was seen and evaluated by Dr. Garcia Chest x-ray, CAT scans and labs reviewed Add vancomycin for gram-positive cocci in clusters, possible staph Echocardiogram pending to continue heparin drip Continue bronchodilators, Singulair Titrate the FiO2 as tolerated Follow-up chest x-ray in the a.m. Overall prognosis is guarded DO NOT RESUSCITATE/DO NOT INTUBATE CODE STATUS We will continue to follow and make further recommendations based on her clinical status I, the cosigning physician, performed a history & physical examination of the patient. Lungs sounds with crackles, rhonchi of the right lung. Maintaining good O2 saturations in the 90s on 5 L/m per nasal cannula. I discussed the assessment and plan of care with my nurse practitioner, Alycia Lala. I attest to the above consultation as dictated by her. Time with Patient: Greater than 30
[2021-06-17] MEDS: SODIUM CHLORIDE TAB 1 GM TAB PO SCH (10:19)
[2021-06-17] MEDS: ASPIRIN 81 MG PO SCH (10:19)
[2021-06-17] MEDS: MONTELUKAST 10 MG TAB PO SCH (10:19)
[2021-06-17] MEDS: METOPROLOL TARTRATE 12.5 MG TAB PO SCH ×2 (10:20→20:32)
--- NOTE | 2021-06-17 12:59 | P.CRDCN ---
History of Present Illness History of present illness: HISTORY OF PRESENTING ILLNESS This is a pleasant 89-year-old female past medical history significant for hypertension and dyslipidemia, hypothyroidism, mild aortic stenosis and asth ma. She used to follow in the office with Dr. Kuhn but has not been in since 2012. We have been asked to see in consultation for elevated troponin. Patient presents to the emergency department after a fall at home. She doesn't recall this episode. Apparently she was getting out of bed last night, she fell to the ground, she did not lose consciousness. She hit her head on the dresser. Her daughter could not help her up and EMS was called. She has been having symptoms of shortness of breath and chest pain. She has been having chest pain for over a week. Nothing specific brings it on. It is located in the left side and center of her chest and radiates to her back. She had associated diaphoresis, nausea and shortness of breath when she had the chest pain. She states it just resolves on its own. She also endorses shortness of breath and dyspnea on exertion. She denies palpitations, fever, chills, since orthopnea PND. DIAGNOSTICS EKG reveals sinus tachycardia, heart rate 112,and histiocytic abnormalities. Chest xray diffuse right-sided infiltrate CT chest revealed diffuse right sided infiltrate, correlate for pneumonia. No acute pulmonary embolism. Laboratory reviewed, troponin 1.3, 2.9, 3.0, WBC 17.1, hemoglobin 10.2, platelets 167, sodium 138, potassium 4.1, BUN 28, serum creatinine 1.2 Positive blood cultures gram positive cocci. Current cardiac medications include aspirin 81 mg daily, amlodipine 5 mg daily, pravastatin 40 mg daily, hydralazine 25mg BID Most recent echocardiogram obtained April 2021 revealed preserved LV systolic function with ejection fraction 55-60%, mild aortic stenosis with a mean gradient of 10 mmHg, mild mitral regurgitation, mild tricuspid regurgitation. REVIEW OF SYSTEMS At the time of my exam: CONSTITUTIONAL: Denies fever or chills. CARDIOVASCULAR: + chest pain, +shortness of breath, Denies orthopnea, PND or palpitations. RESPIRATORY: + cough. GASTROINTESTINAL: Denies abdominal pain, diarrhea, constipation, nausea or vomiting. MUSCULOSKELETAL: Denies myalgias. NEUROLOGIC: Denies numbness, tingling, headache or weakness. ENDOCRINE: Denies fatigue, weight change, polydipsia or polyurina. GENITOURINARY: Denies burning, hematuria or urgency with micturation. HEMATOLOGIC: + history of anemia +history of bleeding. PHYSICAL EXAMINATION Blood pressure 126/66, heart rate 80, afebrile, saturations greater than 90% on 6 L nasal cannula CONSTITUTIONAL: No apparent distress. HEENT: Head is normocephalic. Pupils are equal, round. Sclerae anicteric. Mucous membranes of the mouth are moist. No JVD. No carotid bruit. CHEST EXAMINATION: Lungs are diminished to auscultation with rhonchi right lung . No chest wall tenderness is noted on palpation or with deep breathing. HEART EXAMINATION: Regular rate and rhythm. S1, S2 heard. Systolic murmur at right sternal border. ABDOMEN: Soft, nontender. Positive bowel sounds. EXTREMITIES: 2+ peripheral pulses, no lower extremity edema and no calf tenderness. NEUROLOGIC EXAMINATION: Patient is awake, alert and oriented x3. ASSESSMENT Fall out of bed, unclear if syncope NSTEMI Acute Kidney Injury Right Lung Pneumonia Acute hypoxemic respiratory failure secondary to right lung pneumonia Bacteremia with gram-positive cocci in clusters Aortic stenosis Hypertension Dyslipidemia Hypothyroidism PLAN Obtain 2D echocardiogram Continue IV heparin Start beta angelito Continue IV Fluids Continue aspirin, statin Patient not on ACEI/ARB due to kidney function Pulmonary following appreciate recs Further recommendations based on clinical course Nurse Practitioner note has been reviewed, I agree with a documented findings and plan of care. Patient was seen and examined. Past Medical History Past Medical History: Asthma, GERD/Reflux, Hyperlipidemia, Hypertension, Osteoarthritis (OA), Pneumonia, Thyroid Disorder Additional Past Medical History / Comment(s): SOB with activity, fx 5th digit left hand,prednisone March 2019 Hx DOUBLE VISION, colitis,bladder infections History of Any Multi-Drug Resistant Organisms: None Reported Past Surgical History: Appendectomy, Hysterectomy, Tonsillectomy Additional Past Surgical History / Comment(s): BILATERAL CATARACTS. sinus/blocked tear duct surgery, D&C x 2, surgery for fx nose, cyst removed from rt ear Past Anesthesia/Blood Transfusion Reactions: Postoperative Nausea & Vomiting (PONV) Additional Past Anesthesia/Blood Transfusion Reaction / Comment(s): "took two days to come out" (after hysterectomy),no hx blood transfusion Past Psychological History: Anxiety Smoking Status: Never smoker Past Alcohol Use History: None Reported Past Drug Use History: None Reported - Past Family History Father Family Medical History: Cancer, Myocardial Infarction (AR) Mother Family Medical History: Cancer, Myocardial Infarction (AR) Sister(s) Family Medical History: Cancer Additional Family Medical History / Comment(s): breast, colon Brother(s) Family Medical History: Cancer Medications and Allergies Home Medications Medication Instructions Recorded Confirmed Type Cyanocobalamin [Vitamin B-12] 500 mcg PO DAILY@1200 05/22/14 06/16/21 History Denosumab [Prolia] 60 mg SQ Q180D 02/28/17 06/16/21 History Levothyroxine Sodium [Synthroid] 88 mcg PO DAILY 02/28/17 06/16/21 History Magnesium Oxide [Mag-Ox] 400 mg PO HS 02/28/17 06/16/21 History amLODIPine [Norvasc] 5 mg PO DAILY 02/28/17 06/16/21 History Melatonin 10 mg PO HS 12/05/18 06/16/21 History Pravastatin Sodium [Pravachol] 40 mg PO HS 12/05/18 06/16/21 History Montelukast Sodium [Singulair] 10 mg PO DAILY 06/18/20 06/16/21 History Aspirin 81 mg PO DAILY 07/16/20 06/16/21 History Albuterol Nebulized [Ventolin 2.5 mg INHALATION RT-TID PRN 12/16/20 06/16/21 History Nebulized] Cholecalciferol [Vitamin D3 (25 50 mcg PO DAILY@1200 12/16/20 06/16/21 History Mcg = 1000 Iu)] Budesonide [Pulmicort] 0.5 mg INHALATION RT-BID 12/19/20 06/16/21 History Pantoprazole Sodium [Protonix] 40 mg PO DAILY@1200 12/19/20 06/16/21 History ALPRAZolam [Xanax] 0.25 mg PO TID PRN 04/28/21 06/16/21 History Acetaminophen Tab [Tylenol] 500 mg PO Q6H PRN 04/28/21 06/16/21 History Bethanechol [Urecholine] 25 mg PO TID 04/28/21 06/16/21 History Loperamide [Imodium] 2 mg PO TID PRN 04/28/21 06/16/21 History Sodium Chloride Tab 1 gm PO DAILY tab 05/04/21 06/16/21 Rx Mirtazapine [Remeron] 7.5 mg PO DAILY@1900 06/16/21 06/16/21 History hydrALAZINE HCL [Apresoline] 25 mg PO BID 06/16/21 06/16/21 History Allergies Allergy/AdvReac Type Severity Reaction Status Date / Time Penicillins Allergy Intermediate Rash/Hives Verified 04/28/21 16:19 linaclotide [From Linzess] AdvReac Diarrhea Verified 04/28/21 16:19 Narcotics AdvReac Hallucinati Uncoded 04/28/21 14:35 ons Physical Exam Vitals: Vital Signs Temp Pulse Pulse Resp BP BP Pulse Ox 06/17/21 04:00 78 20 111/64 95 06/17/21 02:00 20 06/17/21 00:55 97.7 F 80 20 108/52 94 L 06/16/21 20:00 88 20 86/49 94 L 06/16/21 19:33 95 16 77/46 93 L 06/16/21 19:27 95 06/16/21 19:12 90 06/16/21 18:00 97 18 81/44 06/16/21 17:00 99 20 89/52 96 06/16/21 16:00 99.2 F 101 H 18 100/49 98 06/16/21 15:22 109 H 17 106/54 98 06/16/21 15:00 111/59 06/16/21 14:01 112 H 18 111/59 06/16/21 14:00 112 H 19 93/61 06/16/21 13:01 107 H 22 93/48 89 L 06/16/21 13:00 104 H 17 104/51 06/16/21 12:30 113 H 25 H 95/48 06/16/21 11:30 109 H 19 96/49 06/16/21 11:00 110 H 24 91/42 88 L 06/16/21 10:30 107 H 21 113/51 90 L 06/16/21 09:30 112 H 25 H 88/42 91 L 06/16/21 09:22 98.0 F 114 H 18 92/42 94 L 06/16/21 09:21 118 H 23 93 L Intake and Output 06/16/21 06/17/21 06/17/21 22:59 06:59 14:59 Intake Total 1081.724 Balance 1081.724 Intake: Intake, IV Titration 1081.724 Amount Heparin Sod,Pork in 0.45% 41.724 NaCl 25,000 unit In 0.45 % NaCl 1 250ml.bag @ 12 UNITS/KG/HR 6.151 mls/hr IV .Q24H [facility] Rx#: [id number] Sodium Chloride 0.9% 1, 1040 000 ml @ 130 mls/hr IV . Q7H42M [facility] Rx#:[id number] Other: # Voids 1 # Bowel Movements 1 Weight 51.256 kg 59.4 kg Results 06/17/21 04:13 06/17/21 04:13 Cardiac Enzymes 06/16/21 06/16/21 06/16/21 Range/Units 12:00 12:00 17:53 AST 30 (14-36) U/L Troponin I 1.310 H* 2.990 H* (0.000-0.034) ng/mL 06/16/21 Range/Units 20:32 AST (14-36) U/L Troponin I 3.090 H* (0.000-0.034) ng/mL Coagulation 06/16/21 06/17/21 Range/Units 12:00 00:49 PT 10.5 (9.0-12.0) sec APTT 20.0 L 37.0 H (22.0-30.0) sec CBC 06/16/21 06/17/21 Range/Units 12:00 04:13 WBC 12.1 H 17.1 H (3.8-10.6) k/uL RBC 3.66 L 3.39 L (3.80-5.40) m/uL Hgb 11.1 L 10.2 L (11.4-16.0) gm/dL Hct 33.2 L 30.9 L (34.0-46.0) % Plt Count 186 167 (150-450) k/uL Comprehensive Metabolic Panel 06/16/21 06/17/21 Range/Units 12:00 04:13 Sodium 140 138 (137-145) mmol/L Potassium 3.8 4.1 (3.5-5.1) mmol/L Chloride 108 H 109 H (98-107) mmol/L Carbon Dioxide 26 24 (22-30) mmol/L BUN 27 H 28 H (7-17) mg/dL Creatinine 1.14 H 1.21 H (0.52-1.04) mg/dL Glucose 83 51 L (74-99) mg/dL Calcium 8.4 7.7 L (8.4-10.2) mg/dL AST 30 (14-36) U/L ALT 23 (4-34) U/L Alkaline Phosphatase 35 L (38-126) U/L Total Protein 5.2 L (6.3-8.2) g/dL Albumin 2.7 L (3.5-5.0) g/dL Current Medications Generic Name Dose Route Start Last Admin Trade Name Freq PRN Reason Stop Dose Admin Acetaminophen 650 mg 06/16/21 15:15 06/16/21 20:21 Acetaminophen Tab 325 Mg Tab PO 650 mg Q6HR PRN Administration Mild Pain or Fever > 100.5 Albuterol Sulfate 2.5 mg 06/16/21 16:27 06/16/21 19:09 Albuterol Nebulized 2.5 Mg/3 Ml INHALATION 2.5 mg RT-TID PRN Administration Shortness Of Breath Alprazolam 0.25 mg 06/16/21 16:27 Alprazolam 0.25 Mg Tab PO TID PRN Anxiety Aspirin 81 mg 06/17/21 09:00 Aspirin 81 Mg PO DAILY [facility] Budesonide 0.5 mg 06/16/21 20:00 06/16/21 19:10 Budesonide 0.5 Mg/2 Ml Nebu INHALATION 0.5 mg RT-BID [facility] Administration Cholecalciferol 50 mcg 06/17/21 12:00 Cholecalciferol 25 Mcg (1000 Iu) Tablet PO DAILY@1200 [facility] Cyanocobalamin 500 mcg 06/17/21 12:00 Cyanocobalamin 500 Mcg Tab PO DAILY@1200 [facility] Heparin Sodium (Porcine) 0 unit 06/16/21 17:04 06/17/21 02:34 Heparin Sodium 1,000 Un/Ml (10ml Vl) IV 1,280 unit PER PROTOCOL PRN Administration Low PTT Protocol Sodium Chloride 1,000 mls @ 130 mls/hr 06/16/21 14:00 06/17/21 05:35 Saline 0.9% IV 130 mls/hr .Q7H42M [facility] Administration Heparin Sodium/Sodium Chloride 250 mls @ 6.151 mls/hr 06/16/21 17:15 06/17/21 02:19 25,000 unit/ Sodium Chloride IV 14 units/kg/hr .Q24H [facility] 7.176 mls/hr Titration Protocol 12 UNITS/KG/HR Ibuprofen 400 mg 06/16/21 15:15 06/17/21 02:37 Ibuprofen 400 Mg Tab PO 400 mg Q6HR PRN Administration Mild Pain or Fever > 100.5 Levothyroxine Sodium 88 mcg 06/17/21 06:30 06/17/21 05:35 Levothyroxine 88 Mcg Tab PO 88 mcg 0630 JOAN Administration Magnesium Oxide 400 mg 06/16/21 21:00 06/16/21 20:21 Magnesium Oxide 400 Mg Tab PO 400 mg HS JOAN Administration Mirtazapine 7.5 mg 06/16/21 19:00 06/16/21 22:16 Mirtazapine 15 Mg Tab PO 7.5 mg DAILY@1900 [facility] Administration Montelukast Sodium 10 mg 06/16/21 16:30 06/16/21 19:32 Montelukast 10 Mg Tab PO 10 mg DAILY [facility] Administration Naloxone HCl 0.2 mg 06/16/21 15:15 Naloxone 0.4 Mg/Ml 1 Ml Vial IV Q2M PRN Opioid Reversal Pantoprazole Sodium 40 mg 06/17/21 12:00 Pantoprazole 40 Mg Tablet PO DAILY@1200 [facility] Pravastatin Sodium 40 mg 06/16/21 21:00 06/16/21 22:16 Pravastatin Sodium 40 Mg Tab PO 40 mg HS JOAN Administration Sodium Chloride 1 gm 06/17/21 09:00 Sodium Chloride Tab 1 Gm Tab PO DAILY [facility] Intake and Output 06/16/21 06/17/21 06/17/21 22:59 06:59 14:59 Intake Total 1081.724 Balance 1081.724 Intake: Intake, IV Titration 1081.724 Amount Heparin Sod,Pork in 0.45% 41.724 NaCl 25,000 unit In 0.45 % NaCl 1 250ml.bag @ 12 UNITS/KG/HR 6.151 mls/hr IV .Q24H [facility] Rx#: [id number] Sodium Chloride 0.9% 1, 1040 000 ml @ 130 mls/hr IV . Q7H42M [facility] Rx#:[id number] Other: # Voids 1 # Bowel Movements 1 Weight 51.256 kg 59.4 kg 06/17/21 04:13 06/17/21 04:13
--- NOTE | 2021-06-17 13:00 | ECHOF ---
Referral Reason:Repeat elevated troponin. LV function MEASUREMENTS -------- HEIGHT: 152.4 cm WEIGHT: 59.0 kg BP: 111/64 RVIDd: 3.1 cm (< 3.3) IVSd: 1.0 cm (0.6 - 1.1) LVIDd: 3.9 cm (3.9 - 5.3) LVPWd: 1.1 cm (0.6 - 1.1) IVSs: 1.4 cm LVIDs: 2.7 cm LVPWs: 1.7 cm LAESV Index (A-L): 38.15 ml/m Ao Diam: 2.6 cm (2.0 - 3.7) AV Cusp: 1.1 cm (1.5 - 2.6) MV EXCURSION: 15.135 mm (> 18.000) MV EF SLOPE: 66 mm/s (70 - 150) EPSS: 0.6 cm MV E David: 0.86 m/s MV DecT: 225 ms MV A David: 1.36 m/s MV E/A Ratio: 0.63 AV maxP.38 mmHg AV meanP.13 mmHg RAP: 3.00 mmHg RVSP: 36.42 mmHg FINDINGS -------- Sinus rhythm. This was a technically adequate study. The left ventricular size is normal. Left ventricular wall thickness is normal. Overall left vent ricular systolic function is low-normal with, an EF between 50 - 55 %. The right ventricle is normal in size. LA is moderately dilated 34-39 ml/m2 The right atrial size is normal. Interatrial and interventricular septum intact. There is moderate aortic valve sclerosis. There is no evidence of aortic regurgitation. There is mild aortic stenosis present. The maximum velocity across the aortic valve is 2.14m/s. Peak/mean gradient across the Aortic Valve is 18.38mmHg / 10.13mmHg. [id number] mitral regurgitation is present. Mild tricuspid regurgitation present. There is mild pulmonary hypertension. The right ventricular systolic pressure, as measured by Doppler, is 36.42mmHg. There is no pulmonic regurgitation present. The aortic root size is normal. IVC Not well visulized. There is no pericardial effusion. CONCLUSIONS -------- 1. The left ventricular size is normal. 2. Left ventricular wall thickness is normal. 3. Overall left ventricular systolic function is low-normal with, an EF between 50 - 55 %. 4. LA is moderately dilated 34-39 ml/m2 5. There is moderate aortic valve sclerosis. 6. There is mild aortic stenosis present. 7. The maximum velocity across the aortic valve is 2.14m/s. 8. Peak/mean gradient across the Aortic Valve is 18.38mmHg / 10.13mmHg. 9. [id number] mitral regurgitation is present. 10. Mild tricuspid regurgitation present. 11. There is mild pulmonary hypertension. 12. The right ventricular systolic pressure, as measured by Doppler, is 36.42mmHg. 13. There is no pulmonic regurgitation present. BUNDLE PERSON: Bhavya Franco RDCS
--- NOTE | 2021-06-17 13:11 | P.PN ---
Subjective Progress Note Date: 06/17/21 HISTORY OF PRESENT ILLNESS 89-year-old female one of Dr. Gamez's patient with past medical history of hypertension, hyperlipidemia, COPD, stage III chronic kidney disease along with severe GERD who was the hospital last 04/28/2021 for severe hyponatremia. Patient was treated and had severe hyponatremia had improved also had slight dyspnea and shortness of breath. Patient has done quite well was on physical therapy and occupational therapy apparently which she stopped just recently. Patient family brought her to the emergency department on 06/16: She woke up this morning attempt to get out of bed she slept off the side of the bed and hit her head she denies any loss of consciousness she was very weak and unsteady on her feet developed to have significant shortness of breath and tightness with wheezing. Daughter called EMS when get to the seen with c-collar on patient deny any neck pain at the time no chest pain but have been having significant shortness of breath with fluid overload had supplement of oxygen which helped help some. Also patient had something for pain at the time he was giving nebulizer treatment made her feel slightly but better. Ended up having a CT of the brain which showed small vessel disease only CT of the cervical spine showed mild spinal stenosis of the C5-C6 and spondylolithiasis of the C4-C5 and C6-C7. She had quite bit arthritis and spinal stenosis. CAT scan of the chest shows no pulmonary embolism as a result of elevated d-di keyona but showed right middle lobe infiltrate and pneumonia. Patient white blood cell was 12,000 with mild left shifted. Patient was mildly dehydrated and had slight electrode imbalance. Was started on current treatment management start and COPD management as well antibiotic was giving patient be admitted to the hospital she is having some sinus symptoms mild CHF as well. Her troponin was quite bit elevated with troponin 3. 06/17: Patient is seen again in the emergency center waiting for a bed on the cardiac stepdown unit. Repeat blood work reveals WBC 17.1, hemoglobin 10.2, platelet count 167. BUN 28 creatinine 1.21. She has been afebrile, heart rate 84, blood pressure 126/66, pulse ox 98% on 6 L nasal cannula. Patient has been seen by cardiology with plan to start beta angelito, continue heparin drip. Patient has been seen by pulmonary medicine for right pneumonia and possible aspiration and vancomycin was added as blood culture positive for gram-positive cocci in clusters. Repeat chest x-ray has been ordered for tomorrow. Echocardiogram reveals EF of 50-55%, moderate aortic valve sclerosis, mild aortic stenosis, [id number] mitral regurgitation, mild tricuspid regu rgitation, mild pulmonary hypertension. REVIEW OF SYSTEMS Constitutional: No fever, no chills, no night sweats. No weight change. No weakness, fatigue or lethargy. No daytime sleepiness. EENT: No headache. No blurred vision or double vision, no loss of vision. No loss of Hearing, no ringing in the ears, no dizziness. No nasal drainage or congestion. No epistaxis. No sore throat. Lungs: Mild shortness of breath, cough, no sputum production. No wheezing. Cardiovascular: No chest pain, no lower extremity edema. No palpitations. No paroxysmal nocturnal dyspnea. No orthopnea. No lightheadedness or dizziness. No syncopal episodes. Abdominal: No abdominal pain. No nausea, vomiting. No diarrhea. No constipation. No bloody or tarry stools.. No loss of appetite. Genitourinary: No dysuria, increased frequency, urgency. Reported urinary retention. Musculoskeletal: No myalgias. No muscle weakness, no gait dysfunction, no frequent falls. No back pain. No neck pain. Integumentary: No wounds, no lesions. No rash or pruritus. No unusual bruising. No change in hair or nails. Neurologic: No aphasia. No facial droop. No change in mentation. No head injury. No headache. No paralysis. No paresthesia. Psychiatric: No depression. No anxiety. No mood swings. Endocrine: No abnormal blood sugars. PHYSICAL EXAMINATION Gen: This is an 89-year-old female. She is resting in bed in the emergency center and appears to be comfortable and in no acute distress. HEENT: Head is atraumatic, normocephalic. Pupils equal, round. Sclerae is anicteric. NECK: Supple. No JVD. No lymphadenopathy. No thyromegaly. LUNGS: Rhonchi on the right side. No intercostal retractions. HEART: Regular rate and rhythm. Systolic murmur at the right sternal border. ABDOMEN: Soft. Bowel sounds are present. No masses. No tenderness. EXTREMITIES: No pedal edema. No calf tenderness. Dorsalis pedis +2 bilaterally. NEUROLOGICAL: Patient is awake, alert and oriented x3. Cranial nerves 2 through 12 are grossly intact. ASSESSMENT AND PLAN 1. Dyspnea and shortness of breath: Secondary to right middle lobe pneumonia, possible aspiration pneumonia. Continue azithromycin, ceftriaxone, Pulmicort twice daily, albuterol nebulizer treatments 3 times daily as needed, pulmonary consult appreciated. 2. Non-ST MD: Patient be admitted to the hospital cardiology consultation echocardiogram, patient might require to go for intervention. Patient started on Lopressor 12.5 mg twice daily. 3. Post fall with neck pain with significant spinal stenosis and spondylolithiasis. Continue to watch for any weakness PTOT will be started at this point. 4. Abnormal mass along anterior inferior bladder wall with elevated CA-125 and CEA. Still seeing urology. 5. Possible bacteremia. Patient's been started on vancomycin. Follow-up blood cultures. 6. Chronic kidney disease stage III: We'll continue hydration repeat BUN/creatinine 24 hours. 7. Chronic diastolic heart failure. 8. Hypertension. Hold amlodipine 5 mg daily due to hypotension. 9. Hyperlipidemia. Continue pravastatin 40 mg at bedtime. 10. Hypothyroidism. Continue levothyroxine 88 g daily. 11. Gastroesophageal reflux disease and GI prophylaxis. Continue Protonix 40 mg daily 12. Generalized anxiety disorder. Continue BuSpar 7.5 mg at bedtime. 13. COVID-19 testing negative. Patient has been hospitalized during a [facility]. Impression and plan of care have been directed as dictated by the signing physician. Ceci Borrero nurse practitioner acting as scribe for signing physician. Objective - Vital Signs Vital signs: Vital Signs Temp 97.7 F 06/17/21 00:55 Pulse 84 06/17/21 08:14 Resp 20 06/17/21 04:00 BP 111/64 06/17/21 04:00 Pulse Ox 95 06/17/21 04:00 Intake & Output 06/16/21 06/17/21 06/17/21 18:59 06:59 18:59 Intake Total 1081.724 Balance 1081.724 Weight 51.256 kg 59.4 kg Intake: Intake, IV Titration 1081.724 Amount Heparin Sod,Pork in 0.45% 41.724 NaCl 25,000 unit In 0.45 % NaCl 1 250ml.bag @ 12 UNITS/KG/HR 6.151 mls/hr IV .Q24H [facility] Rx#: [id number] Sodium Chloride 0.9% 1, 1040 000 ml @ 130 mls/hr IV . Q7H42M [facility] Rx#:[id number] Other: # Voids 1 # Bowel Movements 1 - Labs CBC & Chem 7: 06/17/21 04:13 06/17/21 04:13 Labs: Abnormal Lab Results - Last 24 Hours (Table) 06/16/21 06/16/21 06/16/21 Range/Units 12:00 12:00 12:00 WBC 12.1 H (3.8-10.6) k/uL RBC 3.66 L (3.80-5.40) m/uL Hgb 11.1 L (11.4-16.0) gm/dL Hct 33.2 L (34.0-46.0) % RDW 17.7 H (11.5-15.5) % Neutrophils # (Manual) 10.00 H (1.3-7.7) k/uL APTT (22.0-30.0) sec D-Dimer (<0.60) mg/L FEU Chloride 108 H (98-107) mmol/L BUN 27 H (7-17) mg/dL Creatinine 1.14 H (0.52-1.04) mg/dL Glucose (74-99) mg/dL Calcium (8.4-10.2) mg/dL Magnesium 1.5 L (1.6-2.3) mg/dL Alkaline Phosphatase 35 L (38-126) U/L Troponin I 1.310 H* (0.000-0.034) ng/mL Total Protein 5.2 L (6.3-8.2) g/dL Albumin 2.7 L (3.5-5.0) g/dL Procalcitonin (0.02-0.09) ng/mL TSH 0.300 L (0.465-4.680) mIU/L 06/16/21 06/16/21 06/16/21 Range/Units 12:00 17:53 17:53 WBC (3.8-10.6) k/uL RBC (3.80-5.40) m/uL Hgb (11.4-16.0) gm/dL Hct (34.0-46.0) % RDW (11.5-15.5) % Neutrophils # (Manual) (1.3-7.7) k/uL APTT 20.0 L (22.0-30.0) sec D-Dimer 6.96 H (<0.60) mg/L FEU Chloride (98-107) mmol/L BUN (7-17) mg/dL Creatinine (0.52-1.04) mg/dL Glucose (74-99) mg/dL Calcium (8.4-10.2) mg/dL Magnesium (1.6-2.3) mg/dL Alkaline Phosphatase (38-126) U/L Troponin I 2.990 H* (0.000-0.034) ng/mL Total Protein (6.3-8.2) g/dL Albumin (3.5-5.0) g/dL Procalcitonin 67.40 H (0.02-0.09) ng/mL TSH (0.465-4.680) mIU/L 06/16/21 06/17/21 06/17/21 Range/Units 20:32 00:49 04:13 WBC 17.1 H (3.8-10.6) k/uL RBC 3.39 L (3.80-5.40) m/uL Hgb 10.2 L (11.4-16.0) gm/dL Hct 30.9 L (34.0-46.0) % RDW 17.9 H (11.5-15.5) % Neutrophils # (Manual) (1.3-7.7) k/uL APTT 37.0 H (22.0-30.0) sec D-Dimer (<0.60) mg/L FEU Chloride (98-107) mmol/L BUN (7-17) mg/dL Creatinine (0.52-1.04) mg/dL Glucose (74-99) mg/dL Calcium (8.4-10.2) mg/dL Magnesium (1.6-2.3) mg/dL Alkaline Phosphatase (38-126) U/L Troponin I 3.090 H* (0.000-0.034) ng/mL Total Protein (6.3-8.2) g/dL Albumin (3.5-5.0) g/dL Procalcitonin (0.02-0.09) ng/mL TSH (0.465-4.680) mIU/L 06/17/21 06/17/21 Range/Units 04:13 08:26 WBC (3.8-10.6) k/uL RBC (3.80-5.40) m/uL Hgb (11.4-16.0) gm/dL Hct (34.0-46.0) % RDW (11.5-15.5) % Neutrophils # (Manual) (1.3-7.7) k/uL APTT 47.4 H (22.0-30.0) sec D-Dimer (<0.60) mg/L FEU Chloride 109 H (98-107) mmol/L BUN 28 H (7-17) mg/dL Creatinine 1.21 H (0.52-1.04) mg/dL Glucose 51 L (74-99) mg/dL Calcium 7.7 L (8.4-10.2) mg/dL Magnesium (1.6-2.3) mg/dL Alkaline Phosphatase (38-126) U/L Troponin I (0.000-0.034) ng/mL Total Protein (6.3-8.2) g/dL Albumin (3.5-5.0) g/dL Procalcitonin (0.02-0.09) ng/mL TSH (0.465-4.680) mIU/L Microbiology - Last 24 Hours (Table) 06/16/21 13:35 Blood Culture - Final Blood
[2021-06-17] MEDS: AZITHROMYCIN 500 MG in SODIUM CHLORIDE 0.9% 250 ML IVPB SCH (13:22)
[2021-06-17] MEDS: CHOLECALCIFEROL 25 MCG (1000 IU) TABLET PO SCH (13:31)
[2021-06-17] MEDS: PANTOPRAZOLE 40 MG TABLET PO SCH (13:32)
[2021-06-17] MEDS: CYANOCOBALAMIN 500 MCG TAB PO SCH (13:35)
[2021-06-17] MEDS: HEPARIN SOD,PORK IN 0.45% NACL 25,000 UNIT in 0.45% NACL 1 250ML.BAG IV SCH (17:18)
[2021-06-17] MEDS: MIRTAZAPINE 15 MG TAB PO SCH (18:16)
[2021-06-17] MEDS: LOPERAMIDE 2 MG CAP PO PRN (18:43)
[2021-06-17] MEDS: PRAVASTATIN SODIUM 40 MG TAB PO SCH (20:32)
[2021-06-17] MEDS: MAGNESIUM OXIDE 400 MG TAB PO SCH (20:33)
[2021-06-18] MEDS: ACETAMINOPHEN TAB 325 MG TAB PO PRN ×3 (01:13→17:13)
[2021-06-18] MEDS: HEPARIN SOD,PORK IN 0.45% NACL 25,000 UNIT in 0.45% NACL 1 250ML.BAG IV SCH (05:50)
[2021-06-18] MEDS: SODIUM CHLORIDE 0.9% 1,000 ML IV SCH ×3 (05:54→20:30)
[2021-06-18] MEDS ORDERED: VANCOMYCIN 1,000 MG in SODIUM CHLORIDE 0.9% 250 ML IVPB ONE (06:00)
[2021-06-18] MEDS: LEVOTHYROXINE 88 MCG TAB PO SCH (06:52)
[2021-06-18 07:41] LABS: Anisocytosis Slight; Basophils % (A) 0 %; Eosinophils # (A) 0.1 k/uL (0-0.7); Eosinophils % (A) 1 %; HCT 30.5 % (34.0-46.0); HGB 9.6 gm/dL (11.4-16.0); Hypochromasia Slight; Lymphocytes # (A) 0.6 k/uL (1.0-4.8); Lymphocytes % (A) 5 %; MCH 29.9 pg (25.0-35.0); MCHC 31.5 g/dL (31.0-37.0); Monocytes # (A) 0.2 k/uL (0-1.0); Monocytes % (A) 1 %; Neutrophils # (A) 13.1 k/uL (1.3-7.7); Neutrophils % (A) 93 %; Platelet Count 134 k/uL (150-450); RBC 3.22 m/uL (3.80-5.40); RDW 17.1 % (11.5-15.5); WBC 14.1 k/uL (3.8-10.6)
[2021-06-18 08:00] LABS: Albumin 2.4 g/dL (3.5-5.0); Calcium 8.1 mg/dL (8.4-10.2); Magnesium 1.8 mg/dL (1.6-2.3); Potassium 4.1 mmol/L (3.5-5.1); Total Bilirubin 0.5 mg/dL (0.2-1.3); Total Protein 4.9 g/dL (6.3-8.2)
[2021-06-18] MEDS: MONTELUKAST 10 MG TAB PO SCH (08:12)
[2021-06-18] MEDS: METOPROLOL TARTRATE 12.5 MG TAB PO SCH ×2 (08:12→20:29)
[2021-06-18] MEDS: ASPIRIN 81 MG PO SCH (08:12)
[2021-06-18] MEDS: SODIUM CHLORIDE TAB 1 GM TAB PO SCH (08:13)
[2021-06-18] MEDS: ALBUTEROL NEBULIZED 2.5 MG/3 ML INHALATION PRN ×2 (08:44→19:21)
[2021-06-18] MEDS: BUDESONIDE 0.5 MG/2 ML NEBU INHALATION SCH ×2 (08:44→19:23)
--- NOTE | 2021-06-18 09:20 | P.PN ---
Subjective HISTORY OF PRESENTING ILLNESS This is a pleasant 89-year-old female past medical history significant for hypertension and dyslipidemia, hypothyroidism, mild aortic stenosis and asthma. She used to follow in the office with Dr. Kuhn but has not been in since 2012. We have been asked to see in consultation for elevated troponin. Patient presents to the emergency department after a fall at home. She doesn't recall this episode. Apparently she was getting out of bed last night, she fell to the ground, she did not lose consciousness. She hit her head on the dresser. Her daughter could not help her up and EMS was called. She has been having symptoms of shortness of breath and chest pain. She has been having chest pain for over a week. Nothing specific brings it on. It is located in the left side and center of her chest and radiates to her back. She had associated diaphoresis, nausea and shortness of breath when she had the chest pain. She states it just resolves on its own. She also endorses shortness of breath and dyspnea on exertion. She denies palpitations, fever, chills, since orthopnea PND. 06/18/2021 Pt seen and examined sitting up in bed eating breakfast. She is complaining of a wet cough with some associated chest pain and shortness of breath. She is not bringing up any significant sputum. She hasn't been up out of bed to endorse any exertional chest pain. Blood pressure 144/62 heart rate 87 99.7F. Laboratory data reviewed, WBC 14.1, hemoglobin 9.6, platelets 134, sodium 138, potassium 4.1, creatinine 0.95, magnesium 1.8. Currently maintained on heparin infusion, aspirin 81 mg daily, Lopressor 12.5 mg twice a day, pravastatin 40 mg at bedtime and IV antibiotics. Echocardiogram revealed preserved LV systolic function with ejection fraction 50-55%, moderate aortic valve sclerosis with a mean gradient of 10 mmHg maximum velocity across the valve of 2.14 m/s, mild to moderate MR, mild TR and mild pulmonary hypertension with RVSP of 36 mmHg. PHYSICAL EXAMINATION CONSTITUTIONAL: No apparent distress. HEENT: Head is normocephalic. Pupils are equal, round. Sclerae anicteric. Mucous membranes of the mouth are moist. No JVD. No carotid bruit. CHEST EXAMINATION: Lungs are diminished to auscultation with rhonchi scattered throughout . No chest wall tenderness is noted on palpation or with deep br eathing. HEART EXAMINATION: Regular rate and rhythm. S1, S2 heard. Systolic murmur at right sternal border. EXTREMITIES: 2+ peripheral pulses, no lower extremity edema and no calf tenderness. ASSESSMENT Fall out of bed, unclear if syncope NSTEMI, secondary to oxygen supply-demand mismatch Acute Kidney Injury Right Lung Pneumonia Acute hypoxemic respiratory failure secondary to right lung pneumonia Bacteremia with gram-positive cocci in clusters Aortic stenosis Hypertension Dyslipidemia Hypothyroidism PLAN Repeat troponin. Recommend maximizing her medical therapy given underlying infection and normal LV function. Continue heparin for another 24 hours. NSTEMI likely related to oxygen supply-demand mismatch. We will continue to follow and make recommendations accordingly. Nurse Practitioner note has been reviewed, I agree with a documented findings and plan of care. Patient was seen and examined. Objective - Vital Signs Vital signs: Vital Signs Temp 99.7 F H 06/18/21 08:16 Pulse 87 06/18/21 08:16 Resp 18 06/18/21 08:16 BP 144/62 06/18/21 08:16 Pulse Ox 97 06/18/21 08:16 Intake & Output 06/17/21 06/18/21 06/18/21 18:59 06:59 18:59 Intake Total 235.52 89.939 Balance 235.52 89.939 Weight 58.7 kg Intake: IV 10 Invasive Line 2 10 Intake, IV Titration 107.52 89.939 Amount Heparin Sod,Pork in 0.45% 107.52 89.939 NaCl 25,000 unit In 0.45 % NaCl 1 250ml.bag @ 12 UNITS/KG/HR 6.151 mls/hr IV .Q24H [facility] Rx#: [id number] Oral 118 Other: Voiding Method Toilet Toilet Bedside Commode Bedside Commode # Voids 1 1 # Bowel Movements 1 - Labs CBC & Chem 7: 06/18/21 07:15 06/18/21 07:15 Labs: Abnormal Lab Results - Last 24 Hours (Table) 06/17/21 06/17/21 06/17/21 Range/Units 04:13 04:13 08:26 WBC (3.8-10.6) k/uL RBC (3.80-5.40) m/uL Hgb (11.4-16.0) gm/dL Hct (34.0-46.0) % RDW (11.5-15.5) % Plt Count (150-450) k/uL Neutrophils # (1.3-7.7) k/uL Neutrophils # (Manual) 15.20 H (1.3-7.7) k/uL Lymphocytes # (1.0-4.8) k/uL Metamyelocytes # (Man) 0.17 H (0) k/uL APTT 47.4 H (22.0-30.0) sec Chloride 109 H (98-107) mmol/L Carbon Dioxide (22-30) mmol/L BUN 28 H (7-17) mg/dL Creatinine 1.21 H (0.52-1.04) mg/dL Glucose 51 L (74-99) mg/dL Calcium 7.7 L (8.4-10.2) mg/dL AST (14-36) U/L Total Protein (6.3-8.2) g/dL Albumin (3.5-5.0) g/dL 06/18/21 06/18/21 06/18/21 Range/Units 07:15 07:15 07:15 WBC 14.1 H (3.8-10.6) k/uL RBC 3.22 L (3.80-5.40) m/uL Hgb 9.6 L (11.4-16.0) gm/dL Hct 30.5 L (34.0-46.0) % RDW 17.1 H (11.5-15.5) % Plt Count 134 L (150-450) k/uL Neutrophils # 13.1 H (1.3-7.7) k/uL Neutrophils # (Manual) (1.3-7.7) k/uL Lymphocytes # 0.6 L (1.0-4.8) k/uL Metamyelocytes # (Man) (0) k/uL APTT 39.6 H (22.0-30.0) sec Chloride 114 H (98-107) mmol/L Carbon Dioxide 21 L (22-30) mmol/L BUN (7-17) mg/dL Creatinine (0.52-1.04) mg/dL Glucose (74-99) mg/dL Calcium 8.1 L (8.4-10.2) mg/dL AST 37 H (14-36) U/L Total Protein 4.9 L (6.3-8.2) g/dL Albumin 2.4 L (3.5-5.0) g/dL Microbiology - Last 24 Hours (Table) 06/16/21 13:35 Blood Culture Gram Stain - Preliminary Blood Blood Culture - Preliminary Staphylococcus epidermidis 06/16/21 13:35 Blood Culture - Final Blood
[2021-06-18] MEDS: AZITHROMYCIN 500 MG in SODIUM CHLORIDE 0.9% 250 ML IVPB SCH (09:53)
[2021-06-18] MEDS: PANTOPRAZOLE 40 MG TABLET PO SCH (11:44)
[2021-06-18] MEDS: CYANOCOBALAMIN 500 MCG TAB PO SCH (11:44)
[2021-06-18] MEDS: CHOLECALCIFEROL 25 MCG (1000 IU) TABLET PO SCH (11:44)
--- NOTE | 2021-06-18 11:47 | XR ---
EXAMINATION TYPE: XR chest 1V portable DATE OF EXAM: 06/18/2021 CLINICAL HISTORY: Difficulty breathing and pneumonia progress study. TECHNIQUE: Single AP portable upright view of the chest is obtained. COMPARISON: Chest x-ray and CT chest from 2 days earlier and older studies FINDINGS: Stable elevated right hemidiaphragm with diffuse right lung organizing consolidations. Lef t lung shows mild parenchymal fibrotic changes without new focal airspace opacity. Patient more rotat ed to the right on current study. Cardiac silhouette size remains within normal limits with atheroscl erotic aorta. Osseous structures remain demineralized. IMPRESSION: Diffuse right lung opacity or consolidations redemonstrated. No significant change from 2 days earlier.
--- NOTE | 2021-06-18 13:48 | P.PN ---
Subjective Progress Note Date: 06/18/21 Principal diagnosis: Acute hypoxic respiratory failure, acute right sided pneumonia, could be community-acquired or likely aspiration pneumonia. This is an 89-year-old female patient with a known history of hyperlipidemia, hypertension, asthma, anxiety, hypothyroidism, ulcerative colitis, diplopia intermittent secondary to transient cranial paralysis, chronic urinary retention with frequent urinary tract infections. Recent admission for hyponatremia requiring ICU admission discharged home on 05/05/2021. She was brought back to the emergency room yesterday after sustaining a fall out of bed. She did hit her head but denies loss of consciousness. She had trouble getting up and her family could not get her up. EMS was called she was placed in a c-collar and brought into the emergency room. She was also complaining of shortness of breath. Computed tomography scan of the head and neck revealed no acute fractures. CT angiogram ruled out pulmonary emboli. There was significant right lung infiltrates. We are consulted for the same. She is seen today in the emergency room. She is sitting up on a stretcher. Awake and alert in no acute distress.'s requiring 5 L high flow nasal cannula to maintain O2 saturations in the 90s. She has been afebrile. Blood culture revealing gram- positive cocci in clusters. White count 17.1. Hemoglobin 10.2. D-dimer 6.96. Sodium 138. Potassium 4.1. Creatinine 1.21. Calcium 7.7. Troponins 1.31, 2.99, 3.09. She's been initiated on a heparin drip. Echocardiogram is pending. ProBNP 4740. Pro-calcitonin 67.4. TSH 0.30. Bajwa virus not detected. She was initiated on ceftriaxone and azithromycin. 0.9 normal saline at 130 ML's per hour. Reevaluated today on 06/18/2021, patient is basically about the same. Delmy on few liters nasal cannula, continues to have intermittent episodes of productive cough, shortness of breath, some vague chest discomfort. Patient has a low- grade fever with a temp of 99.7, she is hemodynamically stable, and blood cultures came back staph epidermidis, hence it was mostly contamination and not true bacteremia hence I have recommended stopping vancomycin, and maintain the patient for now on Rocephin. Requested sputum cultures if possible. Echocardiogram is basically unremarkable she does have mild to moderate mitral regurgitation. And she has mild pulmonary hypertension. Objective - Vital Signs Vital signs: Vital Signs Temp 99.5 F 06/18/21 11:59 Pulse 76 06/18/21 11:59 Resp 16 06/18/21 11:59 BP 134/64 06/18/21 11:59 Pulse Ox 96 06/18/21 11:59 Intake & Output 06/17/21 06/18/21 06/18/21 18:59 06:59 18:59 Intake Total 235.52 89.939 260.518 Balance 235.52 89.939 260.518 Weight 58.7 kg Intake: IV 10 Invasive Line 2 10 Intake, IV Titration 107.52 89.939 24.518 Amount Heparin Sod,Pork in 0.45% 107.52 89.939 24.518 NaCl 25,000 unit In 0.45 % NaCl 1 250ml.bag @ 12 UNITS/KG/HR 6.151 mls/hr IV .Q24H [facility] Rx#: [id number] Oral 118 236 Other: Voiding Method Toilet Toilet Toilet Bedside Commode Bedside Commode Bedside Commode # Voids 1 1 1 # Bowel Movements 1 - Exam Physical Exam revealed 89-year-old female in no distress. On few liters nasal cannula. Head: Atraumatic, normocephalic. HEENT:[Neck is supple.] [No neck masses.] [No thyromegaly.] [No JVD.] Chest: [Crackles at the right base no rhonchi and no wheezes. Cardiac Exam: [Normal S1 and S2, no S3 gallop, 2/6 systolic murmur thought the precordium. Abdomen: [Soft, nontender, no megaly, no rebound, no guarding, normal bowel sounds.] Extremities: [No clubbing, no edema, no cyanosis.] Neurological Exam: [No focal neurologic deficit.] Psychiatric: Normal mood affect and normal mental status examination. Skin: No rashes. - Labs CBC & Chem 7: 06/18/21 07:15 06/18/21 07:15 Labs: Abnormal Lab Results - Last 24 Hours (Table) 06/18/21 06/18/21 06/18/21 Range/Units 07:15 07:15 07:15 WBC 14.1 H (3.8-10.6) k/uL RBC 3.22 L (3.80-5.40) m/uL Hgb 9.6 L (11.4-16.0) gm/dL Hct 30.5 L (34.0-46.0) % RDW 17.1 H (11.5-15.5) % Plt Count 134 L (150-450) k/uL Neutrophils # 13.1 H (1.3-7.7) k/uL Lymphocytes # 0.6 L (1.0-4.8) k/uL APTT 39.6 H (22.0-30.0) sec Chloride 114 H (98-107) mmol/L Carbon Dioxide 21 L (22-30) mmol/L Calcium 8.1 L (8.4-10.2) mg/dL AST 37 H (14-36) U/L Troponin I (0.000-0.034) ng/mL Total Protein 4.9 L (6.3-8.2) g/dL Albumin 2.4 L (3.5-5.0) g/dL 06/18/21 Range/Units 07:15 WBC (3.8-10.6) k/uL RBC (3.80-5.40) m/uL Hgb (11.4-16.0) gm/dL Hct (34.0-46.0) % RDW (11.5-15.5) % Plt Count (150-450) k/uL Neutrophils # (1.3-7.7) k/uL Lymphocytes # (1.0-4.8) k/uL APTT (22.0-30.0) sec Chloride (98-107) mmol/L Carbon Dioxide (22-30) mmol/L Calcium (8.4-10.2) mg/dL AST (14-36) U/L Troponin I 0.647 H* (0.000-0.034) ng/mL Total Protein (6.3-8.2) g/dL Albumin (3.5-5.0) g/dL Microbiology - Last 24 Hours (Table) 06/16/21 13:35 Blood Culture Gram Stain - Preliminary Blood Blood Culture - Preliminary Staphylococcus epidermidis Assessment and Plan Assessment: 1 Acute hypoxemic respiratory failure secondary to right lung pneumonia, possible aspiration pneumonia. 2 Bacteremia , however the cultures came back positive for staph epidermidis, hence no need for vancomycin. 3 Possible non-ST segment elevation myocardial infarction, being addressed by cardiology. 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 Discontinue vancomycin. Continue bronchodilators. Titrate FiO2 accordingly. We will continue to follow. Follow-up chest x-ray today was done and reviewed, not much of a change from her initial x-ray. Time with Patient: Less than 30
--- NOTE | 2021-06-18 15:40 | P.PN ---
Subjective Progress Note Date: 06/18/21 HISTORY OF PRESENT ILLNESS 89-year-old female one of Dr. Gamez's patient with past medical history of hypertension, hyperlipidemia, COPD, stage III chronic kidney disease along with severe GERD who was the hospital last 04/28/2021 for severe hyponatremia. Patient was treated and had severe hyponatremia had improved also had slight dyspnea and shortness of breath. Patient has done quite well was on physical therapy and occupational therapy apparently which she stopped just recently. Patient family brought her to the emergency department on 06/16: She woke up this morning attempt to get out of bed she slept off the side of the bed and hit her head she denies any loss of consciousness she was very weak and unsteady on her feet developed to have significant shortness of breath and tightness with wheezing. Daughter called EMS when get to the seen with c-collar on patient deny any neck pain at the time no chest pain but have been having significant shortness of breath with fluid overload had supplement of oxygen which helped help some. Also patient had something for pain at the time he was giving nebulizer treatment made her feel slightly but better. Ended up having a CT of the brain which showed small vessel disease only CT of the cervical spine showed mild spinal stenosis of the C5-C6 and spondylolithiasis of the C4-C5 and C6-C7. She had quite bit arthritis and spinal stenosis. CAT scan of the chest shows no pulmonary embolism as a result of elevated d-di keyona but showed right middle lobe infiltrate and pneumonia. Patient white blood cell was 12,000 with mild left shifted. Patient was mildly dehydrated and had slight electrode imbalance. Was started on current treatment management start and COPD management as well antibiotic was giving patient be admitted to the hospital she is having some sinus symptoms mild CHF as well. Her troponin was quite bit elevated with troponin 3. 06/17: Patient is seen again in the emergency center waiting for a bed on the cardiac stepdown unit. Repeat blood work reveals WBC 17.1, hemoglobin 10.2, platelet count 167. BUN 28 creatinine 1.21. She has been afebrile, heart rate 84, blood pressure 126/66, pulse ox 98% on 6 L nasal cannula. Patient has been seen by cardiology with plan to start beta angelito, continue heparin drip. Patient has been seen by pulmonary medicine for right pneumonia and possible aspiration and vancomycin was added as blood culture positive for gram-positive cocci in clusters. Repeat chest x-ray has been ordered for tomorrow. Echocardiogram reveals EF of 50-55%, moderate aortic valve sclerosis, mild aortic stenosis, [id number] mitral regurgitation, mild tricuspid regu rgitation, mild pulmonary hypertension. 06/18: Patient has family member at the bedside. CODE STATUS the patient is having trouble staying awake and she feels tired. This is not new for the patient. She does have a cough, congested cough. Cardiology has ordered a repeat troponin which came back at 0.647. Plan is to continue medical therapy and continue heparin for another 24 hours. Leukocytosis is improved at 14.1. Hemoglobin 9.6. Platelets are 134. Patient has been afebrile, heart rate 76, blood pressure of 134/64, pulse ox 96% on 4 L nasal cannula. Repeat chest x-ray reveals diffuse right lung opacities or consolidations are redemonstrated. No significant change. Blood culture is staph epidermidis and vancomycin will be discontinued. REVIEW OF SYSTEMS Constitutional: No fever, no chills, no night sweats. No weight change. No weakness, reports fatigue or lethargy. Reports daytime sleepiness. EENT: No headache. No blurred vision or double vision, no loss of vision. No loss of Hearing, no ringing in the ears, no dizziness. No nasal drainage or congestion. No epistaxis. No sore throat. Lungs: Mild shortness of breath, cough, no sputum production. No wheezing. Cardiovascular: No chest pain, no lower extremity edema. No palpitations. No paroxysmal nocturnal dyspnea. No orthopnea. No lightheadedness or dizziness. No syncopal episodes. Abdominal: No abdominal pain. No nausea, vomiting. No diarrhea. No constipation. No bloody or tarry stools.. No loss of appetite. Genitourinary: No dysuria, increased frequency, urgency. Reported urinary retention. Musculoskeletal: No myalgias. No muscle weakness, no gait dysfunction, no frequent falls. No back pain. No neck pain. Integumentary: No wounds, no lesions. No rash or pruritus. No unusual bruising. No change in hair or nails. Neurologic: No aphasia. No facial droop. No change in mentation. No head injury. No headache. No paralysis. No paresthesia. Psychiatric: No depression. No anxiety. No mood swings. Endocrine: No abnormal blood sugars. PHYSICAL EXAMINATION Gen: This is an 89-year-old female. She is resting in bed and appears to be comfortable and in no acute distress. HEENT: Head is atraumatic, normocephalic. Pupils equal, round. Sclerae is anicteric. NECK: Supple. No JVD. No lymphadenopathy. No thyromegaly. LUNGS: Rhonchi on the right side. No intercostal retractions. HEART: Regular rate and rhythm. Systolic murmur at the right sternal border. ABDOMEN: Soft. Bowel sounds are present. No masses. No tenderness. EXTREMITIES: No pedal edema. No calf tenderness. Dorsalis pedis +2 bilaterally. NEUROLOGICAL: Patient is awake, alert and oriented x3. Cranial nerves 2 through 12 are grossly intact. ASSESSMENT AND PLAN 1. Dyspnea and shortness of breath: Secondary to right middle lobe pneumonia, possible aspiration pneumonia. Continue azithromycin, ceftriaxone, Pulmicort twice daily, albuterol nebulizer treatments 3 times daily as needed, pulmonary consult appreciated. 2. Non-ST CO: Patient be admitted to the hospital cardiology consultation , plan for medical management. Patient started on Lopressor 12.5 mg twice daily. 3. Post fall with neck pain with significant spinal stenosis and spondylolithiasis. Continue to watch for any weakness PTOT will be started at this point. 4. Abnormal mass along anterior inferior bladder wall with elevated CA-125 and CEA. Still seeing urology. 5. Possible bacteremia has been ruled out as contamination. Vancomycin discontinued. 6. Chronic kidney disease stage III: We'll continue hydration repeat BUN/creatinine 24 hours. 7. Chronic diastolic heart failure. 8. Hypertension. Hold amlodipine 5 mg daily due to hypotension. 9. Hyperlipidemia. Continue pravastatin 40 mg at bedtime. 10. Hypothyroidism. Continue levothyroxine 88 g daily. 11. Gastroesophageal reflux disease and GI prophylaxis. Continue Protonix 40 mg daily 12. Generalized anxiety disorder. Continue BuSpar 7.5 mg at bedtime. 13. COVID-19 testing negative. Patient has been hospitalized during a pandemic. Impression and plan of care have been directed as dictated by the signing physician. Ceci Borrero nurse practitioner acting as scribe for signing physician. Objective - Vital Signs Vital signs: Vital Signs Temp 99.7 F H 06/18/21 08:16 Pulse 80 06/18/21 09:00 Resp 18 06/18/21 08:16 BP 144/62 06/18/21 08:16 Pulse Ox 97 06/18/21 08:16 Intake & Output 06/17/21 06/18/21 06/18/21 18:59 06:59 18:59 Intake Total 235.52 89.939 142.518 Balance 235.52 89.939 142.518 Weight 58.7 kg Intake: IV 10 Invasive Line 2 10 Intake, IV Titration 107.52 89.939 24.518 Amount Heparin Sod,Pork in 0.45% 107.52 89.939 24.518 NaCl 25,000 unit In 0.45 % NaCl 1 250ml.bag @ 12 UNITS/KG/HR 6.151 mls/hr IV .Q24H [facility] Rx#: [id number] Oral 118 118 Other: Voiding Method Toilet Toilet Toilet Bedside Commode Bedside Commode Bedside Commode # Voids 1 1 1 # Bowel Movements 1 - Labs CBC & Chem 7: 06/18/21 07:15 06/18/21 07:15 Labs: Abnormal Lab Results - Last 24 Hours (Table) 06/18/21 06/18/21 06/18/21 Range/Units 07:15 07:15 07:15 WBC 14.1 H (3.8-10.6) k/uL RBC 3.22 L (3.80-5.40) m/uL Hgb 9.6 L (11.4-16.0) gm/dL Hct 30.5 L (34.0-46.0) % RDW 17.1 H (11.5-15.5) % Plt Count 134 L (150-450) k/uL Neutrophils # 13.1 H (1.3-7.7) k/uL Lymphocytes # 0.6 L (1.0-4.8) k/uL APTT 39.6 H (22.0-30.0) sec Chloride 114 H (98-107) mmol/L Carbon Dioxide 21 L (22-30) mmol/L Calcium 8.1 L (8.4-10.2) mg/dL AST 37 H (14-36) U/L Troponin I (0.000-0.034) ng/mL Total Protein 4.9 L (6.3-8.2) g/dL Albumin 2.4 L (3.5-5.0) g/dL 06/18/21 Range/Units 07:15 WBC (3.8-10.6) k/uL RBC (3.80-5.40) m/uL Hgb (11.4-16.0) gm/dL Hct (34.0-46.0) % RDW (11.5-15.5) % Plt Count (150-450) k/uL Neutrophils # (1.3-7.7) k/uL Lymphocytes # (1.0-4.8) k/uL APTT (22.0-30.0) sec Chloride (98-107) mmol/L Carbon Dioxide (22-30) mmol/L Calcium (8.4-10.2) mg/dL AST (14-36) U/L Troponin I 0.647 H* (0.000-0.034) ng/mL Total Protein (6.3-8.2) g/dL Albumin (3.5-5.0) g/dL Microbiology - Last 24 Hours (Table) 06/16/21 13:35 Blood Culture Gram Stain - Preliminary Blood Blood Culture - Preliminary Staphylococcus epidermidis 06/16/21 13:35 Blood Culture - Final Blood
[2021-06-18] MEDS: MIRTAZAPINE 15 MG TAB PO SCH (18:34)
[2021-06-18] MEDS: IBUPROFEN 400 MG TAB PO PRN (20:29)
[2021-06-18] MEDS: MAGNESIUM OXIDE 400 MG TAB PO SCH (20:30)
[2021-06-18] MEDS: PRAVASTATIN SODIUM 40 MG TAB PO SCH (20:30)
--- NOTE | 2021-06-18 23:17 | P.CONS ---
History of Present Illness - Reason for Consult Consult date: 06/18/21 bacteremia Requesting physician: Ceci Borrero - Chief Complaint syncopal episode x 1 day - History of Present Illness History of present illness : Patient is 89-year female who was brought into the ER 2 days ago for evaluation of a syncopal episode apparently the patient on the day of presentation to the hospital when she woke up attempted to get out of bed patient slipped off the side of the bed and fell hitting her head no loss of consciousness no neck pain patient on presentation to the hospital was afebrile subsequently this morning she did have low-grade fever of 99.7 patient was mildly hypoxic on supplemental oxygen patient also have white count of 12.1 there was up to 17 yesterday down to 14 today D-dimer is mildly elevated BUN/creatinine was mildly elevated liver enzymes are mildly elevated jaquez PCR was negative patient did have blood culture drawn which shows gram-positive cocci and subsequent finding of the staph epi patient did have a CT angiogram of the chest no acute pulmonary embolism right middle lobe and lower lobe infiltrate suggestive of pneumonia patient is currently being treated with Rocephin and Zithromax because of her penicillin allergy infectious disease was consulted with concern for possible bacteremia most information has been obtained from the the chart the patient was not very good historian she had seem to be complaining of some shortness of breath and did have a cough which seem to be moderate but not bringing up any sputum no choking on the food vomiting or diarrhea was reported by the nursing staff Review of system: CONSTITUTIONAL: Positive for weakness along with the fever. EYES: No complaint. ENT: No complaint. RESPIRATORY: As per history of present illness CARDIOVASCULAR: No complaint. GENITOURINARY: No complaint. GASTROINTESTINAL: No complaint. MUSCULOSKELETAL: No complaint. INTEGUMENTARY: No complaint. PSYCHOLOGIC: No complaint. ENDOCRINE: No complaint. NEUROLOGIC: As per history of present illness. Past medical history : Reviewed, documented below Past surgical history : Reviewed, documented below Social history: Reviewed, documented below Medications: Reviewed, as documented below EXAMINATION: Vital sigans= Reviewed and documented below GENERAL DESCRIPTION: Elderly female lying in bed, no distress. No tachypnea or accessory muscle of respiration use. HEENT: Shows Pallor , no scleral icterus. Oral mucous membrane is dry. NECK: Trachea central, no thyromegaly. LUNGS: Unlabored breathing. Decreased breath with the base. No wheeze or crackle. HEART: S1, S2, regular rate and rhythm. ABDOMEN: Soft, no tenderness , guarding or rigidity EXTREMITIES: No edema of feet. SKIN: No rash, no masses palpable. NEUROLOGICAL: The patient is awake, alert, oriented x2, mood and affect normal. LABS AND RADIOLOGY: Reviewed results see below Assessment : 1-patient with a positive blood culture with gram-positive cocci which has been finalized and staph epi likely a skin contaminant as the patient has no clinical diseases to go along with it 2-patient with shortness of breath cough with evidence of right middle lower lobe infiltrate highly suspicious for pneumonia possible community-acquired 3-patient with the penicillin allergy that would limit the number of antibiotics safe to use Plan: 1-obtain sputum for Gram stain and culture 2-check a CRP and procalcitonin level 3-continue with Rocephin and Zithromax 4-no need for vancomycin We will follow on clinical condition and cultures to further adjust medication if needed Thank you for this consultation we will follow the patient along with you Past Medical History Past Medical History: Asthma, GERD/Reflux, Hyperlipidemia, Hypertension, Osteoarthritis (OA), Pneumonia, Thyroid Disorder Additional Past Medical History / Comment(s): SOB with activity, fx 5th digit left hand,prednisone March 2019 Hx DOUBLE VISION, colitis,bladder infections History of Any Multi-Drug Resistant Organisms: None Reported Past Surgical History: Appendectomy, Hysterectomy, Tonsillectomy Additional Past Surgical History / Comment(s): BILATERAL CATARACTS. sinus/blocked tear duct surgery, D&C x 2, surgery for fx nose, cyst removed from rt ear Past Anesthesia/Blood Transfusion Reactions: Postoperative Nausea & Vomiting (PONV) Additional Past Anesthesia/Blood Transfusion Reaction / Comm: "took two days to come out" (after hysterectomy),no hx blood transfusion Past Psychological History: Anxiety Smoking Status: Never smoker Past Alcohol Use History: None Reported Past Drug Use History: None Reported - Past Family History Father Family Medical History: Cancer, Myocardial Infarction ([place]) Mother Family Medical History: Cancer, Myocardial Infarction ([place]) Sister(s) Family Medical History: Cancer Additional Family Medical History / Comment(s): breast, colon Brother(s) Family Medical History: Cancer Medications and Allergies Home Medications Medication Instructions Recorded Confirmed Type Cyanocobalamin [Vitamin B-12] 500 mcg PO DAILY@1200 05/22/14 06/16/21 History Denosumab [Prolia] 60 mg SQ Q180D 02/28/17 06/16/21 History Levothyroxine Sodium [Synthroid] 88 mcg PO DAILY 02/28/17 06/16/21 History Magnesium Oxide [Mag-Ox] 400 mg PO HS 02/28/17 06/16/21 History amLODIPine [Norvasc] 5 mg PO DAILY 02/28/17 06/16/21 History Melatonin 10 mg PO HS 12/05/18 06/16/21 History Pravastatin Sodium [Pravachol] 40 mg PO HS 12/05/18 06/16/21 History Montelukast Sodium [Singulair] 10 mg PO DAILY 06/18/20 06/16/21 History Aspirin 81 mg PO DAILY 07/16/20 06/16/21 History Albuterol Nebulized [Ventolin 2.5 mg INHALATION RT-TID PRN 12/16/20 06/16/21 History Nebulized] Cholecalciferol [Vitamin D3 (25 50 mcg PO DAILY@1200 12/16/20 06/16/21 History Mcg = 1000 Iu)] Budesonide [Pulmicort] 0.5 mg INHALATION RT-BID 12/19/20 06/16/21 History Pantoprazole Sodium [Protonix] 40 mg PO DAILY@1200 12/19/20 06/16/21 History ALPRAZolam [Xanax] 0.25 mg PO TID PRN 04/28/21 06/16/21 History Acetaminophen Tab [Tylenol] 500 mg PO Q6H PRN 04/28/21 06/16/21 History Bethanechol [Urecholine] 25 mg PO TID 04/28/21 06/16/21 History Loperamide [Imodium] 2 mg PO TID PRN 04/28/21 06/16/21 History Sodium Chloride Tab 1 gm PO DAILY tab 05/04/21 06/16/21 Rx Mirtazapine [Remeron] 7.5 mg PO DAILY@1900 06/16/21 06/16/21 History hydrALAZINE HCL [Apresoline] 25 mg PO BID 06/16/21 06/16/21 History Allergies Allergy/AdvReac Type Severity Reaction Status Date / Time Penicillins Allergy Intermediate Rash/Hives Verified 04/28/21 16:19 linaclotide [From Linzess] AdvReac Diarrhea Verified 04/28/21 16:19 Narcotics AdvReac Hallucinati Uncoded 04/28/21 14:35 ons Physical Exam Vitals: Vital Signs Temp Pulse Pulse Resp BP BP BP 06/18/21 14:00 76 16 06/18/21 11:59 99.5 F 76 16 06/18/21 09:00 80 06/18/21 08:44 80 06/18/21 08:16 99.7 F H 87 18 06/18/21 08:00 87 18 06/18/21 04:00 82 18 112/57 06/18/21 02:00 94 18 06/18/21 00:00 98.9 F 94 18 129/64 06/17/21 20:00 99.0 F 92 18 132/65 06/17/21 18:35 99.1 F 96 18 147/71 153/71 BP BP Pulse Ox 06/18/21 14:00 06/18/21 11:59 134/64 96 06/18/21 09:00 06/18/21 08:44 06/18/21 08:16 144/62 97 06/18/21 08:00 06/18/21 04:00 95 06/18/21 02:00 06/18/21 00:00 95 06/17/21 20:00 98 06/17/21 18:35 133/74 95 Intake and Output 06/18/21 06/18/21 06/18/21 06:59 14:59 22:59 Intake Total 89.939 260.518 Balance 89.939 260.518 Intake: Intake, IV Titration 89.939 24.518 Amount Heparin Sod,Pork in 0.45% 89.939 24.518 NaCl 25,000 unit In 0.45 % NaCl 1 250ml.bag @ 12 UNITS/KG/HR 6.151 mls/hr IV .Q24H [facility] Rx#: [id number] Oral 236 Other: Voiding Method Toilet Toilet Bedside Commode Bedside Commode # Voids 1 1 Weight 58.7 kg Results CBC & Chem 7: 06/18/21 07:15 06/18/21 07:15 Labs: Abnormal Lab Results - Last 24 Hours (Table) 06/18/21 06/18/21 06/18/21 Range/Units 07:15 07:15 07:15 WBC 14.1 H (3.8-10.6) k/uL RBC 3.22 L (3.80-5.40) m/uL Hgb 9.6 L (11.4-16.0) gm/dL Hct 30.5 L (34.0-46.0) % RDW 17.1 H (11.5-15.5) % Plt Count 134 L (150-450) k/uL Neutrophils # 13.1 H (1.3-7.7) k/uL Lymphocytes # 0.6 L (1.0-4.8) k/uL APTT 39.6 H (22.0-30.0) sec Chloride 114 H (98-107) mmol/L Carbon Dioxide 21 L (22-30) mmol/L Calcium 8.1 L (8.4-10.2) mg/dL AST 37 H (14-36) U/L Troponin I (0.000-0.034) ng/mL Total Protein 4.9 L (6.3-8.2) g/dL Albumin 2.4 L (3.5-5.0) g/dL 06/18/21 Range/Units 07:15 WBC (3.8-10.6) k/uL RBC (3.80-5.40) m/uL Hgb (11.4-16.0) gm/dL Hct (34.0-46.0) % RDW (11.5-15.5) % Plt Count (150-450) k/uL Neutrophils # (1.3-7.7) k/uL Lymphocytes # (1.0-4.8) k/uL APTT (22.0-30.0) sec Chloride (98-107) mmol/L Carbon Dioxide (22-30) mmol/L Calcium (8.4-10.2) mg/dL AST (14-36) U/L Troponin I 0.647 H* (0.000-0.034) ng/mL Total Protein (6.3-8.2) g/dL Albumin (3.5-5.0) g/dL Microbiology - Last 24 Hours (Table) 06/16/21 13:35 Blood Culture Gram Stain - Preliminary Blood Blood Culture - Preliminary Staphylococcus epidermidis
[2021-06-19] MEDS: SODIUM CHLORIDE 0.9% 1,000 ML IV SCH (04:00)
[2021-06-19] MEDS: LEVOTHYROXINE 88 MCG TAB PO SCH (06:18)
[2021-06-19 08:00] LABS: Anisocytosis Slight; Basophils % (A) 0 %; Eosinophils % (A) 1 %; HCT 30.8 % (34.0-46.0); HGB 9.6 gm/dL (11.4-16.0); Hypochromasia Slight; Lymphocytes # (A) 0.5 k/uL (1.0-4.8); Lymphocytes % (A) 6 %; MCH 29.8 pg (25.0-35.0); MCV 96.1 fL (80.0-100.0); Mean Platelet Volume 7.9; Monocytes # (A) 0.2 k/uL (0-1.0); Monocytes % (A) 2 %; Neutrophils # (A) 7.5 k/uL (1.3-7.7); Neutrophils % (A) 91 %; Platelet Count 119 k/uL (150-450); RBC 3.21 m/uL (3.80-5.40); RDW 16.9 % (11.5-15.5); WBC 8.2 k/uL (3.8-10.6)
[2021-06-19] MEDS: ALBUTEROL NEBULIZED 2.5 MG/3 ML INHALATION PRN ×2 (08:15→20:00)
[2021-06-19] MEDS: BUDESONIDE 0.5 MG/2 ML NEBU INHALATION SCH ×2 (08:15→20:00)
[2021-06-19] MEDS: METOPROLOL TARTRATE 12.5 MG TAB PO SCH ×2 (08:45→23:28)
[2021-06-19] MEDS: SODIUM CHLORIDE TAB 1 GM TAB PO SCH (08:45)
[2021-06-19] MEDS: ASPIRIN 81 MG PO SCH (08:46)
[2021-06-19] MEDS: MONTELUKAST 10 MG TAB PO SCH (08:46)
[2021-06-19 08:56] LABS: Calcium 8.1 mg/dL (8.4-10.2); Potassium 3.8 mmol/L (3.5-5.1)
[2021-06-19] MEDS ORDERED: VANCOMYCIN 1,000 MG in SODIUM CHLORIDE 0.9% 250 ML IVPB SCH (09:00)
[2021-06-19] MEDS: AZITHROMYCIN 500 MG in SODIUM CHLORIDE 0.9% 250 ML IVPB SCH (09:29)
[2021-06-19 09:41] LABS: C Reactive Protein 38.9 mg/dL (<1.0)
[2021-06-19] MEDS ORDERED: FUROSEMIDE 10 MG/ML 4 ML VIAL IV STA (10:55)
[2021-06-19] MEDS: LOPERAMIDE 2 MG CAP PO PRN (11:55)
[2021-06-19] MEDS: CYANOCOBALAMIN 500 MCG TAB PO SCH (11:55)
[2021-06-19] MEDS: CHOLECALCIFEROL 25 MCG (1000 IU) TABLET PO SCH (11:55)
--- NOTE | 2021-06-19 12:44 | PN ---
PROGRESS NOTE This is a lady with a known history of hypertension, hyperlipidemia, mild aortic stenosis and bronchial asthma. She came into the hospital after what seems to be an episode of disorientation and had a fall. She has a right lower lobe pneumonia. She has acute hypoxemia which has improved. She is also growing gram-positive cocci, which is Streptococcus in the blood. We are seeing her mainly because of mildly elevated troponin. She is doing clinically much better today. Denies any chest discomfort or shortness of breath. Her breathing is easier and better. Her vitals are stable. She is in sinus rhythm, hemodynamically stable. We have started on a small dose of beta angelito yesterday. There is no JVD. S1-S2 heard normally, short systolic murmur at the base is audible. Second heart sound is preserved. Lungs reveal improved air entry. Abdomen is soft. Lower extremities revealed diminished pulses. Central nervous system grossly within normal limits. Patient's troponin profile does not suggest myocardial injury. She was hypoxic for a while when she came in and it is quite possible this could be a type 2 myocardial infarction with oxygen mismatch. However, she was also slightly tachycardic. I placed her on a beta angelito. She is comfortable now. I would recommend that we continue current medical regimen including antibiotics. No intervention is necessary from a coronary disease standpoint at this time. She is already on subcu heparin which we will continue. I have also initiated on a beta angelito, which I am recommending that we can continue. Her echocardiogram revealed fairly well preserved systolic function with ejection fraction in the range of 50-55 percent without wall motion abnormalities. IMPRESSION: 1. Non-ST elevation myocardial infarction probably secondary to hypoxia. 2. Mild aortic stenosis. 3. Hypertension. 4. Hyperlipidemia. 5. Pneumonia with bacteremia. RECOMMENDATIONS: I would recommend that we continue current medical management including beta blockers, no aggressive intervention from a coronary disease standpoint. Upon discharge, she is advised to see Dr. Kuhn in 2 weeks. We will continue to see her as needed. MMODL / IJN: [id number] /
--- NOTE | 2021-06-19 13:57 | P.PN ---
Subjective Progress Note Date: 06/19/21 Principal diagnosis: Acute hypoxic respiratory failure, acute right sided pneumonia, could be community-acquired or likely aspiration pneumonia. This is an 89-year-old female patient with a known history of hyperlipidemia, hypertension, asthma, anxiety, hypothyroidism, ulcerative colitis, diplopia intermittent secondary to transient cranial paralysis, chronic urinary retention with frequent urinary tract infections. Recent admission for hyponatremia requiring ICU admission discharged home on 05/05/2021. She was brought back to the emergency room yesterday after sustaining a fall out of bed. She did hit her head but denies loss of consciousness. She had trouble getting up and her family could not get her up. EMS was called she was placed in a c-collar and brought into the emergency room. She was also complaining of shortness of breath. Computed tomography scan of the head and neck revealed no acute fractures. CT angiogram ruled out pulmonary emboli. There was significant right lung infiltrates. We are consulted for the same. She is seen today in the emergency room. She is sitting up on a stretcher. Awake and alert in no acute distress.'s requiring 5 L high flow nasal cannula to maintain O2 saturations in the 90s. She has been afebrile. Blood culture revealing gram- positive cocci in clusters. White count 17.1. Hemoglobin 10.2. D-dimer 6.96. Sodium 138. Potassium 4.1. Creatinine 1.21. Calcium 7.7. Troponins 1.31, 2.99, 3.09. She's been initiated on a heparin drip. Echocardiogram is pending. ProBNP 4740. Pro-calcitonin 67.4. TSH 0.30. Bajwa virus not detected. She was initiated on ceftriaxone and azithromycin. 0.9 normal saline at 130 ML's per hour. Reevaluated today on 06/18/2021, patient is basically about the same. Delmy on few liters nasal cannula, continues to have intermittent episodes of productive cough, shortness of breath, some vague chest discomfort. Patient has a low- grade fever with a temp of 99.7, she is hemodynamically stable, and blood cultures came back staph epidermidis, hence it was mostly contamination and not true bacteremia hence I have recommended stopping vancomycin, and maintain the patient for now on Rocephin. Requested sputum cultures if possible. Echocardiogram is basically unremarkable she does have mild to moderate mitral regurgitation. And she has mild pulmonary hypertension. Reevaluated today on 06/19/2021, patient continues to have shortness of breath, intermittent cough, continues to have some vague chest discomfort, remains on 4 L nasal cannula with O2 saturation of 93% at best. Patient is hemodynamically stable, she is now on Rocephin and Zithromax, off vancomycin. Being followed by infectious disease on consultation. TBC is relatively normal elect lites are normal renal profile is normal, patient is on heparin as per cardiology, she does have stool occult blood positive, and her pro calcitonin level was 13.8. Objective - Vital Signs Vital signs: Vital Signs Temp 98.1 F 06/19/21 12:00 Pulse 86 06/19/21 12:00 Resp 19 06/19/21 12:00 BP 147/70 06/19/21 12:00 Pulse Ox 93 L 06/19/21 12:00 Intake & Output 06/18/21 06/19/21 06/19/21 18:59 06:59 18:59 Intake Total 1621.069 377.006 Output Total 900 1000 Balance 1621.069 -900 -622.994 Weight 59.186 kg Intake: IV 1300 Sodium Chloride 0.9% 1, 1300 000 ml @ 130 mls/hr IV . Q7H42M [facility] Rx#:[id number] Intake, IV Titration 85.069 137.006 Amount Heparin Sod,Pork in 0.45% 85.069 137.006 NaCl 25,000 unit In 0.45 % NaCl 1 250ml.bag @ 12 UNITS/KG/HR 6.151 mls/hr IV .Q24H [facility] Rx#: [id number] Oral 236 240 Output: Urine 900 1000 Other: Voiding Method Toilet Bedside Commode Bedside Commode Bedside Commode # Voids 1 1 # Bowel Movements 1 - Exam Physical Exam revealed 89-year-old female in no distress. On 4 L nasal cannula Head: Atraumatic, normocephalic. HEENT:[Neck is supple.] [No neck masses.] [No thyromegaly.] [No JVD.] Chest: [Crackles at the right base no rhonchi and no wheezes. Cardiac Exam: [Normal S1 and S2, no S3 gallop, 2/6 systolic murmur thought the precordium. Abdomen: [Soft, nontender, no megaly, no rebound, no guarding, normal bowel sounds.] Extremities: [No clubbing, no edema, no cyanosis.] Neurological Exam: [No focal neurologic deficit.] Psychiatric: Normal mood affect and normal mental status examination. Skin: No rashes. - Labs CBC & Chem 7: 06/19/21 07:36 06/19/21 07:36 Labs: Abnormal Lab Results - Last 24 Hours (Table) 06/18/21 06/18/21 06/19/21 Range/Units 16:02 22:43 01:00 RBC (3.80-5.40) m/uL Hgb (11.4-16.0) gm/dL Hct (34.0-46.0) % RDW (11.5-15.5) % Plt Count (150-450) k/uL Lymphocytes # (1.0-4.8) k/uL APTT 37.2 H 50.4 H (22.0-30.0) sec Chloride (98-107) mmol/L Carbon Dioxide (22-30) mmol/L Calcium (8.4-10.2) mg/dL C-Reactive Protein (<1.0) mg/dL Procalcitonin (0.02-0.09) ng/mL Stool Occult Blood Positive H (Negative) 06/19/21 06/19/21 06/19/21 Range/Units 07:36 07:36 07:36 RBC (3.80-5.40) m/uL Hgb (11.4-16.0) gm/dL Hct (34.0-46.0) % RDW (11.5-15.5) % Plt Count (150-450) k/uL Lymphocytes # (1.0-4.8) k/uL APTT 41.8 H (22.0-30.0) sec Chloride 115 H (98-107) mmol/L Carbon Dioxide 21 L (22-30) mmol/L Calcium 8.1 L (8.4-10.2) mg/dL C-Reactive Protein 38.9 H (<1.0) mg/dL Procalcitonin 13.80 H (0.02-0.09) ng/mL Stool Occult Blood (Negative) 06/19/21 Range/Units 07:36 RBC 3.21 L (3.80-5.40) m/uL Hgb 9.6 L (11.4-16.0) gm/dL Hct 30.8 L (34.0-46.0) % RDW 16.9 H (11.5-15.5) % Plt Count 119 L (150-450) k/uL Lymphocytes # 0.5 L (1.0-4.8) k/uL APTT (22.0-30.0) sec Chloride (98-107) mmol/L Carbon Dioxide (22-30) mmol/L Calcium (8.4-10.2) mg/dL C-Reactive Protein (<1.0) mg/dL Procalcitonin (0.02-0.09) ng/mL Stool Occult Blood (Negative) Microbiology - Last 24 Hours (Table) 06/16/21 13:35 Blood Culture Gram Stain - Final Blood Blood Culture - Final Staphylococcus epidermidis Coagulase Negative Staph Coagulase Negative Staph#2 06/17/21 19:30 Blood Culture - Preliminary Blood No Growth after 24 hours Assessment and Plan Assessment: 1 Acute hypoxemic respiratory failure secondary to right lung pneumonia, possible aspiration pneumonia. 2 Bacteremia , however the cultures came back positive for staph epidermidis, hence no need for vancomycin. 3 Possible non-ST segment elevation myocardial infarction, being addressed by cardiology. 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 Off vancomycin Continue bronchodilators. Titrate FiO2 accordingly. We will continue to follow. Time with Patient: Less than 30
--- NOTE | 2021-06-19 14:55 | XR ---
EXAMINATION TYPE: XR chest 1V portable DATE OF EXAM: 06/19/2021 COMPARISON: 06/18/2021 HISTORY: Cough TECHNIQUE: Single frontal view of the chest is obtained. FINDINGS: Diffuse right-sided infiltrate and left lower lobe infiltrate with small effusion. Hyperin flation suggests COPD. No pneumothorax. Diffuse osteopenia. Arthropathy of the shoulders. IMPRESSION: Diffuse right-sided and left lower lobe infiltrate stable.
[2021-06-19 15:41] LABS: Anisocytosis Slight; HCT 34.1 % (34.0-46.0); HGB 10.9 gm/dL (11.4-16.0); MCH 29.9 pg (25.0-35.0); MCV 93.6 fL (80.0-100.0); Mean Platelet Volume 8.4; Platelet Count 123 k/uL (150-450); RBC 3.64 m/uL (3.80-5.40); RDW 17.1 % (11.5-15.5); WBC 6.9 k/uL (3.8-10.6)
[2021-06-19] MEDS ORDERED: CLINDAMYCIN 600 MG in DEXTROSE 5% IN WATER 50 ML IVPB SCH ×2 (16:00)
--- NOTE | 2021-06-19 16:36 | P.PN ---
Subjective Progress Note Date: 06/19/21 HISTORY OF PRESENT ILLNESS 89-year-old female one of Dr. Gamez's patient with past medical history of hypertension, hyperlipidemia, COPD, stage III chronic kidney disease along with severe GERD who was the hospital last 04/28/2021 for severe hyponatremia. Patient was treated and had severe hyponatremia had improved also had slight dyspnea and shortness of breath. Patient has done quite well was on physical therapy and occupational therapy apparently which she stopped just recently. Patient family brought her to the emergency department on 06/16: She woke up this morning attempt to get out of bed she slept off the side of the bed and hit her head she denies any loss of consciousness she was very weak and unsteady on her feet developed to have significant shortness of breath and tightness with wheezing. Daughter called EMS when get to the seen with c-collar on patient deny any neck pain at the time no chest pain but have been having significant shortness of breath with fluid overload had supplement of oxygen which helped help some. Also patient had something for pain at the time he was giving nebulizer treatment made her feel slightly but better. Ended up having a CT of the brain which showed small vessel disease only CT of the cervical spine showed mild spinal stenosis of the C5-C6 and spondylolithiasis of the C4-C5 and C6-C7. She had quite bit arthritis and spinal stenosis. CAT scan of the chest shows no pulmonary embolism as a result of elevated d-di keyona but showed right middle lobe infiltrate and pneumonia. Patient white blood cell was 12,000 with mild left shifted. Patient was mildly dehydrated and had slight electrode imbalance. Was started on current treatment management start and COPD management as well antibiotic was giving patient be admitted to the hospital she is having some sinus symptoms mild CHF as well. Her troponin was quite bit elevated with troponin 3. 06/17: Patient is seen again in the emergency center waiting for a bed on the cardiac stepdown unit. Repeat blood work reveals WBC 17.1, hemoglobin 10.2, platelet count 167. BUN 28 creatinine 1.21. She has been afebrile, heart rate 84, blood pressure 126/66, pulse ox 98% on 6 L nasal cannula. Patient has been seen by cardiology with plan to start beta angelito, continue heparin drip. Patient has been seen by pulmonary medicine for right pneumonia and possible aspiration and vancomycin was added as blood culture positive for gram-positive cocci in clusters. Repeat chest x-ray has been ordered for tomorrow. Echocardiogram reveals EF of 50-55%, moderate aortic valve sclerosis, mild aortic stenosis, [id number] mitral regurgitation, mild tricuspid regu rgitation, mild pulmonary hypertension. 06/18: Patient has family member at the bedside. CODE STATUS the patient is having trouble staying awake and she feels tired. This is not new for the patient. She does have a cough, congested cough. Cardiology has ordered a repeat troponin which came back at 0.647. Plan is to continue medical therapy and continue heparin for another 24 hours. Leukocytosis is improved at 14.1. Hemoglobin 9.6. Platelets are 134. Patient has been afebrile, heart rate 76, blood pressure of 134/64, pulse ox 96% on 4 L nasal cannula. Repeat chest x-ray reveals diffuse right lung opacities or consolidations are redemonstrated. No significant change. Blood culture is staph epidermidis and vancomycin will be discontinued. 06/19: Patient did have stool and tested for occult blood was positive. Heparin was discontinued. Patient had a temperature of 101.9 this morning afebrile, heart rate 57, blood pressure 133/70, pulse ox 96% on 4 L nasal cannula. Repeat blood work reveals WBC 6.9, hemoglobin 10.9, platelet count 123. C. difficile toxin negative. Blood culture is positive for Staphylococcus epidermidis, coag negative staph 2 specimens. Repeat blood culture is no growth at 24 hours. Chest x-ray reveals diffuse right sided and left lower lobe infiltrate stable. Patient is followed by multiple consultants including pulmonary medicine, infectious disease and cardiology. Cardiology is planning to continue beta angelito and follow-up Dr. Kuhn in 2 weeks. REVIEW OF SYSTEMS Constitutional: Documented fever, no chills, no night sweats. No weight change. No weakness, reports fatigue or lethargy. Reports daytime sleepiness. EENT: No headache. No blurred vision or double vision, no loss of vision. No loss of Hearing, no ringing in the ears, no dizziness. No nasal drainage or congestion. No epistaxis. No sore throat. Lungs: Mild shortness of breath, cough, no sputum production. No wheezing. Cardiovascular: No chest pain, no lower extremity edema. No palpitations. No paroxysmal nocturnal dyspnea. No orthopnea. No lightheadedness or dizziness. No syncopal episodes. Abdominal: No abdominal pain. No nausea, vomiting. No diarrhea. No constipation. No bloody or tarry stools.. No loss of appetite. Genitourinary: No dysuria, increased frequency, urgency. Reported urinary retention. Musculoskeletal: No myalgias. No muscle weakness, no gait dysfunction, no frequent falls. No back pain. No neck pain. Integumentary: No wounds, no lesions. No rash or pruritus. No unusual bruising. No change in hair or nails. Neurologic: No aphasia. No facial droop. No change in mentation. No head injury. No headache. No paralysis. No paresthesia. Psychiatric: No depression. No anxiety. No mood swings. Endocrine: No abnormal blood sugars. PHYSICAL EXAMINATION Gen: This is an 89-year-old female. She is resting in bed and appears to be comfortable and in no acute distress. HEENT: Head is atraumatic, normocephalic. Pupils equal, round. Sclerae is anicteric. NECK: Supple. No JVD. No lymphadenopathy. No thyromegaly. LUNGS: Rhonchi on the right side. No intercostal retractions. HEART: Regular rate and rhythm. Systolic murmur at the right sternal border. ABDOMEN: Soft. Bowel sounds are present. No masses. No tenderness. EXTREMITIES: No pedal edema. No calf tenderness. Dorsalis pedis +2 bilaterally. NEUROLOGICAL: Patient is awake, alert and oriented x3. Cranial nerves 2 through 12 are grossly intact. ASSESSMENT AND PLAN 1. Dyspnea and shortness of breath: Secondary to right middle lobe pneumonia, possible aspiration pneumonia. Continue clindamycin and ceftriaxone, Pulmicort twice daily, albuterol nebulizer treatments 3 times daily as needed, pulmonary consult appreciated. Consult with infectious disease appreciated. 2. Non-ST [place]: Patient be admitted to the hospital cardiology consultation , plan for medical management. Patient started on Lopressor 12.5 mg twice daily. 3. Post fall with neck pain with significant spinal stenosis and spondylolithiasis. Continue to watch for any weakness PTOT will be started at this point. 4. Abnormal mass along anterior inferior bladder wall with elevated CA-125 and CEA. Still seeing urology. 5. Possible bacteremia has been ruled out as contamination. Vancomycin discontinued. 6. Chronic kidney disease stage III: We'll continue hydration repeat BUN/cr eatinine 24 hours. 7. Chronic diastolic heart failure. 8. Hypertension. Hold amlodipine 5 mg daily due to hypotension. 9. Hyperlipidemia. Continue pravastatin 40 mg at bedtime. 10. Hypothyroidism. Continue levothyroxine 88 g daily. 11. Gastroesophageal reflux disease and GI prophylaxis. Continue Protonix 40 mg daily 12. Generalized anxiety disorder. Continue BuSpar 7.5 mg at bedtime. 13. COVID-19 testing negative. Patient has been hospitalized during a pandemic. Impression and plan of care have been directed as dictated by the signing physician. Ceci Borrero nurse practitioner acting as scribe for signing physician. Objective - Vital Signs Vital signs: Vital Signs Temp 97.7 F 06/19/21 06:00 Pulse 88 06/19/21 08:31 Resp 18 06/19/21 06:00 BP 146/63 06/19/21 04:00 Pulse Ox 92 L 06/19/21 06:00 Intake & Output 06/18/21 06/19/21 06/19/21 18:59 06:59 18:59 Intake Total 1621.069 137.006 Output Total 900 Balance 1621.069 -900 137.006 Weight 59.186 kg Intake: IV 1300 Sodium Chloride 0.9% 1, 1300 000 ml @ 130 mls/hr IV . Q7H42M JOAN Rx#:[id number] Intake, IV Titration 85.069 137.006 Amount Heparin Sod,Pork in 0.45% 85.069 137.006 NaCl 25,000 unit In 0.45 % NaCl 1 250ml.bag @ 12 UNITS/KG/HR 6.151 mls/hr IV .Q24H JOAN Rx#: [id number] Oral 236 Output: Urine 900 Other: Voiding Method Toilet Bedside Commode Bedside Commode # Voids 1 # Bowel Movements 1 - Labs CBC & Chem 7: 06/19/21 15:03 06/19/21 07:36 Labs: Abnormal Lab Results - Last 24 Hours (Table) 06/18/21 06/18/21 06/19/21 Range/Units 16:02 22:43 01:00 RBC (3.80-5.40) m/uL Hgb (11.4-16.0) gm/dL Hct (34.0-46.0) % RDW (11.5-15.5) % Plt Count (150-450) k/uL Lymphocytes # (1.0-4.8) k/uL APTT 37.2 H 50.4 H (22.0-30.0) sec Chloride (98-107) mmol/L Carbon Dioxide (22-30) mmol/L Calcium (8.4-10.2) mg/dL Stool Occult Blood Positive H (Negative) 06/19/21 06/19/21 06/19/21 Range/Units 07:36 07:36 07:36 RBC 3.21 L (3.80-5.40) m/uL Hgb 9.6 L (11.4-16.0) gm/dL Hct 30.8 L (34.0-46.0) % RDW 16.9 H (11.5-15.5) % Plt Count 119 L (150-450) k/uL Lymphocytes # 0.5 L (1.0-4.8) k/uL APTT 41.8 H (22.0-30.0) sec Chloride 115 H (98-107) mmol/L Carbon Dioxide 21 L (22-30) mmol/L Calcium 8.1 L (8.4-10.2) mg/dL Stool Occult Blood (Negative) Microbiology - Last 24 Hours (Table) 06/17/21 19:30 Blood Culture - Preliminary Blood No Growth after 24 hours
[2021-06-19] MEDS: MIRTAZAPINE 15 MG TAB PO SCH (17:25)
[2021-06-19] MEDS ORDERED: PANTOPRAZOLE 40 MG TABLET PO SCH (17:30)
[2021-06-19 17:41] VITALS: RESP 18
[2021-06-19] MEDS ORDERED: ACETAMINOPHEN IV (For NPO) 1,000 MG in EMPTY BAG 1 BAG IVPB ONE (19:46)
[2021-06-19 19:54] VITALS: BP 149/93; TEMP 102.7
[2021-06-19 20:24] VITALS: PULSE 105
--- NOTE | 2021-06-19 21:51 | PN ---
PROGRESS NOTE DATE OF SERVICE: 06/19/2021 REASON FOR FOLLOWUP: Fever, likely pneumonia, possible aspiration. INTERVAL HISTORY: The patient did spike another fever this evening of 102.7 degrees Fahrenheit. The patient patient seems to be slightly more awake. When asked specifically, the nursing staff did not mention any problem with swallowing. No vomiting, diarrhea or any other changes were reported by the nursing staff. The patient herself did not express any concerns or questions. PHYSICAL EXAMINATION: Blood pressure 149/93 with a pulse of 94, temperature of 102.7. She is 94% on 4 L nasal cannula. General description is an elderly female up in the bed in no distress. Respiratory system: Unlabored breathing, coarse breath sounds bilaterally. Heart S1, S2. Regular rate and rhythm. Abdomen soft, no tenderness. LABS: Hemoglobin is 10.9, white count 6.9, creatinine 0.83. DIAGNOSTIC IMPRESSION AND PLAN: 1. Patient with a fever with right-sided pneumonia, high clinical suspicion for aspiration pneumonia. Antibiotic will be adjusted to cefepime and clindamycin. Will try to obtain a sputum sample and will monitor clinical course closely. 2. Positive blood culture, likely contamination. Repeat blood culture has been negative. MMODL / IJN: [id number] /
[2021-06-19] MEDS ORDERED: LORazepam 2 MG/ML INJ IV PRN (21:53)
[2021-06-19] MEDS ORDERED: ONDANSETRON 4 MG/2 ML VIAL IVP PRN (21:53)
[2021-06-19] MEDS ORDERED: ATROPINE OPHTH SOLN 1% 5ML BTL SUBLINGUAL PRN (21:53)
[2021-06-19] MEDS ORDERED: SCOPOLAMINE 1.5MG/72HR PATCH TRANSDERM SCH (22:00)
[2021-06-19] MEDS ORDERED: MORPHINE SULFATE (100 MG/2 ML) 100 MG in SODIUM CHLORIDE 0.9% 100 ML IV SCH (22:00)
[2021-06-19] MEDS: MORPHINE SULFATE 2 MG/ML SYRINGE IV PRN (22:04)
[2021-06-19] MEDS: MAGNESIUM OXIDE 400 MG TAB PO SCH (23:27)
[2021-06-19] MEDS: PRAVASTATIN SODIUM 40 MG TAB PO SCH (23:28)
[2021-06-20] MEDS ORDERED: CEFEPIME 2 GM in SODIUM CHLORIDE 0.9% 100 ML IVPB SCH ×2
[2021-06-20] MEDS: MORPHINE SULFATE 2 MG/ML SYRINGE IV PRN (00:41)
[2021-06-20] MEDS ORDERED: METOPROLOL TARTRATE 12.5 MG TAB PO SCH (09:00)
--- NOTE | 2021-06-20 15:45 | P.DS ---
Providers Date of admission: 06/16/21 15:15 Expected date of discharge: 06/20/21 Attending physician: Avinash Pina Consults: 06/16/21 15:16 Consult Physician Urgent Consulting Provider: [facility] Consult Reason/Comments: NSTEMI Do you want consulting provider notified?: Yes Consult Physician Urgent Consulting Provider: Flip Garcia Consult Reason/Comments: hypoxic resp failure, CAP Do you want consulting provider notified?: Yes 06/17/21 18:59 Consult Physician Routine Consulting Provider: Felipa Victor Consult Reason/Comments: CAP-positive blood cultures Do you want consulting provider notified?: Yes, Notify in am Primary care physician: Kayal Gamez [facility] Course: HISTORY OF PRESENT ILLNESS 89-year-old female one of Dr. Gamez's patient with past medical history of hypertension, hyperlipidemia, COPD, stage III chronic kidney disease along with severe GERD who was the hospital last 04/28/2021 for severe hyponatremia. Carolyn taveras was treated and had severe hyponatremia had improved also had slight dyspnea and shortness of breath. Patient has done quite well was on physical therapy and occupational therapy apparently which she stopped just recently. Patient family brought her to the emergency department on 06/16: She woke up this morning attempt to get out of bed she slept off the side of the bed and hit her head she denies any loss of consciousness she was very weak and unsteady on her feet developed to have significant shortness of breath and tightness with wheezing. Daughter called EMS when get to the seen with c-collar on patient deny any neck pain at the time no chest pain but have been having significant shortness of breath with fluid overload had supplement of oxygen which helped help some. Also patient had something for pain at the time he was giving nebulizer treatment made her feel slightly but better. Ended up having a CT of the brain which showed small vessel disease only CT of the cervical spine showed mild spinal stenosis of the C5-C6 and spondylolithiasis of the C4-C5 and C6-C7. She had quite bit arthritis and spinal stenosis. CAT scan of the chest shows no pulmonary embolism as a result of elevated d- dimer but showed right middle lobe infiltrate and pneumonia. Patient white blood cell was 12,000 with mild left shifted. Patient was mildly dehydrated and had slight electrode imbalance. Was started on current treatment management start and COPD management as well antibiotic was giving patient be admitted to the hospital she is having some sinus symptoms mild CHF as well. Her troponin was quite bit elevated with troponin 3. 06/17: Patient is seen again in the emergency center waiting for a bed on the cardiac stepdown unit. Repeat blood work reveals WBC 17.1, hemoglobin 10.2, platelet count 167. BUN 28 creatinine 1.21. She has been afebrile, heart rate 84, blood pressure 126/66, pulse ox 98% on 6 L nasal cannula. Patient has been seen by cardiology with plan to start beta angelito, continue heparin drip. Patient has been seen by pulmonary medicine for right pneumonia and possible aspiration and vancomycin was added as blood culture positive for gram-positive cocci in clusters. Repeat chest x-ray has been ordered for tomorrow. Echocardiogram reveals EF of 50-55%, moderate aortic valve sclerosis, mild aortic stenosis, [id number] mitral regurgitation, mild tricuspid regurgitation, mild pulmonary hypertension. 06/18: Patient has family member at the bedside. CODE STATUS the patient is having trouble staying awake and she feels tired. This is not new for the patient. She does have a cough, congested cough. Cardiology has ordered a repeat troponin which came back at 0.647. Plan is to continue medical therapy and continue heparin for another 24 hours. Leukocytosis is improved at 14.1. Hemoglobin 9.6. Platelets are 134. Patient has been afebrile, heart rate 76, blood pressure of 134/64, pulse ox 96% on 4 L nasal cannula. Repeat chest x-ray reveals diffuse right lung opacities or consolidations are redemonstrated. No significant change. Blood culture is staph epidermidis and vancomycin will be discontinued. 06/19: Patient did have stool and tested for occult blood was positive. Heparin was discontinued. Patient had a temperature of 101.9 this morning afebrile, heart rate 57, blood pressure 133/70, pulse ox 96% on 4 L nasal cannula. Repeat blood work reveals WBC 6.9, hemoglobin 10.9, platelet count 123. C. difficile toxin negative. Blood culture is positive for Staphylococcus epidermidis, coag negative staph 2 specimens. Repeat blood culture is no growth at 24 hours. Chest x-ray reveals diffuse right sided and left lower lobe infiltrate stable. Patient is followed by multiple consultants including pulmonary medicine, infectious disease and cardiology. Cardiology is planning to continue beta angelito and follow-up Dr. Kuhn in 2 weeks. 06/20: Last evening, patient's family made contact and wanted the patient to be comfort care. Patient in the direct support staff member of 06/20. Please see nursing documentation for details. DISCHARGE DIAGNOSES 1. Dyspnea and shortness of breath: Secondary to right middle lobe pneumonia, possible aspiration pneumonia. 2. Non-ST [place] 3. Post fall with neck pain with significant spinal stenosis and spondylolithiasis. 4. Abnormal mass along anterior inferior bladder wall. 5. Possible bacteremia has been ruled out as contamination. 6. Chronic kidney disease stage III 7. Chronic diastolic heart failure. 8. Hypertension. 9. Hyperlipidemia. 10. Hypothyroidism. 11. Gastroesophageal reflux disease 12. Generalized anxiety disorder. 13. COVID-19 testing negative. Impression and plan of care have been directed as dictated by the signing physician. Ceci Borrero nurse practitioner acting as scribe for signing physician. Patient Condition at Discharge: Undetermined Plan - Discharge Summary Discharge Rx Participant: No New Discharge Prescriptions: No Action Cyanocobalamin [Vitamin B-12] 500 mcg PO DAILY@1200 Denosumab [Prolia] 60 mg SQ Q180D Magnesium Oxide [Mag-Ox] 400 mg PO HS amLODIPine [Norvasc] 5 mg PO DAILY Levothyroxine Sodium [Synthroid] 88 mcg PO DAILY Pravastatin Sodium [Pravachol] 40 mg PO HS Melatonin 10 mg PO HS Montelukast Sodium [Singulair] 10 mg PO DAILY Aspirin 81 mg PO DAILY Albuterol Nebulized [Ventolin Nebulized] 2.5 mg INHALATION RT-TID PRN PRN Reason: Shortness Of Breath Acetaminophen Tab [Tylenol] 500 mg PO Q6H PRN PRN Reason: Pain Loperamide [Imodium] 2 mg PO TID PRN PRN Reason: Diarrhea Bethanechol [Urecholine] 25 mg PO TID ALPRAZolam [Xanax] 0.25 mg PO TID PRN PRN Reason: Anxiety hydrALAZINE HCL [Apresoline] 25 mg PO BID Cholecalciferol [Vitamin D3 (25 Mcg = 1000 Iu)] 50 mcg PO DAILY@1200 Budesonide [Pulmicort] 0.5 mg INHALATION RT-BID Pantoprazole Sodium [Protonix] 40 mg PO DAILY@1200 Sodium Chloride Tab 1 gm PO DAILY tab Mirtazapine [Remeron] 7.5 mg PO DAILY@1900 Discharge Medication List Cyanocobalamin [Vitamin B-12] 500 mcg PO DAILY@1200 05/22/14 [History] Denosumab [Prolia] 60 mg SQ Q180D 02/28/17 [History] Levothyroxine Sodium [Synthroid] 88 mcg PO DAILY 02/28/17 [History] Magnesium Oxide [Mag-Ox] 400 mg PO HS 02/28/17 [History] amLODIPine [Norvasc] 5 mg PO DAILY 02/28/17 [History] Melatonin 10 mg PO HS 12/05/18 [History] Pravastatin Sodium [Pravachol] 40 mg PO HS 12/05/18 [History] Montelukast Sodium [Singulair] 10 mg PO DAILY 06/18/20 [History] Aspirin 81 mg PO DAILY 07/16/20 [History] Albuterol Nebulized [Ventolin Nebulized] 2.5 mg INHALATION RT-TID PRN 12/16/20 [History] Cholecalciferol [Vitamin D3 (25 Mcg = 1000 Iu)] 50 mcg PO DAILY@1200 12/16/20 [History] Budesonide [Pulmicort] 0.5 mg INHALATION RT-BID 12/19/20 [History] Pantoprazole Sodium [Protonix] 40 mg PO DAILY@1200 12/19/20 [History] ALPRAZolam [Xanax] 0.25 mg PO TID PRN 04/28/21 [History] Acetaminophen Tab [Tylenol] 500 mg PO Q6H PRN 04/28/21 [History] Bethanechol [Urecholine] 25 mg PO TID 04/28/21 [History] Loperamide [Imodium] 2 mg PO TID PRN 04/28/21 [History] Sodium Chloride Tab 1 gm PO DAILY tab 05/04/21 [Rx] Mirtazapine [Remeron] 7.5 mg PO DAILY@1900 06/16/21 [History] hydrALAZINE HCL [Apresoline] 25 mg PO BID 06/16/21 [History] Follow up Appointment(s)/Referral(s): Erlinda Kuhn MD [STAFF PHYSICIAN] - 2 Weeks Kayla Gamez MD [Primary Care Provider] - 1 Week Discharge Disposition: - Preliminary Cause of Preliminary Cause of : right middle lobe pneumonia
== END 2021-06-20 06:45 | disposition expired | DRG 177 ==
LOC: EC 09:07 → 3SCARD 15:15
PROVIDERS: ADMIT Internal Medicine Geriatric Medicine; ATTEND Internal Medicine Geriatric Medicine
DX: J69.0 Pneumonitis due to inhalation of food and vomit (principal); J96.01 Acute respiratory failure with hypoxia; I21.4 Non-ST elevation (NSTEMI) myocardial infarction; N17.9 Acute kidney failure, unspecified; I13.0 Hypertensive heart and chronic kidney disease with heart failure and stage 1 through stage 4 chronic kidney disease, or unspecified chronic kidney disease; I67.89 Other cerebrovascular disease; R29.5 Transient paralysis; I50.32 Chronic diastolic (congestive) heart failure; K51.90 Ulcerative colitis, unspecified, without complications; J44.1 Chronic obstructive pulmonary disease with (acute) exacerbation; I27.20 Pulmonary hypertension, unspecified; S09.90XA Unspecified injury of head, initial encounter; I95.9 Hypotension, unspecified; N18.30 Chronic kidney disease, stage 3 unspecified; Z66 Do not resuscitate; Z51.5 Encounter for palliative care; Z20.822 Contact with and (suspected) exposure to COVID-19; J45.20 Mild intermittent asthma, uncomplicated; E86.0 Dehydration; N32.89 Other specified disorders of bladder; M48.02 Spinal stenosis, cervical region; M43.12 Spondylolisthesis, cervical region; E78.5 Hyperlipidemia, unspecified; I08.3 Combined rheumatic disorders of mitral, aortic and tricuspid valves; K21.9 Gastro-esophageal reflux disease without esophagitis; E03.9 Hypothyroidism, unspecified; F41.1 Generalized anxiety disorder; R33.9 Retention of urine, unspecified; H53.2 Diplopia; M19.90 Unspecified osteoarthritis, unspecified site; Z79.82 Long term (current) use of aspirin; Z79.890 Hormone replacement therapy; Z79.51 Long term (current) use of inhaled steroids; Z79.899 Other long term (current) drug therapy; Z87.81 Personal history of (healed) traumatic fracture; Z90.49 Acquired absence of other specified parts of digestive tract; Z87.19 Personal history of other diseases of the digestive system; Z90.89 Acquired absence of other organs; Z87.42 Personal history of other diseases of the female genital tract; Z98.42 Cataract extraction status, left eye; Z98.41 Cataract extraction status, right eye; Z87.09 Personal history of other diseases of the respiratory system; Z86.69 Personal history of other diseases of the nervous system and sense organs; Z90.710 Acquired absence of both cervix and uterus; Z87.440 Personal history of urinary (tract) infections; Z86.73 Personal history of transient ischemic attack (TIA), and cerebral infarction without residual deficits; Z77.22 Contact with and (suspected) exposure to environmental tobacco smoke (acute) (chronic); Z85.3 Personal history of malignant neoplasm of breast; Z85.038 Personal history of other malignant neoplasm of large intestine; Z98.890 Other specified postprocedural states; W06.XXXA Fall from bed, initial encounter; Y92.003 Bedroom of unspecified non-institutional (private) residence as the place of occurrence of the external cause; Z88.5 Allergy status to narcotic agent; Z88.0 Allergy status to penicillin; Z88.8 Allergy status to other drugs, medicaments and biological substances; Z83.3 Family history of diabetes mellitus; Z82.49 Family history of ischemic heart disease and other diseases of the circulatory system; Z82.0 Family history of epilepsy and other diseases of the nervous system; Z81.8 Family history of other mental and behavioral disorders
CPT/HCPCS: 36415; 70450; 71045; 71275; 72125; 80048; 80053; 82272; 83735; 83880; 84145; 84439; 84443; 84484; 85025; 85027; 85379; 85610; 85730; 86140; 87040; 87324; 87635; 93005; 93306; 94640; 94760; 96361; 96365; 96375; 99291